=== PATIENT | female | born 1955 | race Caucasian/White ===

== ENCOUNTER 2020-06-12 07:40 | Outpatient (CLI) | payer BC, SELFPAY ==
--- NOTE | ~2020-06-12 | MR_ITS ---
EXAMINATION: MR lumbar spine wo con, MR sacrum wo con DATE: 06/12/2020 09:31 INDICATION: Chronic low back and coccygeal pain. TECHNIQUE: 1. Magnetic resonance imaging (MRI) of the lumbar spine was performed without intravenous contrast. S equences included sagittal T2-weighted FSE, sagittal T2-weighted FS FSE, sagittal T1-weighted FSE, an d axial T2-weighted FSE. 2. MRI of the sacrum and coccyx was performed without intravenous contrast. Sequences included sagitt al pD-weighted FS FSE, oblique axial and oblique coronal T1-weighted FSE and T2-weighted FS FSE and obli que coronal T2-weighted FSE. COMPARISON: CT abdomen and pelvis dated 09/17/2016 FINDINGS: Mild lumbar levocurvature. Sagittal alignment is normal. Vertebral body heights are normal. Normal m arrow signal throughout the lumbar spine, sacrum, coccyx and visualized pelvis. Specifically no fract ure, reactive edema or erosions. Disc heights are normal. The conus medullaris terminates at L1. Ther e is normal signal in the caudal spinal cord. Paravertebral soft tissues are unremarkable. The uterus is not identified and has likely been surgically resected. Soft tissues surrounding the sacrum and c occyx are unremarkable. The following disc levels are specifically discussed: T12-L1: Disc is minimally bulging. There is no facet joint osteoarthritis. There is no neural foramin al stenosis. There is no central canal stenosis. L1-L2: Disc is mildly bulging. There is mild left and minimal right facet joint osteoarthritis. There is no neural foraminal stenosis. There is minimal central canal stenosis. L2-L3: The disc does not extend beyond the endplate margin. There is mild bilateral facet joint osteo arthritis. There is no neural foraminal stenosis. There is no central canal stenosis. L3-L4: Disc is mildly bulging. There is minimal bilateral facet joint osteoarthritis. There is no aleah ral foraminal stenosis. There is no central canal stenosis. L4-L5: Disc is mildly bulging. There is moderate bilateral facet joint osteoarthritis. There is mild right and moderate left neural foraminal stenosis. There is mild central canal stenosis. L5-S1: The disc does not extend beyond the endplate margin. There is moderate bilateral facet joint o steoarthritis. There is no neural foraminal stenosis. There is no central canal stenosis. IMPRESSION: 1. Mild lumbar spondylosis. No acute osseous abnormality. 2. Normal sacrum and coccyx. Reviewed, dictated and finalized at [facility] IMPRESSION: 1. Mild lumbar spondylosis. No acute osseous abnormality. 2. Normal sacrum and coccyx.
== END 2020-06-12 07:41 | disposition home or self-care (01) ==
LOC: ANHIMG 07:48
PROVIDERS: PCP Internal Medicine; Visit Provider Orthopaedic Surgery
DX: M47.896 Other spondylosis, lumbar region (principal)
CPT/HCPCS: 72148; 72195

== ENCOUNTER 2021-03-05 01:35 | Day surgery (SDC) | payer MEDICARE, SELFPAY ==
[2021-02-26 12:04] VITALS: BMI 31.0
[2021-03-05 08:35] VITALS: BP 148/89; PULSE 77; RESP 18; TEMP 36.2; O2SAT 99; BMI 31.4
[2021-03-05] MEDS: LACTATED RINGERS 1,000 ML 150 ML IV CONT (08:47)
[2021-03-05 08:49] LABS: Glucose Point of Care 194 mg/dl (65-105)
--- NOTE | 2021-03-05 09:08 | P.CONGI_ITS ---
Assessment and Plan Assessment and plan (1) Encounter for screening colonoscopy: Code(s): Z12.11 - Encounter for screening for malignant neoplasm of colon Status: Acute Assessment and Plan: Patient appears to be at average risk for colon polyps. Is been some time since last exam. Plan is for screening colonoscopy at this time. (2) GERD (gastroesophageal reflux disease): Code(s): K21.9 - Gastro-esophageal reflux disease without esophagitis Status: Acute Assessment and Plan: Patient has a history of ongoing acid reflux disease. Currently appears to be poorly responsive to omeprazole 20mg p.o. daily. Plan to increase omeprazole 20mg p.o. b.i.d.. She should continue anti-reflux measures including elevating head of bed at night no late snacks and bland foods. Plan is for follow-up EGD to be scheduled electively. GI Consult Note Consult date/time: 03/05/21 09:08 HPI: Savannah Portillo is a 66 year old female Presents for screening colonoscopy. Patient reports that her current weight appetite bowel movements are normal. She denies abdominal pain. She has had no bleeding. Her last colonoscopy was more than 10 years ago. Family history is noncontributory. Patient does have an underlying history of GE reflux disease. She takes Prilosec 20mg p.o. daily. Patient reports that she will have regurgitation f requently upon bending over. She has begun to have more significant heartburn. She denies any bleeding weight loss. Review of Systems Review of Systems: All systems reviewed & are unremarkable except as noted in HPI and below [facility] Family History Family History (Updated 01/31/16 @ 23:19 by DOCTOR UNKNOWN) Father Hypertension Mother Hypertension Family history of diabetes mellitus in first degree relative Sibling Hypertension Other Diabetes mellitus Family history of allergic disorder Family history of heart disease in male family member before age 55 Social History Social History Smoking status: Never smoker Alcohol intake: never Substance use: never Substance use type: does not use Living arrangements: with family Spiritual care concerns: No Meds Home Medications and Allergies Home Medications Medication Instructions Recorded Confirmed Type atorvastatin [Lipitor] 40 mg PO HS 02/26/21 02/26/21 History glimepiride 2 mg PO DAILY 02/26/21 02/26/21 History omeprazole magnesium [Prilosec OTC] 20 mg PO DAILY 02/26/21 02/26/21 History venlafaxine 150 mg PO DAILY 02/26/21 02/26/21 History Allergies Allergy/AdvReac Type Severity Reaction Status Date / Time No Known Allergies Allergy Verified 03/05/21 08:34 Vital Signs Vital Signs - 24 hr 03/05/21 08:35 Temperature 97.2 F L Pulse Rate 77 Respiratory Rate 18 Blood Pressure 148/89 H Pulse Oximetry 99 Exam Narrative: Physical exam reveals patient be alert. Vital signs stable. HEENT exam is unremarkable. Lungs are clear to auscultation and percussion. Heart is without murmur or extra sounds. Abdominal exam bowel sounds are present soft nontender with no organomegaly. Digital external rectal exam is normal.
--- NOTE | 2021-03-05 09:18 | WPDANESEPPF ---
Anes - Initial Pre Proc Eval Procedure: Operation Date: 03/05/21 09:15 Proposed Procedures p Screening Colonoscopy - Holden Mchugh MD Date/Time: 03/05/21 09:18 Surgeon: Holden Mchugh MD Pre Op Diagnosis: neoplasm screening Z12.11 Patient Data Age: 66 Gender: F Height: 1.57 m Weight: 78.1 kg Last Vital Signs Temp 97.2 F L 03/05/21 08:35 Pulse 77 03/05/21 08:35 Resp 18 03/05/21 08:35 BP 148/89 H 03/05/21 08:35 Pulse Ox 99 03/05/21 08:35 Allergies Allergy/AdvReac Type Severity Reaction Status Date / Time No Known Allergies Allergy Verified 03/05/21 08:34 Home Medications Medication Instructions Recorded Confirmed Type atorvastatin [Lipitor] 40 mg PO HS 02/26/21 02/26/21 History glimepiride 2 mg PO DAILY 02/26/21 02/26/21 History omeprazole magnesium [Prilosec OTC] 20 mg PO DAILY 02/26/21 02/26/21 History venlafaxine 150 mg PO DAILY 02/26/21 02/26/21 History Laboratory Tests 03/05/21 08:45 POC Capillary Glucose 194 mg/dl H mg/dl (65-105) Patient hx anesthesia problems: none Family hx anesthesia problems: none [facility] Family History Family History (Updated 01/31/16 @ 23:19 by DOCTOR UNKNOWN) Father Hypertension Mother Hypertension Family history of diabetes mellitus in first degree relative Sibling Hypertension Other Diabetes mellitus Family history of allergic disorder Family history of heart disease in male family member before age 55 Social History Social History Smoking status: Never smoker Alcohol intake: never Substance use: never Substance use type: does not use Living arrangements: with family Spiritual care concerns: No Anes - Eval Final PreProcedure Day of Procedure 03/05/21 09:18 Patient weight: obese Heart: regular rate and rhythm Lungs: clear to auscultation Airway: Mallampati scale class II Neurological: alert and oriented Last oral intake: >/= 8 hours ASA classification: III Emergent: no Anesthetic plan: proceed Anesthesia type and monitoring: general GIVS and standard monitoring Informed Consent: The patient's anesthetic plan and its attendant risks and benefits were discussed with the patient/family/POA. Questions were solicited and answers provided to the satisfaction of the patient/family/POA.
[2021-03-05 09:41] VITALS: BP 144/84; PULSE 76; RESP 18; O2SAT 97
[2021-03-05 09:51] VITALS: BP 140/86; PULSE 66; RESP 18; O2SAT 98
[2021-03-05 10:01] VITALS: BP 145/87; PULSE 66; RESP 18; O2SAT 100
== END 2021-03-05 11:20 | disposition home or self-care (01) ==
PROVIDERS: PCP Physician Assistant; Visit Provider Internal Medicine Gastroenterology
PROC: 0DJD8ZZ Inspection of Lower Intestinal Tract, Via Natural or Artificial Opening Endoscopic (ICD-10-PCS; CPT 45378; principal; 2021-03-05 09:15)
DX: Z12.11 Encounter for screening for malignant neoplasm of colon (principal); K57.30 Diverticulosis of large intestine without perforation or abscess without bleeding; K21.9 Gastro-esophageal reflux disease without esophagitis; Z79.84 Long term (current) use of oral hypoglycemic drugs; E66.9 Obesity, unspecified; Z68.31 Body mass index [BMI] 31.0-31.9, adult
CPT/HCPCS: G0121; 82948; J2704; J7120

== ENCOUNTER 2021-04-23 01:02 | Day surgery (SDC) | payer MEDICARE, SELFPAY ==
[2021-04-09 11:42] VITALS: BMI 31.1
--- NOTE | 2021-04-22 10:13 | WPDANESEPPF ---
Anes - Initial Pre Proc Eval Procedure: Operation Date: 04/23/21 09:30 Proposed Procedures p Esophagogastroduodenoscopy - Holden Mchugh MD Date/Time: 04/22/21 10:13 Surgeon: Holden Mchugh MD Pre Op Diagnosis: GERD Patient Data Age: 66 Gender: F Height: 1.57 m Weight: 77.2 kg Allergies Allergy/AdvReac Type Severity Reaction Status Date / Time No Known Allergies Allergy Verified 04/23/21 08:52 Home Medications Medication Instructions Recorded Confirmed Type atorvastatin [Lipitor] 40 mg PO HS 02/26/21 04/23/21 History glimepiride 2 mg PO DAILY 02/26/21 04/23/21 History omeprazole magnesium [Prilosec OTC] 20 mg PO DAILY 02/26/21 04/23/21 History venlafaxine 150 mg PO DAILY 02/26/21 04/23/21 History Patient hx anesthesia problems: none Family hx anesthesia problems: none Results Review: All pre-operative results and documents have been reviewed as part of the pre-operative evaluation. [facility] Past Medical History Medical History (Updated 04/22/21 @ 10:14 by Uli Ward DO) Anxiety Depression Diabetes type 2, controlled GERD (gastroesophageal reflux disease) Hyperlipidemia PONV (postoperative nausea and vomiting) Surgical History Surgical History (Updated 04/22/21 @ 10:14 by Uli Ward DO) History of appendectomy History of cholecystectomy History of hysterectomy Family History Family History (Updated 01/31/16 @ 23:19 by DOCTOR UNKNOWN) Father Hypertension Mother Hypertension Family history of diabetes mellitus in first degree relative Sibling Hypertension Other Diabetes mellitus Family history of allergic disorder Family history of heart disease in male family member before age 55 Social History Social History Smoking status: Never smoker Alcohol intake: never Substance use: never Substance use type: does not use Living arrangements: with family Additional living arrangements comments: lives with spouse Spiritual care concerns: No Anes - Eval Final PreProcedure Day of Procedure 04/22/21 10:13 Patient weight: obese Heart: regular rate and rhythm Lungs: clear to auscultation and normal air movement Airway: Mallampati scale class II Neurological: alert and oriented Last oral intake: >/= 8 hours ASA classification: III Emergent: no Anesthetic plan: proceed Anesthesia type and monitoring: general GIVS and standard monitoring Results Review: All pre-operative results and documents have been reviewed as part of the pre-operative evaluation. Informed Consent: The patient's anesthetic plan and its attendant risks and benefits were discussed with the patient/family/POA. Questions were solicited and answers provided to the satisfaction of the patient/family/POA.
[2021-04-23 08:52] LABS: Glucose Point of Care 131 mg/dl (65-105)
[2021-04-23 08:54] VITALS: BP 153/78; PULSE 64; RESP 16; TEMP 36.5; O2SAT 100
[2021-04-23] MEDS: LACTATED RINGERS 1,000 ML 150 ML IV CONT (08:56)
--- NOTE | 2021-04-23 09:27 | WPDGICN ---
Assessment and Plan Assessment and plan (1) GERD (gastroesophageal reflux disease): Code(s): K21.9 - Gastro-esophageal reflux disease without esophagitis Status: Acute Assessment and Plan: Patient with chronic GE reflux disease poorly responsive to omeprazole 20mg p.o. daily. Plan is for EGD to assess more thoroughly today. Further recommendations will be given after endoscopy. GI Consult Note Consult date/time: 04/23/21 09:27 HPI: Savannah Portillo is a 66 year old female Presents for EGD. Patient has a history of chronic GE reflux disease. Previously on pantoprazole. This was discontinued by her insurance company. She has been on omeprazole 20mg p.o. daily but has ongoing symptoms. She states pain will occur in the upper abdominal and left abdomen after eating. Typically pain is burning sometimes aching. Most often this occurs after eating. This has persisted despite medications along with anti-reflux measures that include elevating head of bed at night. She denies any bleeding or dysphagia. She presents today for EGD because of chronic GE reflux and ongoing symptoms. Review of Systems Review of Systems: All systems reviewed & are unremarkable except as noted in HPI and below [facility] Past Medical History Medical History (Updated 04/22/21 @ 10:14 by Uli Ward DO) Anxiety Depression Diabetes type 2, controlled GERD (gastroesophageal reflux disease) Hyperlipidemia PONV (postoperative nausea and vomiting) Surgical History Surgical History (Updated 04/22/21 @ 10:14 by Uli Ward DO) History of appendectomy History of cholecystectomy History of hysterectomy Family History Family History (Updated 01/31/16 @ 23:19 by DOCTOR UNKNOWN) Father Hypertension Mother Hypertension Family history of diabetes mellitus in first degree relative Sibling Hypertension Other Diabetes mellitus Family history of allergic disorder Family history of heart disease in male family member before age 55 Social History Social History Smoking status: Never smoker Alcohol intake: never Substance use: never Substance use type: does not use Living arrangements: with family Additional living arrangements comments: lives with spouse Spiritual care concerns: No Meds Home Medications and Allergies Home Medications Medication Instructions Recorded Confirmed Type atorvastatin [Lipitor] 40 mg PO HS 02/26/21 04/23/21 History glimepiride 2 mg PO DAILY 02/26/21 04/23/21 History omeprazole magnesium [Prilosec OTC] 20 mg PO DAILY 02/26/21 04/23/21 History venlafaxine 150 mg PO DAILY 02/26/21 04/23/21 History Allergies Allergy/AdvReac Type Severity Reaction Status Date / Time No Known Allergies Allergy Verified 04/23/21 08:52 Vital Signs Vital Signs - 24 hr 04/23/21 08:54 Temperature 97.7 F Pulse Rate 64 Respiratory Rate 16 Blood Pressure 153/78 H Pulse Oximetry 100 Exam Narrative: Physical exam reveals patient to be alert. Vital signs stable. HEENT exam is unremarkable. Patient is anicteric. Lungs are clear to auscultation and percussion. Heart is without murmur or extra sounds. Abdominal exam bowel sounds are present soft nontender with no organomegaly. Digital external rectal exam is normal.
[2021-04-23 09:45] VITALS: BP 159/90; PULSE 81; RESP 20; O2SAT 100
[2021-04-23 09:55] VITALS: BP 155/93; PULSE 74; RESP 20; O2SAT 100
[2021-04-23 10:05] VITALS: BP 165/79; PULSE 68; RESP 17; O2SAT 98
== END 2021-04-23 10:17 | disposition home or self-care (01) ==
PROVIDERS: PCP Physician Assistant; Visit Provider Internal Medicine Gastroenterology
PROC: 0DJ08ZZ Inspection of Upper Intestinal Tract, Via Natural or Artificial Opening Endoscopic (ICD-10-PCS; CPT 43235; principal; 2021-04-23 09:30)
DX: K25.3 Acute gastric ulcer without hemorrhage or perforation (principal); K29.50 Unspecified chronic gastritis without bleeding; K21.9 Gastro-esophageal reflux disease without esophagitis; E11.9 Type 2 diabetes mellitus without complications; E78.5 Hyperlipidemia, unspecified; F41.8 Other specified anxiety disorders; E66.9 Obesity, unspecified; Z68.32 Body mass index [BMI] 32.0-32.9, adult
CPT/HCPCS: 43239; 82948; 88305; 88342; J2001; J2704; J7120

== ENCOUNTER 2021-07-02 00:55 | Day surgery (SDC) | payer MEDICARE, SELFPAY ==
[2021-06-18 11:20] VITALS: BMI 31.6
[2021-07-02 08:29] VITALS: BP 156/83; PULSE 75; RESP 18; TEMP 36.3; O2SAT 98
[2021-07-02 08:29] LABS: Glucose Point of Care 135 mg/dl (65-105)
[2021-07-02] MEDS: LACTATED RINGERS 1,000 ML 150 ML IV CONT (08:31)
--- NOTE | 2021-07-02 09:05 | WPDGICN ---
Assessment and Plan Assessment and plan (1) Gastric ulcer: Code(s): K25.9 - Gastric ulcer, unspecified as acute or chronic, without hemorrhage or perforation Status: Acute Assessment and Plan: Patient was found to have gastric ulcer 2 months ago. She presents today to document healing. Currently on omeprazole 40mg p.o. b.i.d.. Anti-reflux measures should continue. Further recommendations after endoscopy. Continue to avoid NSAIDs. (2) GERD (gastroesophageal reflux disease): Code(s): K21.9 - Gastro-esophageal reflux disease without esophagitis Status: Acute Assessment and Plan: Patient with chronic GE reflux. Continue anti-reflux measures and PPI as scheduled. GI Consult Note Consult date/time: 07/02/21 09:05 HPI: Savannah Portillo is a 66 year old female Presents for EGD. Patient identified as having a gastric ulcer 2 months ago. She currently is maintained on omeprazole 40mg p.o. b.i.d.. She currently denies any heartburn. She has no abdominal discomfort. She is tolerating the mouth medicine well. In the past was previously felt to have acid reflux. Has had no recent heartburn. Review of Systems Review of Systems: All systems reviewed & are unremarkable except as noted in HPI and below [facility] Past Medical History Medical History (Updated 07/02/21 @ 09:06 by Holden Mchugh MD) Anxiety Depression Diabetes type 2, controlled GERD (gastroesophageal reflux disease) Hyperlipidemia PONV (postoperative nausea and vomiting) Surgical History Surgical History (Updated 04/22/21 @ 10:14 by Uli Ward DO) History of appendectomy History of cholecystectomy History of hysterectomy Family History Family History (Updated 01/31/16 @ 23:19 by DOCTOR UNKNOWN) Father Hypertension Mother Hypertension Family history of diabetes mellitus in first degree relative Sibling Hypertension Other Diabetes mellitus Family history of allergic disorder Family history of heart disease in male family member before age 55 Social History Social History Smoking status: Never smoker Alcohol intake: never Substance use: never Substance use type: does not use Living arrangements: with family Additional living arrangements comments: lives with spouse Spiritual care concerns: No Meds Home Medications and Allergies Home Medications Medication Instructions Recorded Confirmed Type atorvastatin [Lipitor] 40 mg PO HS 02/26/21 07/02/21 History glimepiride 2 mg PO DAILY 02/26/21 07/02/21 History omeprazole magnesium [Prilosec OTC] 20 mg PO DAILY 02/26/21 07/02/21 History venlafaxine 150 mg PO DAILY 02/26/21 07/02/21 History Allergies Allergy/AdvReac Type Severity Reaction Status Date / Time No Known Allergies Allergy Verified 07/02/21 08:28 Vital Signs Vital Signs - 24 hr 07/02/21 08:29 Temperature 97.4 F L Pulse Rate 75 Respiratory Rate 18 Blood Pressure 156/83 H Pulse Oximetry 98 Exam Narrative: Physical exam reveals patient to be alert. Vital signs stable. HEENT exam is unremarkable. Patient is anicteric. Lungs are clear to auscultation and to percussion. Heart is without murmur or extra sounds. Abdominal exam bowel sounds are present soft nontender with no hepatosplenomegaly. Digital external rectal exam is normal.
--- NOTE | 2021-07-02 09:17 | P.PNAN_ITS ---
Anes - Initial Pre Proc Eval Procedure: Operation Date: 07/02/21 09:30 Proposed Procedures p Esophagogastroduodenoscopy - Holden Mchugh MD Date/Time: 07/02/21 09:17 Surgeon: Holden Mchugh MD Pre Op Diagnosis: epigastric pain Patient Data Age: 66 Gender: F Height: 1.56 m Weight: 77.6 kg Last Vital Signs Temp 36.3 C L 07/02/21 08:29 Pulse 75 07/02/21 08:29 Resp 18 07/02/21 08:29 BP 156/83 H 07/02/21 08:29 Pulse Ox 98 07/02/21 08:29 Allergies Allergy/AdvReac Type Severity Reaction Status Date / Time No Known Allergies Allergy Verified 07/02/21 08:28 Home Medications Medication Instructions Recorded Confirmed Type atorvastatin [Lipitor] 40 mg PO HS 02/26/21 07/02/21 History glimepiride 2 mg PO DAILY 02/26/21 07/02/21 History omeprazole magnesium [Prilosec OTC] 20 mg PO DAILY 02/26/21 07/02/21 History venlafaxine 150 mg PO DAILY 02/26/21 07/02/21 History Laboratory Tests 07/02/21 08:24 POC Capillary Glucose 135 mg/dl H mg/dl (65-105) Patient hx anesthesia problems: none Family hx anesthesia problems: none Results Review: All pre-operative results and documents have been reviewed as part of the pre-operative evaluation. [facility] Past Medical History Medical History Anxiety Depression Diabetes type 2, controlled GERD (gastroesophageal reflux disease) Hyperlipidemia PONV (postoperative nausea and vomiting) Surgical History Surgical History History of appendectomy History of cholecystectomy History of hysterectomy Family History Family History Father Hypertension Mother Hypertension Family history of diabetes mellitus in first degree relative Sibling Hypertension Other Diabetes mellitus Family history of allergic disorder Family history of heart disease in male family member before age 55 Social History Social History Smoking status: Never smoker Alcohol intake: never Substance use: never Substance use type: does not use Living arrangements: with family Additional living arrangements comments: lives with spouse Spiritual care concerns: No Anes - Eval Final PreProcedure Day of Procedure 07/02/21 09:17 Patient weight: obese Heart: regular rate and rhythm Lungs: clear to auscultation Airway: Mallampati scale class II Neurological: alert and oriented Last oral intake: >/= 8 hours ASA classification: III Emergent: no Anesthetic plan: proceed Anesthesia type and monitoring: general GIVS and standard monitoring Results Review: All pre-operative results and documents have been reviewed as part of the pre-operative evaluation. Informed Consent: The patient's anesthetic plan and its attendant risks and benefits were discussed with the patient/family/POA. Questions were solicited and answers provided to the satisfaction of the patient/family/POA.
[2021-07-02 10:07] VITALS: BP 147/82; PULSE 73; RESP 22; O2SAT 100
[2021-07-02 10:17] VITALS: BP 160/87; PULSE 65; RESP 22; O2SAT 100
[2021-07-02 10:27] VITALS: BP 157/90; PULSE 61; RESP 13; O2SAT 100
== END 2021-07-02 10:40 | disposition home or self-care (01) ==
PROVIDERS: PCP Physician Assistant; Visit Provider Internal Medicine Gastroenterology
PROC: 0DJ08ZZ Inspection of Upper Intestinal Tract, Via Natural or Artificial Opening Endoscopic (ICD-10-PCS; CPT 43235; principal; 2021-07-02 09:30)
DX: K25.3 Acute gastric ulcer without hemorrhage or perforation (principal); K29.50 Unspecified chronic gastritis without bleeding; K21.9 Gastro-esophageal reflux disease without esophagitis; E11.9 Type 2 diabetes mellitus without complications; E78.5 Hyperlipidemia, unspecified; F41.9 Anxiety disorder, unspecified; F32.A Depression, unspecified; Z90.49 Acquired absence of other specified parts of digestive tract
CPT/HCPCS: 43239; 82948; 87081; 88305; 88342; J2704; J7120

== ENCOUNTER 2021-10-20 00:28 | Day surgery (SDC) | payer MEDICARE, SELFPAY ==
[2021-10-06 09:01] VITALS: BMI 31.0
[2021-10-20 09:25] VITALS: BP 163/76; PULSE 64; RESP 20; TEMP 36.5; O2SAT 97; BMI 31.6
--- NOTE | 2021-10-20 09:37 | WPDGICN ---
Assessment and Plan Assessment and plan (1) Gastric ulcer: Code(s): K25.9 - Gastric ulcer, unspecified as acute or chronic, without hemorrhage or perforation Status: Acute Assessment and Plan: patient has a history of a poorly healing gastric ulcer. Patient presents today for follow-up EGD to document healing. She has been maintained on Prilosec the dose of which is somewhat uncertain she has been avoiding NSAIDs. Previous use of Carafate apparently has been discontinued. Further recommendations will be given after endoscopy. GI Consult Note Consult date/time: 10/20/21 09:37 HPI: Savannah Portillo is a 66 year old female Presents for EGD. She has a history of a poorly healing gastric ulcer. Most recent EGD in June revealed that the ulcer persisted. Since that time she has been maintained on pantoprazole 40mg p.o. daily supplement with Carafate 1g p.o. q.i.d.. She currently denies any pain. She has had no bleeding. She has been avoiding NSAIDs. She presents today for follow-up EGD. To document healing. Review of Systems Review of Systems: All systems reviewed & are unremarkable except as noted in HPI and below [facility] Past Medical History Medical History Anxiety Depression Diabetes type 2, controlled GERD (gastroesophageal reflux disease) Hyperlipidemia PONV (postoperative nausea and vomiting) Surgical History Surgical History History of appendectomy History of cholecystectomy History of hysterectomy Family History Family History Father Hypertension Mother Hypertension Family history of diabetes mellitus in first degree relative Sibling Hypertension Other Diabetes mellitus Family history of allergic disorder Family history of heart disease in male family member before age 55 Social History Social History Smoking status: Never smoker Alcohol intake: never Substance use: never Substance use type: does not use Living arrangements: with family Additional living arrangements comments: lives with spouse Spiritual care concerns: No Meds Home Medications and Allergies Home Medications Medication Instructions Recorded Confirmed Type atorvastatin [Lipitor] 40 mg PO HS 02/26/21 10/06/21 History glimepiride 2 mg PO BID 02/26/21 10/06/21 History omeprazole magnesium [Prilosec OTC] 20 mg PO DAILY 02/26/21 10/06/21 History venlafaxine 150 mg PO DAILY 02/26/21 10/06/21 History Allergies Allergy/AdvReac Type Severity Reaction Status Date / Time No Known Allergies Allergy Verified 10/20/21 09:24 Vital Signs Vital Signs - 24 hr 10/20/21 09:25 Temperature 97.7 F Pulse Rate 64 Respiratory Rate 20 Blood Pressure 163/76 H Pulse Oximetry 97 Exam Narrative: physical exam reveals patient to be alert. Vital signs stable. HEENT exam is unremarkable. Patient is anicteric. Lungs are clear to auscultation and percussion. Heart is without murmur or extra sounds. Abdomen bowel sounds are present soft nontender with no organomegaly.
[2021-10-20] MEDS: LACTATED RINGERS 1,000 ML 150 ML IV CONT (09:44)
[2021-10-20 09:49] LABS: Glucose Point of Care 147 mg/dl (65-105)
--- NOTE | 2021-10-20 09:55 | P.PNAN_ITS ---
Anes - Initial Pre Proc Eval Procedure: Operation Date: 10/20/21 10:00 Proposed Procedures p Esophagogastroduodenoscopy - Holden Mchugh MD Date/Time: 10/20/21 09:55 Surgeon: Holden Mchugh MD Pre Op Diagnosis: gastric ulcer Patient Data Age: 66 Gender: F Height: 1.57 m Weight: 78.6 kg Last Vital Signs Temp 36.5 C 10/20/21 09:25 Pulse 64 10/20/21 09:25 Resp 20 10/20/21 09:25 BP 163/76 H 10/20/21 09:25 Pulse Ox 97 10/20/21 09:25 Allergies Allergy/AdvReac Type Severity Reaction Status Date / Time No Known Allergies Allergy Verified 10/20/21 09:24 Home Medications Medication Instructions Recorded Confirmed Type atorvastatin [Lipitor] 40 mg PO HS 02/26/21 10/06/21 History glimepiride 2 mg PO BID 02/26/21 10/06/21 History omeprazole magnesium [Prilosec OTC] 20 mg PO DAILY 02/26/21 10/06/21 History venlafaxine 150 mg PO DAILY 02/26/21 10/06/21 History Laboratory Tests 10/20/21 09:43 POC Capillary Glucose 147 mg/dl H mg/dl (65-105) Patient hx anesthesia problems: none Family hx anesthesia problems: none Results Review: All pre-operative results and documents have been reviewed as part of the pre-operative evaluation. [facility] Past Medical History Medical History Anxiety Depression Diabetes type 2, controlled GERD (gastroesophageal reflux disease) Hyperlipidemia PONV (postoperative nausea and vomiting) Surgical History Surgical History History of appendectomy History of cholecystectomy History of hysterectomy Family History Family History Father Hypertension Mother Hypertension Family history of diabetes mellitus in first degree relative Sibling Hypertension Other Diabetes mellitus Family history of allergic disorder Family history of heart disease in male family member before age 55 Social History Social History Smoking status: Never smoker Alcohol intake: never Substance use: never Substance use type: does not use Living arrangements: with family Additional living arrangements comments: lives with spouse Spiritual care concerns: No Anes - Eval Final PreProcedure Day of Procedure 10/20/21 09:55 Patient weight: obese Heart: regular rate and rhythm Lungs: clear to auscultation Airway: Mallampati scale class II Neurological: alert and oriented Last oral intake: >/= 8 hours ASA classification: III Emergent: no Anesthetic plan: proceed Anesthesia type and monitoring: general GIVS and standard monitoring Results Review: All pre-operative results and documents have been reviewed as part of the pre-operative evaluation. Informed Consent: The patient's anesthetic plan and its attendant risks and benefits were discussed with the patient/family/POA. Questions were solicited and answers provided to the satisfaction of the patient/family/POA.
--- NOTE | 2021-10-20 09:59 | PC.NURSE ---
pt has brace to R wrist from previous surgery. 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
[2021-10-20 10:21] VITALS: BP 134/80; PULSE 71; RESP 20; O2SAT 97
[2021-10-20 10:31] VITALS: BP 154/78; PULSE 65; RESP 20; O2SAT 98
[2021-10-20 10:41] VITALS: BP 153/89; PULSE 66; RESP 22; O2SAT 98
== END 2021-10-20 10:48 | disposition home or self-care (01) ==
PROVIDERS: PCP Physician Assistant; Visit Provider Internal Medicine Gastroenterology
PROC: 0DJ08ZZ Inspection of Upper Intestinal Tract, Via Natural or Artificial Opening Endoscopic (ICD-10-PCS; CPT 43235; principal; 2021-10-20 10:00)
DX: K25.3 Acute gastric ulcer without hemorrhage or perforation (principal); K21.9 Gastro-esophageal reflux disease without esophagitis; E11.9 Type 2 diabetes mellitus without complications; E78.5 Hyperlipidemia, unspecified; F41.8 Other specified anxiety disorders; Z79.84 Long term (current) use of oral hypoglycemic drugs; E66.9 Obesity, unspecified; Z68.31 Body mass index [BMI] 31.0-31.9, adult
CPT/HCPCS: 43239; 82948; 87081; 88305; 88342; J2704; J7120

== ENCOUNTER 2024-06-11 09:19 | Outpatient (CLI) | payer MEDICARE, SELFPAY ==
--- NOTE | ~2024-06-11 | MR_ITS ---
MRI of the right shoulder Technique: Axial proton-density fat-sat images, coronal proton density fat-sat and T2 fat-sat images, and sagittal T1-weighted and T2 fat-sat images were acquired. Clinical History: Pain Findings: There is mild AC joint degenerative change. Coracoclavicular, coracoacromial, and coracohum eral ligaments are intact. Supraspinatus and infraspinatus tendons are intact, without partial or full-thickness tear. There is moderate to advanced tendinosis. Subscapularis tendon is intact, with mild tendinosis. Tendon of the long head of the biceps is intact. No labral tear evident. Inferior glenohumeral ligament is intact. No degenerative change or effusion of the glenohumeral join t. There is mild fluid distention of the subacromial/subdeltoid bursa. No muscle atrophy or edema. Impression: Rotator cuff tendinosis without partial or full-thickness tear. Subacromial/subdeltoid bursitis. Mild AC joint degenerative change. Reviewed, dictated and finalized at [facility]. RONMENTAL COMPLIANCE SPECIALIST Impression: Rotator cuff tendinosis without partial or full-thickness tear. Subacromial/subdeltoid bursitis. Mild AC joint degenerative change.
== END 2024-06-11 09:20 | disposition home or self-care (01) ==
PROVIDERS: PCP Physician Assistant; Visit Provider Orthopaedic Surgery
DX: M19.011 Primary osteoarthritis, right shoulder (principal)
CPT/HCPCS: 73221

== ENCOUNTER 2024-08-29 12:55 | Outpatient (CLI) | payer MEDICARE, SELFPAY ==
--- NOTE | ~2024-08-29 | XR_ITS ---
EXAMINATION: XR lg joint inject/asp w image DATE: 08/29/2024 14:25 INDICATION: Right shoulder pain. TECHNIQUE: A time-out was performed to verify the patient's name, date of , and procedure to b e performed. The procedure including the risks, benefits, and alternatives was discussed with the pat ient. Risks discussed included bleeding and infection. The patient understood the risks and agreed to proceed. The skin overlying the right glenohumeral joint was prepped and draped in usual sterile fa shion. Anesthetic was administered with 1% lidocaine subcutaneously. A 22 G needle was advanced und er fluoroscopic guidance into the joint. Subsequently, injectate consisting of 4 mL 1% lidocaine and 1 mL 80 mg/mL Depo-Medrol was instilled. The needle was removed and the entry site was cleaned and dressed. There were no immediate complications. Fluoroscopy exposure time was 0.1 minutes. The total number of images was 1. FINDINGS: Real-time fluoroscopy demonstrates the needle in the right glenohumeral joint. Patient's pa in prior to procedure:11/11. Patient's pain following the procedure: 09/11. IMPRESSION: 1. Fluoroscopy guided right glenohumeral joint injection of local anesthetic and steroid with decreas e in the patient's presenting pain. Reviewed, dictated and finalized at location A. [facility] [employer]SPORTATION IMPRESSION: 1. Fluoroscopy guided right glenohumeral joint injection of local anesthetic an d steroid with decrease in the patient's presenting pain.
--- OUTSIDE RECORDS SUMMARY | 2024-08-29 14:37 | XMS_ITS | Patient Health Summary ---
Author Organization [facility] Address [address] [place] [address] Care Team Providers Care Fern Gatherer Name Role Phone Manisha Mann MD Primary Care Provider [phone] Note from [facility],non-owned Affiliates and Associated Physician Practices is amultiple site organization consisting of ambulatory clinics and hospital sitesin [place], [place], [place] and [place]. This disclosure is being madepursuant to the Care Everywhere program and may not contain all information available regarding this patient. Last updated 18.[facility] Social History Tobacco Use Types Packs/Day Years Used Date Smoking Tobacco: Never Assessed Sex and Gender Information Value Date Recorded Sex Assigned at Not on file Gender Identity Not on file Sexual Orientation Not on file Procedures * DERMATOPATHOLOGY(Performed 06/02/2023) * DERMATOPATHOLOGY(Performed 05/18/2022) Results * DERMATOPATHOLOGY (06/02/2023 2:26 PM BUILDING EQUIPMENT OPERATOR) Only the most recent of2 resultswithin the time period is included. Case Report Dermatopathology Report Case: [id number] Authorizing Provider: Angeli Basurto DO Collected: 06/02/2023 02:26 PM Ordering Location: [facility] DermPath Lab Received: 06/03/2023 01:12 PM Pathologist: Sofia Salazar MD Specimens: A) - Skin, right cheek B) - Skin, right low back 12:59 PM BUILDING EQUIPMENT OPERATOR DERMATOPATHOLOGY LABORATORY Final Diagnosis Specimen A. SKIN, right cheek: BASAL CELL CARCINOMA, NODULAR TYPE (C44.319) Specimen B. SKIN, right low back: NEUROFIBROMA, SUPERFICIAL PORTIONS OF (D36.10) (see microscopic description) 12:59 PM BUILDING EQUIPMENT OPERATOR DERMATOPATHOLOGY LABORATORY Clinical History A-B: R/O NMSC 3 12:59 PM [facility] DERMATOPATHOLOGY LABORATORY Gross Description Specimen A: Received is one formalin filled container labeled with the patient's name and designated right cheek. The specimen consists of a(2) pieces shave biopsy measuring 5x2x1, 4x2x1 mm. Jar 0. Specimen B: Received is one formalin filled container labeled with the patient's name and designated right low back. The specimen consists of a shave biopsy measuring 3x2x1 mm. Jar 0. 3 12:59 PM [facility] DERMATOPATHOLOGY LABORATORY Microscopic Description Specimen A. SKIN, right cheek: Within the dermis there are aggregates of basaloid cells with a high nuclear to cytoplasmic ratio and peripheral palisading. Specimen B. SKIN, right low back: Sections show superficial portions of a proliferation of spindled and S-shaped cells within the dermis. The stromal collagen is delicate and pale. Additional deeper sections were obtained and reviewed. 3 12:59 PM [facility] DERMATOPATHOLOGY LABORATORY Disclaimer An external and internal positive and negative controls are appropriate for the histochemical, immunohistochemical and immunofluorescence stain(s) in this case (if any), except where stated explicitly. The performance characteristics of the stain(s) cited in this report were developed and its performance characteristic determined by the Dermatopathology Laboratory at [facility], directed by Dr. Daniel Ahuja. These tests need not be, and therefore are not, approved by the [place] Food and Drug Administration. The tests are used for clinical purposes. Billing Codes Specimen Charges Stain Charges 74000 75908 1 1 3 12:59 PM [facility] DERMATOPATHOLOGY LABORATORY Embedded Images 3 12:59 PM [facility] DERMATOPATHOLOGY LABORATORY Pathology/Cytology TISSUE SPECIMEN FROM SKIN / Unknown 06/02/2023 2:26 PM BUILDING EQUIPMENT OPERATOR 06/03/2023 1:12 PM BUILDING EQUIPMENT OPERATOR Miscellaneous samples (specimen) TISSUE SPECIMEN FROM SKIN / Unknown 06/02/2023 2:26 PM BUILDING EQUIPMENT OPERATOR 06/03/2023 1:12 PM BUILDING EQUIPMENT OPERATOR Angeli Basurto DO LAB - PATHOLOGY/C YTOLOGY ORDERABLES DERMATOPATHOLOGY LABORATORY [facility] - Department of Dermatology [facility] [address] [place] [address], [facility] [phone] Care Teams Fern Gatherer Relationship Specialty Start Date End Date Manisha Mann MD [address] [place] [address] [phone] PCP - General 04/24/21
--- OUTSIDE RECORDS SUMMARY | 2024-08-29 14:37 | XMS_ITS | Clinical Summary ---
Author Organization [facility] Address [address] [place] [address] Care Team Providers Care Chief Estimator Name Role Phone Manisha Mann MD Primary Care Provider Source Comments [facility],non-owned Affiliates and Associated Physician Practices is amultiple site organization consisting of ambulatory clinics and hospital sitesin [place], [place], [place] and [place]. This disclosure is being madepursuant to the Care Everywhere program and may not contain all information available regarding this patient. Last updated 18.[facility] Datappraise Social History Tobacco Use Types Packs/Day Years Used Date Smoking Tobacco: Never Assessed Sex and Gender Information Value Date Recorded Sex Assigned at Not on file Gender Identity Not on file Sexual Orientation Not on file Plan of Treatment Health Maintenance Due Date Last Done Comments BONE DENSITY TESTING 1955 COLOGUARD (AGES 45-75) - COL ON CA SCREENING 1956 COLON MONITORING 1956 COLONOSCOPY - COLON CA SCREENING 1956 CT COLONOGRAPHY - COLON CA SCREENING 1956 Colorectal Cancer Screening 1956 FIT - COLON CA SCREENING 1956 FLEX SIG - COLON CA SCREENING 1956 LIPID TESTING 1956 MAMMOGRAM 1956 HEPATITIS C SCREENING 12/27/1973 DTAP/TDAP/TD VACCINES (1 - Tdap) 12/31/1974 PNEUMOCOCCAL VACCINE 50+ (1 of 1 - PCV) 12/31/2005 ZOSTER VACCINE (1 of 2) 12/31/2005 COVID-19 VACCINE ( - 2023-2 5 season) 2024 INFLUENZA VACCINE (#1) 2024 DEPRESSION SCREENING 07/05/2024 MEDICARE AWV CALENDAR YEAR 2024 Respiratory Syncytial Virus (RSV) Vaccine Pt: or over 60 yrs (1 - 1-dose 75+ series) 12/31/2030 HEPATITIS B VACCINE Aged Out No longe r eligible based on patient's age to complete this topic HIB VACCINE Aged Out No longer eligi ble based on patient's age to complete this topic HPV VACCINE Aged Out No longer eligi ble based on patient's age to complete this topic MENINGOCOCCAL (Group B) VACCINE Aged Out No longer eligible based on patient's age to complete this topic MENINGOCOCCAL VACCINE Aged Out No gilles sofia eligible based on patient's age to complete this topic Care Teams Chief Estimator Relationship Specialty Start Date End Date Manisha Mann MD [address] [place] [address] [phone] PCP - General 04/24/21
--- OUTSIDE RECORDS SUMMARY | 2024-08-29 14:37 | XMS_ITS | Data Portability ---
Author Organization [facility] ROXIELiz Price Address [address] [place] [address] Care Team Providers Care Credit Collections Clerk Name Role Phone BRITTNEY STEVENSON Primary Care Provider Unavailab le Assessment No assessment recorded. Plan of Treatment Reminders Order Date Submit Date Provider Last Modified By Organization Details Last Modified Time Details Appointments ANY 15 2024 10:30A M MARY Hernandez Not available Not available Not available Lab BMP, serum or plasma [address] [facility], [address], [place], [address], 06/22/2024 11:02:27 CBC w/ auto diff [address] [facility], [address], [place], [address], 06/22/2024 11:02:27 hepatic function panel, serum [address] [facility], [address], [place], [address], 06/22/2024 11:02:27 HbA1c (hemoglob in A1c), blood [address] Lab, [address], [place], [address], 06/22/2024 11:02:27 lipid panel, serum 2023 025 [email or web address] [facility] Lab, [address], [place], [address], 06/22/2024 11:02:27 BMP, serum or plasma 2023 024 [facility] Lab, [address], [place], [address], 06/19/2024 10:10:05 CBC w/ auto diff 2023 024 [facility] Lab, [address], [place], [address], 06/19/2024 10:15:11 hepatic function panel, serum 2023 024 [facility] Lab, [address], [place], [address], 06/19/2024 10:10:58 HbA1c (hemoglob in A1c), blood 2023 024 [facility] [place] Lab, [address], [place], [address], 06/19/2024 10:32:01 microalbu min, urine 2023 024 [facility] Lab, [address], [place], [address], 06/19/2024 12:46:44 lipid panel, serum 2023 024 [facility] Lab, [address], [place], [address], 06/19/2024 10:09:24 Referral None recorded. Procedures None recorded. Surgeries None recorded. Imaging None recorded. Medication Orders Trulicity 4.5 mg/0.5 mL subcutane ous pen injector 2023 024 [facility], [address], [place], [address], 06/22/2024 11:03:03 Trulicity 3 mg/0.5 mL subcutane ous pen injector [address] [facility], [address], [place], [address], 01/09/2024 10:47:46 Patient TargetsNo targets recorded. Patient Instructions Encounter Date Encounter Id Patient Instructions Last Modified By Organization Details Last Modified Time 06/22/2024 [id number] A healthy lifestyle: care instructions [place] [id number] Not available 06/22/2024 11:02:27 Reason for Referral None Reported. Results Created Date Observation Date Name Description Value Unit Range Abnormal Flag Note LastModifiedBy Organization Detail LastModifiedTime 06/12/2006/11/2024 MRI, shoul angel, w/o contr ast No observ ation record ed. [email or web address] [facility] [address], [place], [address], 06/12/2024 09:57:05 06/20/20 24 06/20/2024 MAMMO , scree randy, digit al, bilat eral No observ ation record ed. [address] [address] [place], [address], 06/22/2024 10:48:07 Result Notes None recorded. Problems Name Problem SNOMED Code Status Onset Date Resolution Date Notes Provider Name and Address Organization Details Recorded Time Type 2 diabetes mellitus without complicatio n 632639098 Active 2023 MARY Hernandez Attn: Ernesto vargas,[address] [facility], [place], [address], [facility] 10:53:30 Gastroesoph ageal reflux disease without esophagitis 107683132 Active 2023 MARY Hernandez Attn: Accountmikey g,[address] [facility], [place], [address], [facility] 4 10:53:31 Hyperlipide loren 74895418 Active 2023 MARY Hernandez Attn: Ernesto vargas,[address] [facility], [place], [address], [facility] 4 10:53:31 Mixed anxiety and depressive disorder 251395696 Active 2023 MARY Hernandez Attn: Accountin g,[address] [facility], [place], [address], [facility] 4 10:53:33 Long-term drug therapy Active 2023 MARY Hernandez Attn: Accountin g,[address] [facility], [place], [address], [facility] 4 10:53:33 Pain of left knee joint 0698230355106 07 Active 2023 MARY Hernandez Attn: Accountmikey g,[address] [facility], [place], [address], [facility] 4 10:53:45 Body mass index 25-29 - overweight 261460615 Active 2023 MARY Hernandez Attn: Accountmikey g,[address] [facility], [place], [address], [facility] 4 15:50:48 Problem Notes None recorded. Procedures Surgical History Date Name Laterality Status Provider Name and Address Organization Details Recorded Time Appendectomy completed Haley Banerjee MA [facility] 12/09/2023 15:45:33 Cholecystectomy completed Haley Banerjee MA [facility] 12/09/2023 15:45:46 Eye Surgery completed Haley Banerjee MA [facility] 12/09/2023 15:47:42 excision of bilateral fallopian tubes and ovaries completed Haley Banerjee MA [facility] 12/09/2023 15:47:49 D & c after delivery completed FAMILIA [facility] 12/09/2023 15:47:56 hysterectomy completed Haley Banerjee MA [facility] 12/09/2023 15:48:52 Imaging Results Imaging Date Name Status LastModified by Organiz ation Details LastModified Time 06/11/2024 MRI, shoulder, w/o contrast completed [address], [place], [address], 06/12/2024 09:57:05 06/20/2024 MAMMO, screening, digital, bilateral completed [address] [address] [facility] [place], [address], 06/22/2024 10:48:07 Procedure Notes None recorded. Medical Equipment None Reported. Allergies No known drug allergies Medications Name Sig Start Date Stop Date Status Note LastModified by Organization Details LastModified Time atorvastat in 20 mg tablet Take 1 tablet every day by oral route. active Not Available Not Available No t Available venlafaxin e ER 150 mg capsule,ex tended release 24 hr TAKE 1 CAPSULE BY MOUTH DAILY active Not Available Not Available No t Available omeprazole 40 mg capsule,de layed release Take by oral route for 30 days. active Not Available Not Available No t Available methylpred nisolone 4 mg tablets in a dose pack TAKE BY MOUTH DIRECTED ON INSIDE OF PACKAGE 06/22 completed Not Available Not Available Not Available clobetasol 0.05 % scalp solution active Not Available Not Available Not Available glipizide 5 mg tablet TAKE 1 TABLET BY MOUTH TWICE DAILY WITH MEALS 2023 active taking one daily. Not Available Not Available Not Available Trulicity 1.5 mg/0.5 mL subcutaneo us pen injector INJECT 1 SYRINGE SUBCUTAN EOUSLY ONCE A WEEK 05/26 completed Not Available Not Available Not Available Trulicity 3 mg/0.5 mL subcutaneo us pen injector INJECT 1 SYRINGE SUBCUTAN EOUSLY ONCE A WEEK DIRECTED active Not Available Not Available No t Available Trulicity 4.5 mg/0.5 mL subcutaneo us pen injector Inject 4.5 mg every week by subcutan eous route. active Not Available Not Available No t Available Vitals Date Recorded Body height Body mass index (BMI) Body weight Respiratory rate Oxygen saturation Oxygen saturation in Arterial blood by Pulse oximetry Heart rate Systolic blood pressure Diastolic blood pressure Provider Name and Address Organization Details Last Updated DateTime 4 160.02 cm 29.6 kg/m2 12919 g 20 /min 98 % 98 % 61 /min 130 mm[Hg] 72 mm[Hg] Haley Banerjee MA [facility] 10:42:01 Date Recorded Body height Body mass index (BMI) Body weight Oxygen saturation Oxygen saturation in Arterial blood by Pulse oximetry Heart rate Systolic blood pressure Diastolic blood pressure Provider Name and Address Organization Details Last Updated DateTime 4 160.02 cm 29.6 kg/m2 03305.9 3 g 97 % 97 % 67 /min 138 mm[Hg] 82 mm[Hg] Haley Banerjee MA [facility] 4 10:28:53 Date Recorded Respiratory rate Systolic blood pressure Diastolic blood pressure Provider Name and Address Organization Details Last Updated DateTime 06/22/2024 16 /min 130 mm[Hg] 80 mm[Hg] MARY Hernandez Attn: Accounting, [address] [place], [address], [facility] 06/22/2024 11:02:18 Social History Question Answer Notes LastModified by Organizat ion Details LastModified Time Tobacco Smoking Status Never Smoker Haley Banerjee MA null, [facility] 12/09/2023 10:39:58 Do You Have An Advance Directive? No Information not available 12/09/2023 What Is Your Level Of Alcohol Consumption? Occasional Information not available 12/09/2023 Are You Blind Or Do You Have Difficulty Seeing? No Glasses Information not available 12/09/2023 What Is Your Level Of Caffeine Consumption? Moderate Coffee Information not available 12/09/2023 In The 14 Days Before Symptom Onset, Have You Had Close Contact With A Laboratory-verenice shaila COVID-19 While That Case Was Ill? No Information not available 12/08/2023 In The 14 Days Before Symptom Onset, Have You Had Close Contact With A Person Who Is Under Investigation For COVID-19 While That Person Was Ill? No Information not available 12/08/2023 Have You Been To An Area Known To Be High Risk For COVID-19? No Information not available 12/08/2023 Are You Deaf Or Do You Have Serious Difficulty Hearing? No Information not available 12/09/2023 What Type Of Diet Are You Following? REGULAR Information not available 12/09/2023 Are There Any Guns Present In Your Home? No Information not available 12/09/2023 What Was The Date Of Your Most Recent Tobacco Screening? 06/22/2024 Information not available 06/22/2024 What Is Your Relationship Status? Information not available 12/09/2023 Do You Use Your Seat Belt Or Car Seat Routinely? Yes Information not available 12/09/2023 Do You Have Smoke And Carbon Monoxide Detectors In Your Home? Yes Information not available 12/08/2023 Do You Feel Stressed (tense, Restless, Nervous, Or Anxious, Or Unable To Sleep At Night)? [id number] Information not available 12/09/2023 Do You Use Any Illicit Or Recreational Drugs? No Information not available 12/09/2023 Do You Use Sunscreen Routinely? No Sunscreen Occasionally , Information not available 12/09/2023 Has Tobacco Cessation Counseling Been Provided? Yes Information not available 12/08/2023 On What Date Was Tobacco Cessation Counseling Provided? 06/22/2024 Information not available 06/22/2024 Do You Or Have You Ever Used Any Other Forms Of Tobacco Or Nicotine? No Information not available 12/09/2023 Sex: Female Functional Status Question Answer Note LastModified by Organization D etails LastModified Time Are you able to care for yourself? Yes Information n ot available 12/08/2023 What is your exercise level? None Information not available 12/09/2023 Mental Status None recorded. Family History Relationship Description Onset Age of this Age Resolved Age Notes LastModified by Organization Details LastModified Time Brother Asthma [email or web address] Not available 12/09/2023 15:49:13 Brother Hypercholest erolemia tcarterma Not available 2023 15:49:45 Mother Diabetes mellitus tcarterma Not available 2023 15:49:19 Mother Hypertensive disorder tcarterma Not available 2023 15:49:35 Mother Osteoporosis tcarterma Not avai lable 12/09/2023 15:49:54 Sister Heart disease tcarterma Not available 2023 15:49:27 Father Hypertensive disorder tcarterma Not available 2023 15:49:35 Father Hypercholest erolemia tcarterma Not available 2023 15:49:45 Father Osteoporosis tcarterma Not avai lable 12/09/2023 15:49:54 Medical History Condition Response Anxiety Disorder Y Diabetes Y Muscle, Joint, or Bone Problems Y Skin Problems Y High Cholesterol Y Acid Reflux (GERD) Y Cancer Y Headaches Y Depression Y GI Problems Y Gynecological History Statement/Question Response Menses Monthly N Current Control Method Other Obstetrics History GPAL:G 2 P 2 0 0 2 Type Value Full Term 2 Induced 0 Spontaneous 0 Premature 0 Living 2 Total 2 Immunizations Vaccine Type Date Status Note Provider Nam e and Address Organization Details Recorded Time Influenza, recombinant, quadrivalent, PF 0 completed Haley Baner[place], [place] [facility] 06/22/2024 10:26:31 Influenza, high-dose, quadrivalent, PF 2 completed Haley Baner[place] [facility] 06/22/2024 10:26:31 Influenza, high-dose, quadrivalent, PF 1 completed Haley Baner[place] [facility] 06/22/2024 10:26:31 Influenza, high-dose, quadrivalent, PF 3 completed Haley Baner[place] [facility] 06/22/2024 10:26:31 COVID-19, mRNA, LNP-S, PF, 30 mcg/0.3 mL dose 1 completed Haley Baner[place] [facility] 06/22/2024 10:26:31 COVID-19, mRNA, LNP-S, PF, 30 mcg/0.3 mL dose 1 completed Haley Baner[place] [facility] 06/22/2024 10:26:31 Pneumococcal conjugate PCV 13 1 completed Haley Baner[place] [facility] 06/22/2024 10:26:31 Influenza, split virus, trivalent, PF 3 completed Haley Baner[place] [facility] 06/22/2024 10:26:31 Influenza, split virus, quadrivalent, PF 9 completed FAMILIA Ann, [place] [facility] 06/22/2024 10:26:31 Influenza, high-dose, trivalent, PF 4 completed MARY Hernandez Attn: Accounting,[address] [place], [address], [place] [facility] 07/04/2024 16:27:17 Past Encounters Encounter ID Performer Location Encounter Start Date Encounter Closed Date Diagnosis/Indication Diagnosis SNOMED-CT Code Diagnosis ICD10 Code Diagnosis Note [id number] MARY Hernandez [facility] [place] [address] [place] [address] 12/09/2023 10:20:41 01/03/2024 15:53:43 Type 2 diabetes mellitus without complication 131116031 E11.9 Rx for trulicity 3mg weekly in hopes this will be in stock. next labs due in Jun. continue glipizide 5mg bid w/meal. Gastroesop hageal reflux disease without esophagitis 267646995 K21.9 stable on omeprazole 40mg daily. Hyperlipidemia 16318784 E78.5 stable on atorvastat in 20mg daily. next labs due in Jun. Mixed anxi ety and depressive disorder 164388037 F41.8 stable on venlafaxin e ER 150mg daily Long-term drug therapy 645487119 Z79.899 next labs are due in Jun. Pain of le ft knee joint 0396125566 61533 M25.562 pt can f/u with ortho per plan Body mass index 25-29 - overweight 671679600 Z68.29 [id number] MARY Hernandez [facility] [address] [place] [address] 06/22/2024 10:17:31 07/06/2024 09:06:09 Body mass index 25-29 - overweight 445716101 Z68.29 BMI is 29.6 Overweight 621782511 E66 .3 Type 2 mariangel betes mellitus without complication 687919547 E11.9 Rx for trulicity 3mg weekly in hopes this will be in stock. continue glipizide 5mg bid w/meal. Gastroesop hageal reflux disease without esophagitis 452149630 K21.9 stable on omeprazole 40mg daily. Hyperlipidemia 58167199 E78.5 stable on atorvastat in 20mg daily. next labs due in December Mixed anxi ety and depressive disorder 683969610 F41.8 stable on venlafaxin e ER 150mg daily. No acute concerns or complaints with medication Long-term drug therapy 905351631 Z79.899 Routine BMP, CBC and liver function will be due in December Administra tion of influenza vaccine 86640830 Z23 Flu shot given in the office today Health Concerns Section Related Observation LastModified by Organization Detai ls LastModified Time None Recorded Concern Status LastModified by Organization Details LastModified Time None Recorded Advance Directives Directive N: Payers Encounter Date Sequence Insurance Name Policy Number Policy Smith Covered Member ID Smith Member ID Guarantor Name 12/09/2023 1 [facility] (MEDICARE REPLACEMENT/A DVANTAGE - HMO) [id number] Savannah Portillo [id number] Savannah Portillo 06/22/2024 1 [facility] (MEDICARE REPLACEMENT/A DVANTAGE - HMO) [id number] Savannah Portillo [id number] Savannah Portillo Notes Date Note Type Note Provider Name and Address Organization Details Recorded Time 12/09/2023 text/html Anxiety/Depressi on Reported bypatient.Notes:st able on venlafaxine ER 150mg daily.DiabetesRepo rted bypatient.Notes:6. 1% a1c on Trulicity and glipizide 5mg bid.Hyperlipidemia Reported bypatient.Notes:st able on atorvastatin 20mg daily. lipids are great.KneeReported bypatient.Notes:sh ot given on november [address] Morrison.Reflux/JAREN DReported bypatient.Notes:st able omeprazole 40mg daily. MARY Hernandez Attn: Accounting,[address], [place], [address], [facility] 01/02/2024 15:50:57 06/22/2024 text/html Anxiety/Depressi on Reported bypatient.Notes:st able on venlafaxine ER 150mg daily.DiabetesRepo rted bypatient.Notes:6. 1% a1c on Trulicity and glipizide 5mg bid.Hyperlipidemia Reported bypatient.Notes:st able on atorvastatin 20mg daily. lipids are great.KneeReported bypatient.Notes: ot given on november [address] Morrison.Reflux/JAREN DReported bypatient.Notes:st able omeprazole 40mg daily. MARY Hernandez Attn: Accounting,[address], [place], [address], [facility] 07/04/2024 16:28:30 OBGyn Episode No OBEpisode recorded.
--- OUTSIDE RECORDS SUMMARY | 2024-08-29 14:37 | XMS_ITS | Encounter Summary ---
Author Organization [facility] Address [address] [facility] [place] [address] Care Team Providers Care Induction Heat Treater Name Role Phone Manisha Mann MD Primary Care Provider Encounter Details Date Type Department Care Team (Late st Contact Info) Description 06/02/2023 Lab Requisition [facility] - [facility] Lab [address] [facility] [place] [address] Angeli Basurto DO [address] [facility] [address] [place] [address] Social History Tobacco Use Types Packs/Day Years Used Date Smoking Tobacco: Never Assessed Sex and Gender Information Value Date Recorded Sex Assigned at Not on file Gender Identity Not on file Sexual Orientation Not on file documented as of this encounter Plan of Treatment Not on file documented as of this encounter Procedures Procedure Name Priority Date/Time Associated Diagnosis Comments DERMATOPATHOLOGY Routine 06/02/2023 2:26 PM RUN BOAT OPERATOR documented in this encounter Results * DERMATOPATHOLOGY (06/02/2023 2:26 PM RUN BOAT OPERATOR) Case Report Dermatopathology Report Case: [id number] Authorizing Provider: Angeli Basurto DO Collected: 06/02/2023 02:26 PM Ordering Location: [facility] DermPath Lab Received: 06/03/2023 01:12 PM Pathologist: Sofia Salazar MD Specimens: A) - Skin, right cheek B) - Skin, right low back 12:59 PM RUN BOAT OPERATOR DERMATOPATHOLOGY LABORATORY Final Diagnosis Specimen A. SKIN, right cheek: BASAL CELL CARCINOMA, NODULAR TYPE (C44.319) Specimen B. SKIN, right low back: NEUROFIBROMA, SUPERFICIAL PORTIONS OF (D36.10) (see microscopic description) 12:59 PM [facility] DERMATOPATH[facility] Clinical History A-B: R/O NMSC 3 12:59 PM [facility] DERMATOPATHOLOGY [facility] Gross Description Specimen A: Received [...] 3x2x1 mm. Jar 0. 3 12:59 PM [facility] DERMAT[facility] Microscopic Description Specimen A. SKIN, [...] were obtained and reviewed. 3 12:59 PM [facility] DERMATOPATH[facility]Y [facility] Disclaimer An external and internal positive and negative controls are appropriate for the histochemical, immunohistochemical and immunofluorescence stain(s) in this case (if any), except where stated explicitly. The performance characteristics of the stain(s) cited in this report were developed and its performance characteristic determined by the Dermatopathology Laboratory at [facility], directed by Dr. Daniel Ahuja. These tests need not be, and therefore are not, approved by the [place] Food and Drug Administration. The tests are used for clinical purposes. Billing Codes Specimen Charges Stain Charges 58003 00159 1 1 3 12:59 PM RUN BOAT OPERATOR DERMATOPATHOLOGY LABORATORY Embedded Images 3 12:59 PM [facility] Pathology/Cytology TISSUE SPECIMEN FROM SKIN / Unknown 06/02/2023 2:26 PM RUN BOAT OPERATOR 06/03/2023 1:12 PM RUN BOAT OPERATOR Miscellaneous samples (specimen) TISSUE SPECIMEN FROM SKIN / Unknown 06/02/2023 2:26 PM RUN BOAT OPERATOR 06/03/2023 1:12 PM RUN BOAT OPERATOR Angeli Basurto DO LAB - PATHOLOGY/C YTOLOGY ORDERABLES DERMATOPATHOLOGY LABORATORY [facility] - Department of Dermatology [facility] Specialized Medicine [address] [place] [address], [address] [phone] documented in this encounter Visit Diagnoses Not on filedocumented in this encounter Care Teams Induction Heat Treater Relationship Specialty Start Date End Date Manisha Mann MD [address] [place] [address] PCP - General 04/24/21 documented as of this encounter
--- OUTSIDE RECORDS SUMMARY | 2024-08-29 14:37 | XMS_ITS | Clinical Summary ---
Author Organization [facility] Address [address] [place] [address] Care Team Providers Care Buyer Internship Name Role Phone Unavailable Primary Care Provider Unavailabl e Social History Tobacco Use Types Packs/Day Years Used Date Smoking Tobacco: Never Assessed Comments Unknown Sex and Gender Information Value Date Recorded Sex Assigned at Not on file Legal Sex Female 5:14 PM CDT Gender Identity Not on file Sexual Orientation Not on file Plan of Treatment Health Maintenance Due Date Last Done Comments DTAP/TDAP/TD VACCINES (1 - Tdap) 12/31/1974 BREAST CANCER SCREENING 1996 COLORECTAL SCREENING 12/31/2000 Colorectal Cancer Screening 12/31/2000 FIT-DNA Q 3 years 12/31/2000 FIT/FOBT Q 1 year 12/31/2000 Flex Sig/CT Colonography Q 5 years 12/31/2000 PNEUMOCOCCAL VACCINE 65+ YEARS (1 of 1 - PCV) 01/01/20 06 ZOSTER VACCINE (1 of 2) 12/31/2005 OSTEOPOROSIS SCREENING 12/31/2020 INFLUENZA VACCINE (#1) 2024 RSV VACCINE (60+ or ) (1 - 1-dose 75+ series) 12/31/2030
--- OUTSIDE RECORDS SUMMARY | 2024-08-29 14:37 | XMS_ITS | Referral Summary ---
Author Organization [facility] Address [address] [place] [address] Care Team Providers Care Visual Lead Name Role Phone Manisha Mann MD Primary Care Provider [phone] Source Comments [facility],non-owned Affiliates and Associated Physician Practices is amultiple site organization consisting of ambulatory clinics and hospital sitesin [place], [place], [place] and [place]. This disclosure is being madepursuant to the Care Everywhere program and may not contain all information available regarding this patient. Last updated 18.[facility] [employer] [employer] Social History Tobacco Use Types Packs/Day Years Used Date Smoking Tobacco: Never Assessed Sex and Gender Information Value Date Recorded Sex Assigned at Not on file Gender Identity Not on file Sexual Orientation Not on file Plan of Treatment Not on file Care Teams Visual Lead Relationship Specialty Start Date End Date Manisha Mann MD [address] [place] [address] [address] [place] [address] PCP - General 04/24/21
--- OUTSIDE RECORDS SUMMARY | 2024-08-29 14:38 | XMS_ITS | Data Portability ---
Author Organization [place] [facility] [place] [employer], Main Office Address [address] [place] [address] Care Team Providers Care Office Assistant Receptionist Name Role Phone BRITTNEY ADAMS Primary Care Provider [phone] BRITTNEY ADAMS Referring Provider Assessment Encounter Date Assessment Date Assessment LastModified by Organization Details LastModified Time 01/29/2023 01/29/2023 Impression: Patient has signs and symptoms and complaints are consistent with a flap tear of the medial meniscus in the left knee. She is complaining of mechanical catching and she limps and has pain with every step and has seen no improvement over the last 3 months. Her x-rays are normal. I would recommend obtaining an MRI scan of her left knee at this time and I will see her back after the test. 30 minutes were spent in total care this patient more than half the time spent in [id number]-[id number] care. Not available 01/29/2023 18:58:10 02/19/2023 02/19/2023 Patient returns after MRI scan of her left knee. I reviewed the images with the patient as well as the report. Demonstrates full-thickness cartilage loss on the patella especially the apex inferiorly also central aspect of the lateral facet and there are are areas of subchondral edema in the patella associated with this full-thickness cartilage loss in at the apex inferiorly a small subchondral cyst. The articular surface on the trochlea has normal thickness still with slight surface irregularity. MRI is otherwise unremarkable. Impression: Patient has anteromedial knee pain and catching symptoms when she is getting up from a chair difficulty squatting and stairs and lately walking are result of her early patellofemoral arthritis left knee which is shown well by the MRI scan which was not possible to visualize on radiographs. In retrospect on the lateral view of the radiograph I can see that there is a small subchondral cyst lucency suggested at the apex inferior which is very subtle radiographically but demonstrates that it is a subchondral cyst rather than just some plain subchondral edema. I had a long discussion with her and her about treatment strategies. This is not something that is treated surgically. If her patellofemoral arthritis become severe and mril-gx-bzqf and her symptoms are intractable, knee replacement would be a consideration at that point but that may never progressed to that extent. She Nonsurgical treatment would consist of the strategies to decrease patellofemoral pressures overall. Weight loss is probably the most important strategy to employ. I had a long discussion with her about the importance of weight loss. We discussed decreasing her daily caloric intake. She drinks sodas and has not fully embraced the best dietary modifications to improve her diabetes and her fatty liver disease. I have given her a handout on reducing her daily caloric intake order to lose weight and ultimately she is going to need to decrease her daily caloric intake appropriately in order to lose weight gradually with a goal of losing 1-1/2 lb per week. I would recommend a course of physical therapy avoiding any quadriceps strengthening but stressing hamstring quadriceps stretching and hip abduction external rotation core strengthening. Finally, and to give her some symptomatic relief I have offered her a cortisone injection. She cannot take nonsteroidal anti-inflammatory medications because of a history of peptic ulcer disease and fatty liver disease. Risk of side effects including the risk of infection and the fact that her blood sugars will go for few days was reviewed. After ChloraPrep prep, 20 mg of Kenalog and 4 cc of 0.5% ropivacaine were injected into the left knee without difficulty. I will see her back on an as-needed basis. I discussed that if the cortisone shot is helpful symptoms recurred on the road to she can have another cortisone shot in no more than 1 every 3 months. I would expect that with weight loss and going through the physical therapy program her propensity for having severe anterior knee pain symptoms and symptoms walking will improve markedly. 30 minutes were spent total care this patient more than half the time spent in [id number]-[id number] care. Not available 02/19/2023 10:12:20 Plan of Treatment Reminders Order Date Submit Date Provider Last Modified By Organization Details Last Modified Time Details Appointments None recorded. Lab HbA1c (hemoglobin A1c), blood [address], [address] [address] Doug[address], [place], [address], 4 18:01:51 microalbumi n/creatinin e, mass ratio, urine [address], [address] Heri Burger, [place], [address], 4 18:01:51 microalbumi n, urine [address], [address] Her[address] Burgere, [place], [address], 4 18:01:51 CBC w/ auto diff [address], [address] [facility] [place], [address], 4 18:01:50 BMP, serum or plasma [address], [address] Heri Burger, [place], [address], 4 18:01:50 hepatic function panel, serum [address], [address] [place], [address], 4 18:01:51 TSH + free T4, serum [address], [address] Heri Burgere, [place], [address], 4 18:01:51 lipid panel, serum 2022 023 [email or web address] [facility], [address] [address], [place], [address], 4 18:01:51 Referral None recorded. Procedures injection/a spiration joint/bursa (PROC) - in office procedure, administere d by provider 2022 023 [email or web address] In-Office Order, Internal Use Only DO Not Attach Compendium DO Not Attach Compendium, Do Not Delete/merge, [address] 3 09:42:55 Surgeries None recorded. Imaging XR, knee 2022 023 [email or web address] [facility], [address], [place], [address], 3 09:54:30 MRI, knee, w/o contrast - GIVE THE PT A CD OF IMAGES 2022 023 ANN [facility] ([facility]), [address] [address], [place], [address], 3 19:34:18 MAMMO, screening, digital, bilateral [email or web address] [place] [address] - Radiology, [address] [place], [address], 3 12:26:21 Medication Orders Kenalog 10 mg/mL suspension for injection 2022 023 [email or web address] 4 [facility] [address], [address], [place], [address], 3 12:11:16 ropivacaine (PF) 5 mg/mL (0.5 %) injection solution [email or web address] [place] [address] [address], [address], [place], [address], 3 12:11:18 omeprazole 40 mg capsule,del ayed release 2022 023 [facility] [address], [address], [address], 3 12:19:32 Patient TargetsNo targets recorded. Patient InstructionsNo instructions recorded. Reason for Referral None Reported. Results Created Date Observation Date Name Description Value Unit Range Abnormal Flag Note LastModifiedBy Organization Detail LastModifiedTime 01/30/20 XR, knee No observ ation record ed. [facility] [place] [address], [place], [address], 01/29/2023 18:57:19 02/17/20 23 02/14/2023 MRI, knee, w/o contr ast No observ ation record ed. [email or web address] [facility] [address] [place], [address], 02/17/2023 09:48:33 02/20/20 23 02/16/2023 MRI, knee, w/o contr ast No observ ation record ed. [email or web address] Not Available 2022 15:50:33 03/24/20 23 03/23/2023 MAMMO , scree randy, digit al, bilat eral No observ ation record ed. [email or web address] Not Available 2022 12:10:22 Result Notes None recorded. Problems Name Problem SNOMED Code Status Onset Date Resolution Date Notes Provider Name and Address Organization Details Recorded Time Lumbar radiculopa thy 522476767 Active 2021 Not Available [facility] 3 00:53:36 Chronic pain in coccyx for more than three months 7971396424800 05 Active 2019 Not Available [facility] 3 00:53:36 Tenosynovi tis of right radial styloid 3951375874760 9100 Active 2021 Not Available [facility] 3 00:53:36 Right flank pain 614850739 Active 2021 Not Available [facility] 3 00:53:36 Insomnia 508900671 Active Not Available [facility] 3 00:53:36 Steatosis of liver 813507872 Active 2021 Not Available [facility] 3 00:53:37 Localized, primary osteoarthr itis of the hand 491948164 Active Not Available [facility] 3 00:53:37 Chronic cholecysti tis 85589995 Active Not Available [facility] 3 00:53:37 Abdominal pain 42300956 Active Not Available [facility] 3 00:53:37 Mixed anxiety and depressive disorder 307244737 Active 2021 Not Available [facility] 3 00:53:37 Gastroesop hageal reflux disease 438666133 Active Not Available [facility] 3 00:53:37 Gallstone 483369787 Active Not Available [facility] 3 00:53:37 Screening mammograph y Active 2021 Not Available [facility] 3 00:53:37 Gastroesop hageal reflux disease without esophagiti s 582983345 Active 2021 Not Available [facility] 3 00:53:37 Long-term drug therapy Active 2021 Not Available [facility] 3 00:53:37 History of peptic ulcer 992278683 Active 2021 Not Available [facility] 3 00:53:37 Screening for malignant neoplasm of colon Active 2021 Not Available [facility] 3 00:53:38 Chest pain 45430865 Active 2021 Not Available [facility] 3 00:53:38 Injury of tendon of the rotator cuff of shoulder 410041417 Active Not Available [facility] 3 00:53:38 Pain of left wrist 9744228546161 02 Active 2021 Not Available [facility] 3 00:53:38 Vitamin D deficiency 79246957 Active Not Available [facility] 3 00:53:38 Depressive disorder 36828685 Active Not Available [facility] 3 00:53:38 Osteoarthr osis of the carpometac arpal joint of the thumb 24092663 Active 2018 Not Available [facility] 3 00:53:38 Osteoarthr itis 218294552 Active Not Available [facility] 3 00:53:38 Diverticul ar disease 391434836 Active Not Available [facility] 3 00:53:38 Acute urinary tract infection 766928602 Active Not Available [facility] 3 00:53:38 Dyssomnia 30515244 Active 2021 Not Available [facility] 3 00:53:39 Uncontroll ed type 2 diabetes mellitus 875890552 Active 2021 Not Available [facility] 3 00:53:39 Well controlled type 2 diabetes mellitus 759650621 Active 2021 Not Available [facility] 3 00:53:39 Upper respirator y infection 11770246 Active Not Available [facility] 3 00:53:39 Lower abdominal pain 40324499 Active Not Available [facility] 3 00:53:39 Hyperlipid emia 99293578 Active Not Available [facility] 3 00:53:39 Increased liver function 21513595 Active Not Available [facility] 3 00:53:39 Precordial pain 82220763 Active 2021 Not Available [facility] 3 00:53:39 Sleep apnea 81996738 Active 2021 Not Available [facility] 3 00:53:39 Pain in elbow 14851491 Active Not Available [facility] 3 00:53:40 Postmenopa usal state 56349098 Active 2021 Not Available [facility] 3 00:53:40 Neck pain 09331655 Active 2021 Not Available [facility] 3 00:53:40 Fatigue 81746627 Active Not Available [facility] 3 00:53:40 Gout 26702293 Active 2021 Not Available [facility] 00:53:40 Pain in limb 56839714 Active Not Available [facility] 00:53:40 Pain of right knee joint 9685551691100 00 Active 2022 Jennifer Granados RMA null, [place] [facility] [place] [facility] 3 10:43:26 Pain of left knee joint 4328970798159 07 Active 2022 Jennifer Granados RMA null, [place] [facility] 3 10:43:46 Problem Notes None recorded. Procedures Surgical History Date Name Laterality Status Provider Name and Address Organization Details Recorded Time Date of Last Colonoscopy completed Not Available [facility] 09/02/2022 00:47:55 Colonoscopy completed Not Available [facility] 09/02/2022 00:47:57 Carpal tunnel completed Not Available [facility] 09/02/2022 00:47:57 rhinoseptoplasty completed Not Available [facility] 09/02/2022 00:47:57 Hysterectomy completed Not Available [facility] 09/02/2022 00:47:57 removal of ectopic fetus completed Not Available [facility] 09/02/2022 00:47:57 Cataract Surgery completed Not Available [facility] 09/02/2022 00:47:57 Appendectomy completed Not Available [facility] 09/02/2022 00:47:57 Cholecystectomy completed Not Available [facility] 09/02/2022 00:47:57 Imaging Results Imaging Date Name Status LastModified by Organiz ation Details LastModified Time 01/29/2023 XR, knee completed [facility] Bains [address], [place], [address], 01/29/2023 18:57:19 02/14/2023 MRI, knee, w/o contrast completed [email or web address] [facility] [address] [place], [address], 02/17/2023 09:48:33 02/16/2023 MRI, knee, w/o contrast completed [email or web address] Information not available 02/19/2023 15:50:33 03/23/2023 MAMMO, screening, digital, bilateral completed [email or web address] Information not available 06/24/2023 12:10:22 Procedure Notes None recorded. Medical Equipment None Reported. Allergies No known drug allergies Medications Name Sig Start Date Stop Date Status Note LastModified by Organization Details LastModified Time prednison e 10 mg tablet active Not Available Not Available Not Available venlafaxi ne ER 75 mg capsule,e xtended release 24 hr Take 1 capsule every day by oral route for 90 days. 09/10 completed Not Available Not Available Not Available atorvasta tin 20 mg tablet TAKE 1 TABLET BY MOUTH DAILY active Not Available Not Available No t Available azithromy elpidio 250 mg tablet 05/23 completed Not Available Not Available Not Available meloxicam 15 mg tablet 04/13 completed Not Available Not Available Not Available sucralfat e 1 gram tablet TAKE 1 TABLET BY MOUTH 4 TIMES DAILY 12/05 completed Not Available Not Available Not Available venlafaxi ne ER 150 mg capsule,e xtended release 24 hr Take 1 capsule every day by oral route. active Not Available Not Available No t Available metronida zole 500 mg tablet Take 1 tablet every 8 hours by oral route as directed for 7 days. 04/13 completed Not Available Not Available Not Available ciproflox acin 500 mg tablet Take 1 tablet every 12 hours by oral route as directed for 7 days. 04/13 completed Not Available Not Available Not Available sulfameth oxazole 800 mg-trimet hoprim 160 mg tablet Take 1 tablet every 12 hours by oral route. 04/13 completed Not Available Not Available Not Available omeprazol e 40 mg capsule,d elayed release TAKE 1 CAPSULE BY MOUTH TWICE DAILY 2022 active Not Available Not Available Not Avai lable glimepiri de 2 mg tablet TAKE 1 TABLET BY MOUTH twice daily with meal 08/12 completed Not Available Not Available Not Available prednison e 10 mg tablets in a dose pack Take 1 tab by mouth, 3 times a day for 3 daysTake 1 tab by mouth 2 times a day for 2 daysTake 1 tab by mouth once a day for 1 day 09/06 completed Not Available Not Available Not Available meloxicam 7.5 mg tablet Take 1 tablet twice a day by oral route. active Not Available Not Available No t Available amoxicill in 875 mg tablet Take 1 tablet every 12 hours by oral route with meals for 10 days. 04/13 completed Not Available Not Available Not Available prednisol one acetate 1 % eye drops,rubia pension active Not Available Not Available Not Available metoclopr amide 5 mg tablet 09/06 completed Not Available Not Available Not Available methocarb leighton 750 mg tablet Take 1 tablet 3 times a day by oral route as needed. active Not Available Not Available No t Available temazepam 15 mg capsule Take 1 capsule every day by oral route at bedtime for 30 days. 05/03 completed Not Available Not Available Not Available ciproflox acin 0.3 % eye drops 04/13 completed Not Available Not Available Not Available Kenalog 10 mg/mL suspensio n for injection in office procedur e, administ ered by provider 06/22 completed [facility]: [phone] 4-20 Not Available Not Available Not Available hydrocodo ne 7.5 mg-acetam inophen 325 mg tablet TAKE 1 TABLET BY MOUTH EVERY 6 HOURS NEEDED FOR PAIN 12/05 completed Not Available Not Available Not Available pantopraz ole 40 mg tablet,de layed release 04/13 completed Not Available Not Available Not Available indometha elpidio 50 mg capsule Take 1 capsule 3 times a day by oral route as needed. 01/18 completed Not Available Not Available Not Available omeprazol e 20 mg capsule,d elayed release Take 1 capsule every day by oral route as directed for 90 days. active Not Available Not Available No t Available mupirocin 2 % topical ointment 04/13 completed Not Available Not Available Not Available ergocalci ferol (vitamin D2) 1,250 mcg (50,000 unit) capsule TAKE ONE CAPSULE BY MOUTH WEEKLY 12/05 completed Not Available Not Available Not Available methylpre dnisolone 4 mg tablets in a dose pack active Not Available Not Available Not Available fluticaso ne propionat e 50 mcg/actua tion nasal spray,rubia pension USE 1 SPRAY(S) IN EACH NOSTRIL TWICE DAILY 09/03 completed Not Available Not Available Not Available metformin ER 500 mg tablet,ex tended release 24 hr 04/13 completed Not Available Not Available Not Available glipizide 5 mg tablet Take 1 tablet twice a day by oral route with meals. active Not Available Not Available No t Available naproxen 500 mg tablet TAKE 1 TABLET BY MOUTH TWICE A DAY WITH FOOD 09/06 completed Not Available Not Available Not Available Cymbalta 60 mg capsule,d elayed release Take 1 capsule every day by oral route for 90 days. active gynecolo gist Not Available Not Available Not Available Lipitor 12/11 completed Not Available Not Available Not Available Prilosec 01/29 completed Not Available Not Available Not Available Protonix 09/06 completed Not Available Not Available Not Available multivita min 1 tab daily 04/13 completed Not Available Not Available Not Available lidocaine (PF) 10 mg/mL (1 %) injection solution In office injectio n administ ered by the provider 12/11 completed [place]: [id number] 6-17 Not Available Not Available Not Available Durezol 0.05 % eye drops 04/13 completed Not Available Not Available Not Available Besivance 0.6 % eye drops,rubia pension 04/13 completed Not Available Not Available Not Available ropivacai ne (PF) 5 mg/mL (0.5 %) injection solution in office procedur e, administ ered by provider 06/22 completed [facility] [address]-07 4-01 Not Available Not Available Not Available Ilevro 0.3 % eye drops,rubia pension 04/13 completed Not Available Not Available Not Available Prolensa 0.07 % eye drops 04/13 completed Not Available Not Available Not Available Trulicity 1.5 mg/0.5 mL subcutane ous pen injector INJECT 1.5 MG SUBCUTAN EOUSLY ONCE A WEEK 07/01 completed Not Available Not Available Not Available Fluzone Quad (P F) 60 mcg(15 mcgx4)/0. 5 mL intramusc ular syringe 04/13 completed Not Available Not Available Not Available Fluzone Quad (P F) 60 mcg(15 mcgx4)/0. 5 mL intramusc ular syringe 04/13 completed Not Available Not Available Not Available Fluzone Quad (PF) 60 mcg (15 mcg x 4)/0.5 mL IM syringe PHARMACI ST ADMINIST ERED IMMUNIZA TION ADMINIST ERED AT TIME OF DISPENSI NG active Not Available Not Available No t Available Flublok Quad (PF) 180 mcg (45 mcg x 4)/0.5 mL IM syringe PHARMACI ST ADMINIST ERED IMMUNIZA TION ADMINIST ERED AT TIME OF DISPENSI NG active Not Available Not Available No t Available Trulicity 3 mg/0.5 mL subcutane ous pen injector INJECT 3MG SUBCUTAN EOUSLY ONCE A WEEK active Not Available Not Available No t Available BinaxNOW COVID-19 Ag Self Test kit Use as Directed on the Package 07/20 completed Not Available Not Available Not Available Vitals Date Recorded Body mass index (BMI) Body height Oxygen saturation Oxygen saturation in Arterial blood by Pulse oximetry Heart rate Body temperature Body weight Systolic blood pressure Diastolic blood pressure Provider Name and Address Organization Details Last Updated DateTime 3 30 kg/m2 157.48 cm 97 % 97 % 67 /min 97.5 [degF] 05999.1 5 g 128 mm[Hg] 70 mm[Hg] Not Available [facility] 3 00:51:10 Date Recorded Body height Body mass index (BMI) Body weight Heart rate Oxygen saturation Oxygen saturation in Arterial blood by Pulse oximetry Body temperature Systolic blood pressure Diastolic blood pressure Provider Name and Address Organization Details Last Updated DateTime 3 157.48 cm 30.2 kg/m2 74588.7 4 g 59 /min 97 % 97 % 97.9 [degF] 126 mm[Hg] 76 mm[Hg] Magui López RN [place] [facility] [place] [facility] [employer] [facility] 3 11:44:58 Date Recorded Body height Body mass index (BMI) Body weight Provider Name and Address Organization Details Last Updated DateTime 01/29/2023 154.94 cm 31.4 kg/m2 02854.33 g JORGE LUIS Fair [facility] 01/29/2023 11:13:01 Date Recorded Body height Provider Name an d Address Organization Details Last Updated DateTime 02/19/2023 154.94 cm JORGE LUIS Fair [facility] 02/19/2023 08:54:52 Date Recorded Body height Body mass index (BMI) Body weight Respiratory rate Oxygen saturation Oxygen saturation in Arterial blood by Pulse oximetry Heart rate Systolic blood pressure Diastolic blood pressure Provider Name and Address Organization Details Last Updated DateTime 154.94 cm 30.9 kg/m2 68424.3 5 g 16 /min 98 % 98 % 62 /min 122 mm[Hg] 80 mm[Hg] Mari Badillobrad [facility] 11:41:41 Date Recorded Systolic blood pressure Diastolic blood pressure Provider Name and Address Organization Details Last Updated DateTime 06/24/2023 130 mm[Hg] 80 mm[Hg] MARY Hernandez [address], [address], [facility] 06/24/2023 12:31:01 Social History Question Answer Notes LastModified by Organizat ion Details LastModified Time Tobacco Smoking Status Never Smoker Not Available [facility] 09/02/2022 00:47:05 Do You Have An Advance Directive? No [id number] Information not available 09/02/2022 What Is Your Level Of Alcohol Consumption? None [id number] Information not available 09/02/2022 Are You Blind Or Do You Have Difficulty Seeing? Yes [id number] Information not available 09/02/2022 What Is Your Level Of Caffeine Consumption? Occasional [id number] Information not available 09/02/2022 What Is Your Code Status? Full Code [id number] Information not available 09/02/2022 In The 14 Days Before Symptom Onset, Have You Had Close Contact With A Laboratory-confi rmed COVID-19 While That Case Was Ill? No MIGRATION.[id number] Information not available 09/02/2022 In The 14 Days Before Symptom Onset, Have You Had Close Contact With A Person Who Is Under Investigation For COVID-19 While That Person Was Ill? No MIGRATION.80344 83949 Information not available 09/02/2022 Are You Deaf Or Do You Have Serious Difficulty Hearing? No MIGRATION.51077 21881 Information not available 09/02/2022 What Type Of Diet Are You Following? REGULAR MIGRATION.41121 07620 Information not available 09/02/2022 Which Illicit Or Recreational Drugs Have You Used? No MIGRATION.64274 41099 Information not available 09/02/2022 Do You Or Have You Ever Used E-cigarettes Or Vape? Never Used Electronic Cigarettes MIGRATION.11002 62858 Information not available 09/02/2022 Have There Been Any Changes To Your Family Or Social Situation? No MIGRATION.43444 19476 Information not available 09/02/2022 What Is The Fluoride Status Of Your Home? Unknown MIGRATION.98838 37254 Information not available 09/02/2022 Are There Any Guns Present In Your Home? Yes MIGRATION.04853 33578 Information not available 09/02/2022 Do You Use Insect Repellent Routinely? No MIGRATION.87542 86277 Information not available 09/02/2022 Where Do You Live? [place] MIGRATION.10725 47319 Information not available 09/02/2022 Do You Have A Medical Power Of Pressing Machine Tender? No MIGRATION.96306 68037 Information not available 09/02/2022 What Was The Date Of Your Most Recent Tobacco Screening? 12/05/2021 MIGRATION.35781 12195 Information not available 09/02/2022 Do You Have Any Pets? No MIGRATION.31825 10739 Information not available 09/02/2022 What Is Your Relationship Status? MIGRATION.67864 52339 Information not available 09/02/2022 Do You Use Your Seat Belt Or Car Seat Routinely? Yes MIGRATION.17994 22989 Information not available 09/02/2022 Do You Have Smoke And Carbon Monoxide Detectors In Your Home? Yes MIGRATION.97509 09948 Information not available 09/02/2022 Are You Passively Exposed To Smoke? No MIGRATION.62256 41184 Information not available 09/02/2022 Do You Or Have You Ever Used Smokeless Tobacco? Never Used Smokeless Tobacco MIGRATION.39645 00835 Information not available 09/02/2022 Are There Any Smokers In Your House? No MIGRATION.08514 97781 Information not available 09/02/2022 How Much Tobacco Do You Smoke? No MIGRATION.79055 96542 Information not available 09/02/2022 Do You Feel Stressed (tense, Restless, Nervous, Or Anxious, Or Unable To Sleep At Night)? [id number] MIGRATION.03796 63920 Information not available 09/02/2022 Do You Use Any Illicit Or Recreational Drugs? No MIGRATION.93465 80359 Information not available 09/02/2022 Do You Use Sunscreen Routinely? Yes MIGRATION.25776 11854 Information not available 09/02/2022 Have You Recently Traveled Abroad? No MIGRATION.98832 08788 Information not available 09/02/2022 Do You Have Any Dietary Restrictions? No MIGRATION.79609 52048 Information not available 09/02/2022 Do You Or Have You Ever Used Any Other Forms Of Tobacco Or Nicotine? No MIGRATION.15231 01433 Information not available 09/02/2022 Sex: Unknown Functional Status Question Answer Note LastModified by Organizat ion Details LastModified Time Do you have difficulty walking or climbing stairs? Yes MIGRATION.9733461 026 Information not available 09/02/2022 Do you have transportation difficulties? No MIGRATION.0879390 026 Information not available 09/02/2022 Are you able to walk? YESWOREST MIGRATION.7427573 026 Information not available 09/02/2022 Do you have difficulty doing errands alone? No MIGRATION.7255548 026 Information not available 09/02/2022 Are you able to care for yourself? Yes MIGRATION.1199911 026 Information not available 09/02/2022 Do you have difficulty dressing or bathing? No MIGRATION.9505151 026 Information not available 09/02/2022 What is your exercise level? Occasional MIGRATION.1237296 026 Information not available 09/02/2022 Mental Status Question Answer Note LastModified by Organizat ion Details LastModified Time Do you have difficulty concentrating, remembering or making decisions? Yes MIGRATION.[id number] 6 Information not available 09/02/2022 Family History Relationship Description Onset Age of this Age Resolved Age Notes LastModified by Organization Details LastModified Time Son Complication of anesthesia MIGRATION.196 [id number] Not available 09/02/2022 00:48:00 Unspecified Relation Family history of stroke grandf ather MIGRATION.486 0198232 Not available 09/02/2022 00:48:00 Unspecified Relation Family history of malignant neoplasm uncle MIGRATION.092 [id number] Not available 09/02/2022 00:48:00 Unspecified Relation Diabetes mellitus grandm other MIGRATION.714 9230482 Not available 09/02/2022 00:48:00 Unspecified Relation Heart disease MIGRATION.126 [id number] Not available 09/02/2022 00:48:00 Father Hypertensive disorder MIGRATION.921 4305124 Not available 09/02/2022 00:48:00 Father Sepsis MIGRATION.047 [id number] Not available 09/02/2022 00:48:00 Father Methicillin resistant Staphylococc us aureus infection MIGRATION.308 1868886 Not available 09/02/2022 00:48:00 Mother Cirrhosis - non-alcoholi c MIGRATION.019 3863234 Not available 09/02/2022 00:48:00 Mother Diabetes mellitus MIGRATION.224 3808613 Not available 09/02/2022 00:48:00 Brother Asthma MIGRATION.477 1622632 Not available 09/02/2022 00:48:00 Sister Myocardial infarction MIGRATION.628 5040252 Not available 09/02/2022 00:48:00 Sister Chronic hepatitis C MIGRATION.943 [id number] Not available 09/02/2022 00:48:00 Notes:cancer, blood clots al so in family history Medical History Condition Response ARTHRITIS Y ULCERS Y HEADACHES/MIGRAINES Y DIABETES, TYPE Y HEARTBURN / REFLUX Y HIGH CHOLESTEROL / HYPERLIPIDEMIA Y EYE PROBLEMS Y ANXIETY DISORDER Y ANEMIA/BLOOD DISORDER Y HEPATITIS / LIVER DISEASE Y CATARACTS Y USE OF NSAIDS Y GOUT Y BACK / NECK PROBLEMS Y HAVE YOU BEEN HOSPITALIZED OR SEEN IN [facility] IN THE PAST YEAR ? Y Gynecological History Statement/Question Response Date of Last Mammogram 02/25/2021 Date of Last Colonoscopy 03/05/2021 Date of LMP Date of Last Pap Smear Current Control Method Hysterectom y Most Recent Mammogram Obstetrics History GPAL:G 3 P 2 0 1 2 Type Value Full Term 2 Living 2 Ectopics 1 Total 3 Immunizations Vaccine Type Date Status Note Provider Nam e and Address Organization Details Recorded Time Influenza, split virus, trivalent, PF 04/03/2013 completed Not Available [facility] 2022 01:02:00 COVID-19, mRNA, LNP-S, PF, 30 mcg/0.3 mL dose 10/02/2020 completed Not Available [facility] 3 01:02:00 COVID-19, mRNA, LNP-S, PF, 30 mcg/0.3 mL dose 09/02/2020 completed Not Available [facility] 3 01:02:00 Past Encounters Encounter ID Performer Location Encounter Start Date Encounter Closed Date Diagnosis/Indication Diagnosis SNOMED-CT Code Diagnosis ICD10 Code Diagnosis Note [id number] [facility] [address] [place] [address] 09/10/2020 00:00:00 09/10/2020 14:52:15 [id number] [facility] [address] [place] [address] 10/08/2020 00:00:00 10/08/2020 14:51:17 [id number] [facility] [place] [address] [place] [address] 12/11/2020 00:00:00 12/12/2020 09:43:20 [id number] _ATHENA_M IGRATION_ DEFAULT_1 _1 , 12/26/2020 00:00:00 12/26/2020 18:55:30 [id number] [facility] [address] [place] [address] 03/03/2021 00:00:00 03/03/2021 21:50:49 [id number] [facility] [address] [place] [address] 06/03/2021 00:00:00 06/03/2021 16:40:41 [id number] [facility] [place] [address] [place] [address] 09/03/2021 00:00:00 10/02/2021 19:25:25 [id number] [facility] [address] [place] [address] 09/26/2021 00:00:00 09/26/2021 09:52:56 [id number] [facility] [place] [address] [place] [address] 10/24/2021 00:00:00 10/24/2021 11:00:23 [id number] [facility] [place] [address] [place] [address] 12/05/2021 00:00:00 12/05/2021 10:03:29 [id number] [facility] [place] [address] [place] [address] 12/16/2021 00:00:00 2022 15:50:28 [id number] [facility] [place] [address] [place] [address] 03/05/2022 00:00:00 03/05/2022 09:43:50 [id number] [facility] [address] [place] [address] 03/10/2022 00:00:00 03/10/2022 12:24:59 [id number] [facility] [place] [address] [place] [address] 07/21/2022 00:00:00 08/04/2022 21:10:07 [id number] MARY Hernandez [facility] [place] [address] [place] [address] 01/18/2023 11:37:44 01/18/2023 12:38:06 Well controlled type 2 diabetes mellitus 349899331 E11.9 stable on trulicity and glipizide therapy. A1c 6.3%. repeat labs in Jun. Screening mammography 24 521063 Z12.31 mammogram ordered Mixed anxi ety and depressive disorder 453720431 F41.8 stable on venlafaxin e ER 150mg daily. Long-term drug therapy 967856399 Z79.899 next full lab panel due in Jun. History of peptic ulcer 905390961 Z87.11 refill omeprazole 40mg daily Gastroesop hageal reflux disease without esophagitis 502888936 K21.9 stable on PPI therapy and EGD was up to date Hyperlipidemia 59600926 E78.5 stable on statin therapy, repeat labs due in Jun [id number] Lc Morrison MD [facility] [place] [address] [place] [address] 01/29/2023 10:39:37 02/01/2023 09:54:30 Pain of left knee joint 0502513212 73078 M25.562 [id number] Lc Morrison MD [facility] [place] [address] [place] [address] 02/19/2023 08:49:17 02/19/2023 10:28:02 Pain of left knee joint [id number] M25.418 [id number] MARY Hernandez [facility] [place] [address] [place] [address] 06/24/2023 11:32:48 06/24/2023 12:31:15 Well controlled type 2 diabetes mellitus 059763443 E11.9 stable on trulicity and glipizide therapy. A1c 6.1%. Mixed anxi ety and depressive disorder 965506739 F41.8 stable on venlafaxin e ER 150mg daily. Gastroesop hageal reflux disease without esophagitis 135268927 K21.9 stable on PPI therapy and EGD was up to date Hyperlipidemia 28313115 E78.5 stable on statin therapy, Long-term drug therapy 721176600 Z79.899 History of peptic ulcer 313054400 Z87.11 Health Concerns Section Related Observation LastModified by Organization Detai ls LastModified Time None Recorded Concern Status LastModified by Organization Details LastModified Time None Recorded Advance Directives Directive N: Payers Encounter Date Sequence Insurance Name Policy Number Policy Smith Covered Member ID Smith Member ID Guarantor Name 01/18/2023 1 [facility] (MEDICARE REPLACEMENT/A DVANTAGE - HMO) [id number] Savannah Portillo [id number] Savannah Portillo 01/29/2023 1 [facility] (MEDICARE REPLACEMENT/A DVANTAGE - HMO) [id number] Savannah Portillo [id number] Savannah Portillo 02/19/2023 1 [facility] (MEDICARE REPLACEMENT/A DVANTAGE - HMO) [id number] Savannah Moore Lindsey [id number] Savannah Portillo 06/24/2023 1 [facility] (MEDICARE REPLACEMENT/A DVANTAGE - HMO) [id number] Savannah Portillo [id number] Savannah Portillo Notes Date Note Type Note Provider Name and Address Organization Details Recorded Time 023 text/ht ml Angina/Chest PainReported bypatient.Severity:not limiting Onset/Timing:one episode Aggravating Factors:nothing makes it worse Associated Symptoms:no dyspnea; no cough; no decrease in exercise capacity; no fatigue; no nocturnal episodes; no resting episodes; no associated palpitations; no associated dizziness; no weakness; no rigor; no fever; no muscle aches; no joint painAnxiety/DepressionReported bypatient.Severity:denies suicidal ideations; able to maintain relationships; does not interfere with activities of daily living Duration:stablizing Onset/Timing:still present Context:no major life stressors Associated Symptoms:denies homicidal ideations; no significant weight gain; no significant weight loss; no visual/auditory hallucinations; no delusions; no shortness of breath; mood good; no anxiety; no crying spells; no panic; no isolation; sleeping well; appetite good; energy good; no apathy; maintaining functionalityDiabetesReported bypatient.Control:worsened since last visit;home blood sugar range high; treated with diet and oral medications; hemoglobin A1C has been 8-9 Compliance:compliant with medications; compliant with follow-up visits; compliant with diet; compliant with home glucose monitoring Context:seeing eye doctor regularly; checking feet regularlyHyperlipidemiaReported bypatient.Duration:chronic Control:usually well controlled Current Therapy:currently taking: (atorvastatin 20mg) Compliance:compliant;noncompliant with diet;does not exercise Complications:no coronary artery disease; no peripheral artery disease; no cardiovascular diseaseInsomniaReported bypatient.Severity:same Duration:intermittent Modifying Factors:prescription medication Associated Symptoms:no anxiety; no snoring; no depression; no known sleep apnea; no pain; no dyspnea; no urinary frequency; legs do not feel restlessNeckReported bypatient.Quality:aching; constant Severity:moderate Context:overuse Alleviating Factors:nothing helps Previous Surgery:none Prior Imaging:none Previous Injections:noneReflux/GERDReported bypatient.Symptomsasymptomatic; no difficulty swallowing; no pain swallowing; no postprandial pain Severity:same Duration:present 5 or more years Onset/Timing:gone now Context:non-smoker; no drug/alcohol abuse; no drug alcohol withdrawal; not related to food/drink Alleviating Factors:medication Associated Symptoms:no frequent coughing; no hoarseness; no food getting stuck; no belching/burping; no vomiting; not vomiting blood; no regurgitation; no shortness of breath; no chest pain; no heartburn; no difficulty swallowing; no pain when swallowing; no bad taste; no decreased appetite; no weight loss; no black/tarry stools; no dental erosion; no bloating; no early satiety; no halitosis;fatigue;throat pain Not Available [facility] [employer] 08/04/2022 21:10:07 023 text/ht ml Anxiety/DepressionReported bypatient.Quality:doesnt matter time of day Severity:denies suicidal ideations; able to maintain relationships; does not interfere with activities of daily living Context:no major life stressors Associated Symptoms:denies homicidal ideations; no significant weight gain; no significant weight loss; no visual/auditory hallucinations; no delusions; no shortness of breathDiabetesReported bypatient.Duration:chronic Control:usually well controlled; improved since last visit Compliance:compliant with medications; compliant with follow-up visits; compliant with diet; compliant with home glucose monitoring Self Care:monitoring glucose Context:seeing eye doctor regularly; checking feet regularly Associated Symptoms:no weight gain; no weight loss; no dizziness; no sweats; no headaches; no confusion; no increased thirst; no increased appetite; no increased urination; no blurred vision; no numbness of feet; no coronary artery disease; no kidney disease; no peripheral vascular disease; no diabetic retinopathy; no diabetic neuropathyHyperlipidemiaReported bypatient.Duration:chronic Control:usually well controlled; improving; at goal Compliance:compliant; compliant with diet; exercises Complications:no coronary artery disease; no peripheral artery disease; no cardiovascular diseaseInsomniaReported bypatient.Severity:same Associated Symptoms:no anxiety; no snoring; no depression; no known sleep apnea; no pain; no dyspnea; no urinary frequency; legs do not feel restlessReflux/GERDReported bypatient.Severity:improving Context:non-smoker; no drug/alcohol abuse; no drug alcohol withdrawal; not related to food/drink Alleviating Factors:medication Associated Symptoms:no frequent coughing; no feeling of fullness/mass in throat; no hoarseness; no food getting stuck; no belching/burping; no vomiting; not vomiting blood; no regurgitation; no shortness of breath; no chest pain; no heartburn; no difficulty swallowing; no pain when swallowing; no bad taste; no decreased appetite; no weight loss; no black/tarry stools; no fatigue; no throat pain MARY Hernandez [address], [place] [address], [place], [address], [employer] 02/01/2023 00:50:10 023 text/ht ml Patient is a 68-year-old female referred by Dr. Adams for evaluation of her left knee. She has some symptoms on the right as well in the past long history of mild symptoms on the right but that is not bothering her very much currently. Her left knee has never bothered her until 3 months ago. She recalls that she simply got up 1 morning and had significant pain in the left knee she notes popping in the knee occasionally and she can hear it and is up at times painful. One day she developed quite a bit of swelling in the left knee that seem to swell down to her foot on the left. Her pain is anterior and medial. She feels a catching sensation it is quite painful to try to kneel or squat stairs are painful getting up from a seated position is painful. She has a history of peptic ulcer disease and fatty liver disease and at as such she is unable to tolerate nonsteroidal anti-inflammatory medications but recently she has tried naproxen a couple of times because the pain has been significant. She does have history of diabetes. History of gout. Lc Morrison MD [address], [facility] [address], [place], [address], [employer] 01/29/2023 18:58:32 023 text/ht ml Anxiety/DepressionReported bypatient.Quality:doesnt matter time of day. Severity:denies suicidal ideations; able to maintain relationships;interference with sleep Duration:symptoms lasting over 2 weeks Onset/Timing:still present Context:no major life stressors Associated Symptoms:denies homicidal ideations; no significant weight gain; no significant weight loss; no visual/auditory hallucinations; no delusions; no shortness of breathDiabetesReported bypatient.Duration:chronic Control:usually well controlled; improved since last visit Compliance:compliant with medications; compliant with follow-up visits; compliant with diet; compliant with home glucose monitoring; had eye doctor visit in last year Context:seeing eye doctor regularly; checking feet regularly Associated Symptoms:no weight gain; no weight loss; no dizziness; no sweats; no headaches; no confusion; no increased thirst; no increased appetite; no increased urination; no blurred vision; no numbness of feet; no coronary artery disease; no kidney disease; no diabetic retinopathy; no diabetic neuropathyHyperlipidemiaReported bypatient.Duration:chronic Control:usually well controlled Compliance:compliant; compliant with diet;does not exercise Complications:no coronary artery disease; no peripheral artery disease; no cardiovascular disease Risk Factors:hypertensionReflux/GERDRepo rted bypatient.Severity:same Duration:present 5 or more years Onset/Timing:gone now Context:non-smoker; no drug/alcohol abuse; no drug alcohol withdrawal; not related to food/drink Alleviating Factors:medication Associated Symptoms:no frequent coughing; no feeling of fullness/mass in throat; no hoarseness; no food getting stuck; no belching/burping; no vomiting; not vomiting blood; no regurgitation; no shortness of breath; no chest pain; no heartburn; no difficulty swallowing; no pain when swallowing; no bad taste; no decreased appetite; no weight loss; no black/tarry stools; no fatigue; no throat pain MARY Hernandez [address] [facility], [facility] [address], [place], [address], [facility] 06/29/2023 17:37:21 OBGyn Episode No OBEpisode recorded.
--- OUTSIDE RECORDS SUMMARY | 2024-08-29 14:38 | XMS_ITS | Clinical Summary ---
Author Organization [facility] Address [facility] [place] [address] Care Team Providers Care Manager Education Name Role Phone Brittney Stevenson Primary Care Provider [phone] Allergies No known active allergies Medications atorvastatin 20 MG tablet 1 Active DULoxetine (CYMBALTA) 60 MG capsule Cymbalta 60 mg capsule,delayed release Take 1 capsule every day by oral route for 90 days. Active vitamin D2, ergocalciferol, 74962 UNITS capsule Take 50,000 Units by mouth once a week. 1 Active glimepiride 2 MG tablet glimepiride 2 mg tablet Active indomethacin 50 MG capsule 1 Active omeprazole 40 MG capsule 1 Active venlafaxine XR 150 MG 24 hr capsule 1 Active fluticasone propionate (FLONASE) 50 MCG/ACT nasal spray 1 spray by Each Nostril route 2 (two) times daily. 16 g 1 Active cetirizine-pseu doephedrine ER 5mg-120mg 12 hr tablet Take 1 tablet by mouth daily. 28 tablet 1 Active Encounters Date Type Department Care Team Description 06/20/2024 9:58 AM NURSE INFECTION CONTROL - 06/20/2024 11:59 PM NURSE INFECTION CONTROL Hospital Encounter [facility] [address] [place], [place] [id number] Brittney Stevenson PA Discharge Disposition: Home or Self Care (Routine Discharge) 06/20/2024 Travel 06/19/2024 7:20 AM NURSE INFECTION CONTROL - 06/19/2024 11:59 PM NURSE INFECTION CONTROL Hospital Encounter [facility] [address] [place] [address] Brittney Stevenson PA Discharge Disposition: Home or Self Care (Routine Discharge) 06/19/2024 Travel 06/05/2024 Orders Only [facility] [address] [place] [address] Brittney Stevenson PA from Last 3 Months Family History Medical History Relation Comments Breast Cancer Maternal Aunt 40'S Relation Status Comments Maternal Aunt Social History Tobacco Use Types Packs/Day Years Used Date Smoking Tobacco: Never Smokeless Tobacco: Never Alcohol Use Standard Drinks/Week Comments Not Currently 0 (1 standard drink = 0.6 oz pur e alcohol) Comments No Sex and Gender Information Value Date Recorded Sex Assigned at Not on file Legal Sex Female 7:22 PM CDT Gender Identity Not on file Sexual Orientation Not on file Last Filed Vital Signs Vital Sign Reading Time Taken Comments Blood Pressure 154/69 07/28/2021 4:16 PM NURSE INFECTION CONTROL Pulse 60 07/28/2021 4:16 PM NURSE INFECTION CONTROL Temperature 36.8 C (98.3 F) 07/28/2021 4:16 PM NURSE INFECTION CONTROL Respiratory Rate 16 07/28/2021 4:16 PM NURSE INFECTION CONTROL Oxygen Saturation 98% 07/28/2021 4:16 PM NURSE INFECTION CONTROL Inhaled Oxygen Concentration - - Weight 78 kg (172 lb) 06/17/2021 11:41 AM NURSE INFECTION CONTROL Height 157.5 cm (5' 2 ) 06/17/2021 11:41 AM NURSE INFECTION CONTROL Body Mass Index 31.46 06/17/2021 11:41 AM NURSE INFECTION CONTROL Plan of Treatment Health Maintenance Due Date Last Done Comments Colorectal Cancer Screening Colonoscopy (10 Years) 1955 Pneumococcal Vaccine: 65+ Years (1 of 2 - PCV) 12/31/1961 Diabetes: Retinopathy Eye Exam 12/31/1973 Hepatitis C 12/31/1973 DTaP, Tdap and Td Vaccines (1 - Tdap) 12/31/1974 Zoster Vaccines (1 of 2) 12/31/2005 Annual Medicare Wellness Visit 12/31/2020 COVID-19 Vaccine (3 - season) 2024 10/02/2020, 09/02/2020 Influenza Adult (#1) 2024 04/03/2013 Hemoglobin A1C 12/18/2024 06/19/2024, 06/0 10/2023, 06/21/2023, Additional history exists Kidney Health Evaluation 06/19/2025 06/19/2024 Lipid Panel 06/19/2025 06/19/2024, 06/0 10/2023, 12/07/2023, Additional history exists Mammogram Screening 06/20/2026 06/20/2024, 03/23/2023, 02/25/2021, Additional history exists RSV Immunization or 60+ Years (1 - 1-dose 75+ series) 12/31/2030 Dexa Scan (General) Completed 03/10/2022 Meningococcal B Vaccine Aged Out No l onger eligible based on patient's age to complete this topic Meningococcal Vaccine Aged Out No gilles sofia eligible based on patient's age to complete this topic RSV Immunizations Under 20 Months Aged Out No longer eligible based on patient's age to complete this topic Procedures Procedure Name Priority Date/Time Associated Diagnosis Comments MG SCREENING W KENNEDY MITZI DIGI Routine 06/20/2024 10:29 AM NURSE INFECTION CONTROL Encounter for screening mammogram for malignant neoplasm of breast ALBUMIN URINE RANDOM W/CREATININE Routine 06/19/2024 10:30 AM NURSE INFECTION CONTROL Diabetes mellitus (CMS/HCC HHS/HCC) HEPATIC FUNCTION PANEL Routine 06/19/2024 8:08 AM NURSE INFECTION CONTROL Diabetes mellitus (CMS/HCC HHS/HCC) CBC W/DIFF AUTOMATED Routine 06/19/2024 8:08 AM NURSE INFECTION CONTROL Diabetes mellitus (CMS/HCC HHS/HCC) BASIC METABOLIC PANEL Routine 06/19/2024 8:08 AM NURSE INFECTION CONTROL Diabetes mellitus (CMS/HCC HHS/HCC) LIPID PANEL Routine 06/19/2024 8:08 AM NURSE INFECTION CONTROL Diabetes mellitus (CMS/HCC HHS/HCC) HEMOGLOBIN, GLYCOSYLATED Routine 06/19/2024 8:08 AM NURSE INFECTION CONTROL Diabetes mellitus ([facility]) BONE DENSITY/DEXA Routine 03/10/2022 12: 46 PM CDT Post-menopausal from Last 3 Months or Most Recently Relevant to Health Maintenance Results * MG SCREENING W KENNEDY MITZI DIGI (06/20/2024 10:29 AM NURSE INFECTION CONTROL) Anatomical Region Laterality Modality Breast Bilateral Mammography 06/20/2024 4:23 PM NURSE INFECTION CONTROL Impressions 06/20/2024 4:31 PM NURSE INFECTION CONTROL ===== IMPRESSION: ===== 1. Stable mammographic appearance with no new findings to suggest malignancy in either breast. Assessment: ACR BI-RADS 2 - BENIGN FINDING(S) Recommendation: 1:Routine Screening Bilateral Comments: Ordered By: BRITTNEY STEVENSON Interpreted By: Ozzie Juarez, 06/20/2024 4:23 PM Narrative 06/20/2024 4:31 PM NURSE INFECTION CONTROL [facility] [address] [place] [address] EXAMINATION: Digital bilateral screening mammogram with 3-D tomosynthesis EXAM DATE/TIME: 06/20/2024 10:00 AM REASON FOR EXAM: encounter for screening mammogram Breast carcinoma in maternal aunt in her 40s COMPARISON: 02/25/2021. 03/23/2023. Technique: Digital screening mammography of both breasts was performed in addition to 3-D Tomosynthesis technique. This study was read with the assistance of a computer-aided detection system. Tissue density: The breasts are heterogeneously dense, which may obscure small masses. Findings: There is no new focal asymmetry, dominant mass lesion, area of skin thickening, or cluster of suspicious appearing calcifications in either breast to suggest malignancy. us Brittney Stevenson PA MAMMO Final Result * MICROALBUMIN CREATININE RATIO (MICROALBUMIN/ALBUMIN) (06/19/2024 10:30 AM NURSE INFECTION CONTROL) CREATININE (U) 107.9 28 - 217 MG/DL 06/19/2024 11:[address] [facility] MICROALBUMIN (U) 0.6 <2.0 mg/dL 06/19/20 11:[address] [facility] ALBUMIN/CREAT RATIO 5.6 <30.0 MG/G 06/19/2024 11:[address] [facility] URINE SPECIMEN / Unknown 06/19/2024 10:30 AM NURSE INFECTION CONTROL Brittney HERNANDEZ URINE ORDERABLES Final Result Performing Organization Address [facility] de Phone Number [facility] [address] [place] [address], [place] [phone] * (ABNORMAL) HEMOGLOBIN, GLYCOSYLATED (06/19/2024 8:08 AM NURSE INFECTION CONTROL) HGB A1C 6.4(H) <5.7 % 06/19/2024 9:[address] [facility] Comment: INCREASED RISK OF DIABETES <5.7% NON-DIABETES 5.7-6.4% INCREASED RISK FOR FUTURE DIABETES > OR = 6.5 CONSISTENT WITH DIABETES STANDARDS OF MEDICAL CARE IN DIABETES-2010 DIABETES CARE, 33(SUPP 1): S1-S61,2010 ESTIMATED AVG GLUCOSE 137 mg/dL 06/19/2024 9:[address] [facility] 06/19/2024 8:08 AM NURSE INFECTION CONTROL Brittney HERNANDEZ LABORATORY Final Result Performing Organization Address [facility] Co de Phone Number [facility] [address] [place] [address], [place] [phone] * (ABNORMAL) BASIC METABOLIC PANEL (06/19/2024 8:08 AM [facility]) GLUCOSE 103(H) 70 - 99 MG/DL 06/19/2024 8:[address] [facility] BUN 15 7 - 18 MG/DL 06/19/2024 8:[address] [facility] CREATININE S/P/B 0.83 0.55 - 1.02 MG/DL 06/19/2024 8:[address] [facility] SODIUM S/P/B 142 136 - 145 MMOL/L 06/19/2024 8:[address] [facility] POTASSIUM S/P/B 4.7 3.5 - 5.1 MMOL/L 06/19/2024 8:[address] [facility] CHLORIDE S/P/B 104 100 - 108 MMOL/L 06/19/2024 8:[address] [facility] CO2 31.5 21 - 32 MMOL/L 06/19/2024 8:[address] [facility] CALCIUM S/P/B 9.3 8.5 - 10.1 MG/DL 06/19/2024 8:[address] [facility] ANION GAP 6.5 5 - 15 MMOL/L 06/19/2024 8:[address] [facility] BUN CREATININE RATIO 18.1 6 - 26 06/19/2024 8:[address] [facility] GFR ESTIMATE 77(L) >90 ML/MIN/1.7 3 M2 06/19/2024 8:[address] [facility] Comment: NOTE: eGFR is not calculated for patients <18 years of age. This is an estimated GFR calculation using the new CKD EPI creatinine equation without race and so does not require a correction factor for race. This estimated GFR should not be used for calculating drug doses. 06/19/2024 8:08 AM NURSE INFECTION CONTROL us Brittney HERNANDEZ LABORATORY Final Result [facility] [address] [place] [address], * LIPID PANEL (06/19/2024 8:08 AM NURSE INFECTION CONTROL) CHOLESTEROL 169 <200.0 MG/DL 06/19/2024 8:59 AM NURSE INFECTION CONTROL [facility] TRIGLYCERIDES 81 <150 MG/DL 06/19/2024 8:[address] [facility] HDL 55 >40.0 MG/DL 06/19/2024 8:[address] [facility] LDL (CALCULATED) 98 <100 MG/DL 06/19/20 8:[address] [facility] NON HDL CHOLESTEROL 114 <130 MG/DL 06/19 8:[address] [facility] CHOL/HDL RATIO 3.1 0.0 - 4.5 06/19/2024 8:[address] [facility] VLDL CALCULATION 16 5 - 55 MG/DL 06/19/2024 8:[address] [facility] LIPID INTERPRETATION 06/19/2024 8:[address] [facility] Comment: [facility] REPORT RECOMMENDATIONS: ADULT CHILD LOW RISK: CHOLESTEROL <200 <170 TRIGLYCERIDE <150 --- HDL >=60 --- LDL <100 <110 BORDERLINE: CHOLESTEROL 200-239 170-199 TRIGLYCERIDE 150-199 --- HDL 40-59 --- LDL 100-159 110-129 HIGH RISK: CHOLESTEROL >=240 >=200 TRIGLYCERIDE >=200 --- HDL <40 --- LDL >=160 >=130 06/19/2024 8:08 AM NURSE INFECTION CONTROL us Brittney HERNANDEZ LABORATORY Final Result [facility] [address] [place] [address], [place] [phone] * HEPATIC FUNCTION PANEL (06/19/2024 8:08 AM NURSE INFECTION CONTROL) TOTAL PROTEIN S/P/B 7.3 6.4 - 8.2 G/DL 06/19/2024 8:59 AM NURSE INFECTION CONTROL [facility] ALBUMIN S/P/B 3.8 3.4 - 5.0 G/DL 06/19/2024 8:[address] [facility] BILIRUBIN TOTAL S/P/B 0.5 0.2 - 1.2 MG/DL 06/19/2024 8:[address] [facility] BILIRUBIN DIRECT S/P/B 0.1 0.0 - 0.20 MG/DL 06/19/2024 8:[address] [facility] BILIRUBIN INDIRECT S/P/B 0.4 0.0 - 0.9 MG/DL 06/19/2024 8:[address] [facility] ALKALINE PHOSPHATASE S/P/B 128 50 - 136 U/L 06/19/2024 8:[address] [facility] AST 26 15 - 37 U/L 06/19/2024 8:[address] [facility] ALT 26 14 - 55 U/L 06/19/2024 8:[address] [facility] A/G RATIO 1.1 1.0 - 2.0 RATIO 06/19/2024 8:[address] [facility] 06/19/2024 8:08 AM NURSE INFECTION CONTROL us Brittney HERNANDEZ LABORATORY Final Result [facility] [address] [place] [address], [place] [phone] * (ABNORMAL) CBC W/DIFF AUTOMATED (06/19/2024 8:08 AM NURSE INFECTION CONTROL) [facility] Signature WBC 8.27 4.4 - 11.0 x10'3/uL 06/19/2024 8:[address] [facility] RBC 4.79 4.50 - 5.10 x10'6/uL 06/19/2024 8:[address] [facility] HGB 13.6 12.3 - 15.3 G/DL 06/19/2024 8:[address] [facility] HCT 43.0 35.9 - 44.6 % 06/19/2024 8:[address] [facility] MCV 89.8 80.0 - 96.0 FL 06/19/2024 8:[address] [facility] MCH 28.4 25.3 - 30.9 PG 06/19/2024 8:[address] [facility] MCHC 31.6 31.0 - 34.1 G/DL 06/19/2024 8:[address] [facility] RDW 13.2 12.4 - 15.1 % 06/19/2024 8:[address] [facility] PLT 354(H) 151 - 353 x10'3/uL 06/19/2024 8:[address] [facility] MPV 10.9 9.6 - 12.0 FL 06/19/2024 8:[address] [facility] RBC MORPHOLOGY NORMAL 06/19/2024 8:[address] [facility] PLT MORPH. NORMAL 06/19/2024 8:[address] [facility] WBC MORPHOLOGY NORMAL 06/19/2024 8:[address] [facility] LYMPHOCYTES % 43.8 15.8 - 45.0 % 06/19/2024 8:[address] [facility] NEUTROPHILS % 45.2 42.1 - 71.9 % 06/19/2024 8:[address] [facility] MONOCYTES % 8.6 5.7 - 12.5 % 06/19/2024 8:[address] [facility] EOSINOPHILS 1.7 0.0 - 5.6 % 06/19/2024 8:[address] [facility] BASOPHILS 0.5 0.0 - 1.3 % 06/19/2024 8:[address] [facility] ABS. NEUTROPHILS 3.74 1.40 - 6.00 x10'3/uL 06/19/2024 8:[address] [facility] IMMATURE GRANS % 0.2 0.0 - 0.5 % 06/19/2024 8:[address] [facility] ABS. LYMPHOCYTES 3.62 0.80 - 4.70 x10'3/uL 06/19/2024 8:[address] [facility] 06/19/2024 8:08 AM NURSE INFECTION CONTROL us Brittney HERNANDEZ LABORATORY Final Result Performing Organization Address City/State/[facility] Co de Phone Number [facility] [address] [place] [address], * BONE DENSITY/DEXA (03/10/2022 12:46 PM CDT) Anatomical Region Laterality Modality Bone Bone Density 03/10/2022 1:15 PM CDT Narrative 03/10/2022 1:16 PM CDT IMAGING STUDIES: BONE DENSITY/DEXA DATE: 03/10/2022 12:34 PM CLINICAL HISTORY: Post-menopausal . 67-year-old female with hysterectomy at age 37. No calcium therapy. FINDINGS: LUMBAR SPINE L2-L4: BMD: 0.928 g/sq cm T-SCORE: -1.4 WHO CLASSIFICATION: Mild osteopenia FRACTURE RISK: Low LEFT FEMORAL NECK: BMD: 0.701 T-SCORE: -1.3 WHO CLASSIFICATION: Mild osteopenia FRACTURE RISK: Very low Recommendation. Instigation of calcium replacement therapy with repeat imaging in 2 years Ordered By: BRITTNEY STEVENSON Interpreted By: Ozzie Juarez, 03/10/2022 1:15 PM Procedure Note Sudheer Juarez MD - 03/10/2022 IMAGING STUDIES: BONE DENSITY/DEXA DATE: 03/10/2022 12:34 PM CLINICAL HISTORY: Post-menopausal . 67-year-old female withhysterectomy at age 37. No calcium therapy. FINDINGS: LUMBAR SPINE L2-L4: BMD: 0.928 g/sq cm T-SCORE: -1.4 WHO CLASSIFICATION: Mild osteopenia FRACTURE RISK: Low LEFT FEMORAL NECK: BMD: 0.701 T-SCORE: -1.3 WHO CLASSIFICATION: Mild osteopenia FRACTURE RISK: Very low Recommendation. Instigation of calcium replacement therapy with repeatimaging in 2 years Ordered By: BRITTNEY STEVENSON Interpreted By: Ozzie Juarez, 03/10/2022 1:15 PM Brittney HERNANDEZ DEXA Final Result from Last 3 Months or Most Recently Relevant to Health Maintenance Insurance [facility] Care Teams Manager Education Relationship Specialty Start Date End Date Brittney Stevenson PA [address] [place] [address] PCP - General PHYSICIAN FIELD ADMINISTRATIVE ASSISTANT 01/16/21
== END 2024-08-29 12:56 | disposition home or self-care (01) ==
LOC: ANHIMG 12:55
PROVIDERS: PCP Physician Assistant; Visit Provider Orthopaedic Surgery
DX: M25.511 Pain in right shoulder (principal)
CPT/HCPCS: 20610; 77002; J1010; J2003

== ENCOUNTER 2024-10-15 13:31 | Emergency (ER) | payer MEDICARE, SELFPAY ==
--- NOTE | ~2024-10-15 | XR_ITS ---
EXAM: XR wrist RT min 3V DATE: 10/15/2024 14:15 HISTORY: fall . COMPARISON: None available. FINDINGS: Osteopenia. Comminuted, minimally displaced fracture of the base the fifth metacarpal, wit h one cortical width lateral displacement and possible slight impaction. The scapholunate interval is not widened by measurement, but is asymmetrically widened when compared to other intercarpal joints No lytic or blastic lesion. Mild scattered degenerative change. No erosion or periosteal change. Soft tissue swelling over the dorsal wrist. IMPRESSION: Comminuted, minimally displaced fracture of the base the fifth metacarpal. Apparent sligh t widening of the scapholunate interval, correlate with pain/tenderness, and consider scapholunate in jury. Reviewed, dictated and finalized at location K. IMPRESSION: Comminuted, minimally displaced fracture of the base the fifth meta carpal. Apparent slight widening of the scapholunate interval, correlate with p ain/tenderness, and consider scapholunate injury.
--- NOTE | ~2024-10-15 | XR_ITS ---
EXAM: XR hand RT min 3V DATE: 10/15/2024 14:30 HISTORY: FALL . COMPARISON: None available. Osteopenia. Comminuted, minimally displaced fracture of the base the fifth metacarpal, with one corti flaca width lateral displacement and possible slight impaction. No lytic or blastic lesion. Mild scatte red degenerative change. No erosion or periosteal change. Soft tissue swelling. IMPRESSION: Comminuted, minimally displaced fracture of the base the fifth metacarpal. Reviewed, dictated and finalized at location K. IMPRESSION: Comminuted, minimally displaced fracture of the base the fifth meta carpal.
--- NOTE | ~2024-10-15 | XR_ITS ---
EXAM: XR shoulder RT min 2V DATE: 10/15/2024 14:15 HISTORY: fall . COMPARISON: 04/21/2024, images only. FINDINGS: Decreased mineralization. No fracture or dislocation. No lytic or blastic lesion. Mild deg enerative change at the AC joint. No erosion or periosteal change. Soft tissues within normal limits. IMPRESSION: No acute osseous finding in the right shoulder. Reviewed, dictated and finalized at location K.
--- NOTE | ~2024-10-15 | XR_ITS ---
EXAM: XR elbow RT min 3V DATE: 10/15/2024 14:15 HISTORY: fall . COMPARISON: None available. FINDINGS: Decreased mineralization. No fracture or dislocation. No lytic or blastic lesion. Joint sp aces are maintained. Lateral epicondylar enthesopathy. No erosion or periosteal change. Soft tissues within normal limits. IMPRESSION: No acute osseous finding in the right elbow. Reviewed, dictated and finalized at location K.
--- OUTSIDE RECORDS SUMMARY | 2024-10-15 13:34 | XMS_ITS | Clinical Summary ---
Author Organization [facility] Address [address] [place] [address] Care Team Providers Care Flying Instructor Name Role Phone Manisha Mann MD Primary Care Provider Source Comments [facility],non-owned Affiliates and Associated Physician Practices is amultiple site organization consisting of ambulatory clinics and hospital sitesin [place], [place], [place] and [place]. This disclosure is being madepursuant to the Care Everywhere program and may not contain all information available regarding this patient. Last updated 18.[facility] [employer] Social History Tobacco Use Types Packs/Day Years Used Date Smoking Tobacco: Never Assessed Comments Unknown Sex and Gender Information Value Date Recorded Sex Assigned at Not on file Legal Sex Female 9:27 AM CDT Gender Identity Not on file Sexual [...] VACCINE (1 of 2) 12/31/2005 COVID-19 VACCINE (1 - 2023-2 5 season) 2024 DEPRESSION SCREENING 07/05/2024 MEDICARE AWV CALENDAR YEAR 2024 INFLUENZA VACCINE (Season Ended) 2025 Respiratory Syncytial Virus (RSV) Vaccine Pt: or [...] to complete this topic MENINGOCOCCAL (Group B) VACC INE SHARED DECISION-MAKING Aged Out No longer eligibl e based on patient's age to complete this topic MENINGOCOCCAL GROUPS A/C/Y/W VACCINE Aged Out No longer eligible b ased on patient's age to complete this topic Insurance [place] [id number] [facility] MANAGED MEDICARE ADV Care Teams Flying Instructor Relationship Specialty Start Date End Date Manisha Mann MD [address] [place] [address] [phone] [facility] - General 04/24/21
--- OUTSIDE RECORDS SUMMARY | 2024-10-15 13:34 | XMS_ITS | Encounter Summary ---
Author Organization [facility] Address [address] [place] [address] Care Team Providers Care Veterinarian Assistant Name Role Phone Manisha Mann MD Primary Care Provider [phone] Encounter Details Date Type Department Care Team (Late st Contact Info) Description 06/02/2023 Lab Requisition [facility] [address] [place] [address] Angeli Basurto DO [address] [facility] [address] [place] [address] Social History Tobacco Use Types Packs/Day Years [...] Diagnosis Comments DERMATOPATHOLOGY Routine 06/02/2023 2:26 PM SUSTAINABILITY COACH documented in this encounter Results * DERMATOPATHOLOGY (06/02/2023 2:26 PM SUSTAINABILITY COACH) Case Report Dermatopathology Report Case: [id number] Authorizing Provider: Angeli Basurto DO Collected: 06/02/2023 02:26 PM Ordering Location: [facility]erm[facility] Lab Received: 06/03/2023 01:12 PM Pathologist: Sofia Salazar MD Specimens: A) - Skin, right cheek B) - Skin, right low back 12:59 PM SUSTAINABILITY COACH DERMATOPATHOLOGY LABORATORY Final Diagnosis Specimen A. SKIN, right cheek: BASAL CELL CARCINOMA, NODULAR TYPE (C44.319) Specimen B. 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 Jar 0. 3 12:59 PM [facility] DERMATOPATH[facility]Y [facility]OR[facility]ORY Microscopic Description Specimen A. [...] were obtained and reviewed. 3 12:59 PM [facility] DERMATOPATHOLOGY [facility]ORATORY Disclaimer An external and internal positive and negative controls are appropriate for the histochemical, immunohistochemical and immunofluorescence stain(s) in this case (if any), except where stated explicitly. The performance characteristics of the stain(s) cited in this report were developed and its performance characteristic determined by the Dermatopathology Laboratory at [facility], directed by Dr. Daniel Ahuja. These tests need not be, and therefore are not, approved by the [place] Food and Drug Administration. The tests are used for clinical purposes. Billing Codes Specimen Charges Stain Charges [id number] 1 1 3 12:59 PM [facility] DERMATOPATHOLOGY [facility]ORATORY Embedded Images 3 12:59 PM [facility] DERMATOPATH[facility]Y [facility]ORY Pathology/Cytology TISSUE SPECIMEN FROM SKIN / Unknown 06/02/2023 2:26 PM SUSTAINABILITY COACH 06/03/2023 1:12 PM SUSTAINABILITY COACH Miscellaneous samples (specimen) TISSUE SPECIMEN FROM SKIN / Unknown 06/02/2023 2:26 PM SUSTAINABILITY COACH 06/03/2023 1:12 PM SUSTAINABILITY COACH us Angeli Basurto DO LAB - PATHOLOGY/CYTOLOGY ORDERABLES Final Result DERMATOPATHOLOGY LABORATORY [facility] - Department of Dermatology [facility] [address] [place] [address], [address] [phone] documented in this encounter Visit Diagnoses Not on filedocumented in this encounter Care Teams Veterinarian Assistant Relationship Specialty Start Date End Date Manisha Mann MD [address] [place] [address] [phone] PCP - General 04/24/21 documented as of this encounter
--- OUTSIDE RECORDS SUMMARY | 2024-10-15 13:34 | XMS_ITS | Data Portability ---
Author Organization [employer], Main Office Address [address] [place] [address] Care Team Providers Care Physical Therapist Clinic Director Name Role Phone BRITTNEY ADAMS Primary Care Provider BRITTNEY ADAMS Referring Provider [phone] Assessment Encounter Date Assessment Date Assessment LastModified [...] more than half the time spent in thau-co-znwj care. Not available 01/29/2023 18:58:10 02/19/2023 02/19/2023 [...] If her patellofemoral arthritis become severe and awoh-ez-ztzt and her symptoms are intractable, knee replacement [...] more than half the time spent in sqit-bd-aggn care. Not available 02/19/2023 10:12:20 Plan of Treatment Reminders Order Date Submit Date Provider Last Modified By Organization Details Last Modified Time Details Appointments None recorded. Lab HbA1c (hemoglobin A1c), blood [address], [address] Heri Dougherty, [place], [address], 4 18:01:51 microalbumi n/creatinin e, mass ratio, urine [address], [address] Heri Burger, [place], [address], 4 18:01:51 microalbumi n, urine [address], [address] Heri Burgere, [place], [address], 4 18:01:51 CBC w/ auto diff [address], [address] [facility] [place], [address], 4 18:01:50 BMP, serum or plasma [address], [address] Heri Burger, [place], [address], 4 18:01:50 hepatic function panel, serum [address], [address] [place], [address], 4 18:01:51 TSH + free T4, serum [address], [address] Heri Burgere, [place], [address], 4 18:01:51 lipid panel, serum 2022 023 [facility], [address] [address], [place], [address], 4 18:01:51 Referral None recorded. Procedures injection/a spiration joint/bursa (PROC) - in office procedure, administere d by provider 2022 023 [email or web address] In-Office Order, Internal Use Only DO Not Attach Compendium DO Not Attach Compendium, Do Not Delete/merge, [id number] 3 09:42:55 Surgeries None recorded. Imaging XR, knee 2022 023 [email or web address] [facility], [address] [facility] [address], [place], [address], 3 09:54:30 MRI, knee, w/o contrast - GIVE THE PT A CD OF IMAGES 2022 023 ANN [facility] ([facility] [address] [address], [place], [address], 3 19:34:18 MAMMO, screening, digital, bilateral [email or web address] [place] [address] - Radiology, [address] [place], [address], 3 12:26:21 Medication Orders Kenalog 10 mg/mL suspension for injection 2022 023 [email or web address] 4 [facility] [address], [address], [place], [address], 3 12:11:16 ropivacaine (PF) 5 mg/mL (0.5 %) injection solution [address]22 [email or web address] [place] [address] [address], [address] [facility] [address], [place], [address], 3 12:11:18 omeprazole 40 mg capsule,del ayed release 2022 023 [facility] [address], [address] [address], [place], [address], 3 12:19:32 Patient TargetsNo targets recorded. Patient InstructionsNo instructions recorded. Reason for Referral None Reported. Results Created Date Observation Date Name Description Value Unit Range Abnormal Flag Note LastModifiedBy Organization Detail LastModifiedTime 01/30/20 XR, knee No observ ation record ed. [facility] [address] [facility] [address], [place], [address], 01/29/2023 18:57:19 02/17/20 23 02/14/2023 MRI, knee, w/o contr ast No observ ation record ed. [email or web address] [facility] [address] [place], [address], 02/17/2023 09:48:33 02/20/20 23 02/16/2023 MRI, knee, [...] Organization Details Recorded Time Lumbar radiculopa thy 374560997 Active 2021 Not Available [facility] 3 00:53:36 Chronic pain in coccyx for more than three months 3253556516596 05 Active 2019 Not Available [facility] 3 00:53:36 Tenosynovi tis of right radial styloid 8076899483845 9100 Active 2021 Not Available [facility] 3 00:53:36 Right flank pain 214955634 Active 2021 Not Available [facility] 3 00:53:36 Insomnia 057407771 Active Not Available [facility] 3 00:53:36 Steatosis of liver 736392251 Active 2021 Not Available [facility] 3 00:53:37 Localized, primary osteoarthr itis of the hand 225725427 Active Not Available [facility] 3 00:53:37 Chronic cholecysti tis 47628584 Active Not Available [facility] 3 00:53:37 Abdominal pain 26655196 Active Not Available [facility] 3 00:53:37 Mixed anxiety and depressive disorder 772546540 Active 2021 Not Available [facility] 3 00:53:37 Gastroesop hageal reflux disease 602763667 Active Not Available [facility] 3 00:53:37 Gallstone 045667686 Active Not Available [facility] 3 00:53:37 Screening mammograph y Active 2021 Not Available [facility] 3 00:53:37 Gastroesop hageal reflux disease without esophagiti s 205700658 Active 2021 Not Available [facility] 3 00:53:37 Long-term drug therapy Active 2021 Not Available [facility] 3 00:53:37 History of peptic ulcer 844355571 Active 2021 Not Available [facility] 3 00:53:37 Screening for malignant neoplasm of colon Active 2021 Not Available [facility] 3 00:53:38 Chest pain 65402489 Active 2021 Not Available [facility] 3 00:53:38 Injury of tendon of the rotator cuff of shoulder 997342788 Active Not Available [facility] 3 00:53:38 Pain of left wrist 0446013121962 02 Active 2021 Not Available [facility] 3 00:53:38 Vitamin D deficiency 63132396 Active Not Available [facility] 3 00:53:38 Depressive disorder 67594572 Active Not Available [facility] 3 00:53:38 Osteoarthr osis of the carpometac arpal joint of the thumb 24858094 Active 2018 Not Available [facility] 3 00:53:38 Osteoarthr itis 290398022 Active Not Available [facility] 3 00:53:38 Diverticul ar disease 312126574 Active Not Available [facility] 3 00:53:38 Acute urinary tract infection 331734778 Active Not Available [facility] 3 00:53:38 Dyssomnia 30524819 Active 2021 Not Available [facility] 3 00:53:39 Uncontroll ed type 2 diabetes mellitus 143288066 Active 2021 Not Available [facility] 3 00:53:39 Well controlled type 2 diabetes mellitus 282299430 Active 2021 Not Available [facility] 3 00:53:39 Upper respirator y infection 67467496 Active Not Available [facility] 3 00:53:39 Lower abdominal pain 44670375 Active Not Available [facility] 3 00:53:39 Hyperlipid emia 80945387 Active Not Available [facility] 3 00:53:39 Increased liver function 26435676 Active Not Available [facility] 3 00:53:39 Precordial pain 19428252 Active 2021 Not Available [facility] 3 00:53:39 Sleep apnea 80658295 Active 2021 Not Available [facility] 3 00:53:39 Pain in elbow 02718173 Active Not Available [facility] 3 00:53:40 Postmenopa usal state 34874863 Active 2021 Not Available [facility] 3 00:53:40 Neck pain 37551579 Active 2021 Not Available [facility] 3 00:53:40 Fatigue 61182557 Active Not Available [facility] 3 00:53:40 Gout 21824657 Active 2021 Not Available [facility] 00:53:40 Pain in limb 75993019 Active Not Available [facility] 00:53:40 Pain of right knee joint 0437273325476 00 Active 2022 Jennifer Granados RMA null, [place] [facility] 3 10:43:26 Pain of left knee joint 8544650396687 07 Active 2022 Jennifer Granados RMA null, [place] [facility] 3 10:43:46 Problem Notes None recorded. Procedures Surgical History Date Name Laterality Status Provider Name and Address Organization Details Recorded Time Date of Last Colonoscopy completed Not Available [facility] 09/02/2022 00:47:55 Colonoscopy completed Not Available [facility] 09/02/2022 00:47:57 Carpal tunnel completed Not Available [facility] 09/02/2022 00:47:57 rhinoseptoplasty completed Not Available [facility] 09/02/2022 00:47:57 Hysterectomy completed Not Available [facility] 09/02/2022 00:47:57 removal of ectopic fetus completed Not Available [facility] 09/02/2022 00:47:57 Cataract Surgery completed Not Available [facility] 09/02/2022 00:47:57 Appendectomy completed Not Available [facility] 09/02/2022 00:47:57 Cholecystectomy completed Not Available [facility] 09/02/2022 00:47:57 Imaging Results Imaging Date Name Status LastModified by Organiz ation Details LastModified Time 01/29/2023 XR, knee completed [facility] Bains [address], [place], [address], 01/29/2023 18:57:19 02/14/2023 MRI, knee, w/o contrast completed [email or web address] [facility] [address] [place], [address], 02/17/2023 09:48:33 02/16/2023 MRI, knee, w/o contrast [...] e, administ ered by provider 06/22 completed [facility]: [id number] Not Available Not Available Not [...] e, administ ered by provider 06/22 completed [facility] [address]87[address]-91 4-01 Not Available Not Available Not Available [...] % 97 % 67 /min 97.5 [degF] 68533.1 5 g 128 mm[Hg] 70 mm[Hg] Not Available [facility] 3 00:51:10 Date Recorded Body height Body mass index (BMI) Body weight Heart rate Oxygen saturation Oxygen saturation in Arterial blood by Pulse oximetry Body temperature Systolic blood pressure Diastolic blood pressure Provider Name and Address Organization Details Last Updated DateTime 3 157.48 cm 30.2 kg/m2 13582.7 4 g 59 /min 97 % 97 % 97.9 [degF] 126 mm[Hg] 76 mm[Hg] Magui López RN [place] [facility] [place] [facility] 3 11:44:58 Date Recorded Body height Body mass index (BMI) Body weight Provider Name and Address Organization Details Last Updated DateTime 01/29/2023 154.94 cm 31.4 kg/m2 62568.33 g JORGE LUIS Fair [facility] 01/29/2023 11:13:01 Date Recorded Body height Provider Name an d Address Organization Details Last Updated DateTime 02/19/2023 154.94 cm JORGE LUIS Fair [facility] 02/19/2023 08:54:52 Date Recorded Body height Body mass index (BMI) Body weight Respiratory rate Oxygen saturation Oxygen saturation in Arterial blood by Pulse oximetry Heart rate Systolic blood pressure Diastolic blood pressure Provider Name and Address Organization Details Last Updated DateTime 154.94 cm 30.9 kg/m2 51326.3 5 g 16 /min 98 % 98 % 62 /min 122 mm[Hg] 80 mm[Hg] Mari Badillobrad [facility] 11:41:41 Date Recorded Systolic blood pressure Diastolic blood pressure Provider Name and Address Organization Details Last Updated DateTime 06/24/2023 130 mm[Hg] 80 mm[Hg] MARY Hernandez [address], [address], [facility] 06/24/2023 12:31:01 Social History Question Answer Notes LastModified by Organizat ion Details LastModified Time Tobacco Smoking Status Never Smoker Not Available [facility] 09/02/2022 00:47:05 Do You Have An Advance Directive? No MIGRATION.68444 15339 Information not available 09/02/2022 What Is Your Level Of Alcohol Consumption? None MIGRATION.17250 62872 Information not available 09/02/2022 Are You Blind Or Do You Have Difficulty Seeing? Yes MIGRATION.57416 00147 Information not available 09/02/2022 What Is Your Level Of Caffeine Consumption? Occasional MIGRATION.26586 06057 Information not available 09/02/2022 What Is Your Code Status? Full Code MIGRATION.79936 25923 Information not available 09/02/2022 In The 14 Days Before Symptom Onset, Have You Had Close Contact With A Laboratory-confi rmed COVID-19 While That Case Was Ill? No MIGRATION.72143 07984 Information not available 09/02/2022 In The 14 Days Before Symptom Onset, Have You Had Close Contact With A Person Who Is Under Investigation For COVID-19 While That Person Was Ill? No MIGRATION.15308 61668 Information not available 09/02/2022 Are You Deaf Or Do You Have Serious Difficulty Hearing? No MIGRATION.46424 70726 Information not available 09/02/2022 What Type Of Diet Are You Following? REGULAR MIGRATION.14638 81827 Information not available 09/02/2022 Which Illicit Or Recreational Drugs Have You Used? No MIGRATION.55599 56451 Information not available 09/02/2022 Do You Or Have You Ever Used E-cigarettes Or Vape? Never Used Electronic Cigarettes MIGRATION.75923 83561 Information not available 09/02/2022 Have There Been Any Changes To Your Family Or Social Situation? No MIGRATION.03412 59374 Information not available 09/02/2022 What Is The Fluoride Status Of Your Home? Unknown MIGRATION.79714 31403 Information not available 09/02/2022 Are There Any Guns Present In Your Home? Yes MIGRATION.95852 38464 Information not available 09/02/2022 Do You Use Insect Repellent Routinely? No MIGRATION.40659 04406 Information not available 09/02/2022 Where Do You Live? [place]House MIGRATION.40026 73923 Information not available 09/02/2022 Do You Have A Medical Power Of Maintenance Mechanic Helper? No MIGRATION.44326 25230 Information not available 09/02/2022 What Was The Date Of Your Most Recent Tobacco Screening? 12/05/2021 MIGRATION.42990 86381 Information not available 09/02/2022 Do You Have Any Pets? No MIGRATION.80806 56053 Information not available 09/02/2022 What Is Your Relationship Status? MIGRATION.64699 23088 Information not available 09/02/2022 Do You Use Your Seat Belt Or Car Seat Routinely? Yes MIGRATION.69895 52916 Information not available 09/02/2022 Do You Have Smoke And Carbon Monoxide Detectors In Your Home? Yes MIGRATION.83841 47549 Information not available 09/02/2022 Are You Passively Exposed To Smoke? No MIGRATION.92114 86981 Information not available 09/02/2022 Do You Or Have You Ever Used Smokeless Tobacco? Never Used Smokeless Tobacco MIGRATION.35884 68501 Information not available 09/02/2022 Are There Any Smokers In Your House? No MIGRATION.09180 17458 Information not available 09/02/2022 How Much Tobacco Do You Smoke? No MIGRATION.40704 74350 Information not available 09/02/2022 Do You Feel Stressed (tense, Restless, Nervous, Or Anxious, Or Unable To Sleep At Night)? [id number] MIGRATION.87950 75651 Information not available 09/02/2022 Do You Use Any Illicit Or Recreational Drugs? No MIGRATION.49352 04095 Information not available 09/02/2022 Do You Use Sunscreen Routinely? Yes MIGRATION.21988 83860 Information not available 09/02/2022 Have You Recently Traveled Abroad? No MIGRATION.47716 15366 Information not available 09/02/2022 Do You Have Any Dietary Restrictions? No MIGRATION.71356 28134 Information not available 09/02/2022 Do You Or Have You Ever Used Any Other Forms Of Tobacco Or Nicotine? No MIGRATION.17815 69156 Information not available 09/02/2022 Sex: Unknown Functional Status Question Answer Note LastModified by Organizat ion Details LastModified Time Do you have difficulty walking or climbing stairs? Yes MIGRATION.2679495 026 Information not available 09/02/2022 Do you have transportation difficulties? No MIGRATION.3313742 026 Information not available 09/02/2022 Are you able to walk? YESWOREST MIGRATION.2932214 026 Information not available 09/02/2022 Do you have difficulty doing errands alone? No MIGRATION.5603979 026 Information not available 09/02/2022 Are you able to care for yourself? Yes MIGRATION.6146791 026 Information not available 09/02/2022 Do you have difficulty dressing or bathing? No MIGRATION.2252372 026 Information not available 09/02/2022 What is your exercise level? Occasional MIGRATION.6535847 026 Information not available 09/02/2022 Mental Status Question Answer Note LastModified by Organizat ion Details LastModified Time Do you have difficulty concentrating, remembering or making decisions? Yes MIGRATION.039063059 6 Information not available 09/02/2022 Family History Relationship Description Onset Age of this Age Resolved Age Notes LastModified by Organization Details LastModified Time Son Complication of anesthesia MIGRATION.617 4260419 Not available 09/02/2022 00:48:00 Unspecified Relation Family history of stroke grandf ather MIGRATION.676 9440462 Not available 09/02/2022 00:48:00 Unspecified Relation Family history of malignant neoplasm uncle MIGRATION.346 7721548 Not available 09/02/2022 00:48:00 Unspecified Relation Diabetes mellitus grandm other MIGRATION.652 9435045 Not available 09/02/2022 00:48:00 Unspecified Relation Heart disease MIGRATION.265 7387843 Not available 09/02/2022 00:48:00 Father Hypertensive disorder MIGRATION.715 5353573 Not available 09/02/2022 00:48:00 Father Sepsis MIGRATION.179 7243061 Not available 09/02/2022 00:48:00 Father Methicillin resistant Staphylococc us aureus infection MIGRATION.962 6788167 Not available 09/02/2022 00:48:00 Mother Cirrhosis - non-alcoholi c MIGRATION.262 1755150 Not available 09/02/2022 00:48:00 Mother Diabetes mellitus MIGRATION.911 2306169 Not available 09/02/2022 00:48:00 Brother Asthma MIGRATION.898 0761744 Not available 09/02/2022 00:48:00 Sister Myocardial infarction MIGRATION.404 2450911 Not available 09/02/2022 00:48:00 Sister Chronic hepatitis C MIGRATION.941 1636668 Not available 09/02/2022 00:48:00 Notes:cancer, blood clots al so in family history Medical History Condition Response ARTHRITIS Y HEADACHES/MIGRAINES Y ULCERS Y DIABETES, TYPE Y HEARTBURN / REFLUX Y HIGH CHOLESTEROL / HYPERLIPIDEMIA Y EYE PROBLEMS Y ANXIETY DISORDER Y ANEMIA/BLOOD DISORDER Y HEPATITIS / LIVER DISEASE Y CATARACTS Y USE OF NSAIDS Y GOUT Y BACK / NECK PROBLEMS Y HAVE YOU BEEN HOSPITALIZED OR SEEN IN [facility] IN THE PAST YEAR ? Y Gynecological [...] virus, trivalent, PF 04/03/2013 completed Not Available [facility] 2022 01:02:00 COVID-19, mRNA, LNP-S, PF, 30 mcg/0.3 mL dose 10/02/2020 completed Not Available [facility] 3 01:02:00 COVID-19, mRNA, LNP-S, PF, 30 mcg/0.3 mL dose 09/02/2020 completed Not Available [facility] 3 01:02:00 Past Encounters Encounter ID Performer Location Encounter Start Date Encounter Closed Date Diagnosis/Indication Diagnosis SNOMED-CT Code Diagnosis ICD10 Code Diagnosis Note [id number] [facility] [address] [place] [address] 09/10/2020 00:00:00 09/10/2020 14:52:15 [id number] [facility] [address] [place] [address] 10/08/2020 00:00:00 10/08/2020 14:51:17 [id number] [facility] [address] [place] [address] 12/11/2020 00:00:00 12/12/2020 09:43:20 11422 _ATHENA_M IGRATION_ DEFAULT_1 _1 , 12/26/2020 00:00:00 12/26/2020 18:55:30 [id number] [facility] [address] [place] [address] 03/03/2021 00:00:00 03/03/2021 21:50:49 [id number] [facility] [address] [place] [address] 06/03/2021 00:00:00 06/03/2021 16:40:41 [id number] [facility] [address] [place] [address] 09/03/2021 00:00:00 10/02/2021 19:25:25 [id number] [facility] [address] [place] [address] 09/26/2021 00:00:00 09/26/2021 09:52:56 [id number] [facility] [address] [place] [address] 10/24/2021 00:00:00 10/24/2021 11:00:23 [id number] [facility] [address] [place] [address] 12/05/2021 00:00:00 12/05/2021 10:03:29 [id number] [facility] [address] [place] [address] 12/16/2021 00:00:00 2022 15:50:28 [id number] [facility] [address] [place] [address] 03/05/2022 00:00:00 03/05/2022 09:43:50 [id number] [facility] [address] [place], [place] [address] 03/10/2022 00:00:00 03/10/2022 12:24:59 [id number] [facility] [address] [place] [address] 07/21/2022 00:00:00 08/04/2022 21:10:07 [id number] MARY Hernandez [facility] [address] [place] [address] 01/18/2023 11:37:44 01/18/2023 12:38:06 Well controlled type 2 diabetes mellitus 904397599 E11.9 stable on trulicity and glipizide therapy. A1c 6.3%. repeat labs in Jun. Screening mammography 24 214353 Z12.31 mammogram ordered Mixed anxi ety and depressive disorder 781668693 F41.8 stable on venlafaxin e ER 150mg daily. Long-term drug therapy 198504274 Z79.899 next full lab panel due in Jun. History of peptic ulcer 190278748 Z87.11 refill omeprazole 40mg daily Gastroesop hageal reflux disease without esophagitis 814308239 K21.9 stable on PPI therapy and EGD was up to date Hyperlipidemia 35926051 E78.5 stable on statin therapy, repeat labs due in Jun [id number] Lc Morrison MD [facility] [address] [place] [address] 01/29/2023 10:39:37 02/01/2023 09:54:30 Pain of left knee joint 9934262369 03731 M25.562 [id number] Lc Morrison MD [facility] [address] [place] [address] 02/19/2023 08:49:17 02/19/2023 10:28:02 Pain of left knee joint 7398743547 52797 M25.664 [id number] MARY Hernandez [facility] [address] [place] [address] 06/24/2023 11:32:48 06/24/2023 12:31:15 Well controlled type 2 diabetes mellitus 779997993 E11.9 stable on trulicity and glipizide therapy. A1c 6.1%. Mixed anxi ety and depressive disorder 154425572 F41.8 stable on venlafaxin e ER 150mg daily. Gastroesop hageal reflux disease without esophagitis 182005886 K21.9 stable on PPI therapy and EGD was up to date Hyperlipidemia 83610722 E78.5 stable on statin therapy, Long-term drug therapy 107080931 Z79.899 History of peptic ulcer 650418587 Z87.11 Health Concerns Section Related Observation LastModified by Organization Detai ls LastModified Time None Recorded Concern Status LastModified by Organization Details LastModified Time None Recorded Advance Directives Directive N: Payers Encounter Date Sequence Insurance Name Policy Number Policy Smith Covered Member ID Smith Member ID Guarantor Name 01/18/2023 1 [facility] (MEDICARE REPLACEMENT/A DVANTAGE - HMO) [id number] Savannah Portillo [id number] Savannah Portillo 01/29/2023 1 [facility] (MEDICARE REPLACEMENT/A DVANTAGE - HMO) [id number] Savannah Portillo [id number] Savannah Portillo 02/19/2023 1 [facility] (MEDICARE REPLACEMENT/A DVANTAGE - HMO) [id number] Savannah Moore Lindsey [id number] Savannah Portillo 06/24/2023 1 [facility] (MEDICARE REPLACEMENT/A DVANTAGE - HMO) [id number] Savannah Portillo [id number] Savannah Portillo Notes Date Note Type Note [...] early satiety; no halitosis;fatigue;throat pain Not Available [place] [facility] [employer] 08/04/2022 21:10:07 023 text/ht ml Anxiety/DepressionReported bypatient.Quality:doesnt [...] fatigue; no throat pain MARY Hernandez [address], [place] [address], [place], [address], [employer] 02/01/2023 00:50:10 023 text/ht ml Patient is [...] gout. Lc Morrison MD [address], [facility] [address], [place], [address], [employer] 01/29/2023 18:58:32 023 text/ht ml Anxiety/DepressionReported bypatient.Quality:doesnt [...] fatigue; no throat pain MARY Hernandez [address] [facility], [facility] [address], [place], [address], [facility] [facility] 06/29/2023 17:37:21 OBGyn Episode No OBEpisode recorded.
--- OUTSIDE RECORDS SUMMARY | 2024-10-15 13:34 | XMS_ITS | Data Portability ---
Author Organization [facility] Price Address [address] [place] [address] Care Team Providers Care Engravings Polisher Name Role Phone BRITTNEY STEVENSON Primary Care Provider Unavailab le Assessment No assessment recorded. Plan of Treatment Reminders Order Date Submit Date Provider Last Modified By Organization Details Last Modified Time Details Appointments ANY 15 2024 10:30A M MARY Hernandez Not available Not available Not available Lab BMP, serum or plasma [address] [facility], [address], [place], [address], 06/22/2024 11:02:27 CBC w/ auto diff [address] [facility], [address], [place], [address], 06/22/2024 11:02:27 hepatic function panel, serum [address] [facility], [address], [place], [address], 06/22/2024 11:02:27 HbA1c (hemoglob in A1c), blood [address] [facility], [address], [place], [address], 06/22/2024 11:02:27 lipid panel, serum 2023 025 [email or web address] [facility] [place] [facility], [address], [place], [address], 06/22/2024 11:02:27 BMP, serum or plasma [address] [facility] [place] [facility], [address], [place], [address], 06/19/2024 10:10:05 CBC w/ auto diff [address] [facility] [address] [facility], [address], [place], [address], 06/19/2024 10:15:11 hepatic function panel, serum [address] [facility] [address] [facility], [address], [place], [address], 06/19/2024 10:10:58 HbA1c (hemoglob in A1c), blood [address] [facility] [address] [facility], [address], [place], [address], 06/19/2024 10:32:01 microalbu min, urine [address] [facility] [address] [facility], [address], [place], [address], 06/19/2024 12:46:44 lipid panel, serum [address] [facility] [address] [facility], [address], [place], [address], 06/19/2024 10:09:24 Referral None recorded. Procedures None recorded. Surgeries None recorded. Imaging None recorded. Medication Orders Trulicity 4.5 mg/0.5 mL subcutane ous pen injector 2023 024 [facility], [address], [address], 06/22/2024 11:03:03 Trulicity 3 mg/0.5 mL subcutane ous pen injector [address] [facility], [address], [address], 01/09/2024 10:47:46 Patient TargetsNo targets recorded. Patient Instructions Encounter Date Encounter Id Patient Instructions Last Modified By Organization Details Last Modified Time 06/22/2024 [id number] A healthy lifestyle: care instructions [place] [id number] Not available 06/22/2024 11:02:27 Reason for Referral None Reported. Results Created Date Observation Date Name Description Value Unit Range Abnormal Flag Note LastModifiedBy Organization Detail LastModifiedTime 06/12/2006/11/2024 MRI, neo angel, w/o contr ast No observ ation record ed. [address], [address], 06/12/2024 09:57:05 06/20/20 24 06/20/2024 MAMMO , scree randy, digit al, bilat eral No observ ation record ed. [address] [address] [place], [address], 06/22/2024 10:48:07 08/29/19 25 08/29/2024 XR, shoul angel No observ ation record ed. [address], [address], 08/29/2024 23:19:17 Result Notes None recorded. Problems Name Problem SNOMED Code Status Onset Date Resolution Date Notes Provider Name and Address Organization Details Recorded Time Type 2 diabetes mellitus without complicatio n 247042876 Active 2023 MARY Hernandez Attn: Kimberleymikey vargas,[address] [facility] [address], [place], [address], [place] [facility] 4 10:53:30 Gastroesoph ageal reflux disease without esophagitis 432546332 Active 2023 MARY Hernandez Attn: Accountmikey g,[address] [facility] [address] [address], [place], [address], [place] [facility] 4 10:53:31 Hyperlipide loren 31221444 Active 2023 MARY Hernandez Attn: Accountin g,[address] [facility] [address], [place], [address], [place] [facility] 4 10:53:31 Mixed anxiety and depressive disorder 060171810 Active 2023 MARY Hernandez Attn: Kimberleymikey vargas,[address] [place], [address], [place] [facility] 4 10:53:33 Long-term drug therapy Active 2023 MARY Henrandez Attn: Accountmikey g,[address] [facility] [address], [place], [address] [facility] 4 10:53:33 Pain of left knee joint 2452526746829 07 Active 2023 MARY Hernandez Attn: Kimberleymikey vargas,[address] [place], [address] [facility] 4 10:53:45 Body mass index 25-29 - overweight 189871670 Active 2023 MARY Hernandez Attn: Kimberleymikey g,[address] [place], [address] [facility] 4 15:50:48 Problem Notes None recorded. Procedures Surgical History Date Name Laterality Status Provider Name and Address Organization Details Recorded Time Appendectomy completed Haley Banerjee MA [facility] - [facility] 12/09/2023 15:45:33 Cholecystectomy completed Haley Banerjee MA [facility] 12/09/2023 15:45:46 Eye Surgery completed Haley Banerjee MA [facility] 12/09/2023 15:47:42 excision of bilateral fallopian tubes and ovaries completed Haley Banerjee MA [facility] 12/09/2023 15:47:49 D & c after delivery completed Haley Banerjee MA [facility] 12/09/2023 15:47:56 hysterectomy completed Haley Banerjee MA [facility] 12/09/2023 15:48:52 Imaging Results Imaging Date Name Status LastModified by Organiz ation Details LastModified Time 06/11/2024 MRI, shoulder, w/o contrast completed [address] [place] [address], [address], 06/12/2024 09:57:05 06/20/2024 MAMMO, screening, digital, bilateral completed [address] [address] [place], [address], 06/22/2024 10:48:07 08/29/2024 XR, shoulder completed [address] [place] [address], [address], 08/29/2024 23:19:17 Procedure Notes None recorded. Medical Equipment None [...] Updated DateTime 4 160.02 cm 29.6 kg/m2 41986 g 20 /min 98 % 98 % 61 /min 130 mm[Hg] 72 mm[Hg] Haley Banerjee MA [facility] 4 10:42:01 Date Recorded Body height Body mass index (BMI) Body weight Oxygen saturation Oxygen saturation in Arterial blood by Pulse oximetry Heart rate Systolic blood pressure Diastolic blood pressure Provider Name and Address Organization Details Last Updated DateTime 4 160.02 cm 29.6 kg/m2 39326.9 3 g 97 % 97 % 67 /min 138 mm[Hg] 82 mm[Hg] Haley Banerjee MA [facility] 4 10:28:53 Date Recorded Respiratory rate Systolic blood pressure Diastolic blood pressure Provider Name and Address Organization Details Last Updated DateTime 06/22/2024 16 /min 130 mm[Hg] 80 mm[Hg] MARY Hernandez Attn: [address] [place], [address], [facility] 06/22/2024 11:02:18 Social History Question Answer Notes LastModified by Organizat ion Details LastModified Time Tobacco Smoking Status Never Smoker Haley Banerjee MA null, [facility] 12/09/2023 10:39:58 Do You Have An Advance [...] Anxious, Or Unable To Sleep At Night)? [id number] Information not available 12/09/2023 Do You Use [...] lable 12/09/2023 15:49:54 Medical History Condition Response Depression Y Anxiety Disorder Y Muscle, Joint, or Bone Problems Y Acid Reflux (GERD) Y Cancer Y Headaches Y Skin Problems Y High Cholesterol Y GI Problems Y Diabetes Y Gynecological History Statement/Question Response Menses Monthly [...] 10:26:31 Influenza, high-dose, quadrivalent, PF 3 completed FAM[place], [place] [facility] 06/22/2024 10:26:31 COVID-19, mRNA, LNP-S, PF, 30 mcg/0.3 mL dose 1 completed Haley Baner[place] [facility] 06/22/2024 10:26:31 COVID-19, mRNA, LNP-S, PF, 30 mcg/0.3 mL dose 1 completed [place] [facility] 06/22/2024 10:26:31 Pneumococcal conjugate PCV 13 1 completed [place] [facility] 06/22/2024 10:26:31 Influenza, split virus, trivalent, PF 3 completed [place] [facility] 06/22/2024 10:26:31 Influenza, split virus, quadrivalent, PF 9 completed [place] [facility] 06/22/2024 10:26:31 Influenza, high-dose, trivalent, PF 4 completed MARY Hernandez Attn: Accounting,[address] [place], [address], [place] [facility] 07/04/2024 16:27:17 Past Encounters Encounter ID Performer Location Encounter Start Date Encounter Closed Date Diagnosis/Indication Diagnosis SNOMED-CT Code Diagnosis ICD10 Code Diagnosis Note [id number] MARY Hernandez [facility] [place] [address] [place] [address] 12/09/2023 10:20:41 01/03/2024 15:53:43 Type 2 diabetes mellitus without complication 466272582 E11.9 Rx for trulicity 3mg weekly in hopes this will be in stock. next labs due in Jun. continue glipizide 5mg bid w/meal. Gastroesop hageal reflux disease without esophagitis 068720671 K21.9 stable on omeprazole 40mg daily. Hyperlipidemia 78740015 E78.5 stable on atorvastat in 20mg daily. next labs due in Jun. Mixed anxi ety and depressive disorder 104791607 F41.8 stable on venlafaxin e ER 150mg daily Long-term drug therapy 985782745 Z79.899 next labs are due in Jun. Pain of le ft knee joint 3499100279 32080 M25.562 pt can f/u with ortho per plan Body mass index 25-29 - overweight 087127324 Z68.29 [id number] MARY Hernandez [facility] [place] [address] [place] [address] 06/22/2024 10:17:31 07/06/2024 09:06:09 Body mass index 25-29 - overweight 913385573 Z68.29 BMI is 29.6 Overweight 745541791 E66 .3 Type 2 mariangel betes mellitus without complication 495271477 E11.9 Rx for trulicity 3mg weekly in hopes this will be in stock. continue glipizide 5mg bid w/meal. Gastroesop hageal reflux disease without esophagitis 324238430 K21.9 stable on omeprazole 40mg daily. Hyperlipidemia 00690650 E78.5 stable on atorvastat in 20mg daily. next labs due in December Mixed anxi ety and depressive disorder 115894140 F41.8 stable on venlafaxin e ER 150mg daily. No acute concerns or complaints with medication Long-term drug therapy 441206428 Z79.899 Routine BMP, CBC and liver function will be due in December Administra tion of influenza vaccine 88375858 Z23 Flu shot given in the office today Health Concerns Section Related Observation LastModified by Organization Detai ls LastModified Time None Recorded Concern Status LastModified by Organization Details LastModified Time None Recorded Advance Directives Directive N: Payers Encounter Date Sequence Insurance Name Policy Number Policy Smith Covered Member ID Smith Member ID Guarantor Name 12/09/2023 1 [facility] (MEDICARE REPLACEMENT/A DVANTAGE - HMO) [id number] Savannah Moore McWhorter [id number] Savannah Portillo 06/22/2024 1 [facility] (MEDICARE REPLACEMENT/A DVANTAGE - HMO) [id number] Savannah Portillo [id number] Savannah Portillo Notes Date Note Type Note [...] 40mg daily. MARY Hernandez Attn: Accounting,[address] [facility] [address], [place], [address], [facility] 01/02/2024 15:50:57 06/22/2024 text/html Anxiety/Depressi on Reported bypatient.Notes:st able on venlafaxine ER 150mg daily.DiabetesRepo rted bypatient.Notes:6. 1% a1c on Trulicity and glipizide 5mg bid.Hyperlipidemia Reported bypatient.Notes:st able on atorvastatin 20mg daily. lipids are great.KneeReported bypatient.Notes:sh ot given on november [address] Morrison.Reflux/JAREN DReported bypatient.Notes:st able omeprazole 40mg daily. MARY Hernandez Attn: Accounting,[address] [facility] [address] [address], [place], [address], [facility] 07/04/2024 16:28:30 OBGyn Episode No OBEpisode recorded.
--- OUTSIDE RECORDS SUMMARY | 2024-10-15 13:34 | XMS_ITS | Clinical Summary ---
Author Organization [facility] Address [address] [place] [address] Care Team Providers Care Extraction Operator Name Role Phone Unavailable Primary Care Provider [...] Colonography Q 5 years 12/31/2000 PNEUMOCOCCAL VACCINE 50+ YEARS (1 of 1 - PCV) 01/01/20 06 ZOSTER VACCINE (1 of 2) 12/31/2005 OSTEOPOROSIS SCREENING 12/31/2020 INFLUENZA VACCINE (#1) 2024 RSV VACCINE (60+ or ) (1 - 1-dose 75+ series) 12/31/2030
--- OUTSIDE RECORDS SUMMARY | 2024-10-15 13:34 | XMS_ITS | Clinical Summary ---
Author Organization [facility] Address [facility] [place] [address] Care Team Providers Care Cancer Registrar Name Role Phone Brittney Stevenson Primary Care Provider [phone] Allergies No known active allergies Medications atorvastatin 20 MG tablet 1 Active DULoxetine (CYMBALTA) 60 MG capsule Cymbalta 60 mg capsule,delayed release Take 1 capsule every day by oral route for 90 days. Active vitamin D2, ergocalciferol, [address]3044 UNITS capsule Take 50,000 Units by mouth [...] by mouth daily. 28 tablet 1 Active Family History Medical History Relation Comments Breast [...] Comments Blood Pressure 154/69 07/28/2021 4:16 PM CEPHALOMETRIC TECHNICIAN Pulse 60 07/28/2021 4:16 PM CEPHALOMETRIC TECHNICIAN Temperature 36.8 C (98.3 F) 07/28/2021 4:16 PM CEPHALOMETRIC TECHNICIAN Respiratory Rate 16 07/28/2021 4:16 PM CEPHALOMETRIC TECHNICIAN Oxygen Saturation 98% 07/28/2021 4:16 PM CEPHALOMETRIC TECHNICIAN Inhaled Oxygen Concentration - - Weight 78 kg (172 lb) 06/17/2021 11:41 AM CEPHALOMETRIC TECHNICIAN Height 157.5 cm (5' 2 ) 06/17/2021 11:41 AM CEPHALOMETRIC TECHNICIAN Body Mass Index 31.46 06/17/2021 11:41 AM CEPHALOMETRIC TECHNICIAN Plan of Treatment Health Maintenance Due Date Last Done Comments Colorectal Cancer Screening Colonoscopy (10 Years) 1956 Pneumococcal Vaccine: 50+ Years (1 of 2 - PCV) 12/31/1961 Diabetes: Retinopathy Eye Exam 12/31/1973 Hepatitis C 12/31/1973 DTaP, Tdap and Td Vaccines (1 - Tdap) 12/31/1974 Zoster Vaccines (1 of 2) 12/31/2005 Annual Medicare Wellness Visit 12/31/2020 COVID-19 Vaccine ( season) 2024 10/02/2020, 09/02/2020 Hemoglobin A1C 12/18/2024 06/19/2024, 06/0 10/2023, 06/21/2023, [...] KENNEDY MITZI DIGI Routine 06/20/2024 10:29 AM CEPHALOMETRIC TECHNICIAN Encounter for screening mammogram for malignant neoplasm of breast LIPID PANEL Routine 06/19/2024 8:08 AM CEPHALOMETRIC TECHNICIAN Diabetes mellitus ([facility]) HEMOGLOBIN, GLYCOSYLATED Routine 06/19/2024 8:08 AM CEPHALOMETRIC TECHNICIAN Diabetes mellitus ([facility]) BONE DENSITY/DEXA Routine 03/10/2022 12: 46 PM CDT Post-menopausal from Last 3 Months or Most Recently Relevant to Health Maintenance Results * MG SCREENING W KENNEDY MITZI DIGI (06/20/2024 10:29 AM CEPHALOMETRIC TECHNICIAN) Anatomical Region Laterality Modality Breast Bilateral Mammography 06/20/2024 4:23 PM CEPHALOMETRIC TECHNICIAN Impressions 06/20/2024 4:31 PM CEPHALOMETRIC TECHNICIAN ===== IMPRESSION: ===== 1. Stable mammographic appearance with no new findings to suggest malignancy in either breast. Assessment: ACR BI-RADS 2 - BENIGN FINDING(S) Recommendation: 1:Routine Screening Bilateral Comments: Ordered By: BRITTNEY STEVENSON Interpreted By: Ozzie Juarez, 06/20/2024 4:23 PM Narrative 06/20/2024 4:31 PM CEPHALOMETRIC TECHNICIAN [facility] [address] [place] [address] EXAMINATION: Digital bilateral screening mammogram with 3-D [...] either breast to suggest malignancy. us Brittney HERNANDEZ MAMMO Final Result * (ABNORMAL) HEMOGLOBIN, GLYCOSYLATED (06/19/2024 8:08 AM CEPHALOMETRIC TECHNICIAN) HGB A1C 6.4(H) <5.7 % 06/19/2024 9:22 AM CEPHALOMETRIC TECHNICIAN [facility] Comment: INCREASED RISK OF DIABETES <5.7% NON-DIABETES 5.7-6.4% INCREASED RISK FOR FUTURE DIABETES > OR = 6.5 CONSISTENT WITH DIABETES STANDARDS OF MEDICAL CARE IN DIABETES-2010 DIABETES CARE, 33(SUPP 1): S1-S61,2010 ESTIMATED AVG GLUCOSE 137 mg/dL 06/19/2024 9:22 AM [facility] 06/19/2024 8:08 AM CEPHALOMETRIC TECHNICIAN us Brittney HERNANDEZ LABORATORY Final Result [facility] [address] [place] [address], * LIPID PANEL (06/19/2024 8:08 AM CEPHALOMETRIC TECHNICIAN) CHOLESTEROL 169 <200.0 MG/DL 06/19/2024 8:59 AM CEPHALOMETRIC TECHNICIAN [facility] TRIGLYCERIDES 81 <150 MG/DL 06/19/2024 8:59 AM CEPHALOMETRIC TECHNICIAN [facility] HDL 55 >40.0 MG/DL 06/19/2024 8:59 AM [facility] LDL (CALCULATED) 98 <100 MG/DL 06/19/20 8:59 AM CEPHALOMETRIC TECHNICIAN [facility] NON HDL CHOLESTEROL 114 <130 MG/DL 06/19 8:59 AM [facility] CHOL/HDL RATIO 3.1 0.0 - 4.5 06/19/2024 8:59 AM [facility] VLDL CALCULATION 16 5 - 55 MG/DL 06/19/2024 8:59 AM [facility] LIPID INTERPRETATION 06/19/2024 8:59 AM [facility] Comment: NIH CONCENSUS REPORT RECOMMENDATIONS: ADULT CHILD LOW RISK: CHOLESTEROL <200 <170 TRIGLYCERIDE <150 --- HDL >=60 --- LDL <100 <110 BORDERLINE: CHOLESTEROL 200-239 170-199 TRIGLYCERIDE 150-199 --- HDL 40-59 --- LDL 100-159 110-129 HIGH RISK: CHOLESTEROL >=240 >=200 TRIGLYCERIDE >=200 --- HDL <40 --- LDL >=160 >=130 06/19/2024 8:08 AM CEPHALOMETRIC TECHNICIAN us Brittney HERNANDEZ LABORATORY Final Result [facility] [address] [place] [address], * BONE DENSITY/DEXA (03/10/2022 12:46 PM CDT) [...] Most Recently Relevant to Health Maintenance Insurance Care Teams Cancer Registrar Relationship Specialty Start Date End Date Brittney Stevenson PA [address] [place] [address] PCP - General PHYSICIAN INGOT CAR OPERATOR 01/16/21
[2024-10-15 13:44] VITALS: BP 167/71; PULSE 67; RESP 16; TEMP 36.5; O2SAT 98
--- NOTE | 2024-10-15 14:15 | ED.GENADULT ---
HPI - General Adult General Chief complaint: Extremity Injury, Upper Stated complaint: Injury to right arm after falling Time Seen by Provider: 10/15/24 14:02 Source: patient and family Mode of arrival: ambulatory Limitations: no limitations History of Present Illness HPI narrative: 69 YEARS OLD WHITE FEMALE WALKING OUTDOORS, WHEN THE, TRIPPED AND FELL ON THE RIGHT SHOULDER, COMPLAINING OF RIGHT SHOULDER RIGHT WRIST AND RIGHT HAND PAIN. SHE DENIES HEAD INJURY, OR NECK INJURY. SHE IS NOT ON ANTI-PLATELET OR ANTICOAGULANT MEDICATION. 1 HOUR PRIOR TO ARRIVAL. Related Data Home Medications ?Medication ?Instructions ?Recorded ?Confirmed ?Last Taken ?Type atorvastatin 40 mg tablet (Lipitor) 40 mg PO HS 02/26/21 10/04/24 10/19/21 History glimepiride 2 mg tablet 2 mg PO BID 02/26/21 10/04/24 10/19/21 History omeprazole magnesium 20 mg 40 mg PO BID 02/26/21 10/04/24 10/19/21 History tablet,delayed release (Prilosec OTC) venlafaxine 150 mg 150 mg PO DAILY 02/26/21 10/04/24 10/19/21 History capsule,extended release 24 hr acetaminophen 325 mg capsule 325 mg PO Q6H PRN 11/26/23 10/04/24 Unknown History (Tylenol) dulaglutide 1.5 mg/0.5 mL 4.5 mg subcut WEEKLY 09/08/24 10/04/24 Unknown History subcutaneous pen injector (Trulicity) Allergies Allergy/AdvReac Type Severity Reaction Status Date / Time No Known Allergies Allergy Verified 10/15/24 13:32 Review of Systems Review of Systems: All systems reviewed & are unremarkable except as noted in HPI and below PMFSH Past Medical History Medical History PONV (postoperative nausea and vomiting) Depression Anxiety Diabetes type 2, controlled Hyperlipidemia GERD (gastroesophageal reflux disease) Surgical History Surgical History History of hysterectomy History of cholecystectomy History of appendectomy Family History Family History Father Hypertension Mother Hypertension Family history of diabetes mellitus in first degree relative Sibling Hypertension Other Diabetes mellitus Family history of allergic disorder Family history of heart disease in male family member before age 55 Social History Social History Smoking status: Never smoker Second hand tobacco smoke exposure: Yes Alcohol intake: never Substance use: never Substance use type: does not use Do You Feel Safe in your Home?: Yes Lack of Transportation: No Lack of Food: Never True Current Housing: I Have Housing Concerned About Future Housing: No Difficulty Paying Gas/Electric Bills: No Difficulty Paying for Meds: No Currently Unemployed: No Education: High School Diploma/GED Difficulty w/ Childcare or Family Care: No Living arrangements: with family Additional living arrangements comments: lives with spouse Occupation/Education: occupation 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 MUSCULOSKELETAL: DIFFUSE PAIN AT THE BACK OF THE RIGHT HAND, LIMITED RANGE OF MOTION OF THE RIGHT WRIST, NO BRUISES, NO DEFORMITY, DIFFUSE TENDERNESS RIGHT SHOULDER, NO BRUISES, NO DEFORMITY. NEUROLOGIC: ALERT AND ORIENTED ?3, GARBAGE TRUCK DISPATCHER IS NORMAL TESTED, NO GROSS MOTOR DEFICIT Course Vital Signs Vital signs: Vital Signs Temperature 36.5 C 10/15/24 13:44 Pulse Rate 67 10/15/24 13:44 Respiratory Rate 16 10/15/24 13:44 Blood Pressure 167/71 H 10/15/24 13:44 Pulse Oximetry 98 10/15/24 13:44 Temperature 36.5 C 10/15/24 13:44 Pulse Rate 67 10/15/24 13:44 Respiratory Rate 16 10/15/24 13:44 Blood Pressure 167/71 H 10/15/24 13:44 Pulse Oximetry 98 10/15/24 13:44 Medical Decision Making MDM Narrative Medical decision making narrative: PATIENT CAME BECAUSE OF A FALL, COMPLAINING OF RIGHT SHOULDER RIGHT WRIST RIGHT HAND PAIN DIFFERENTIAL DIAGNOSIS FRACTURE VERSUS CONTUSION X-RAY OF THE RIGHT SHOULDER RIGHT ELBOW RIGHT WRIST AND RIGHT HAND ORDERED. AND SHOWED fracture at the base of the right 5th metacarpal bone Splint, sling, follow with Dr. Amandeep ontiveros Differential Diagnosis Differential Diagnosis: Fracture versus contusion Vital Signs Vital Signs: Vital Signs Temperature 36.5 C 10/15/24 13:44 Pulse Rate 67 10/15/24 13:44 Respiratory Rate 16 10/15/24 13:44 Blood Pressure 167/71 H 10/15/24 13:44 Pulse Oximetry 98 10/15/24 13:44 Temperature 36.5 C 10/15/24 13:44 Pulse Rate 67 10/15/24 13:44 Respiratory Rate 16 10/15/24 13:44 Blood Pressure 167/71 H 10/15/24 13:44 Pulse Oximetry 98 10/15/24 13:44 Imaging Data Radiologist's impression: Impressions Elbow X-Ray 10/15/24 14:20 IMPRESSION: No acute osseous finding in the right elbow. Shoulder X-Ray 10/15/24 14:21 IMPRESSION: No acute osseous finding in the right shoulder. Wrist X-Ray 10/15/24 14:22 IMPRESSION: Comminuted, minimally displaced fracture of the base the fifth metacarpal. Apparent slight widening of the scapholunate interval, correlate with pain/tenderness, and consider scapholunate injury. Hand X-Ray 10/15/24 14:32 IMPRESSION: Comminuted, minimally displaced fracture of the base the fifth metacarpal. Critical Care Time Critical Care Time Critical Care Time: No Discharge Plan Discharge Clinical Impression: Closed hand fracture Patient Disposition: Home Condition: Stable Instructions: Hand Fracture (DC), How to Use a Sling (ED) Additional Instructions: RETURN IF SYMPTOMS ARE WORSENING , CALL HAND SURGEON TOMORROW FOR APPOINTMENT, CONTINUE HOME MEDICATIONS, KEEP RIGHT HAND ELEVATED, ICE PACK 20 MINUTES/HOUR FOR THE NEXT 24 HOURS, GET ULNAR GUTTER SPLINT FROM WHILE [employer], [employer] OR [employer]. Patient Language: [place] Prescriptions: New hydrocodone-acetaminophen 5-325 mg tablet 1 tablet PO Q4H Qty: 20 0RF No Action acetaminophen [Tylenol] 325 mg capsule 325 mg PO Q6H PRN Trulicity 1.5 mg/0.5 mL pen injector 4.5 mg subcut WEEKLY prednisone 10 mg tablet 10 mg PO DAILY Qty: 30 0RF atorvastatin [Lipitor] 40 mg Tablet 40 mg PO HS venlafaxine 150 mg capsule,extended release 24hr 150 mg PO DAILY glimepiride 2 mg tablet 2 mg PO BID omeprazole magnesium [Prilosec OTC] 20 mg Tablet,Delayed Release (Dr/Ec) 40 mg PO BID Follow-up/Referrals: Jamison Cox MD [Physician] - 10/16/24 Bryan,MILTON Lao [Primary Care Provider] -
--- OUTSIDE RECORDS SUMMARY | 2024-10-15 14:23 | XMS_ITS | Clinical Summary ---
Author Organization [facility] Address [facility] [place] [address] Care Team Providers Care Public Health Officer Name Role Phone Brittney Stevenson Primary Care Provider [phone] Allergies No known active allergies Medications atorvastatin 20 MG tablet 1 Active DULoxetine (CYMBALTA) 60 MG capsule Cymbalta 60 mg capsule,delayed release Take 1 capsule every day by oral route for 90 days. Active vitamin D2, ergocalciferol, 60670 UNITS capsule Take 50,000 Units by mouth [...] Comments Blood Pressure 154/69 07/28/2021 4:16 PM COMPUTER INFORMATION SCIENCE PROFESSOR Pulse 60 07/28/2021 4:16 PM COMPUTER INFORMATION SCIENCE PROFESSOR Temperature 36.8 C (98.3 F) 07/28/2021 4:16 PM COMPUTER INFORMATION SCIENCE PROFESSOR Respiratory Rate 16 07/28/2021 4:16 PM COMPUTER INFORMATION SCIENCE PROFESSOR Oxygen Saturation 98% 07/28/2021 4:16 PM COMPUTER INFORMATION SCIENCE PROFESSOR Inhaled Oxygen Concentration - - Weight 78 kg (172 lb) 06/17/2021 11:41 AM COMPUTER INFORMATION SCIENCE PROFESSOR Height 157.5 cm (5' 2 ) 06/17/2021 11:41 AM COMPUTER INFORMATION SCIENCE PROFESSOR Body Mass Index 31.46 06/17/2021 11:41 AM COMPUTER INFORMATION SCIENCE PROFESSOR Plan of Treatment Health Maintenance Due Date [...] KENNEDY MITZI DIGI Routine 06/20/2024 10:29 AM COMPUTER INFORMATION SCIENCE PROFESSOR Encounter for screening mammogram for malignant neoplasm of breast LIPID PANEL Routine 06/19/2024 8:08 AM COMPUTER INFORMATION SCIENCE PROFESSOR Diabetes mellitus ([facility]) HEMOGLOBIN, GLYCOSYLATED Routine 06/19/2024 8:08 AM COMPUTER INFORMATION SCIENCE PROFESSOR Diabetes mellitus ([facility]) BONE DENSITY/DEXA Routine 03/10/2022 12: 46 PM CDT Post-menopausal from Last 3 Months or Most Recently Relevant to Health Maintenance Results * MG SCREENING W KENNEDY MITZI DIGI (06/20/2024 10:29 AM COMPUTER INFORMATION SCIENCE PROFESSOR) Anatomical Region Laterality Modality Breast Bilateral Mammography 06/20/2024 4:23 PM COMPUTER INFORMATION SCIENCE PROFESSOR Impressions 06/20/2024 4:31 PM COMPUTER INFORMATION SCIENCE PROFESSOR ===== IMPRESSION: ===== 1. Stable mammographic appearance with no new findings to suggest malignancy in either breast. Assessment: ACR BI-RADS 2 - BENIGN FINDING(S) Recommendation: 1:Routine Screening Bilateral Comments: Ordered By: BRITTNEY STEVENSON Interpreted By: Ozzie Juarez, 06/20/2024 4:23 PM Narrative 06/20/2024 4:31 PM COMPUTER INFORMATION SCIENCE PROFESSOR [facility] [address] [place] [address] EXAMINATION: Digital bilateral screening mammogram [...] * (ABNORMAL) HEMOGLOBIN, GLYCOSYLATED (06/19/2024 8:08 AM COMPUTER INFORMATION SCIENCE PROFESSOR) HGB A1C 6.4(H) <5.7 % 06/19/2024 9:22 AM COMPUTER INFORMATION SCIENCE PROFESSOR [facility] Comment: INCREASED RISK OF DIABETES <5.7% NON-DIABETES 5.7-6.4% INCREASED RISK FOR FUTURE DIABETES > OR = 6.5 CONSISTENT WITH DIABETES STANDARDS OF MEDICAL CARE IN DIABETES-2010 DIABETES CARE, 33(SUPP 1): S1-S61,2010 ESTIMATED AVG GLUCOSE 137 mg/dL 06/19/2024 9:22 AM [facility] 06/19/2024 8:08 AM COMPUTER INFORMATION SCIENCE PROFESSOR us Brittney [facility] Final Result [facility] [address] [place] [address], * LIPID PANEL (06/19/2024 8:08 AM COMPUTER INFORMATION SCIENCE PROFESSOR) CHOLESTEROL 169 <200.0 MG/DL 06/19/2024 8:59 AM COMPUTER INFORMATION SCIENCE PROFESSOR [facility] TRIGLYCERIDES 81 <150 MG/DL 06/19/2024 8:59 AM COMPUTER INFORMATION SCIENCE PROFESSOR [facility] HDL 55 >40.0 MG/DL 06/19/2024 8:59 AM [facility] LDL (CALCULATED) 98 <100 MG/DL 06/19/20 8:59 AM COMPUTER INFORMATION SCIENCE PROFESSOR [facility] NON HDL CHOLESTEROL 114 <130 MG/DL 06/19 8:59 AM [facility] CHOL/HDL RATIO 3.1 0.0 - 4.5 06/19/2024 8:59 AM [facility] VLDL CALCULATION 16 5 - 55 MG/DL 06/19/2024 8:59 AM [facility] LIPID INTERPRETATION 06/19/2024 8:59 AM [facility] Comment: [facility] CONCENSUS REPORT RECOMMENDATIONS: ADULT CHILD LOW RISK: CHOLESTEROL <200 <170 TRIGLYCERIDE <150 --- HDL >=60 --- LDL <100 <110 BORDERLINE: CHOLESTEROL 200-239 170-199 TRIGLYCERIDE 150-199 --- HDL 40-59 --- LDL 100-159 110-129 HIGH RISK: CHOLESTEROL >=240 >=200 TRIGLYCERIDE >=200 --- HDL <40 --- LDL >=160 >=130 06/19/2024 8:08 AM COMPUTER INFORMATION SCIENCE PROFESSOR us Brittney [facility] Final Result [facility] [address] [place] [address], * BONE DENSITY/DEXA (03/10/2022 12:46 PM CDT) [...] Ordered By: BRITTNEY STEVENSON Interpreted By: Ozzie uJarez, 03/10/2022 1:15 PM Procedure Note Sudheer Juarez [...] Relevant to Health Maintenance Insurance Care Teams Public Health Officer Relationship Specialty Start Date End Date Brittney Stevenson PA [address] [place] [address] PCP - General [employer] 01/16/21
--- OUTSIDE RECORDS SUMMARY | 2024-10-15 14:23 | XMS_ITS | Clinical Summary ---
Author Organization [facility] Address [address] [place] [address] Care Team Providers Care Bellman Captain Name Role Phone Manisha Mann MD Primary Care Provider Source Comments [facility],non-owned Affiliates and Associated Physician Practices is amultiple site organization consisting of ambulatory clinics and hospital sitesin [place], [place], [place] and [place]. This disclosure is being madepursuant to the Care Everywhere program and may not contain all information available regarding this patient. Last updated 18.[facility] [employer] Social History Tobacco Use Types Packs/Day Years [...] patient's age to complete this topic Insurance [place] [id number] [facility] MANAGED MEDICARE ADV Care Teams Bellman Captain Relationship Specialty Start Date End Date Manisha Mann MD [address] [place] [phone] [facility] - General 04/24/21
--- OUTSIDE RECORDS SUMMARY | 2024-10-15 14:23 | XMS_ITS | Clinical Summary ---
Author Organization [facility] Address [address] [place] [address] Care Team Providers Care Operations Forester Name Role Phone Unavailable Primary Care Provider [...]
--- OUTSIDE RECORDS SUMMARY | 2024-10-15 14:23 | XMS_ITS | Encounter Summary ---
Author Organization [facility] Address [address] [facility] [place] [address] Care Team Providers Care Video Intern Name Role Phone Manisha Mann MD Primary Care Provider Encounter Details Date Type Department Care Team (Late st Contact Info) Description 06/02/2023 Lab Requisition [facility] - DermPath Lab [address] [facility] [place] [address] Angeli Basurto DO [address] [facility] [address] [place] [address] Social History Tobacco Use Types Packs/Day Years [...] Diagnosis Comments DERMATOPATHOLOGY Routine 06/02/2023 2:26 PM CARPENTER LABOR SUPERVISOR documented in this encounter Results * DERMATOPATHOLOGY (06/02/2023 2:26 PM CARPENTER LABOR SUPERVISOR) Case Report Dermatopathology Report Case: [id number] Authorizing Provider: Angeli Basurto DO Collected: 06/02/2023 02:26 PM Ordering Location: [facility] DermPath Lab Received: 06/03/2023 01:12 PM Pathologist: Sofia Salazar MD Specimens: A) - Skin, right cheek B) - Skin, right low back 12:59 PM CARPENTER LABOR SUPERVISOR DERMATOPATHOLOGY LABORATORY Final Diagnosis Specimen A. SKIN, right cheek: BASAL CELL CARCINOMA, NODULAR TYPE (C44.319) Specimen B. SKIN, right low back: NEUROFIBROMA, SUPERFICIAL PORTIONS OF (D36.10) (see microscopic description) 3 12:59 PM [facility] DERMATOPATHOLOGY LABORATORY Clinical History A-B: R/O NMSC 3 12:59 PM [facility] DERMATOPATHOLOGY LABORATORY Gross Description Specimen A: [...] 3x2x1 mm. Jar 0. 3 12:59 PM [facility] DERMATOPATHOLOGY LABORATORY Microscopic Description Specimen A. [...] were obtained and reviewed. 3 12:59 PM [facility] DERMATOPATHOLOGY LABORATORY Disclaimer An external and internal positive and negative controls are appropriate for the histochemical, immunohistochemical and immunofluorescence stain(s) in this case (if any), except where stated explicitly. The performance characteristics of the stain(s) cited in this report were developed and its performance characteristic determined by the Dermatopathology Laboratory at [facility], directed by Dr. Daniel Ahuja. These tests need not be, and therefore are not, approved by the [place] Food and Drug Administration. The tests are used for clinical purposes. Billing Codes Specimen Charges Stain Charges 02069 [id number] 1 1 3 12:59 PM [facility] DERMATOPATHOLOGY LABORATORY Embedded Images 3 12:59 PM [facility] DERMATOPATHOLOGY LABORATORY Pathology/Cytology TISSUE SPECIMEN FROM SKIN / Unknown 06/02/2023 2:26 PM CARPENTER LABOR SUPERVISOR 06/03/2023 1:12 PM CARPENTER LABOR SUPERVISOR Miscellaneous samples (specimen) TISSUE SPECIMEN FROM SKIN / Unknown 06/02/2023 2:26 PM CARPENTER LABOR SUPERVISOR 06/03/2023 1:12 PM CARPENTER LABOR SUPERVISOR us Angeli Basurto DO LAB - PATHOLOGY/CYTOLOGY ORDERABLES Final Result DERMATOPATHOLOGY LABORATORY [facility] - Department of Dermatology [facility] Medicine [address] [place] [address], [address] [phone] documented in this encounter Visit Diagnoses Not on filedocumented in this encounter Care Teams Video Intern Relationship Specialty Start Date End Date Manisha Mann MD [address] [place] [address] [phone] PCP - General 04/24/21 documented as of this encounter
[2024-10-15] MEDS: HYDROcodone/acetaminophen (*CRX) 5-325 MG TABLET 1 TAB PO (14:29)
[2024-10-15] MEDS: IBUPROFEN 600 MG TABLET PO (14:29)
== END 2024-10-15 15:55 | disposition home or self-care (01) ==
PROVIDERS: Emergency Provider Emergency Medicine; PCP Physician Assistant
DX: S62.316A Displaced fracture of base of fifth metacarpal bone, right hand, initial encounter for closed fracture (principal); E11.9 Type 2 diabetes mellitus without complications; E78.5 Hyperlipidemia, unspecified; K21.9 Gastro-esophageal reflux disease without esophagitis; F32.A Depression, unspecified; F41.9 Anxiety disorder, unspecified; Z90.49 Acquired absence of other specified parts of digestive tract; Z90.710 Acquired absence of both cervix and uterus; Z79.85 Long-term (current) use of injectable non-insulin antidiabetic drugs; Z79.84 Long term (current) use of oral hypoglycemic drugs; Z79.899 Other long term (current) drug therapy; W01.0XXA Fall on same level from slipping, tripping and stumbling without subsequent striking against object, initial encounter
CPT/HCPCS: 73030; 73080; 73110; 73130; 99284; A4565; A9270

== ENCOUNTER 2024-10-18 14:57 | Outpatient (CLI) | payer MEDICARE, SELFPAY ==
--- NOTE | ~2024-10-18 | CT_ITS ---
Noncontrast CT scan of the right hand CLINICAL HISTORY: Fracture base of fifth metacarpal TECHNIQUE: Axial noncontrast imaging of the right hand was performed. Sagittal and coronal reformatte d images were constructed. Dose reduction technique was used on this scan by utilizing automated expo sure control and iterative reconstruction technique. The dose-length product (DLP) was 457.38 mGy-cm. Findings: There is oblique, intra-articular, mildly displaced fracture of the base the fifth metacarp al. This is best seen on coronal images. No other fracture or dislocation seen. Remaining joint space s are intact. No distinct soft tissue abnormality evident. IMPRESSION: Oblique, intra-articular, mildly displaced fracture the base of the fifth metacarpal. Reviewed, dictated and finalized at location . IMPRESSION: Oblique, intra-articular, mildly displaced fracture the base of the fifth metac arpal.
--- OUTSIDE RECORDS SUMMARY | 2024-10-18 16:15 | XMS_ITS | Encounter Summary ---
Author Organization [facility] Address [address] [facility] [place] [address] Care Team Providers Care Underwriting Clerks Supervisor Name Role Phone Manisha Mann MD Primary Care Provider Encounter Details Date Type Department Care Team (Late st Contact Info) Description 06/02/2023 Lab Requisition [facility] - DermPath Lab [address] [facility] [place] [address] Angeli Basurto DO [address] [facility] [address] [place] [address] Social History Tobacco Use Types Packs/Day Years [...] Diagnosis Comments DERMATOPATHOLOGY Routine 06/02/2023 2:26 PM PACK WORKER SUPERVISOR documented in this encounter Results * DERMATOPATHOLOGY (06/02/2023 2:26 PM PACK WORKER SUPERVISOR) Case Report Dermatopathology Report Case: [id number] Authorizing Provider: Angeli Basurto DO Collected: 06/02/2023 02:26 PM Ordering Location: [facility] DermPath Lab Received: 06/03/2023 01:12 PM Pathologist: Sofia Salazar MD Specimens: A) - Skin, right cheek B) - Skin, right low back 12:59 PM PACK WORKER SUPERVISOR DERMATOPATHOLOGY LABORATORY Final Diagnosis Specimen A. SKIN, right cheek: BASAL CELL CARCINOMA, NODULAR TYPE (C44.319) Specimen B. SKIN, right low back: NEUROFIBROMA, SUPERFICIAL PORTIONS OF (D36.10) (see microscopic description) 3 12:59 PM [facility] DERMATOPATHOLOGY LABORATORY Clinical History A-B: R/O NMSC 3 12:59 PM [facility] DERMATOPATHOLOGY LABORATORY Gross Description Specimen A: Received [...] 3x2x1 mm. Jar 0. 3 12:59 PM [facility] DERMATOPATHOLOGY LABORATORY Microscopic Description Specimen A. SKIN, [...] were obtained and reviewed. 3 12:59 PM [facility] DERMATOPATHOLOGY LABORATORY Disclaimer An external and internal positive and negative controls are appropriate for the histochemical, immunohistochemical and immunofluorescence stain(s) in this case (if any), except where stated explicitly. The performance characteristics of the stain(s) cited in this report were developed and its performance characteristic determined by the Dermatopathology Laboratory at [facility], directed by Dr. Daniel Ahuja. These tests need not be, and therefore are not, approved by the [place] Food and Drug Administration. The tests are used for clinical purposes. Billing Codes Specimen Charges Stain Charges 36096 [id number] 1 1 3 12:59 PM [facility] DERMATOPATHOLOGY LABORATORY Embedded Images 3 12:59 PM [facility] DERMATOPATHOLOGY LABORATORY Pathology/Cytology TISSUE SPECIMEN FROM SKIN / Unknown 06/02/2023 2:26 PM PACK WORKER SUPERVISOR 06/03/2023 1:12 PM PACK WORKER SUPERVISOR Miscellaneous samples (specimen) TISSUE SPECIMEN FROM SKIN / Unknown 06/02/2023 2:26 PM PACK WORKER SUPERVISOR 06/03/2023 1:12 PM PACK WORKER SUPERVISOR us Angeli Basurto DO LAB - PATHOLOGY/CYTOLOGY ORDERABLES Final Result DERMATOPATHOLOGY LABORATORY [facility] - Department of Dermatology [facility] Medicine [address] [place] [address], [address] [phone] documented in this encounter Visit Diagnoses Not on filedocumented in this encounter Care Teams Underwriting Clerks Supervisor Relationship Specialty Start Date End Date Manisha Mann MD [address] [place] [address] [phone] PCP - General 04/24/21 documented as of this encounter
--- OUTSIDE RECORDS SUMMARY | 2024-10-18 16:15 | XMS_ITS | Clinical Summary ---
Author Organization [facility] Address [address] [place] [address] Care Team Providers Care Coach Name Role Phone Unavailable Primary Care Provider [...]
--- OUTSIDE RECORDS SUMMARY | 2024-10-18 16:15 | XMS_ITS | Data Portability ---
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 Plan of Treatment Reminders Order Date Submit Date Provider Last Modified By Organization Details Last Modified Time Details Appointments ANY 15 2024 10:30A M MARY Hernandez Not available Not available Not available Lab BMP, serum or plasma [address] [facility], [address], [place], [address], 06/22/2024 11:02:27 CBC w/ auto diff [address] [facility], [address], [place], [address], 06/22/2024 11:02:27 hepatic function panel, serum [address] [facility], [address], [place], [address], 06/22/2024 11:02:27 HbA1c (hemoglob in A1c), blood [address] [facility], [address], [place], [address], 06/22/2024 11:02:27 lipid panel, serum 2023 025 [email or web address] [facility], [address], [place], [address], 06/22/2024 11:02:27 BMP, serum or plasma 2023 024 [facility], [address], [place], [address], 06/19/2024 10:10:05 CBC w/ auto diff 2023 024 [facility], [address], [place], [address], 06/19/2024 10:15:11 hepatic function panel, serum 2023 024 [facility], [address], [place], [address], 06/19/2024 10:10:58 HbA1c (hemoglob in A1c), blood 2023 024 [facility], [address], [place], [address], 06/19/2024 10:32:01 microalbu min, urine 2023 024 [facility], [address], [place], [address], 06/19/2024 12:46:44 lipid panel, serum 2023 024 [facility], [address], [place], [address], 06/19/2024 10:09:24 Referral None recorded. Procedures None recorded. Surgeries None recorded. Imaging None recorded. Medication Orders Trulicity 4.5 mg/0.5 mL subcutane ous pen injector 2023 024 [facility], [address], [address], 06/22/2024 11:03:03 Trulicity 3 mg/0.5 mL subcutane ous pen injector [address] [facility], [address], [address], 01/09/2024 10:47:46 Patient TargetsNo targets recorded. Patient Instructions Encounter Date Encounter Id Patient Instructions Last Modified By Organization Details Last Modified Time 06/22/2024 [id number] A healthy lifestyle: care instructions [place] [id number] Not available 06/22/2024 11:02:27 Reason for Referral None Reported. Results Created Date Observation Date Name Description Value Unit Range Abnormal Flag Note LastModifiedBy Organization Detail LastModifiedTime 06/12/2006/11/2024 MRI, shoul angel, w/o contr ast No observ ation record ed. [address], [address], 06/12/2024 09:57:05 06/20/20 24 06/20/2024 MAMMO , scree randy, digit al, bilat eral No observ ation record ed. [address] [address] [place], [address], 06/22/2024 10:48:07 08/29/19 25 08/29/2024 XR, shoul angel No observ ation record ed. [address], [address], 08/29/2024 23:19:17 10/16/19 25 10/15/2024 XR, shoul angel No observ ation record ed. [address], [address], 10/15/2024 19:01:21 10/17/19 25 10/15/2024 XR, hand, 3 or more view No observ ation record ed. [address] [facility] [address], [place], [address], 10/16/2024 16:32:57 Result Notes None recorded. Problems Name Problem SNOMED Code Status Onset Date Resolution Date Notes Provider Name and Address Organization Details Recorded Time Type 2 diabetes mellitus without complicatio n 680033237 Active 2023 MARY Hernandez Attn: Ernesto vargas,[address] [place], [address], [facility] 4 10:53:30 Gastroesoph ageal reflux disease without esophagitis 075267457 Active 2023 MARY Hernandez Attn: Ernesto vargas,[address] [place], [address], [facility] - [facility] 4 10:53:31 Hyperlipide loren 57754847 Active 2023 MARY Hernandez Attn: Ernesto vargas,[address] [place], [address], [facility] - [facility] 4 10:53:31 Mixed anxiety and depressive disorder 865692800 Active 2023 MARY Hernandez Attn: Ernesto vargas,[address] [place], [address], [place] - [facility] 4 10:53:33 Long-term drug therapy Active 2023 MARY Hernandez Attn: Ernesto g,[address] [place], [address], [facility] - [facility] 4 10:53:33 Pain of left knee joint 9588984896722 07 Active 2023 MARY Hernandez Attn: Ernesto vargas,[address] [place], [address], [facility] [place] [place] 10:53:45 Body mass index 25-29 - overweight 301847554 Active 2023 MARY Hernandez Attn: Ernesto vargas,[address] [facility], [place], [address], [facility] [place], [place] 15:50:48 Problem Notes None recorded. Procedures Surgical History Date Name Laterality Status Provider Name and Address Organization Details Recorded Time Appendectomy completed Haley Banerjee MA [facility] 12/09/2023 15:45:33 Cholecystectomy completed Haley Banerjee MA [facility] 12/09/2023 15:45:46 Eye Surgery completed Haley Banerjee MA [facility] 12/09/2023 15:47:42 excision of bilateral fallopian tubes and ovaries completed Haley Banerjee MA [facility] 12/09/2023 15:47:49 D & c after delivery completed Haley Banerjee MA [facility] 12/09/2023 15:47:56 hysterectomy completed Haley Banerjee [facility] 12/09/2023 15:48:52 Imaging Results Imaging Date Name Status LastModified by Organ ation Details LastModified Time 06/11/2024 MRI, shoulder, w/o contrast completed [address] [place] [address], [address], 06/12/2024 09:57:05 06/20/2024 MAMMO, screening, digital, bilateral completed [address] [address] [place], [address], 06/22/2024 10:48:07 08/29/2024 XR, shoulder completed [address], [address], 08/29/2024 23:19:17 10/15/2024 XR, shoulder completed [address], [address], 10/15/2024 19:01:21 10/15/2024 XR, hand, 3 or more view completed [address] [facility] [address], [place], [address], 10/16/2024 16:32:57 Procedure Notes None recorded. Medical Equipment None [...] Updated DateTime 4 160.02 cm 29.6 kg/m2 66995 g 20 /min 98 % 98 % 61 /min 130 mm[Hg] 72 mm[Hg] Haley Banerjee [place] [facility] 4 10:42:01 Date Recorded Body height Body mass index (BMI) Body weight Oxygen saturation Oxygen saturation in Arterial blood by Pulse oximetry Heart rate Systolic blood pressure Diastolic blood pressure Provider Name and Address Organization Details Last Updated DateTime 4 160.02 cm 29.6 kg/m2 68256.9 3 g 97 % 97 % 67 /min 138 mm[Hg] 82 mm[Hg] Haley Banerjee MA [facility] 4 10:28:53 Date Recorded Respiratory rate Systolic blood pressure Diastolic blood pressure Provider Name and Address Organization Details Last Updated DateTime 06/22/2024 16 /min 130 mm[Hg] 80 mm[Hg] MARY Hernandez Attn: Accounting, [address] [place], [address], [facility] 06/22/2024 11:02:18 Social History Question Answer Notes LastModified by Organizat ion Details LastModified Time Tobacco Smoking Status Never Smoker Haley Banerjee MA [facility], [facility] 12/09/2023 10:39:58 Do You Have An Advance [...] Anxious, Or Unable To Sleep At Night)? [id number] Information not available 12/09/2023 Do You Use [...] Time Influenza, recombinant, quadrivalent, PF 0 completed FAMILIA [place], [place] - [facility] 06/22/2024 10:26:31 Influenza, high-dose, quadrivalent, PF 2 completed [place] [facility] 06/22/2024 10:26:31 Influenza, high-dose, quadrivalent, PF 1 completed [place], [place] [facility] [...] PF 3 completed Haley Banerjee MA null, [place] [facility] 06/22/2024 10:26:31 Influenza, split virus, quadrivalent, PF 9 completed Haley Banerjee [place], [place] [facility] 06/22/2024 10:26:31 Influenza, high-dose, trivalent, PF 4 completed MARY Hernandez Attn: Accounting,[address] [place], [address], [facility] 07/04/2024 16:27:17 Past Encounters Encounter ID Performer Location Encounter Start Date Encounter Closed Date Diagnosis/Indication Diagnosis SNOMED-CT Code Diagnosis ICD10 Code Diagnosis Note [id number] M[facility] [address] [place] [address] 12/09/2023 10:20:41 01/03/2024 15:53:43 Type 2 diabetes mellitus without complication 793674850 E11.9 Rx for trulicity 3mg weekly in hopes this will be in stock. next labs due in Dec. continue glipizide 5mg bid w/meal. Gastroesop hageal reflux disease without esophagitis 709096747 K21.9 stable on omeprazole 40mg daily. Hyperlipidemia 77706165 E78.5 stable on atorvastat in 20mg daily. next labs due in Jun. Mixed anxi ety and depressive disorder 067618086 F41.8 stable on venlafaxin e ER 150mg daily Long-term drug therapy 992626922 Z79.899 next labs are due in Dec. Pain of le ft knee joint 1020379860 [address] M25.562 pt can f/u with ortho per plan Body mass index 25-29 - overweight 337493717 Z68.29 [id number] MARY Hernandez [facility] [address] [place] [address] 06/22/2024 10:17:31 07/06/2024 09:06:09 Body mass index 25-29 - overweight 396833512 Z68.29 BMI is 29.6 Overweight 196220435 E66 .3 Type 2 mariangel betes mellitus without complication 487974478 E11.9 Rx for trulicity 3mg weekly in hopes this will be in stock. continue glipizide 5mg bid w/meal. Gastroesop hageal reflux disease without esophagitis 522236371 K21.9 stable on omeprazole 40mg daily. Hyperlipidemia 86981609 E78.5 stable on atorvastat in 20mg daily. next labs due in December Mixed anxi ety and depressive disorder 831214080 F41.8 stable on venlafaxin e ER 150mg daily. No acute concerns or complaints with medication Long-term drug therapy 864675399 Z79.899 Routine BMP, CBC and liver function will be due in December Administra tion of influenza vaccine 34633753 Z23 Flu shot given in the office today Health Concerns Section Related Observation LastModified by Organization Detai ls LastModified Time None Recorded Concern Status LastModified by Organization Details LastModified Time None Recorded Advance Directives Directive N: Payers Encounter Date Sequence Insurance Name Policy Number Policy Smith Covered Member ID Smith Member ID Guarantor Name 12/09/2023 1 [facility] (MEDICARE REPLACEMENT/A DVANTAGE - HMO) [id number] Orly [facility] [id number] [facility]/22/2024 1 [facility] (MEDICARE REPLACEMENT/A DVANTAGE - HMO) [id number] Orly Lindsey [id number] Savannah Lindsey Notes Date Note Type Note Provider Name and Address Organization Details Recorded Time 12/09/2023 text/html Anxiety/Depressi on Reported bypatient.Notes:[place] on venlafaxine ER 150mg daily.DiabetesRepo rted bypatient.Notes:6. 1% a1c on Trulicity and glipizide 5mg bid.Hyperlipidemia Reported bypatient.Notes:[place] on atorvastatin 20mg daily. lipids are great.KneeReported bypatient.Notes:sh ot given on november [address] Morrison.Reflux/JAREN DReported bypatient.Notes:[place] omeprazole 40mg daily. MARY Hernandez Attn: Accounting[address] [place], [address], [facility] 01/02/2024 15:50:57 06/22/2024 text/html Anxiety/Depressi on Reported bypatient.Notes:st able on venlafaxine ER 150mg daily.DiabetesRepo rted bypatient.Notes:6. 1% a1c on Trulicity and glipizide 5mg bid.Hyperlipidemia Reported bypatient.Notes:st able on atorvastatin 20mg daily. lipids are great.KneeReported bypatient.Notes:sh ot given on november [address] Morrison.Reflux/JAREN DReported bypatient.Notes:st able omeprazole 40mg daily. MARY Hernandez Attn: Accounting[address] [facility], [place], [address], [place] [facility] 07/04/2024 16:28:30 OBGyn Episode No OBEpisode recorded.
--- OUTSIDE RECORDS SUMMARY | 2024-10-18 16:15 | XMS_ITS | Data Portability ---
Author Organization [place] [facility] [place], Main Office Address [address] [place] [address] Care Team Providers Care Commercial Loan Reviewer Name Role Phone BRITTNEY ADAMS Primary Care Provider BRITTNEY ADAMS Referring Provider [phone] Assessment Encounter Date Assessment Date Assessment [...] more than half the time spent in mthk-st-dgun care. Not available 01/29/2023 18:58:10 02/19/2023 02/19/2023 [...] If her patellofemoral arthritis become severe and xmoz-xj-crqk and her symptoms are intractable, knee replacement [...] more than half the time spent in kqba-jn-ghqo care. Not available 02/19/2023 10:12:20 Plan of Treatment Reminders Order Date Submit Date Provider Last Modified By Organization Details Last Modified Time Details Appointments None recorded. Lab HbA1c (hemoglobin A1c), blood [address], [address] [address], [place], [address], 4 18:01:51 microalbumi n/creatinin e, mass ratio, urine [address], [address] Heri Burger, [place], [address], 4 18:01:51 microalbumi n, urine [address], [address] Heri Burgere, [place], [address], 4 18:01:51 CBC w/ auto diff [address], [address] [facility] [place], [address], 4 18:01:50 BMP, serum or plasma [address], [address] Heri Burger, [place], [address], 4 18:01:50 hepatic function panel, serum [address], [address] [place], [address], 4 18:01:51 TSH + free T4, serum [address], [address] Heri Burgere, [place], [address], 4 18:01:51 lipid panel, serum 2022 023 [email or web address] [facility], [address] [address], [place], [address], 4 18:01:51 Referral None recorded. Procedures injection/a spiration joint/bursa (PROC) - in office procedure, administere d by provider 2022 023 [email or web address] In-Office Order, Internal Use Only DO Not Attach Compendium DO Not Attach Compendium, Do Not Delete/merge, [id number] 3 09:42:55 Surgeries None recorded. Imaging XR, knee 2022 023 [email or web address] [facility], [address] [facility] [address], [place], [address], 3 09:54:30 MRI, knee, w/o contrast - GIVE THE PT A CD OF IMAGES 2022 023 ANN [facility] ([facility]), [address] [address], [place], [address], 3 19:34:18 MAMMO, screening, digital, bilateral [email or web address] [place] [address] - Radiology, [address] [place], [address], 3 12:26:21 Medication Orders Kenalog 10 mg/mL suspension for injection 2022 023 [email or web address] 4 [facility] [address], [address], [place], [address], 3 12:11:16 ropivacaine (PF) 5 mg/mL (0.5 %) injection solution [address]22 [email or web address] [place] [address] [address], [address] [facility] [address], [place], [address], 3 12:11:18 omeprazole 40 mg capsule,del ayed release 2022 023 [facility] [address], [address] [facility] [address], [address], 3 12:19:32 Patient TargetsNo targets recorded. Patient InstructionsNo instructions recorded. Reason for Referral None Reported. Results Created Date Observation Date Name Description Value Unit Range Abnormal Flag Note LastModifiedBy Organization Detail LastModifiedTime 01/30/20 XR, knee No observ ation record ed. [facility] [place] [address] [facility] [address], [place], [address], 01/29/2023 18:57:19 02/17/20 23 02/14/2023 MRI, knee, w/o contr ast No observ ation record ed. [email or web address] [facility] [address] [place], [address], 02/17/2023 09:48:33 02/20/20 23 02/16/2023 MRI, knee, [...] Organization Details Recorded Time Lumbar radiculopa thy 726501455 Active 2021 Not Available [facility] 3 00:53:36 Chronic pain in coccyx for more than three months 9827067414087 05 Active 2019 Not Available [facility] 3 00:53:36 Tenosynovi tis of right radial styloid 9452072248157 9100 Active 2021 Not Available [facility] 3 00:53:36 Right flank pain 879732406 Active 2021 Not Available [facility] 3 00:53:36 Insomnia 692229354 Active Not Available [facility] 3 00:53:36 Steatosis of liver 779989422 Active 2021 Not Available [facility] 3 00:53:37 Localized, primary osteoarthr itis of the hand 672349013 Active Not Available [facility] 3 00:53:37 Chronic cholecysti tis 32255009 Active Not Available [facility] 3 00:53:37 Abdominal pain 68584182 Active Not Available [facility] 3 00:53:37 Mixed anxiety and depressive disorder 428456539 Active 2021 Not Available [facility] 3 00:53:37 Gastroesop hageal reflux disease 516876995 Active Not Available [facility] 3 00:53:37 Gallstone 285977736 Active Not Available [facility] 3 00:53:37 Screening mammograph y Active 2021 Not Available [facility] 3 00:53:37 Gastroesop hageal reflux disease without esophagiti s 127672933 Active 2021 Not Available [facility] 3 00:53:37 Long-term drug therapy Active 2021 Not Available [facility] 3 00:53:37 History of peptic ulcer 649769033 Active 2021 Not Available [facility] 3 00:53:37 Screening for malignant neoplasm of colon Active 2021 Not Available [facility] 3 00:53:38 Chest pain 62413181 Active 2021 Not Available [facility] 3 00:53:38 Injury of tendon of the rotator cuff of shoulder 719849397 Active Not Available [facility] 3 00:53:38 Pain of left wrist 3608480749654 02 Active 2021 Not Available [facility] 3 00:53:38 Vitamin D deficiency 56598705 Active Not Available [facility] 3 00:53:38 Depressive disorder 00818500 Active Not Available [facility] 3 00:53:38 Osteoarthr osis of the carpometac arpal joint of the thumb 39723047 Active 2018 Not Available [facility] 3 00:53:38 Osteoarthr itis 550118594 Active Not Available [facility] 3 00:53:38 Diverticul ar disease 755841138 Active Not Available [facility] 3 00:53:38 Acute urinary tract infection 580033867 Active Not Available [facility] 3 00:53:38 Dyssomnia 93953106 Active 2021 Not Available [facility] 3 00:53:39 Uncontroll ed type 2 diabetes mellitus 195878949 Active 2021 Not Available [facility] 3 00:53:39 Well controlled type 2 diabetes mellitus 723661801 Active 2021 Not Available [facility] 3 00:53:39 Upper respirator y infection 80710139 Active Not Available [facility] 3 00:53:39 Lower abdominal pain 63539479 Active Not Available [facility] 3 00:53:39 Hyperlipid emia 18353909 Active Not Available [facility] 3 00:53:39 Increased liver function 26389785 Active Not Available [facility] 3 00:53:39 Precordial pain 54586558 Active 2021 Not Available [facility] 3 00:53:39 Sleep apnea 49124461 Active 2021 Not Available [facility] 3 00:53:39 Pain in elbow 67655787 Active Not Available [facility] 3 00:53:40 Postmenopa usal state 11456446 Active 2021 Not Available [facility] 3 00:53:40 Neck pain 47072921 Active 2021 Not Available [facility] 3 00:53:40 Fatigue 52451986 Active Not Available [facility] 3 00:53:40 Gout 78617981 Active 2021 Not Available [facility] 00:53:40 Pain in limb 94635638 Active Not Available [facility] 00:53:40 Pain of right knee joint 0077716101860 00 Active 2022 Jennifer Granados RMA null, [place] [facility] 3 10:43:26 Pain of left knee joint 0418277029853 07 Active 2022 Jennifer Granados RMA null, [place] [facility] 3 10:43:46 Problem Notes None recorded. Procedures Surgical History Date Name Laterality Status Provider Name and Address Organization Details Recorded Time Date of Last Colonoscopy completed Not Available [facility] 09/02/2022 00:47:55 Colonoscopy completed Not Available [facility] 09/02/2022 00:47:57 Carpal tunnel completed Not Available [facility] 09/02/2022 00:47:57 rhinoseptoplasty completed Not Available [facility] 09/02/2022 00:47:57 Hysterectomy completed Not Available [facility] 09/02/2022 00:47:57 removal of ectopic fetus completed Not Available [facility] 09/02/2022 00:47:57 Cataract Surgery completed Not Available [facility] 09/02/2022 00:47:57 Appendectomy completed Not Available [facility] 09/02/2022 00:47:57 Cholecystectomy completed Not Available [facility] 09/02/2022 00:47:57 Imaging Results Imaging Date Name Status LastModified by Organiz ation Details LastModified Time 01/29/2023 XR, knee completed [facility] Taras Bains [address], [place], [address], 01/29/2023 18:57:19 02/14/2023 MRI, knee, w/o contrast completed [email or web address] [facility] [address] [place], [address], 02/17/2023 09:48:33 02/16/2023 MRI, knee, w/o contrast [...] e, administ ered by provider 06/22 completed [facility]: [id number] Not Available Not Available Not [...] e, administ ered by provider 06/22 completed [facility] 15228-54 4-01 Not Available Not Available Not Available [...] % 97 % 67 /min 97.5 [degF] 10370.1 5 g 128 mm[Hg] 70 mm[Hg] Not Available [facility] 3 00:51:10 Date Recorded Body height Body mass index (BMI) Body weight Heart rate Oxygen saturation Oxygen saturation in Arterial blood by Pulse oximetry Body temperature Systolic blood pressure Diastolic blood pressure Provider Name and Address Organization Details Last Updated DateTime 3 157.48 cm 30.2 kg/m2 25111.7 4 g 59 /min 97 % 97 % 97.9 [degF] 126 mm[Hg] 76 mm[Hg] Magui López RN [place] [facility] [employer] [facility] 3 11:44:58 Date Recorded Body height Body mass index (BMI) Body weight Provider Name and Address Organization Details Last Updated DateTime 01/29/2023 154.94 cm 31.4 kg/m2 14564.33 g JORGE LUIS Fair [facility] 01/29/2023 11:13:01 Date Recorded Body height Provider Name an d Address Organization Details Last Updated DateTime 02/19/2023 154.94 cm JORGE LUIS Fair [facility] 02/19/2023 08:54:52 Date Recorded Body height Body mass index (BMI) Body weight Respiratory rate Oxygen saturation Oxygen saturation in Arterial blood by Pulse oximetry Heart rate Systolic blood pressure Diastolic blood pressure Provider Name and Address Organization Details Last Updated DateTime 154.94 cm 30.9 kg/m2 86566.3 5 g 16 /min 98 % 98 % 62 /min 122 mm[Hg] 80 mm[Hg] Mari Badillobrad [facility] 11:41:41 Date Recorded Systolic blood pressure Diastolic blood pressure Provider Name and Address Organization Details Last Updated DateTime 06/24/2023 130 mm[Hg] 80 mm[Hg] MARY Hernandez [address], [address], [facility] 06/24/2023 12:31:01 Social History Question Answer Notes LastModified by Organizat ion Details LastModified Time Tobacco Smoking Status Never Smoker Not Available [facility] 09/02/2022 00:47:05 Do You Have An Advance Directive? No MIGRATION.30640 78295 Information not available 09/02/2022 What Is Your Level Of Alcohol Consumption? None MIGRATION.73778 09816 Information not available 09/02/2022 Are You Blind Or Do You Have Difficulty Seeing? Yes MIGRATION.81924 36883 Information not available 09/02/2022 What Is Your Level Of Caffeine Consumption? Occasional MIGRATION.88260 70910 Information not available 09/02/2022 What Is Your Code Status? Full Code MIGRATION.53187 73913 Information not available 09/02/2022 In The 14 Days Before Symptom Onset, Have You Had Close Contact With A Laboratory-confi rmed COVID-19 While That Case Was Ill? No MIGRATION.68529 13345 Information not available 09/02/2022 In The 14 Days Before Symptom Onset, Have You Had Close Contact With A Person Who Is Under Investigation For COVID-19 While That Person Was Ill? No MIGRATION.65170 99878 Information not available 09/02/2022 Are You Deaf Or Do You Have Serious Difficulty Hearing? No MIGRATION.19632 48304 Information not available 09/02/2022 What Type Of Diet Are You Following? REGULAR MIGRATION.61636 94096 Information not available 09/02/2022 Which Illicit Or Recreational Drugs Have You Used? No MIGRATION.86289 32280 Information not available 09/02/2022 Do You Or Have You Ever Used E-cigarettes Or Vape? Never Used Electronic Cigarettes MIGRATION.87327 96241 Information not available 09/02/2022 Have There Been Any Changes To Your Family Or Social Situation? No MIGRATION.70348 83229 Information not available 09/02/2022 What Is The Fluoride Status Of Your Home? Unknown MIGRATION.96298 48141 Information not available 09/02/2022 Are There Any Guns Present In Your Home? Yes MIGRATION.04548 11879 Information not available 09/02/2022 Do You Use Insect Repellent Routinely? No MIGRATION.90957 72335 Information not available 09/02/2022 Where Do You Live? [place]House MIGRATION.76509 80225 Information not available 09/02/2022 Do You Have A Medical Power Of Adobe Layer Helper? No MIGRATION.22707 64976 Information not available 09/02/2022 What Was The Date Of Your Most Recent Tobacco Screening? 12/05/2021 MIGRATION.39908 10043 Information not available 09/02/2022 Do You Have Any Pets? No MIGRATION.91688 21670 Information not available 09/02/2022 What Is Your Relationship Status? MIGRATION.66333 32978 Information not available 09/02/2022 Do You Use Your Seat Belt Or Car Seat Routinely? Yes MIGRATION.58463 94775 Information not available 09/02/2022 Do You Have Smoke And Carbon Monoxide Detectors In Your Home? Yes MIGRATION.49293 82127 Information not available 09/02/2022 Are You Passively Exposed To Smoke? No MIGRATION.52148 02084 Information not available 09/02/2022 Do You Or Have You Ever Used Smokeless Tobacco? Never Used Smokeless Tobacco MIGRATION.89425 41025 Information not available 09/02/2022 Are There Any Smokers In Your House? No MIGRATION.70512 32663 Information not available 09/02/2022 How Much Tobacco Do You Smoke? No MIGRATION.72165 50396 Information not available 09/02/2022 Do You Feel Stressed (tense, Restless, Nervous, Or Anxious, Or Unable To Sleep At Night)? [id number] MIGRATION.17758 10107 Information not available 09/02/2022 Do You Use Any Illicit Or Recreational Drugs? No MIGRATION.64192 62679 Information not available 09/02/2022 Do You Use Sunscreen Routinely? Yes MIGRATION.04715 21783 Information not available 09/02/2022 Have You Recently Traveled Abroad? No MIGRATION.03854 62331 Information not available 09/02/2022 Do You Have Any Dietary Restrictions? No MIGRATION.47541 93881 Information not available 09/02/2022 Do You Or Have You Ever Used Any Other Forms Of Tobacco Or Nicotine? No MIGRATION.93002 38819 Information not available 09/02/2022 Sex: Unknown Functional Status Question Answer Note LastModified by Organizat ion Details LastModified Time Do you have difficulty walking or climbing stairs? Yes MIGRATION.3397059 026 Information not available 09/02/2022 Do you have transportation difficulties? No MIGRATION.8793060 026 Information not available 09/02/2022 Are you able to walk? YESWOREST MIGRATION.2818932 026 Information not available 09/02/2022 Do you have difficulty doing errands alone? No MIGRATION.3201652 026 Information not available 09/02/2022 Are you able to care for yourself? Yes MIGRATION.4407757 026 Information not available 09/02/2022 Do you have difficulty dressing or bathing? No MIGRATION.1881170 026 Information not available 09/02/2022 What is your exercise level? Occasional MIGRATION.9407441 026 Information not available 09/02/2022 Mental Status Question Answer Note LastModified by Organizat ion Details LastModified Time Do you have difficulty concentrating, remembering or making decisions? Yes MIGRATION.311825516 6 Information not available 09/02/2022 Family History Relationship Description Onset Age of this Age Resolved Age Notes LastModified by Organization Details LastModified Time Son Complication of anesthesia MIGRATION.252 1165324 Not available 09/02/2022 00:48:00 Unspecified Relation Family history of stroke grandf ather MIGRATION.687 4546572 Not available 09/02/2022 00:48:00 Unspecified Relation Family history of malignant neoplasm uncle MIGRATION.193 1975358 Not available 09/02/2022 00:48:00 Unspecified Relation Diabetes mellitus grandm other MIGRATION.318 6423187 Not available 09/02/2022 00:48:00 Unspecified Relation Heart disease MIGRATION.954 8650288 Not available 09/02/2022 00:48:00 Father Hypertensive disorder MIGRATION.536 2513876 Not available 09/02/2022 00:48:00 Father Sepsis MIGRATION.567 1742822 Not available 09/02/2022 00:48:00 Father Methicillin resistant Staphylococc us aureus infection MIGRATION.557 9501122 Not available 09/02/2022 00:48:00 Mother Cirrhosis - non-alcoholi c MIGRATION.771 0278905 Not available 09/02/2022 00:48:00 Mother Diabetes mellitus MIGRATION.992 3041276 Not available 09/02/2022 00:48:00 Brother Asthma MIGRATION.008 9848778 Not available 09/02/2022 00:48:00 Sister Myocardial infarction MIGRATION.593 5488965 Not available 09/02/2022 00:48:00 Sister Chronic hepatitis C MIGRATION.691 7451154 Not available 09/02/2022 00:48:00 Notes:cancer, blood clots [...] HAVE YOU BEEN HOSPITALIZED OR SEEN IN [facility] IN THE PAST YEAR ? [...] virus, trivalent, PF 04/03/2013 completed Not Available [facility] 2022 01:02:00 COVID-19, mRNA, LNP-S, PF, 30 mcg/0.3 mL dose 10/02/2020 completed Not Available [facility] 3 01:02:00 COVID-19, mRNA, LNP-S, PF, 30 mcg/0.3 mL dose 09/02/2020 completed Not Available [facility] 3 01:02:00 Past Encounters Encounter ID Performer Location Encounter Start Date Encounter Closed Date Diagnosis/Indication Diagnosis SNOMED-CT Code Diagnosis ICD10 Code Diagnosis Note [id number] [facility] [address] [place] [address] 09/10/2020 00:00:00 09/10/2020 14:52:15 [id number] [facility] [place] [address] [place] [address] 10/08/2020 00:00:00 10/08/2020 14:51:17 [id number] [facility] [place] [address] [place] [address] 12/11/2020 00:00:00 12/12/2020 09:43:20 [id number] _ATHENA_M IGRATION_ DEFAULT_1 _1 , 12/26/2020 00:00:00 12/26/2020 18:55:30 [id number] [facility] [place] [address] [place] [address] 03/03/2021 00:00:00 03/03/2021 21:50:49 [id number] [facility] [place] [address] [place] [address] 06/03/2021 00:00:00 06/03/2021 16:40:41 [id number] [facility] [place] [address] [place] [address] 09/03/2021 00:00:00 10/02/2021 19:25:25 [id number] [facility] [place] [address] [place] [address] 09/26/2021 00:00:00 09/26/2021 09:52:56 [id number] [facility] [place] [address] [place] [address] 10/24/2021 00:00:00 10/24/2021 11:00:23 [id number] [facility] [place] [address] [place] [address] 12/05/2021 00:00:00 12/05/2021 10:03:29 [id number] [facility] [place] [address] [place] [address] 12/16/2021 00:00:00 2022 15:50:28 [id number] [facility] [place] [address] [place] [address] 03/05/2022 00:00:00 03/05/2022 09:43:50 [id number] [facility] [place] [address] [place], [place] [address] 03/10/2022 00:00:00 03/10/2022 12:24:59 [id number] [facility] [place] [address] [place] [address] 07/21/2022 00:00:00 08/04/2022 21:10:07 [id number] MARY Hernandez [facility] [place] [address] [place] [address] 01/18/2023 11:37:44 01/18/2023 12:38:06 Well controlled type 2 diabetes mellitus 733350820 E11.9 stable on trulicity and glipizide therapy. A1c 6.3%. repeat labs in Jun. Screening mammography 24 311460 Z12.31 mammogram ordered Mixed anxi ety and depressive disorder 039254630 F41.8 stable on venlafaxin e ER 150mg daily. Long-term drug therapy 117005090 Z79.899 next full lab panel due in Jun. History of peptic ulcer 473831311 Z87.11 refill omeprazole 40mg daily Gastroesop hageal reflux disease without esophagitis 829695510 K21.9 stable on PPI therapy and EGD was up to date Hyperlipidemia 32032024 E78.5 stable on statin therapy, repeat labs due in Jun [id number] Lc Morrison MD [facility] [place] [address] [place] [address] 01/29/2023 10:39:37 02/01/2023 09:54:30 Pain of left knee joint 7696858895 87191 M25.562 [id number] Lc Morrison MD [facility] [place] [address] [place] [address] 02/19/2023 08:49:17 02/19/2023 10:28:02 Pain of left knee joint 1502519138 73210 M25.401 [id number] MARY Hernandez [facility] [place] [address] [place] [address] 06/24/2023 11:32:48 06/24/2023 12:31:15 Well controlled type 2 diabetes mellitus 213968641 E11.9 stable on trulicity and glipizide therapy. A1c 6.1%. Mixed anxi ety and depressive disorder 605258179 F41.8 stable on venlafaxin e ER 150mg daily. Gastroesop hageal reflux disease without esophagitis 507839436 K21.9 stable on PPI therapy and EGD was up to date Hyperlipidemia 62032247 E78.5 stable on statin therapy, Long-term drug therapy 482125708 Z79.899 History of peptic ulcer 647875135 Z87.11 Health Concerns Section Related Observation LastModified by Organization Detai ls LastModified Time None Recorded Concern Status LastModified by Organization Details LastModified Time None Recorded Advance Directives Directive N: Payers Encounter Date Sequence Insurance Name Policy Number Policy Smith Covered Member ID Smith Member ID Guarantor Name 01/18/2023 1 [facility] (MEDICARE REPLACEMENT/A DVANTAGE - HMO) [id number] Savannah Portillo [id number] Savannah Portillo 01/29/2023 1 [facility] (MEDICARE REPLACEMENT/A DVANTAGE - HMO) [id number] Savannah Portillo [id number] Savannah Portillo 02/19/2023 1 [facility] (MEDICARE REPLACEMENT/A DVANTAGE - HMO) [id number] Savannah Moore Lindsey [id number] Savannah Portillo 06/24/2023 1 [facility] (MEDICARE REPLACEMENT/A DVANTAGE - HMO) [id number] Savannah Portillo [id number] Savannah Portillo Notes Date Note Type Note [...] early satiety; no halitosis;fatigue;throat pain Not Available [place] - [facility] [employer] Dress Code 08/04/2022 21:10:07 023 text/ht ml Anxiety/DepressionReported bypatient.Quality:doesnt [...] fatigue; no throat pain MARY Hernandez [address], [place] [address], [place], [address], [employer] 02/01/2023 00:50:10 023 text/ht ml Patient is [...] gout. Lc Morrison MD [address], [facility] [address], [place], [address], [employer] 01/29/2023 18:58:32 023 text/ht ml Anxiety/DepressionReported bypatient.Quality:doesnt [...] fatigue; no throat pain MARY Hernandez [address] [facility] [facility], [facility] [address], [place], [address], [facility] 06/29/2023 17:37:21 OBGyn Episode No OBEpisode recorded.
--- OUTSIDE RECORDS SUMMARY | 2024-10-18 16:15 | XMS_ITS | Clinical Summary ---
Author Organization [facility] Address [facility] [place] [address] Care Team Providers Care Stereoptician Name Role Phone Brittney Stevenson Primary Care Provider [phone] Allergies No known active allergies Medications atorvastatin 20 MG tablet 1 Active DULoxetine (CYMBALTA) 60 MG capsule Cymbalta 60 mg capsule,delayed release Take 1 capsule every day by oral route for 90 days. Active vitamin D2, ergocalciferol, 75479 UNITS capsule Take 50,000 Units by mouth [...] Comments Blood Pressure 154/69 07/28/2021 4:16 PM MAGISTRATE ASSISTANT Pulse 60 07/28/2021 4:16 PM MAGISTRATE ASSISTANT Temperature 36.8 C (98.3 F) 07/28/2021 4:16 PM MAGISTRATE ASSISTANT Respiratory Rate 16 07/28/2021 4:16 PM MAGISTRATE ASSISTANT Oxygen Saturation 98% 07/28/2021 4:16 PM MAGISTRATE ASSISTANT Inhaled Oxygen Concentration - - Weight 78 kg (172 lb) 06/17/2021 11:41 AM MAGISTRATE ASSISTANT Height 157.5 cm (5' 2 ) 06/17/2021 11:41 AM MAGISTRATE ASSISTANT Body Mass Index 31.46 06/17/2021 11:41 AM MAGISTRATE ASSISTANT Plan of Treatment Health Maintenance Due Date [...] KENNEDY MITZI DIGI Routine 06/20/2024 10:29 AM MAGISTRATE ASSISTANT Encounter for screening mammogram for malignant neoplasm of breast LIPID PANEL Routine 06/19/2024 8:08 AM MAGISTRATE ASSISTANT Diabetes mellitus ([facility]) HEMOGLOBIN, GLYCOSYLATED Routine 06/19/2024 8:08 AM MAGISTRATE ASSISTANT Diabetes mellitus ([facility]) BONE DENSITY/DEXA Routine 03/10/2022 12: 46 PM CDT Post-menopausal from Last 3 Months or Most Recently Relevant to Health Maintenance Results * MG SCREENING W KENNEDY MITZI DIGI (06/20/2024 10:29 AM MAGISTRATE ASSISTANT) Anatomical Region Laterality Modality Breast Bilateral Mammography 06/20/2024 4:23 PM MAGISTRATE ASSISTANT Impressions 06/20/2024 4:31 PM MAGISTRATE ASSISTANT ===== IMPRESSION: ===== 1. Stable mammographic appearance with no new findings to suggest malignancy in either breast. Assessment: ACR BI-RADS 2 - BENIGN FINDING(S) Recommendation: 1:Routine Screening Bilateral Comments: Ordered By: BRITTNEY STEVENSON Interpreted By: Ozzie Juarez, 06/20/2024 4:23 PM Narrative 06/20/2024 4:31 PM MAGISTRATE ASSISTANT [facility] [address] [place] [address] EXAMINATION: Digital bilateral screening mammogram [...] * (ABNORMAL) HEMOGLOBIN, GLYCOSYLATED (06/19/2024 8:08 AM MAGISTRATE ASSISTANT) HGB A1C 6.4(H) <5.7 % 06/19/2024 9:22 AM MAGISTRATE ASSISTANT [facility] Comment: INCREASED RISK OF DIABETES <5.7% NON-DIABETES 5.7-6.4% INCREASED RISK FOR FUTURE DIABETES > OR = 6.5 CONSISTENT WITH DIABETES STANDARDS OF MEDICAL CARE IN DIABETES-2010 DIABETES CARE, 33(SUPP 1): S1-S61,2010 ESTIMATED AVG GLUCOSE 137 mg/dL 06/19/2024 9:22 AM [facility] 06/19/2024 8:08 AM MAGISTRATE ASSISTANT us [facility] Final Result [facility] [address] [place] [address], * LIPID PANEL (06/19/2024 8:08 AM MAGISTRATE ASSISTANT) CHOLESTEROL 169 <200.0 MG/DL 06/19/2024 8:59 AM MAGISTRATE ASSISTANT [facility] TRIGLYCERIDES 81 <150 MG/DL 06/19/2024 8:59 AM MAGISTRATE ASSISTANT [facility] HDL 55 >40.0 MG/DL 06/19/2024 8:59 AM [facility] LDL (CALCULATED) 98 <100 MG/DL 06/19/20 8:59 AM MAGISTRATE ASSISTANT [facility] NON HDL CHOLESTEROL 114 <130 MG/DL 06/19 8:59 AM [facility] CHOL/HDL RATIO 3.1 0.0 - 4.5 06/19/2024 8:59 AM [facility] VLDL CALCULATION 16 5 - 55 MG/DL 06/19/2024 8:59 AM [facility] LIPID INTERPRETATION 06/19/2024 8:59 AM [facility] Comment: [facility] CONCENSUS REPORT RECOMMENDATIONS: ADULT CHILD LOW RISK: CHOLESTEROL <200 <170 TRIGLYCERIDE <150 --- HDL >=60 --- LDL <100 <110 BORDERLINE: CHOLESTEROL 200-239 170-199 TRIGLYCERIDE 150-199 --- HDL 40-59 --- LDL 100-159 110-129 HIGH RISK: CHOLESTEROL >=240 >=200 TRIGLYCERIDE >=200 --- HDL <40 --- LDL >=160 >=130 06/19/2024 8:08 AM MAGISTRATE ASSISTANT us Brittney [facility] Final Result [facility] [address] [place] [address], * BONE DENSITY/DEXA (03/10/2022 12:46 PM CDT) [...] Most Recently Relevant to [place] [id number] Care Teams Stereoptician Relationship Specialty Start Date End Date Brittney Stevenson PA [address] [place] [address] PCP - General PHYSICIAN MANAGER CANCER 01/16/21
--- OUTSIDE RECORDS SUMMARY | 2024-10-18 16:15 | XMS_ITS | Clinical Summary ---
Author Organization [facility] Address [address] [place] [address] Care Team Providers Care Range Manager Name Role Phone Manisha Mann MD Primary Care Provider Source Comments [facility],non-owned Affiliates and Associated Physician Practices is amultiple site organization consisting of ambulatory clinics and hospital sitesin [place], [place], [place] and [place]. This disclosure is being madepursuant to the Care Everywhere program and may not contain all information available regarding this patient. Last updated 18.[facility] Social History Tobacco Use Types Packs/Day Years [...] patient's age to complete this topic Insurance [place] [id number] [facility] MANAGED MEDICARE ADV Care Teams Range Manager Relationship Specialty Start Date End Date Manisha Mann MD [address] [place] [phone] [facility] - General 04/24/21
== END 2024-10-18 14:58 | disposition home or self-care (01) ==
PROVIDERS: PCP Physician Assistant; Visit Provider Plastic Surgery
DX: S62.316A Displaced fracture of base of fifth metacarpal bone, right hand, initial encounter for closed fracture (principal); X58.XXXA Exposure to other specified factors, initial encounter
CPT/HCPCS: 73200

== ENCOUNTER 2024-10-31 07:23 | Outpatient (CLI) | payer MEDICARE, SELFPAY ==
--- NOTE | ~2024-10-31 | XR_ITS ---
Right Hand Technique: PA, oblique, and lateral views were obtained. Clinical History: Fifth metacarpal fracture COMPARISON: 10/15/2024 Findings: Comminuted intra-articular fracture at the base of the fifth metacarpal is again present, w ith stable displacement. No new fracture or dislocation. Joint spaces are preserved. Soft tissues are unremarkable. Impression: Stable comminuted intra-articular fracture at the base the fifth metacarpal with stable displacement. Reviewed, dictated and finalized at location M. Impression: Stable comminuted intra-articular fracture at the base the fifth metacarpal wit h stable displacement.
--- OUTSIDE RECORDS SUMMARY | 2024-10-31 07:30 | XMS_ITS | Clinical Summary ---
Author Organization [facility] Address [address] [place] [address] Care Team Providers Care Modular Set Crew Member Name Role Phone Unavailable Primary Care Provider [...]
--- OUTSIDE RECORDS SUMMARY | 2024-10-31 07:30 | XMS_ITS | Data Portability ---
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 Plan of Treatment Reminders Order Date Submit Date Provider Last Modified By Organization Details Last Modified Time Details Appointments ANY 15 2024 10:30A M MARY Hernandez Not available Not available Not available Lab BMP, serum or plasma [address] Lab, [address], [place], [address], 06/22/2024 11:02:27 CBC w/ auto diff [address] Lab, [address], [place], [address], 06/22/2024 11:02:27 hepatic function panel, serum [address] Lab, [address], [place], [address], 06/22/2024 11:02:27 HbA1c (hemoglob in A1c), blood [address] Lab, [address], [place], [address], 06/22/2024 11:02:27 lipid panel, serum 2023 025 [email or web address] [facility] [place] [facility], [address], [place], [address], 06/22/2024 11:02:27 BMP, serum or plasma [address] [facility] [place] [facility], [address], [place], [address], 06/19/2024 10:10:05 CBC w/ auto diff [address] [facility] [place] [facility], [address], [place], [address], 06/19/2024 10:15:11 hepatic function panel, serum [address] [facility] [place] [facility], [address], [place], [address], 06/19/2024 10:10:58 HbA1c (hemoglob in A1c), blood [address] [facility] [place] [facility], [address], [place], [address], 06/19/2024 10:32:01 microalbu min, urine [address] [facility] [place] [facility], [address], [place], [address], 06/19/2024 12:46:44 lipid panel, serum [address] [facility] [place] [facility], [address], [place], [address], 06/19/2024 10:09:24 Referral None recorded. Procedures None recorded. Surgeries None recorded. Imaging None recorded. Medication Orders Trulicity 4.5 mg/0.5 mL subcutane ous pen injector 2023 024 ANN [facility], [address], [address], 06/22/2024 11:03:03 Trulicity 3 mg/0.5 mL subcutane ous pen injector 2023 024 [email or web address] [facility], [address] [facility], [place], [address], 01/09/2024 10:47:46 Patient TargetsNo targets recorded. Patient Instructions Encounter Date Encounter Id Patient Instructions Last Modified By Organization Details Last Modified Time 06/22/2024 [id number] A healthy lifestyle: care instructions [email or web address] Not available 06/22/2024 11:02:27 Reason for Referral None Reported. Results Created Date Observation Date Name Description Value Unit Range Abnormal Flag Note LastModifiedBy Organization Detail LastModifiedTime 12/07/19 24 12/07/2023 Thyro tropi n [Unit s/vol ume] in Serum or Plasm a thyrotropin [units/volum e] in serum or plasma 1.3 text: 0.358 - 3.74 uIU/mL TSH CASCA DE 1.300 0.358 - 3.74 uIU/m L 12/06 8:14 AM CDT [facility] Not Available Not Available 10/24/2024 11:01:28 12/07/19 24 12/07/2023 CBC W Auto Diffe renti al panel - Blood leukocytes [#/volume] in blood by automated count 8.82 text: 4.4 - 11.0 x10'3/ uL WBC 8.82 4.4 - 11.0 x10'3 /uL 12/06 7:49 AM CDT [facility] Not Available Not Available 10/24/2024 11:01:28 12/07/19 24 12/07/2023 CBC W Auto Diffe renti al panel - Blood erythrocytes [#/volume] in blood by automated count 4.87 text: 4.50 - 5.10 x10'6/ uL RBC 4.87 4.50 - 5.10 x10'6 /uL 12/06 7:49 AM CDT [facility] Not Available Not Available 10/24/2024 11:01:28 12/07/19 24 12/07/2023 CBC W Auto Diffe renti al panel - Blood hemoglobin [mass/volume ] in blood 13.7 text: 12.3 - 15.3 g/dL HGB 13.7 12.3 - 15.3 G/DL 12/06 7:49 AM CDT [facility] Not Available Not Available 10/24/2024 11:01:12/07/1912/07/2023 CBC W Auto Diffe renti al panel - Blood hematocrit [volume fraction] of blood by calculation 44.2 % low: 35.9%h igh: 44.6% HCT 44.2 35.9 - 44.6 % 12/06 7:49 AM CDT [facility] () [facility] Not Available Not Available 10/24/2024 11:01:28 12/07/1912/07/2023 CBC W Auto Diffe renti al panel - Blood MCV [entitic mean volume] in red blood cells 90.8 text: 80.0 - 96.0 fL MCV 90.8 80.0 - 96.0 FL 12/06 7:49 AM CDT [facility] Not Available Not Available 10/24/2024 11:01:28 12/07/19 24 12/07/2023 CBC W Auto Diffe renti al panel - Blood MCH [entitic mass] 28.1 pg low: 25.3pg high: 30.9pg MCH 28.1 25.3 - 30.9 PG 12/06 7:49 AM CDT [facility] Not Available Not Available 10/24/2024 11:01:28 12/07/19 24 12/07/2023 CBC W Auto Diffe renti al panel - Blood MCHC [entitic mass/volume] in red blood cells 31 text: 31.0 - 34.1 g/dL MCHC 31.0 31.0 - 34.1 G/DL 12/06 7:49 AM CDT [facility] Not Available Not Available 10/24/2024 11:01:28 12/07/19 24 12/07/2023 CBC W Auto Diffe renti al panel - Blood RDW 13.5 % low: 12.4%h igh: 15.1% RDW 13.5 12.4 - 15.1 % 12/06 7:49 AM CDT [facility] Not Available Not Available 10/24/2024 11:01:28 12/07/19 24 12/07/2023 CBC W Auto Diffe renti al panel - Blood platelets [#/volume] in blood 364 text: 151 - 353 x10'3/ uL high PLT 364 (H) 151 - 353 x10'3 /uL 12/06 7:49 AM CDT [facility] Not Available Not Available 10/24/2024 11:01:28 12/07/19 24 12/07/2023 CBC W Auto Diffe renti al panel - Blood platelet [entitic mean volume] in blood 10.2 text: 9.6 - 12.0 fL MPV 10.2 9.6 - 12.0 FL 12/06 7:49 AM CDT [facility] Not Available Not Available 10/24/2024 11:01:28 12/07/19 24 12/07/2023 CBC W Auto Diffe renti al panel - Blood erythrocytes [morphology] in blood by automated count NORMAL RBC MORPH OLOGY GLENDY L 12/06 7:49 AM CDT [facility] Not Available Not Available 10/24/2024 11:01:28 12/07/19 24 12/07/2023 CBC W Auto Diffe renti al panel - Blood platelet morphology finding [identifier] in blood NORMAL PLT MORPH . GLENDY L 12/06 7:49 AM CDT [facility] () [facility] Not Available Not Available 10/24/2024 11:01:28 12/07/19 24 12/07/2023 CBC W Auto Diffe renti al panel - Blood leukocyte morphology finding [identifier] in blood NORMAL WBC MORPH OLOGY GLENDY L 12/06 7:49 AM CDT [facility] () [facility] Not Available Not Available 10/24/2024 11:01:28 12/07/19 24 12/07/2023 CBC W Auto Diffe renti al panel - Blood lymphocytes/ leukocytes in blood by automated count 33.9 % low: 15.8%h igh: 45% LYMPH OCYTE S % 33.9 15.8 - 45.0 % 12/06 7:49 AM CDT [facility] () [facility] Not Available Not Available 10/24/2024 11:01:28 12/07/19 24 12/07/2023 CBC W Auto Diffe renti al panel - Blood neutrophils/ leukocytes in blood by automated count 57 % low: 42.1%h igh: 71.9% NEUTR OPHIL S % 57.0 42.1 - 71.9 % 12/06 7:49 AM CDT [facility] () [facility] Not Available Not Available 10/24/2024 11:01:28 12/07/19 24 12/07/2023 CBC W Auto Diffe renti al panel - Blood monocytes/le ukocytes in blood by automated count 6.8 % low: 5.7%hi gh: 12.5% MONOC YTES % 6.8 5.7 - 12.5 % 12/06 7:49 AM CDT [facility] () [facility] Not Available Not Available 10/24/2024 11:01:28 12/07/19 24 12/07/2023 CBC W Auto Diffe renti al panel - Blood eosinophils/ leukocytes in blood by automated count 1.5 % low: 0%high : 5.6% EOSIN OPHIL S 1.5 0.0 - 5.6 % 12/06 7:49 AM CDT [facility] Not Available Not Available 10/24/2024 11:01:28 12/07/19 24 12/07/2023 CBC W Auto Diffe renti al panel - Blood basophils/le ukocytes in blood by automated count 0.3 % low: 0%high : 1.3% BASOP HILS 0.3 0.0 - 1.3 % 12/06 7:49 AM CDT [facility] Not Available Not Available 10/24/2024 11:01:28 12/07/19 24 12/07/2023 CBC W Auto Diffe renti al panel - Blood neutrophils [#/volume] in blood 5.03 text: 1.40 - 6.00 x10'3/ uL ABS. NEUTR OPHIL S 5.03 1.40 - 6.00 x10'3 /uL 12/06 7:49 AM CDT [facility] Not Available Not Available 10/24/2024 11:01:28 12/07/19 24 12/07/2023 CBC W Auto Diffe renti al panel - Blood immature granulocytes /leukocytes in blood by automated count 0.5 % low: 0%high : 0.5% IMMAT URE GRANS % 0.5 0.0 - 0.5 % 12/06 7:49 AM CDT [facility] Not Available Not Available 10/24/2024 11:01:28 12/07/19 24 12/07/2023 CBC W Auto Diffe renti al panel - Blood lymphocytes [#/volume] in blood 2.99 text: 0.80 - 4.70 x10'3/ uL ABS. LYMPH OCYTE S 2.99 0.80 - 4.70 x10'3 /uL 12/06 7:49 AM CDT [facility] Not Available Not Available 10/24/2024 11:01:28 12/07/19 24 12/07/2023 CBC W Auto Diffe rendarion al panel - Blood interpretati on and review of laboratory results Abnorm al Not Available Not Available 11:01:28 12/07/19 24 12/07/2023 Hepat ic funct ion 2000 panel - Serum or Plasm a protein [mass/volume ] in serum or plasma 7.3 text: 6.4 - 8.2 g/dL TOTAL PROTE IN S/P/B 7.3 6.4 - 8.2 G/DL 12/06 8:14 AM CDT [facility] Not Available Not Available 10/24/2024 11:01:28 12/07/19 24 12/07/2023 Hepat ic funct ion 2000 panel - Serum or Plasm a albumin [mass/volume ] in serum or plasma 3.7 text: 3.4 - 5.0 g/dL ALBUM IN S/P/B 3.7 3.4 - 5.0 G/DL 12/06 8:14 AM CDT [facility] Not Available Not Available 10/24/2024 11:01:28 12/07/19 24 12/07/2023 Hepat ic funct ion 2000 panel - Serum or Plasm a bilirubin.to antonio [mass/volume ] in serum or plasma 0.6 text: 0.2 - 1.2 mg/dL BILIR UBIN TOTAL S/P/B 0.6 0.2 - 1.2 MG/DL 12/06 8:14 AM CDT [facility] Not Available Not Available 10/24/2024 11:01:28 12/07/19 24 12/07/2023 Hepat ic funct ion 2000 panel - Serum or Plasm a bilirubin.co njugated [mass/volume ] in serum or plasma 0.1 text: 0.0 - 0.20 mg/dL BILIR UBIN DIREC T S/P/B 0.1 0.0 - 0.20 MG/DL 12/06 8:14 AM CDT [facility] Not Available Not Available 10/24/2024 11:01:28 12/07/19 24 12/07/2023 Hepat ic funct ion 1999 panel - Serum or Plasm a bilirubin.in direct [mass/volume ] in serum or plasma 0.5 text: 0.0 - 0.9 mg/dL BILIR UBIN INDIR ECT S/P/B 0.5 0.0 - 0.9 MG/DL 12/06 8:14 AM CDT [facility] () [facility] Not Available Not Available 10/24/2024 11:01:28 12/07/19 24 12/07/2023 Hepat ic funct ion 1999 panel - Serum or Plasm a alkaline phosphatase [enzymatic activity/vol ume] in serum or plasma 126 U/L low: 50U/Lh igh: 136U/L ALKAL INE PHOSP HATAS E S/P/B 126 50 - 136 U/L 12/06 8:14 AM CDT [facility] () [facility] Not Available Not Available 10/24/2024 11:01:28 12/07/19 24 12/07/2023 Hepat ic funct ion 2000 panel - Serum or Plasm a aspartate aminotransfe rase [enzymatic activity/vol ume] in serum or plasma 19 U/L low: 15U/Lh igh: 37U/L AST 19 15 - 37 U/L 12/06 8:14 AM CDT [facility] () [facility] Not Available Not Available 10/24/2024 11:01:28 12/07/19 24 12/07/2023 Hepat ic funct ion 2000 panel - Serum or Plasm a alanine aminotransfe rase [enzymatic activity/vol ume] in serum or plasma 22 U/L low: 14U/Lh igh: 55U/L ALT 22 14 - 55 U/L 12/06 8:14 AM CDT [facility] () [facility] Not Available Not Available 10/24/2024 11:01:28 12/07/19 24 12/07/2023 Hepat ic funct ion 2000 panel - Serum or Plasm a albumin/glob ulin [mass ratio] in serum or plasma 1 text: 1.0 - 2.0 ratio A/G RATIO 1.0 1.0 - 2.0 RATIO 12/06 8:14 AM CDT [facility] Not Available Not Available 10/24/2024 11:01:28 12/07/19 24 12/07/2023 Shwetha stero l in LDL [Mass /volu me] in Serum or Plasm a by Direc t assay cholesterol in LDL [mass/volume ] in serum or plasma by direct assay 106 text: <100 mg/dL high DIREC T LDL 106 (H) <100 MG/DL 12/06 8:14 AM CDT [facility] Not Available Not Available 10/24/2024 11:01:28 12/07/19 24 12/07/2023 Shwetha stero l in LDL [Mass /volu me] in Serum or Plasm a by Direc t assay interpretati on and review of laboratory results Abnorm al Not Available Not Available 11:01:28 12/07/19 24 12/07/2023 Lipid 1995 panel - Serum or Plasm a cholesterol [mass/volume ] in serum or plasma 184 text: <200.0 mg/dL SHWETHA STERO L 184 <200. 0 MG/DL 12/06 8:14 AM T [facility] Not Available Not Available 10/24/2024 11:01:28 12/07/19 24 12/07/2023 Lipid 1996 panel - Serum or Plasm a triglyceride [mass/volume ] in serum or plasma 103 text: <150 mg/dL TRIGL YCERI ARI 103 <150 MG/DL 12/06 8:14 AM CDT [facility] () [facility] Not Available Not Available 10/24/2024 11:01:28 12/07/19 24 12/07/2023 Lipid 1996 panel - Serum or Plasm a cholesterol in HDL [mass/volume ] in serum or plasma 64 text: >40.0 mg/dL HDL 64 >40.0 MG/DL 12/06 8:14 AM CDT [facility] Not Available Not Available 10/24/2024 11:01:28 12/07/19 24 12/07/2023 Lipid 1996 panel - Serum or Plasm a cholesterol in LDL [mass/volume ] in serum or plasma by calculation 99 text: <100 mg/dL LDL (CALC ULATE D) 99 <100 MG/DL 12/06 8:14 AM CDT [facility] Not Available Not Available 10/24/2024 11:01:28 12/07/19 24 12/07/2023 Lipid 1996 panel - Serum or Plasm a cholesterol non HDL [mass/volume ] in serum or plasma 120 text: <130 mg/dL NON HDL SHWETHA STERO L 120 <130 MG/DL 12/06 8:14 AM CDT [facility] Not Available Not Available 10/24/2024 11:01:28 12/07/19 24 12/07/2023 Lipid 1996 panel - Serum or Plasm a cholesterol. total/choles terol in HDL [mass ratio] in serum or plasma 2.9 low: 0high: 4.5 CHOL/ HDL RATIO 2.9 0.0 - 4.5 12/06 8:14 AM CDT [facility] Not Available Not Available 10/24/2024 11:01:28 12/07/19 24 12/07/2023 Lipid 1996 panel - Serum or Plasm a cholesterol in VLDL [mass/volume ] in serum or plasma by calculation 21 text: 5 - 55 mg/dL VLDL CALCU LATIO N 21 5 - 55 MG/DL 12/06 8:14 AM CDT [facility] Not Available Not Available 10/24/2024 11:01:28 12/07/19 24 12/07/2023 Lipid 1996 panel - Serum or Plasm a service comment LIPID INTER PRETA TION 12/06 8:14 AM CDT [facility] Not Available Not Available 10/24/2024 11:01:28 06/04/20 24 12/07/2023 Hemog lobin A1c/H emogl obin. total in Blood hemoglobin A1C/hemoglob in.total in blood 6.1 % high: 5.7% high HGB A1C 6.1 (H) <5.7 % 12/06 8:15 AM CDT [facility] ([facility]) [facility] Not Available Not Available 10/24/2024 11:01:27 12/07/19 24 12/07/2023 Hemog lobin A1c/H emogl obin. total in Blood glucose mean value [mass/volume ] in blood estimated from glycated hemoglobin 128 mg/dL ESTIM ATED AVG GLUCO SE 128 mg/dL 12/06 8:15 AM CDT [facility] Not Available Not Available 10/24/2024 11:01:27 12/07/19 24 12/07/2023 Hemog lobin A1c/H emogl obin. total in Blood interpretati on and review of laboratory results Abnorm al Not Available Not Available 11:01:27 12/07/19 24 12/07/2023 Basic metab olic 2000 panel - Serum or Plasm a glucose [mass/volume ] in serum or plasma 101 text: 70 - 99 mg/dL high GLUCO SE 101 (H) 70 - 99 MG/DL 12/06 8:14 AM CDT [facility] ([facility] Not Available Not Available 10/24/2024 11:01:27 12/07/19 24 12/07/2023 Basic metab olic 2000 panel - Serum or Plasm a urea nitrogen [mass/volume ] in serum or plasma 16 text: 7 - 18 mg/dL BUN 16 7 - 18 MG/DL 12/06 8:14 AM CDT [facility] Not Available Not Available 10/24/2024 11:01:27 12/07/19 24 12/07/2023 Basic metab olic 2000 panel - Serum or Plasm a creatinine [mass/volume ] in serum or plasma 0.86 text: 0.55 - 1.02 mg/dL CREAT ININE S/P/B 0.86 0.55 - 1.02 MG/DL 12/06 8:14 AM CDT [facility] ([facility] Not Available Not Available 10/24/2024 11:01:27 12/07/19 24 12/07/2023 Basic metab olic 2000 panel - Serum or Plasm a sodium [moles/volum e] in serum or plasma 142 text: 136 - 145 mmol/L SODIU M S/P/B 142 136 - 145 MMOL/ L 12/06 8:14 AM CDT [facility] ([facility] Not Available Not Available 10/24/2024 11:01:27 12/07/19 24 12/07/2023 Basic metab olic 1999 panel - Serum or Plasm a potassium [moles/volum e] in serum or plasma 3.9 text: 3.5 - 5.1 mmol/L POTAS SIUM S/P/B 3.9 3.5 - 5.1 MMOL/ L 12/06 8:14 AM CDT [facility] ([facility] Not Available Not Available 10/24/2024 11:01:27 12/07/19 24 12/07/2023 Basic metab olic 1999 panel - Serum or Plasm a chloride [moles/volum e] in serum or plasma 104 text: 100 - 108 mmol/L CHLOR MONTEZ S/P/B 104 100 - 108 MMOL/ L 12/06 8:14 AM CDT [facility] Not Available Not Available 10/24/2024 11:01:27 12/07/19 24 12/07/2023 Basic metab olic 1999 panel - Serum or Plasm a carbon dioxide, total [moles/volum e] in serum or plasma 31.8 text: 21 - 32 mmol/L CO2 31.8 21 - 32 MMOL/ L 12/06 8:14 AM CDT [facility] Not Available Not Available 10/24/2024 11:01:27 12/07/19 24 12/07/2023 Basic metab olic 1999 panel - Serum or Plasm a calcium [mass/volume ] in serum or plasma 8.8 text: 8.5 - 10.1 mg/dL CALCI UM S/P/B 8.8 8.5 - 10.1 MG/DL 12/06 8:14 AM CDT [facility] Not Available Not Available 10/24/2024 11:01:27 12/07/19 24 12/07/2023 Basic To8to olic 2000 panel - Serum or Plasm a anion gap in serum or plasma by calculation 6.2 text: 5 - 15 mmol/L ANION GAP 6.2 5 - 15 MMOL/ L 12/06 8:14 AM CDT [facility] Not Available Not Available 10/24/2024 11:01:27 12/07/19 24 12/07/2023 Basic Refund Exchangeic 2000 panel - Serum or Plasm a urea nitrogen/cre atinine [mass ratio] in serum or plasma 18.6 low: 6high: 26 BUN CREAT ININE RATIO 18.6 6 - 26 12/06 8:14 AM CDT [facility] Not Available Not Available 10/24/2024 11:01:27 12/07/19 24 12/07/2023 Basic Refund Exchangeic 2000 panel - Serum or Plasm a glomerular filtration rate [volume rate/area] in serum, plasma or blood by creatinine-b ased formula (CKD-epi 2020)/1.73 sq M 74 text: >90 mL/min /1.73 M2 low GFR ESTIM ATE 74 (L) >90 ML/PA N/1.7 3 M2 12/06 8:14 AM CDT [facility] Not Available Not Available 10/24/2024 11:01:27 12/07/19 24 12/07/2023 Basic To8to olic 2000 panel - Serum or Plasm a interpretati on and review of laboratory results Abnorm al Not Available Not Available 11:01:27 06/19/20 24 06/19/2024 MICRO ALBUM IN CREAT ININE RATIO (MICR OALBU MIN/A LBUMI N) creatinine [mass/volume ] in urine 107.9 text: 28 - 217 mg/dL CREAT ININE (U) 107.9 28 - 217 MG/DL 06/19 11:22 AM REINSURANCE CLAIM ANALYST [facility] Not Available Not Available 10/24/2024 11:03:29 06/19/20 24 06/19/2024 MICRO ALBUM IN CREAT ININE RATIO (MICR OALBU MIN/A LBUMI N) microalbumin [mass/volume ] in urine 0.6 mg/dL high: 2mg/dL MICRO ALBUM IN (U) 0.6 <2.0 mg/dL 06/19 11:22 AM REINSURANCE CLAIM ANALYST [email or web address] Not Available Not Available 10/24/2024 11:03:29 06/19/20 24 06/19/2024 MICRO ALBUM IN CREAT ININE RATIO (MICR OALBU MIN/A LBUMI N) microalbumin /creatinine [mass ratio] in urine 5.6 mg/g high: 30mg/g ALBUM IN/CR EAT RATIO 5.6 <30.0 MG/G 06/19 11:22 AM REINSURANCE CLAIM ANALYST [email or web address] Not Available Not Available 10/24/2024 11:03:29 06/19/20 24 06/19/2024 Hepat ic funct ion 2000 panel - Serum or Plasm a protein [mass/volume ] in serum or plasma 7.3 text: 6.4 - 8.2 g/dL TOTAL PROTE IN S/P/B 7.3 6.4 - 8.2 G/DL 06/19 8:59 AM REINSURANCE CLAIM ANALYST [employer] [facility] ([facility] Not Available Not Available 10/24/2024 11:03:29 06/19/20 24 06/19/2024 Hepat ic funct ion 2000 panel - Serum or Plasm a albumin [mass/volume ] in serum or plasma 3.8 text: 3.4 - 5.0 g/dL ALBUM IN S/P/B 3.8 3.4 - 5.0 G/DL 06/19 8:59 AM REINSURANCE CLAIM ANALYST [facility] Not Available Not Available 10/24/2024 11:03:29 06/19/20 24 06/19/2024 Hepat ic funct ion 1999 panel - Serum or Plasm a bilirubin.to antonio [mass/volume ] in serum or plasma 0.5 text: 0.2 - 1.2 mg/dL BILIR UBIN TOTAL S/P/B 0.5 0.2 - 1.2 MG/DL 06/19 8:59 AM REINSURANCE CLAIM ANALYST [facility] Not Available Not Available 10/24/2024 11:03:29 06/19/20 24 06/19/2024 Hepat ic funct ion 1999 panel - Serum or Plasm a bilirubin.co njugated [mass/volume ] in serum or plasma 0.1 text: 0.0 - 0.20 mg/dL BILIR UBIN DIREC T S/P/B 0.1 0.0 - 0.20 MG/DL 06/19 8:59 AM REINSURANCE CLAIM ANALYST [facility] Not Available Not Available 10/24/2024 11:03:29 06/19/20 24 06/19/2024 Hepat ic funct ion 1999 panel - Serum or Plasm a bilirubin.in direct [mass/volume ] in serum or plasma 0.4 text: 0.0 - 0.9 mg/dL BILIR UBIN INDIR ECT S/P/B 0.4 0.0 - 0.9 MG/DL 06/19 8:59 AM REINSURANCE CLAIM ANALYST [facility] Not Available Not Available 10/24/2024 11:03:29 06/19/20 24 06/19/2024 Hepat ic funct ion 2000 panel - Serum or Plasm a alkaline phosphatase [enzymatic activity/vol ume] in serum or plasma 128 U/L low: 50U/Lh igh: 136U/L ALKAL INE PHOSP HATAS E S/P/B 128 50 - 136 U/L 06/19 8:59 AM REINSURANCE CLAIM ANALYST [facility] Not Available Not Available 10/24/2024 11:03:29 06/19/20 24 06/19/2024 Hepat ic funct ion 2000 panel - Serum or Plasm a aspartate aminotransfe rase [enzymatic activity/vol ume] in serum or plasma 26 U/L low: 15U/Lh igh: 37U/L AST 26 15 - 37 U/L 06/19 8:59 AM REINSURANCE CLAIM ANALYST [facility] Not Available Not Available 10/24/2024 11:03:29 06/19/20 24 06/19/2024 Hepat ic funct ion 2000 panel - Serum or Plasm a alanine aminotransfe rase [enzymatic activity/vol ume] in serum or plasma 26 U/L low: 14U/Lh igh: 55U/L ALT 26 14 - 55 U/L 06/19 8:59 AM REINSURANCE CLAIM ANALYST [facility] Not Available Not Available 10/24/2024 11:03:29 06/19/20 24 06/19/2024 Hepat ic funct ion 1999 panel - Serum or Plasm a albumin/glob ulin [mass ratio] in serum or plasma 1.1 text: 1.0 - 2.0 ratio A/G RATIO 1.1 1.0 - 2.0 RATIO 06/19 8:59 AM REINSURANCE CLAIM [facility]LY[facility] Not Available Not Available 10/24/2024 11:03:29 06/19/20 24 06/19/2024 CBC W Auto Diffe renti al panel - Blood leukocytes [#/volume] in blood by automated count 8.27 text: 4.4 - 11.0 x10'3/ uL WBC 8.27 4.4 - 11.0 x10'3 /uL 06/19 8:55 AM REINSURANCE CLAIM [facility]LY[facility] Not Available Not Available 10/24/2024 11:03:29 06/19/20 24 06/19/2024 CBC W Auto Diffe renti al panel - Blood erythrocytes [#/volume] in blood by automated count 4.79 text: 4.50 - 5.10 x10'6/ uL RBC 4.79 4.50 - 5.10 x10'6 /uL 06/19 8:55 AM REINSURANCE CLAIM ANALYST [facility] Not Available Not Available 10/24/2024 11:03:29 06/19/20 24 06/19/2024 CBC W Auto Diffe renti al panel - Blood hemoglobin [mass/volume ] in blood 13.6 text: 12.3 - 15.3 g/dL HGB 13.6 12.3 - 15.3 G/DL 06/19 8:55 AM REINSURANCE CLAIM ANALYST [facility] () [facility] Not Available Not Available 10/24/2024 11:03:29 06/19/20 24 06/19/2024 CBC W Auto Diffe renti al panel - Blood hematocrit [volume fraction] of blood by calculation 43 % low: 35.9%h igh: 44.6% HCT 43.0 35.9 - 44.6 % 06/19 8:55 AM REINSURANCE CLAIM ANALYST [facility] () [facility] Not Available Not Available 10/24/2024 11:03:29 06/19/20 24 06/19/2024 CBC W Auto Diffe renti al panel - Blood MCV [entitic mean volume] in red blood cells 89.8 text: 80.0 - 96.0 fL MCV 89.8 80.0 - 96.0 FL 06/19 8:55 AM REINSURANCE CLAIM ANALYST [facility] () [facility] Not Available Not Available 10/24/2024 11:03:29 06/19/20 24 06/19/2024 CBC W Auto Diffe renti al panel - Blood MCH [entitic mass] 28.4 pg low: 25.3pg high: 30.9pg MCH 28.4 25.3 - 30.9 PG 06/19 8:55 AM REINSURANCE CLAIM ANALYST [facility] () [facility] Not Available Not Available 10/24/2024 11:03:29 06/19/20 24 06/19/2024 CBC W Auto Diffe renti al panel - Blood MCHC [entitic mass/volume] in red blood cells 31.6 text: 31.0 - 34.1 g/dL MCHC 31.6 31.0 - 34.1 G/DL 06/19 8:55 AM REINSURANCE CLAIM ANALYST [facility] Not Available Not Available 10/24/2024 11:03:29 06/19/20 24 06/19/2024 CBC W Auto Diffe renti al panel - Blood RDW 13.2 % low: 12.4%h igh: 15.1% RDW 13.2 12.4 - 15.1 % 06/19 8:55 AM REINSURANCE CLAIM ANALYST [facility] Not Available Not Available 10/24/2024 11:03:29 06/19/20 24 06/19/2024 CBC W Auto Diffe renti al panel - Blood platelets [#/volume] in blood 354 text: 151 - 353 x10'3/ uL high PLT 354 (H) 151 - 353 x10'3 /uL 06/19 8:55 AM [facility] Not Available Not Available 10/24/2024 11:03:29 06/19/20 24 06/19/2024 CBC W Auto Diffe renti al panel - Blood platelet [entitic mean volume] in blood 10.9 text: 9.6 - 12.0 fL MPV 10.9 9.6 - 12.0 FL 06/19 8:55 AM REINSURANCE CLAIM [facility] Not Available Not Available 10/24/2024 11:03:29 06/19/20 24 06/19/2024 CBC W Auto Diffe renti al panel - Blood erythrocytes [morphology] in blood by automated count NORMAL RBC MORPH OLOGY GLENDY L 06/19 8:55 AM REINSURANCE CLAIM ANALYST [facility] Not Available Not Available 10/24/2024 11:03:29 06/19/20 24 06/19/2024 CBC W Auto Diffe renti al panel - Blood platelet morphology finding [identifier] in blood NORMAL PLT MORPH . GLENDY L 06/19 8:55 AM REINSURANCE CLAIM ANALYST [facility] Not Available Not Available 10/24/2024 11:03:29 06/19/20 24 06/19/2024 CBC W Auto Diffe renti al panel - Blood leukocyte morphology finding [identifier] in blood NORMAL WBC MORPH OLOGY GLENDY L 06/19 8:55 AM REINSURANCE CLAIM [facility]LY[facility] Not Available Not Available 10/24/2024 11:03:29 06/19/20 24 06/19/2024 CBC W Auto Diffe renti al panel - Blood lymphocytes/ leukocytes in blood by automated count 43.8 % low: 15.8%h igh: 45% LYMPH OCYTE S % 43.8 15.8 - 45.0 % 06/19 8:55 AM REINSURANCE CLAIM [facility]LY[facility] Not Available Not Available 10/24/2024 11:03:29 06/19/20 24 06/19/2024 CBC W Auto Diffe renti al panel - Blood neutrophils/ leukocytes in blood by automated count 45.2 % low: 42.1%h igh: 71.9% NEUTR OPHIL S % 45.2 42.1 - 71.9 % 06/19 8:55 AM REINSURANCE CLAIM [facility] Not Available Not Available 10/24/2024 11:03:29 06/19/20 24 06/19/2024 CBC W Auto Diffe renti al panel - Blood monocytes/le ukocytes in blood by automated count 8.6 % low: 5.7%hi gh: 12.5% MONOC YTES % 8.6 5.7 - 12.5 % 06/19 8:55 AM REINSURANCE CLAIM [facility]LY[facility] Not Available Not Available 10/24/2024 11:03:29 06/19/20 24 06/19/2024 CBC W Auto Diffe renti al panel - Blood eosinophils/ leukocytes in blood by automated count 1.7 % low: 0%high : 5.6% EOSIN OPHIL S 1.7 0.0 - 5.6 % 06/19 8:55 AM REINSURANCE CLAIM [facility]LYST [facility] Not Available Not Available 10/24/2024 11:03:29 06/19/20 24 06/19/2024 CBC W Auto Diffe renti al panel - Blood basophils/le ukocytes in blood by automated count 0.5 % low: 0%high : 1.3% BASOP HILS 0.5 0.0 - 1.3 % 06/19 8:55 AM REINSURANCE CLAIM [facility]LY[facility] Not Available Not Available 10/24/2024 11:03:29 06/19/20 24 06/19/2024 CBC W Auto Diffe renti al panel - Blood neutrophils [#/volume] in blood 3.74 text: 1.40 - 6.00 x10'3/ uL ABS. NEUTR OPHIL S 3.74 1.40 - 6.00 x10'3 /uL 06/19 8:55 AM [facility]URANCE CLAIM [facility] Not Available Not Available 10/24/2024 11:03:29 06/19/20 24 06/19/2024 CBC W Auto Diffe renti al panel - Blood immature granulocytes /leukocytes in blood by automated count 0.2 % low: 0%high : 0.5% IMMAT URE GRANS % 0.2 0.0 - 0.5 % 06/19 8:55 AM REINSURANCE CLAIM [facility] Not Available Not Available 10/24/2024 11:03:29 06/19/20 24 06/19/2024 CBC W Auto Diffe renti al panel - Blood lymphocytes [#/volume] in blood 3.62 text: 0.80 - 4.70 x10'3/ uL ABS. LYMPH OCYTE S 3.62 0.80 - 4.70 x10'3 /uL 06/19 8:55 AM REINSURANCE CLAIM ANALY[facility] Not Available Not Available 10/24/2024 11:03:29 06/19/20 24 06/19/2024 CBC W Auto Diffe renti al panel - Blood interpretati on and review of laboratory results Abnorm al Not Available Not Available 11:03:29 06/19/20 24 06/19/2024 Basic metab olic 2000 panel - Serum or Plasm a glucose [mass/volume ] in serum or plasma 103 text: 70 - 99 mg/dL high GLUCO SE 103 (H) 70 - 99 MG/DL 06/19 8:59 AM REINSURANCE CLAIM ANALY[facility] Not Available Not Available 10/24/2024 11:03:29 06/19/20 24 06/19/2024 Basic metab olic 2000 panel - Serum or Plasm a urea nitrogen [mass/volume ] in serum or plasma 15 text: 7 - 18 mg/dL BUN 15 7 - 18 MG/DL 06/19 8:59 AM [facility] Not Available Not Available 10/24/2024 11:03:29 06/19/20 24 06/19/2024 Basic metab olic 2000 panel - Serum or Plasm a creatinine [mass/volume ] in serum or plasma 0.83 text: 0.55 - 1.02 mg/dL CREAT ININE S/P/B 0.83 0.55 - 1.02 MG/DL 06/19 8:59 AM [facility] ([facility] Not Available Not Available 10/24/2024 11:03:29 06/19/20 24 06/19/2024 Basic metab olic 2000 panel - Serum or Plasm a sodium [moles/volum e] in serum or plasma 142 text: 136 - 145 mmol/L SODIU M S/P/B 142 136 - 145 MMOL/ L 06/19 8:59 AM REINSURANCE CLAIM ANALY[facility] Not Available Not Available 10/24/2024 11:03:29 06/19/20 24 06/19/2024 Basic metab olic 2000 panel - Serum or Plasm a potassium [moles/volum e] in serum or plasma 4.7 text: 3.5 - 5.1 mmol/L POTAS SIUM S/P/B 4.7 3.5 - 5.1 MMOL/ L 06/19 8:59 AM REINSURANCE CLAIM ANALYST [facility] Not Available Not Available 10/24/2024 11:03:29 06/19/20 24 06/19/2024 Basic metab olic 2000 panel - Serum or Plasm a chloride [moles/volum e] in serum or plasma 104 text: 100 - 108 mmol/L CHLOR MONTEZ S/P/B 104 100 - 108 MMOL/ L 06/19 8:59 AM [facility] Not Available Not Available 10/24/2024 11:03:29 06/19/20 24 06/19/2024 Basic metab olic 2000 panel - Serum or Plasm a carbon dioxide, total [moles/volum e] in serum or plasma 31.5 text: 21 - 32 mmol/L CO2 31.5 21 - 32 MMOL/ L 06/19 8:59 AM [facility] Not Available Not Available 10/24/2024 11:03:29 06/19/20 24 06/19/2024 Basic metab olic 2000 panel - Serum or Plasm a calcium [mass/volume ] in serum or plasma 9.3 text: 8.5 - 10.1 mg/dL CALCI UM S/P/B 9.3 8.5 - 10.1 MG/DL 06/19 8:59 AM [facility] Not Available Not Available 10/24/2024 11:03:29 06/19/20 24 06/19/2024 Basic metab olic 2000 panel - Serum or Plasm a anion gap in serum or plasma by calculation 6.5 text: 5 - 15 mmol/L ANION GAP 6.5 5 - 15 MMOL/ L 06/19 8:59 AM [facility] Not Available Not Available 10/24/2024 11:03:29 06/19/20 24 06/19/2024 Basic metab olic 2000 panel - Serum or Plasm a urea nitrogen/cre atinine [mass ratio] in serum or plasma 18.1 low: 6high: 26 BUN CREAT ININE RATIO 18.1 6 - 26 06/19 8:59 AM REINSURANCE CLAIM [facility]LY[facility] Not Available Not Available 10/24/2024 11:03:29 06/19/20 24 06/19/2024 Basic metab olic 2000 panel - Serum or Plasm a glomerular filtration rate [volume rate/area] in serum, plasma or blood by creatinine-b ased formula (CKD-epi 2020)/1.73 sq M 77 text: >90 mL/min /1.73 M2 low GFR ESTIM ATE 77 (L) >90 ML/PA N/1.7 3 M2 06/19 8:59 AM REINSURANCE CLAIM ANALY[facility] Not Available Not Available 10/24/2024 11:03:29 06/19/20 24 06/19/2024 Basic metab olic 2000 panel - Serum or Plasm a interpretati on and review of laboratory results Abnorm al Not Available Not Available 11:03:29 06/19/20 24 06/19/2024 Hemog lobin A1c/H emogl obin. total in Blood hemoglobin A1C/hemoglob in.total in blood 6.4 % high: 5.7% high HGB A1C 6.4 (H) <5.7 % 06/19 9:22 AM REINSURANCE CLAIM ANALY[facility] Not Available Not Available 10/24/2024 11:02:31 06/19/20 24 06/19/2024 Hemog lobin A1c/H emogl obin. total in Blood glucose mean value [mass/volume ] in blood estimated from glycated hemoglobin 137 mg/dL ESTIM ATED AVG GLUCO SE 137 mg/dL 06/19 9:22 AM REINSURANCE CLAIM ANALY[facility] Not Available Not Available 10/24/2024 11:02:31 06/19/20 24 06/19/2024 Hemog lobin A1c/H emogl obin. total in Blood interpretati on and review of laboratory results Abnorm al Not Available Not Available 11:02:31 06/19/20 24 06/19/2024 Lipid 1996 panel - Serum or Plasm a cholesterol [mass/volume ] in serum or plasma 169 text: <200.0 mg/dL SHWETHA STERO L 169 <200. 0 MG/DL 06/19 8:59 AM REINSURANCE CLAIM ANALYST [employer] () [facility] Not Available Not Available 10/24/2024 11:02:31 06/19/20 24 06/19/2024 Lipid 1996 panel - Serum or Plasm a triglyceride [mass/volume ] in serum or plasma 81 text: <150 mg/dL TRIGL YCERI ARI 81 <150 MG/DL 06/19 8:59 AM REINSURANCE CLAIM ANALYST [employer] () [facility] Not Available Not Available 10/24/2024 11:02:31 06/19/20 24 06/19/2024 Lipid 1996 panel - Serum or Plasm a cholesterol in HDL [mass/volume ] in serum or plasma 55 text: >40.0 mg/dL HDL 55 >40.0 MG/DL 06/19 8:59 AM REINSURANCE CLAIM ANALYST [employer] () [facility] Not Available Not Available 10/24/2024 11:02:31 06/19/20 24 06/19/2024 Lipid 1996 panel - Serum or Plasm a cholesterol in LDL [mass/volume ] in serum or plasma by calculation 98 text: <100 mg/dL LDL (CALC ULATE D) 98 <100 MG/DL 06/19 8:59 AM REINSURANCE CLAIM ANALYST [employer] () [facility] Not Available Not Available 10/24/2024 11:02:31 06/19/20 24 06/19/2024 Lipid 1996 panel - Serum or Plasm a cholesterol non HDL [mass/volume ] in serum or plasma 114 text: <130 mg/dL NON HDL SHWETHA STERO L 114 <130 MG/DL 06/19 8:59 AM REINSURANCE CLAIM ANALYST [employer] () [facility] Not Available Not Available 10/24/2024 11:02:31 06/19/20 24 06/19/2024 Lipid 1996 panel - Serum or Plasm a cholesterol. total/choles terol in HDL [mass ratio] in serum or plasma 3.1 low: 0high: 4.5 CHOL/ HDL RATIO 3.1 0.0 - 4.5 06/19 8:59 AM REINSURANCE CLAIM [facility]NALY[facility] Not Available Not Available 10/24/2024 11:02:31 06/19/20 24 06/19/2024 Lipid 1996 panel - Serum or Plasm a cholesterol in VLDL [mass/volume ] in serum or plasma by calculation 16 text: 5 - 55 mg/dL VLDL CALCU LATIO N 16 5 - 55 MG/DL 06/19 8:59 AM REINSURANCE CLAIM [facility]NALY[facility] Not Available Not Available 10/24/2024 11:02:31 06/19/20 24 06/19/2024 Lipid 1996 panel - Serum or Plasm a service comment LIPID INTER PRETA TION 06/19 8:59 AM REINSURANCE CLAIM [facility]LY[facility] Not Available Not Available 10/24/2024 11:02:31 06/12/20 24 06/11/2024 MRI, shoul angel, w/o contr ast No observ ation record ed. [address] [place] [address], [address], 06/12/2024 09:57:05 06/20/20 24 06/20/2024 MAMMO , edvine randy, digit al, bilat eral No observ ation record ed. [address] [address] [place], [address], 06/22/2024 10:48:07 08/29/19 25 08/29/2024 XR, shoul angel No observ ation record ed. [address], [address], 08/29/2024 23:19:17 10/16/19 25 10/15/2024 XR, shoul angel No observ ation record ed. [address], [address], 10/15/2024 19:01:21 10/17/19 25 10/15/2024 XR, hand, 3 or more view No observ ation record ed. [address] [facility] [address], [place], [address], 10/16/2024 16:32:57 10/20/19 25 10/18/2024 CT, hand, w/o contr ast No observ ation record ed. [address], [place], [address], 10/24/2024 14:18:11 Result Notes None recorded. Problems Name Problem SNOMED Code Status Onset Date Resolution Date Notes Provider Name and Address Organization Details Recorded Time Type 2 diabetes mellitus without complicatio n 386721395 Active 2023 MARY Hernandez Attn: Ernesto vargas,[address] [facility], [place], [address], [facility] 4 10:53:30 Gastroesoph ageal reflux disease without esophagitis 455537769 Active 2023 MARY Hernandez Attn: Kimberleyin g,[address] [facility], [place], [address], [facility] 4 10:53:31 Hyperlipide loren 34071151 Active 2023 MARY Hernandez Attn: Accountin g,[address] [facility], [place], [address], [facility] 4 10:53:31 Mixed anxiety and depressive disorder 842100116 Active 2023 MARY Hernandez Attn: Accountin g,[address] [facility], [place], [address], [facility] 4 10:53:33 Long-term drug therapy Active 2023 MARY Hernandez Attn: Kimberleyin g,[address] [facility], [place], [address], [facility] 4 10:53:33 Pain of left knee joint 2838357874277 07 Active 2023 MARY Hernandez Attn: Ernesto vargas,[address] [facility], [place], [address], [facility] 4 10:53:45 Body mass index 25-29 - overweight 482331945 Active 2023 MARY Hernandez Attn: Ernesto vargas,[address] [facility], [place], [address], [facility] 4 15:50:48 Problem Notes None recorded. Procedures Surgical History Date Name Laterality Status Provider Name and Address Organization Details Recorded Time Appendectomy completed Haley Banerjee MA [facility] 12/09/2023 15:45:33 Cholecystectomy completed Haley Banerjee MA [facility] 12/09/2023 15:45:46 Eye Surgery completed Haley Banerjee MA [facility] 12/09/2023 15:47:42 excision of bilateral fallopian tubes and ovaries completed Haley Banerjee MA [facility] 12/09/2023 15:47:49 D & c after delivery completed Haley Banerjee MA [facility] 12/09/2023 15:47:56 hysterectomy completed Haley Banerjee MA [facility] 12/09/2023 15:48:52 Imaging Results Imaging Date Name Status LastModified by Organiz ation Details LastModified Time 06/11/2024 MRI, shoulder, w/o contrast completed [address], [address], 06/12/2024 09:57:05 06/20/2024 MAMMO, screening, digital, bilateral completed [address] [address] [place], [address], 06/22/2024 10:48:07 08/29/2024 XR, shoulder completed [address], [address], 08/29/2024 23:19:17 10/15/2024 XR, shoulder completed [email or web address] [facility] pital [address] [facility] [address], [place], [address], 10/15/2024 19:01:21 10/15/2024 XR, hand, 3 or more view completed [address] [facility] [address], [place], [address], 10/16/2024 16:32:57 10/18/2024 CT, hand, w/o contrast completed [address] [facility] [address], [place], [address], 10/24/2024 14:18:11 Procedure Notes None recorded. Medical Equipment None [...] Updated DateTime 4 160.02 cm 29.6 kg/m2 72085 g 20 /min 98 % 98 % 61 /min 130 mm[Hg] 72 mm[Hg] Haley Banerjee MA [facility] 4 10:42:01 Date Recorded Body height Body mass index (BMI) Body weight Oxygen saturation Oxygen saturation in Arterial blood by Pulse oximetry Heart rate Systolic blood pressure Diastolic blood pressure Provider Name and Address Organization Details Last Updated DateTime 4 160.02 cm 29.6 kg/m2 10306.9 3 g 97 % 97 % 67 /min 138 mm[Hg] 82 mm[Hg] Haley Banerjee MA [facility] 4 10:28:53 Date Recorded Respiratory rate Systolic blood pressure Diastolic blood pressure Provider Name and Address Organization Details Last Updated DateTime 06/22/2024 16 /min 130 mm[Hg] 80 mm[Hg] MARY eHrnandez Attn: Accounting, [address] [place], [address], [facility] 06/22/2024 11:02:18 Social History Question Answer Notes LastModified by Organizat ion Details LastModified Time Tobacco Smoking Status Never Smoker Haley Banerjee MA null, [facility] 12/09/2023 10:39:58 Do You Have An Advance [...] Have You Had Close [facility] That Case Was Ill? No Information [...] Anxious, Or Unable To Sleep At Night)? [id number] Information not available 12/09/2023 Do You Use [...] 4 completed MARY Hernandez Attn: Accounting,[address] [place], [address], [place] [facility] 07/04/2024 16:27:17 Past Encounters Encounter ID Performer Location Encounter Start Date Encounter Closed Date Diagnosis/Indication Diagnosis SNOMED-CT Code Diagnosis ICD10 Code Diagnosis Note [id number] MARY Hernandez [facility] [address] [place] [address] 12/09/2023 10:20:41 01/03/2024 15:53:43 Type 2 diabetes mellitus without complication 783516884 E11.9 Rx for trulicity 3mg weekly in hopes this will be in stock. next labs due in Jun. continue glipizide 5mg bid w/meal. Gastroesop hageal reflux disease without esophagitis 914713910 K21.9 stable on omeprazole 40mg daily. Hyperlipidemia 57403084 E78.5 stable on atorvastat in 20mg daily. next labs due in Jun. Mixed anxi ety and depressive disorder 858334516 F41.8 stable on venlafaxin e ER 150mg daily Long-term drug therapy 955344749 Z79.899 next labs are due in Jun. Pain of le ft knee joint 0641714938 02830 M25.562 pt can f/u with ortho per plan Body mass index 25-29 - overweight 689888957 Z68.29 [id number] MARY Hernandez [facility] e - Taras Bains [address] [place] [address] 06/22/2024 10:17:31 07/06/2024 09:06:09 Body mass index 25-29 - overweight 036381850 Z68.29 BMI is 29.6 Overweight 960244903 E66 .3 Type 2 mariangel betes mellitus without complication 895545284 E11.9 Rx for trulicity 3mg weekly in hopes this will be in stock. continue glipizide 5mg bid w/meal. Gastroesop hageal reflux disease without esophagitis 459811883 K21.9 stable on omeprazole 40mg daily. Hyperlipidemia 87809092 E78.5 stable on atorvastat in 20mg daily. next labs due in December Mixed anxi ety and depressive disorder 337978194 F41.8 stable on venlafaxin e ER 150mg daily. No acute concerns or complaints with medication Long-term drug therapy 667120982 Z79.899 Routine BMP, CBC and liver function will be due in December Administra tion of influenza vaccine 69439759 Z23 Flu shot given in the office today Health Concerns Section Related Observation LastModified by Organization Detai ls LastModified Time None Recorded Concern Status LastModified by Organization Details LastModified Time None Recorded Advance Directives Directive N: Payers Encounter Date Sequence Insurance Name Policy Number Policy Smith Covered Member ID Smith Member ID Guarantor Name 12/09/2023 1 [facility] (MEDICARE REPLACEMENT/A DVANTAGE - HMO) [id number] Savannah Portillo [id number] Savannah Portillo 06/22/2024 1 [facility] (MEDICARE REPLACEMENT/A DVANTAGE - HMO) [id number] Savannah Portillo [id number] Savannah Portillo Notes Date Note Type Note [...] 40mg daily. MARY Hernandez Attn: Accounting,[address] [facility], [place], [address], [facility] - [facility] 01/02/2024 15:50:57 06/22/2024 text/html Anxiety/Depressi on Reported bypatient.Notes:st able on venlafaxine ER 150mg daily.DiabetesRepo rted bypatient.Notes:6. 1% a1c on Trulicity and glipizide 5mg bid.Hyperlipidemia Reported bypatient.Notes:st able on atorvastatin 20mg daily. lipids are great.KneeReported bypatient.Notes:sh ot given on november [address] Morrison.Reflux/JAREN DReported bypatient.Notes:st able omeprazole 40mg daily. MARY Hernandez Attn: Accounting,[address] [facility], [place], [address], [facility] - [facility] 07/04/2024 16:28:30 OBGyn Episode No OBEpisode recorded.
--- OUTSIDE RECORDS SUMMARY | 2024-10-31 07:30 | XMS_ITS | Clinical Summary ---
Author Organization [facility] Address [address] [place] [address] Care Team Providers Care Conditioning Coach Name Role Phone Manisha Mann MD Primary Care Provider Source Comments [facility],non-owned Affiliates and Associated Physician Practices is amultiple site organization consisting of ambulatory clinics and hospital sitesin [place], [place], [place] and [place]. This disclosure is being madepursuant to the Care Everywhere program and may not contain all information available regarding this patient. Last updated 18.[facility] [employer] Social History Tobacco Use Types Packs/Day Years [...] patient's age to complete this topic Insurance [place] [id number] [facility] MANAGED MEDICARE ADV Care Teams Conditioning Coach Relationship Specialty Start Date End Date Manisha Mann MD [address] [place] [address] [phone] [facility] - General 04/24/21
--- OUTSIDE RECORDS SUMMARY | 2024-10-31 07:30 | XMS_ITS | Encounter Summary ---
Author Organization [facility] Address [address] [place] [address] Care Team Providers Care Accounting Software Specialist Name Role Phone Manisha Mann MD Primary Care Provider Encounter Details Date Type Department Care Team (Late st Contact Info) Description 06/02/2023 Lab Requisition [facility] - DermPath Lab [address] [place] [address] Angeli Basurto DO [address] [facility] [place] [address] Social History Tobacco Use Types Packs/Day Years [...] Diagnosis Comments DERMATOPATHOLOGY Routine 06/02/2023 2:26 PM [facility] documented in this encounter Results * DERMATOPATHOLOGY (06/02/2023 2:26 PM [facility]) Case Report Dermatopathology Report Case: [id number] Authorizing Provider: Angeli Basurto DO Collected: 06/02/2023 02:26 PM Ordering Location: [facility] DermPath Lab Received: 06/03/2023 01:12 PM Pathologist: Sofia Salazar MD Specimens: A) - Skin, right cheek B) - Skin, right low back 12:59 PM [facility] DERMATOPATHOLOGY LABORATORY Final Diagnosis Specimen A. SKIN, right cheek: BASAL CELL CARCINOMA, NODULAR TYPE (C44.319) Specimen B. 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 Jar 0. 3 12:59 PM [facility] DERMATOPATHOLOGY LABORATORY Microscopic Description Specimen A. SKIN, [...] were obtained and reviewed. 3 12:59 PM [facility] DERMATOPATHOLOGY LABORATORY Disclaimer An external and internal positive and negative controls are appropriate for the histochemical, immunohistochemical and immunofluorescence stain(s) in this case (if any), except where stated explicitly. The performance characteristics of the stain(s) cited in this report were developed and its performance characteristic determined by the Dermatopathology Laboratory at [facility], directed by Dr. Daniel Ahuja. These tests need not be, and therefore are not, approved by the [place] Food and Drug Administration. The tests are used for clinical purposes. Billing Codes Specimen Charges Stain Charges 33142 09941 1 1 3 12:59 PM [facility] DERMATOPATHOLOGY LABORATORY Embedded Images 3 12:59 PM [facility] DERMATOPATHOLOGY LABORATORY Pathology/Cytology TISSUE SPECIMEN FROM SKIN / Unknown 06/02/2023 2:26 PM [facility] 06/03/2023 1:12 PM [facility] Miscellaneous samples (specimen) TISSUE SPECIMEN FROM SKIN / Unknown 06/02/2023 2:26 PM [facility] 06/03/2023 1:12 PM [facility] us Angeli Basurto DO LAB - PATHOLOGY/CYTOLOGY ORDERABLES Final Result DERMATOPATHOLOGY LABORATORY [facility] - Department of Dermatology [facility] [address] [place] [address], [address] [phone] documented in this encounter Visit Diagnoses Not on filedocumented in this encounter Care Teams Accounting Software Specialist Relationship Specialty Start Date End Date Manisha Mann MD [address] [place] [address] [phone] PCP - General 04/24/21 documented as of this encounter
--- OUTSIDE RECORDS SUMMARY | 2024-10-31 07:31 | XMS_ITS | Data Portability ---
Author Organization [place] [facility], Main Office Address [address] [place] [address] Care Team Providers Care Biomedical Equipment Technician Name Role Phone BRITTNEY ADAMS Primary Care Provider [phone] BRITTNEY ADAMS Referring Provider Assessment Encounter Date [...] more than half the time spent in ohid-xu-aace care. Not available 01/29/2023 18:58:10 02/19/2023 02/19/2023 [...] If her patellofemoral arthritis become severe and svfp-ku-hevl and her symptoms are intractable, knee replacement [...] more than half the time spent in boww-di-tfdo care. Not available 02/19/2023 10:12:20 Plan of Treatment Reminders Order Date Submit Date Provider Last Modified By Organization Details Last Modified Time Details Appointments None recorded. Lab HbA1c (hemoglobin A1c), blood [address], [address] Heri Dougherty, [place], [address], 4 18:01:51 microalbumi n/creatinin e, mass ratio, urine [address], [address] Heri Burger, [place], [address], 4 18:01:51 microalbumi n, urine [address], [address] Heri Burgere, [place], [address], 4 18:01:51 CBC w/ auto diff [address], [address] [facility], [address], 4 18:01:50 BMP, serum or plasma [address], [address] Heri Burger, [place], [address], 4 18:01:50 hepatic function panel, serum [address], [address] [place], [address], 4 18:01:51 TSH + free T4, serum [address], [address] Heri Burgere, [place], [address], 4 18:01:51 lipid panel, serum 2022 023 [facility], [address] [address] Ladonna, [place], [address], 4 18:01:51 Referral None recorded. Procedures injection/a spiration joint/bursa (PROC) - in office procedure, administere d by provider 2022 023 [email or web address] In-Office Order, Internal Use Only DO Not Attach Compendium DO Not Attach Compendium, Do Not Delete/merge, [id number] 3 09:42:55 Surgeries None recorded. Imaging XR, knee 2022 023 [email or web address] [facility], [address] [facility] [address], [place], [address], 3 09:54:30 MRI, knee, w/o contrast - GIVE THE PT A CD OF IMAGES 2022 023 ANN [facility] ([facility]), [address] Heri Dougherty, [place], [address], 3 19:34:18 MAMMO, screening, digital, bilateral [email or web address] [place] [address] - Radiology, [address] [place], [address], 3 12:26:21 Medication Orders Kenalog 10 mg/mL suspension for injection 2022 023 [email or web address] 4 [facility] [address], [address], [place], [address], 3 12:11:16 ropivacaine (PF) 5 mg/mL (0.5 %) injection solution 2022 [email or web address] [place] [address] [address], [address] [facility] [address], [place], [address], 3 12:11:18 omeprazole 40 mg capsule,del ayed release 2022 023 [facility] [address], [address] [facility] [address], [place], [address], 3 12:19:32 Patient TargetsNo targets recorded. Patient InstructionsNo instructions recorded. Reason for Referral None Reported. Results Created Date Observation Date Name Description Value Unit Range Abnormal Flag Note LastModifiedBy Organization Detail LastModifiedTime 01/30/20 XR, knee No observ ation record ed. [facility] [address] [facility] [address], [place], [address], 01/29/2023 18:57:19 02/17/20 23 02/14/2023 MRI, knee, w/o contr ast No observ ation record ed. [email or web address] [facility] [address] [place], [address], 02/17/2023 09:48:33 02/20/20 23 02/16/2023 MRI, knee, [...] Organization Details Recorded Time Lumbar radiculopa thy 207542366 Active 2021 Not Available [facility] 3 00:53:36 Chronic pain in coccyx for more than three months 4811404917994 05 Active 2019 Not Available [facility] 3 00:53:36 Tenosynovi tis of right radial styloid 9143355315596 9100 Active 2021 Not Available [facility] 3 00:53:36 Right flank pain 766676829 Active 2021 Not Available [facility] 3 00:53:36 Insomnia 621565979 Active Not Available [facility] 3 00:53:36 Steatotic liver disease 590950568 Active 2021 Not Available [facility] 3 00:53:37 Localized, primary osteoarthr itis of the hand 176033838 Active Not Available [facility] 3 00:53:37 Chronic cholecysti tis 05787681 Active Not Available [facility] 3 00:53:37 Abdominal pain 81940576 Active Not Available [facility] 3 00:53:37 Mixed anxiety and depressive disorder 695445347 Active 2021 Not Available [facility] 3 00:53:37 Gastroesop hageal reflux disease 113015661 Active Not Available [facility] 3 00:53:37 Gallstone 654343756 Active Not Available [facility] 3 00:53:37 Screening mammograph y Active 2021 Not Available [facility] 3 00:53:37 Gastroesop hageal reflux disease without esophagiti s 652455623 Active 2021 Not Available [facility] 3 00:53:37 Long-term drug therapy Active 2021 Not Available [facility] 3 00:53:37 History of peptic ulcer 407495713 Active 2021 Not Available [facility] 3 00:53:37 Screening for malignant neoplasm of colon Active 2021 Not Available [facility] 3 00:53:38 Chest pain 32608238 Active 2021 Not Available [facility] 3 00:53:38 Injury of tendon of the rotator cuff of shoulder 618027187 Active Not Available [facility] 3 00:53:38 Pain of left wrist 2343606338701 02 Active 2021 Not Available [facility] 3 00:53:38 Vitamin D deficiency 07857398 Active Not Available [facility] 3 00:53:38 Depressive disorder 03660393 Active Not Available [facility] 3 00:53:38 Osteoarthr osis of the carpometac arpal joint of the thumb 05442893 Active 2018 Not Available [facility] 3 00:53:38 Osteoarthr itis 346419510 Active Not Available [facility] 3 00:53:38 Diverticul ar disease 291793871 Active Not Available [facility] 3 00:53:38 Acute urinary tract infection 697847768 Active Not Available [facility] 3 00:53:38 Dyssomnia 02294321 Active 2021 Not Available [facility] 3 00:53:39 Uncontroll ed type 2 diabetes mellitus 040792131 Active 2021 Not Available [facility] 3 00:53:39 Well controlled type 2 diabetes mellitus 355454084 Active 2021 Not Available [facility] 3 00:53:39 Upper respirator y infection 49114030 Active Not Available [facility] 3 00:53:39 Lower abdominal pain 10783840 Active Not Available [facility] 3 00:53:39 Hyperlipid emia 04385365 Active Not Available [facility] 3 00:53:39 Increased liver function 34366076 Active Not Available [facility] 3 00:53:39 Precordial pain 09190846 Active 2021 Not Available [facility] 3 00:53:39 Sleep apnea 80945640 Active 2021 Not Available [facility] 3 00:53:39 Pain of elbow region 55424177 Active Not Available [facility] 3 00:53:40 Postmenopa usal state 35963507 Active 2021 Not Available [facility] 3 00:53:40 Neck pain 21640261 Active 2021 Not Available [facility] 3 00:53:40 Fatigue 43342902 Active Not Available [facility] 3 00:53:40 Gout 71138270 Active 2021 Not Available [facility] 3 00:53:40 Pain in limb 98727827 Active Not Available [facility] 00:53:40 Pain of right knee joint 1362638586072 00 Active 2022 Jennifer Granados RMA null, [place] [facility] 3 10:43:26 Pain of left knee joint 8581182912768 07 Active 2022 Jennifer Granados RMA null, [place] [facility] 3 10:43:46 Problem Notes None recorded. Procedures Surgical History Date Name Laterality Status Provider Name and Address Organization Details Recorded Time Date of Last Colonoscopy completed Not Available [facility] 09/02/2022 00:47:55 Colonoscopy completed Not Available [facility] 09/02/2022 00:47:57 Carpal tunnel completed Not Available [facility] 09/02/2022 00:47:57 rhinoseptoplasty completed Not Available [facility] 09/02/2022 00:47:57 Hysterectomy completed Not Available [facility] 09/02/2022 00:47:57 removal of ectopic fetus completed Not Available [facility] 09/02/2022 00:47:57 Cataract Surgery completed Not Available [facility] 09/02/2022 00:47:57 Appendectomy completed Not Available [facility] 09/02/2022 00:47:57 Cholecystectomy completed Not Available [facility] 09/02/2022 00:47:57 Imaging Results Imaging Date Name Status LastModified by Organiz ation Details LastModified Time 01/29/2023 XR, knee completed [facility] [address], [place], [address], 01/29/2023 18:57:19 02/14/2023 MRI, knee, w/o contrast completed [email or web address] [facility] [address] [place], [address], 02/17/2023 09:48:33 02/16/2023 MRI, knee, w/o contrast [...] e, administ ered by provider 06/22 completed [facility]: [phone] 4-20 Not Available Not Available Not [...] e, administ ered by provider 06/22 completed [facility] [address]-79 4-01 Not Available Not Available Not Available [...] % 97 % 67 /min 97.5 [degF] 02045.1 5 g 128 mm[Hg] 70 mm[Hg] Not Available [facility] 3 00:51:10 Date Recorded Body height Body mass index (BMI) Body weight Heart rate Oxygen saturation Oxygen saturation in Arterial blood by Pulse oximetry Body temperature Systolic blood pressure Diastolic blood pressure Provider Name and Address Organization Details Last Updated DateTime 3 157.48 cm 30.2 kg/m2 12113.7 4 g 59 /min 97 % 97 % 97.9 [degF] 126 mm[Hg] 76 mm[Hg] Magui López RN [place] [facility] 3 11:44:58 Date Recorded Body height Body mass index (BMI) Body weight Provider Name and Address Organization Details Last Updated DateTime 01/29/2023 154.94 cm 31.4 kg/m2 99294.33 g JORGE LUIS Fair [facility] 01/29/2023 11:13:01 Date Recorded Body height Provider Name an d Address Organization Details Last Updated DateTime 02/19/2023 154.94 cm JORGE LUIS Fair [facility] 02/19/2023 08:54:52 Date Recorded Body height Body mass index (BMI) Body weight Respiratory rate Oxygen saturation Oxygen saturation in Arterial blood by Pulse oximetry Heart rate Systolic blood pressure Diastolic blood pressure Provider Name and Address Organization Details Last Updated DateTime 154.94 cm 30.9 kg/m2 66457.3 5 g 16 /min 98 % 98 % 62 /min 122 mm[Hg] 80 mm[Hg] Maribryson Woods Ness [facility] 11:41:41 Date Recorded Systolic blood pressure Diastolic blood pressure Provider Name and Address Organization Details Last Updated DateTime 06/24/2023 130 mm[Hg] 80 mm[Hg] MARY Hernandez [address] [place] [address], [address], [facility] 06/24/2023 12:31:01 Social History Question Answer Notes LastModified by Organizat ion Details LastModified Time Tobacco Smoking Status Never Smoker Not Available [facility] 09/02/2022 00:47:05 Do You Have An Advance Directive? No MIGRATION.89427 03508 Information not available 09/02/2022 What Is Your Level Of Alcohol Consumption? None MIGRATION.43294 01704 Information not available 09/02/2022 Are You Blind Or Do You Have Difficulty Seeing? Yes MIGRATION.75599 04463 Information not available 09/02/2022 What Is Your Level Of Caffeine Consumption? Occasional MIGRATION.14468 40057 Information not available 09/02/2022 What Is Your Code Status? Full Code MIGRATION.26661 38414 Information not available 09/02/2022 In The 14 Days Before Symptom Onset, Have You Had Close Contact With A Laboratory-confi rmed COVID-19 While That Case Was Ill? No MIGRATION.57022 24970 Information not available 09/02/2022 In The 14 Days Before Symptom Onset, Have You Had Close Contact With A Person Who Is Under Investigation For COVID-19 While That Person Was Ill? No MIGRATION.08097 08957 Information not available 09/02/2022 Are You Deaf Or Do You Have Serious Difficulty Hearing? No MIGRATION.18321 42505 Information not available 09/02/2022 What Type Of Diet Are You Following? REGULAR MIGRATION.04850 73608 Information not available 09/02/2022 Which Illicit Or Recreational Drugs Have You Used? No MIGRATION.65665 46755 Information not available 09/02/2022 Do You Or Have You Ever Used E-cigarettes Or Vape? Never Used Electronic Cigarettes MIGRATION.86873 14397 Information not available 09/02/2022 Have There Been Any Changes To Your Family Or Social Situation? No MIGRATION.18742 58136 Information not available 09/02/2022 What Is The Fluoride Status Of Your Home? Unknown MIGRATION.28474 20971 Information not available 09/02/2022 Are There Any Guns Present In Your Home? Yes MIGRATION.61961 09312 Information not available 09/02/2022 Do You Use Insect Repellent Routinely? No MIGRATION.42432 30313 Information not available 09/02/2022 Where Do You Live? [place] MIGRATION.25849 70946 Information not available 09/02/2022 Do You Have A Medical Power Of Value Stream Coach? No MIGRATION.11192 52037 Information not available 09/02/2022 What Was The Date Of Your Most Recent Tobacco Screening? 12/05/2021 MIGRATION.17305 48546 Information not available 09/02/2022 Do You Have Any Pets? No MIGRATION.27201 62794 Information not available 09/02/2022 What Is Your Relationship Status? MIGRATION.53798 77361 Information not available 09/02/2022 Do You Use Your Seat Belt Or Car Seat Routinely? Yes MIGRATION.58680 11736 Information not available 09/02/2022 Do You Have Smoke And Carbon Monoxide Detectors In Your Home? Yes MIGRATION.07697 99555 Information not available 09/02/2022 Are You Passively Exposed To Smoke? No MIGRATION.12470 42417 Information not available 09/02/2022 Do You Or Have You Ever Used Smokeless Tobacco? Never Used Smokeless Tobacco MIGRATION.03347 00429 Information not available 09/02/2022 Are There Any Smokers In Your House? No MIGRATION.94818 80942 Information not available 09/02/2022 How Much Tobacco Do You Smoke? No MIGRATION.74271 08700 Information not available 09/02/2022 Do You Feel Stressed (tense, Restless, Nervous, Or Anxious, Or Unable To Sleep At Night)? SA7116-5 MIGRATION.85847 37653 Information not available 09/02/2022 Do You Use Any Illicit Or Recreational Drugs? No MIGRATION.34260 32760 Information not available 09/02/2022 Do You Use Sunscreen Routinely? Yes MIGRATION.49612 93863 Information not available 09/02/2022 Have You Recently Traveled Abroad? No MIGRATION.87227 61611 Information not available 09/02/2022 Do You Have Any Dietary Restrictions? No MIGRATION.74054 39580 Information not available 09/02/2022 Do You Or Have You Ever Used Any Other Forms Of Tobacco Or Nicotine? No MIGRATION.00344 32600 Information not available 09/02/2022 Sex: Unknown Functional Status Question Answer Note LastModified by Organizat ion Details LastModified Time Do you have difficulty walking or climbing stairs? Yes MIGRATION.0775356 026 Information not available 09/02/2022 Do you have transportation difficulties? No MIGRATION.0215040 026 Information not available 09/02/2022 Are you able to walk? YESWOREST MIGRATION.1069535 026 Information not available 09/02/2022 Do you have difficulty doing errands alone? No MIGRATION.7316503 026 Information not available 09/02/2022 Are you able to care for yourself? Yes MIGRATION.2294629 026 Information not available 09/02/2022 Do you have difficulty dressing or bathing? No MIGRATION.7675191 026 Information not available 09/02/2022 What is your exercise level? Occasional MIGRATION.5779034 026 Information not available 09/02/2022 Mental Status Question Answer Note LastModified by Organizat ion Details LastModified Time Do you have difficulty concentrating, remembering or making decisions? Yes MIGRATION.305145775 6 Information not available 09/02/2022 Family History Relationship Description Onset Age of this Age Resolved Age Notes LastModified by Organization Details LastModified Time Son Complication of anesthesia MIGRATION.264 [id number] Not available 09/02/2022 00:48:00 Unspecified Relation Family history of stroke grandf ather MIGRATION.003 6049030 Not available 09/02/2022 00:48:00 Unspecified Relation Family history of malignant neoplasm uncle MIGRATION.848 2387714 Not available 09/02/2022 00:48:00 Unspecified Relation Diabetes mellitus grandm other MIGRATION.284 1285580 Not available 09/02/2022 00:48:00 Unspecified Relation Heart disease MIGRATION.540 3507711 Not available 09/02/2022 00:48:00 Father Hypertensive disorder MIGRATION.715 6310356 Not available 09/02/2022 00:48:00 Father Sepsis MIGRATION.150 2282124 Not available 09/02/2022 00:48:00 Father Methicillin resistant Staphylococc us aureus infection MIGRATION.949 6125842 Not available 09/02/2022 00:48:00 Mother Cirrhosis - non-alcoholi c MIGRATION.038 2449843 Not available 09/02/2022 00:48:00 Mother Diabetes mellitus MIGRATION.999 5101006 Not available 09/02/2022 00:48:00 Brother Asthma MIGRATION.256 2074768 Not available 09/02/2022 00:48:00 Sister Myocardial infarction MIGRATION.369 6655688 Not available 09/02/2022 00:48:00 Sister Chronic hepatitis C MIGRATION.265 9091855 Not available 09/02/2022 00:48:00 Notes:cancer, blood clots [...] HAVE YOU BEEN HOSPITALIZED OR SEEN IN [facility] IN THE PAST YEAR ? Y Gynecological History Statement/Question Response Date of Last Mammogram 02/25/2021 Date of Last Colonoscopy 03/05/2021 Date of LMP Date of Last Pap Smear Current Control Method Hysterectom y Most Recent Mammogram Obstetrics History GPAL:G 3 P 2 0 1 2 Type Value Full Term 2 Living 2 Ectopics 1 Total 3 Immunizations Vaccine Type Date Status Note Provider Brian espinal and Address Organization Details Recorded Time Influenza, split virus, trivalent, PF 04/03/2013 completed Not Available [facility] 2022 01:02:00 COVID-19, mRNA, LNP-S, PF, 30 mcg/0.3 mL dose 10/02/2020 completed Not Available [facility] 3 01:02:00 COVID-19, mRNA, LNP-S, PF, 30 mcg/0.3 mL dose 09/02/2020 completed Not Available [facility] 3 01:02:00 Past Encounters Encounter ID Performer Location Encounter Start Date Encounter Closed Date Diagnosis/Indication Diagnosis SNOMED-CT Code Diagnosis ICD10 Code Diagnosis Note [id number] [facility] [address] [place] [address] 09/10/2020 00:00:00 09/10/2020 14:52:15 [id number] [facility] [address] [place] [address] 10/08/2020 00:00:00 10/08/2020 14:51:17 [id number] [facility] [address] [place] [address] 12/11/2020 00:00:00 12/12/2020 09:43:20 [id number] _ATHENA_M IGRATION_ DEFAULT_1 _1 , 12/26/2020 00:00:00 12/26/2020 18:55:30 [id number] [facility] [address] [place] [address] 03/03/2021 00:00:00 03/03/2021 21:50:49 [id number] [facility] [address] [place] [address] 06/03/2021 00:00:00 06/03/2021 16:40:41 [id number] [facility] [address] [place] [address] 09/03/2021 00:00:00 10/02/2021 19:25:25 [id number] [facility] [address] [place] [address] 09/26/2021 00:00:00 09/26/2021 09:52:56 [id number] [facility] [address] [place] [address] 10/24/2021 00:00:00 10/24/2021 11:00:23 [id number] [facility] [address] [place] [address] 12/05/2021 00:00:00 12/05/2021 10:03:29 [id number] [facility] [address] [place] [address] 12/16/2021 00:00:00 2022 15:50:28 [id number] [facility] [address] [place] [address] 03/05/2022 00:00:00 03/05/2022 09:43:50 [id number] [facility] [address] [place] [address] 03/10/2022 00:00:00 03/10/2022 12:24:59 [id number] [facility] [address] [place] [address] 07/21/2022 00:00:00 08/04/2022 21:10:07 [id number] MARY Hernandez [facility] [address] [place] [address] 01/18/2023 11:37:44 01/18/2023 12:38:06 Well controlled type 2 diabetes mellitus 854132956 E11.9 stable on trulicity and glipizide therapy. A1c 6.3%. repeat labs in Jun. Screening mammography 24 500013 Z12.31 mammogram ordered Mixed anxi ety and depressive disorder 374409680 F41.8 stable on venlafaxin e ER 150mg daily. Long-term drug therapy 362849691 Z79.899 next full lab panel due in Jun. History of peptic ulcer 401282346 Z87.11 refill omeprazole 40mg daily Gastroesop hageal reflux disease without esophagitis 647970822 K21.9 stable on PPI therapy and EGD was up to date Hyperlipidemia 06430296 E78.5 stable on statin therapy, repeat labs due in [id number] Lc Morrison MD [facility] [address] [place] [address] 01/29/2023 10:39:37 02/01/2023 09:54:30 Pain of left knee joint 9847720650 01553 M25.562 [id number] Lc Morrison MD [facility] [address] [place] [address] 02/19/2023 08:49:17 02/19/2023 10:28:02 Pain of left knee joint 0545585575 55073 M25.410 [id number] MARY Hernanedz [facility] [address] [place] [address] 06/24/2023 11:32:48 06/24/2023 12:31:15 Well controlled type 2 diabetes mellitus 578390447 E11.9 stable on trulicity and glipizide therapy. A1c 6.1%. Mixed anxi ety and depressive disorder 430388553 F41.8 stable on venlafaxin e ER 150mg daily. Gastroesop hageal reflux disease without esophagitis 730530169 K21.9 stable on PPI therapy and EGD was up to date Hyperlipidemia 39830079 E78.5 stable on statin therapy, Long-term drug therapy 877707918 Z79.899 History of peptic ulcer 748189355 Z87.11 Health Concerns Section Related Observation LastModified by Organization Detai ls LastModified Time None Recorded Concern Status LastModified by Organization Details LastModified Time None Recorded Advance Directives Directive N: Payers Encounter Date Sequence Insurance Name Policy Number Policy Smith Covered Member ID Smith Member ID Guarantor Name 01/18/2023 1 [facility] (MEDICARE REPLACEMENT/A DVANTAGE - HMO) [id number] Savannah Portillo [id number] Savannah Portillo 01/29/2023 1 [facility] (MEDICARE REPLACEMENT/A DVANTAGE - HMO) [id number] Savannah Portillo [id number] Savannah Portillo 02/19/2023 1 [facility] (MEDICARE REPLACEMENT/A DVANTAGE - HMO) [id number] Savannah Moore Lindsey [id number] Savannah Portillo 06/24/2023 1 [facility] (MEDICARE REPLACEMENT/A DVANTAGE - HMO) [id number] Savannah Portillo [id number] Savannah Portillo Notes Date Note Type Note [...] early satiety; no halitosis;fatigue;throat pain Not Available [place] [facility] [email or web address] [place] 08/04/2022 21:10:07 023 text/ht ml Anxiety/DepressionReported bypatient.Quality:doesnt [...] fatigue; no throat pain MARY Hernandez [address] [facility], [place] [address], [place], [address], [employer] [facility] [employer] 02/01/2023 00:50:10 023 text/ht ml Patient is [...] History of gout. Lc Morrison MD [address] [facility] [facility] [address], [place], [address], [employer] [facility] 01/29/2023 18:58:32 023 text/ht ml Anxiety/DepressionReported bypatient.Quality:doesnt [...] no fatigue; no throat pain MARY Hernandez [address] [place] [address], [facility] [address], [place], [address], [facility] 06/29/2023 17:37:21 OBGyn Episode No OBEpisode recorded.
--- OUTSIDE RECORDS SUMMARY | 2024-10-31 07:31 | XMS_ITS | Clinical Summary ---
Author Organization [facility] Address Formerly [facility], [facility] [place] [address] Care Team Providers Care Chemistry Lecturer Name Role Phone Brittney Stevenson Primary Care Provider [phone] Allergies No known active allergies Medications atorvastatin 20 MG tablet 1 Active DULoxetine (CYMBALTA) 60 MG capsule Cymbalta 60 mg capsule,delayed release Take 1 capsule every day by oral route for 90 days. Active vitamin D2, ergocalciferol, 57011 UNITS capsule Take 50,000 Units by mouth [...] Comments Blood Pressure 154/69 07/28/2021 4:16 PM [facility]NER Pulse 60 07/28/2021 4:16 PM [facility] RUNNER Temperature 36.8 C (98.3 F) 07/28/2021 4:16 PM [facility] WR[facility] / RUNNER Respiratory Rate 16 07/28/2021 4:16 PM [facility] WR[facility] / RUNNER Oxygen Saturation 98% 07/28/2021 4:16 PM [facility] WR[facility] / RUNNER Inhaled Oxygen Concentration - - Weight 78 kg (172 lb) 06/17/2021 11:41 AM [facility] WRITER / RUNNER Height 157.5 cm (5' 2 ) 06/17/2021 11:41 AM [facility] WR[facility] / RUNNER Body Mass Index 31.46 06/17/2021 11:41 AM K[facility] WRITER / RUNNER Plan of Treatment Health Maintenance Due Date Last Done Comments Colorectal Cancer Screening Colonoscopy (10 Years) 1956 Diabetes: Retinopathy Eye Exam 12/31/1973 Hepatitis C 12/31/1973 DTaP, Tdap and Td Vaccines (1 - Tdap) 12/31/1974 Pneumococcal Vaccine: 50+ Years (1 of 2 - PCV) 12/31/1974 Zoster Vaccines (1 of 2) 12/31/2005 [...] KENNEDY MITZI DIGI Routine 06/20/2024 10:29 AM K[facility] WRITER / RUNNER Encounter for screening mammogram for malignant neoplasm of breast LIPID PANEL Routine 06/19/2024 8:08 AM KENO WRITER / RUNNER Diabetes mellitus ([facility] HEMOGLOBIN, GLYCOSYLATED Routine 06/19/2024 8:08 AM [facility]ENO WRITER / RUNNER Diabetes mellitus ([facility]) BONE DENSITY/DEXA Routine 03/10/2022 12: 46 PM CDT Post-menopausal from Last 3 Months or Most Recently Relevant to Health Maintenance Results * MG SCREENING W KENNEDY MITZI DIGI (06/20/2024 10:29 AM KENO WRITER / RUNNER) Anatomical Region Laterality Modality Breast Bilateral Mammography 06/20/2024 4:23 PM [facility] WRITER / RUNNER Impressions 06/20/2024 4:31 PM [facility] WRITER / RUNNER ===== IMPRESSION: ===== 1. Stable mammographic appearance with no new findings to suggest malignancy in either breast. Assessment: ACR BI-RADS 2 - BENIGN FINDING(S) Recommendation: 1:Routine Screening Bilateral Comments: Ordered By: BRITTNEY STEVENSON Interpreted By: Ozzie Juarez, 06/20/2024 4:23 PM Narrative 06/20/2024 4:31 PM [facility] WRITER / RUNNER [facility] [address] [place] [address] EXAMINATION: Digital bilateral screening mammogram with 3-D [...] * (ABNORMAL) HEMOGLOBIN, GLYCOSYLATED (06/19/2024 8:08 AM [facility] WRITER / RUNNER) HGB A1C 6.4(H) <5.7 % 06/19/2024 9:22 AM KENO WRITER / RUNNER [facility] Comment: INCREASED RISK OF DIABETES <5.7% NON-DIABETES 5.7-6.4% INCREASED RISK FOR FUTURE DIABETES > OR = 6.5 CONSISTENT WITH DIABETES STANDARDS OF MEDICAL CARE IN DIABETES-2010 DIABETES CARE, 33(SUPP 1): S1-S61,2010 ESTIMATED AVG GLUCOSE 137 mg/dL 06/19/2024 9:22 AM [facility] 06/19/2024 8:08 AM [facility] WRITER / RUNNER [facility] Final Result [facility] [address] [place] [address], * LIPID PANEL (06/19/2024 8:08 AM KENO WRITER / RUNNER) CHOLESTEROL 169 <200.0 MG/DL 06/19/2024 8:59 AM [facility] WRITER / RUNNER [facility] TRIGLYCERIDES 81 <150 MG/DL 06/19/2024 8:59 AM [facility] WR[facility] / RUNNER [facility] HDL 55 >40.0 MG/DL 06/19/2024 8:59 AM [facility] LDL (CALCULATED) 98 <100 MG/DL 12/16/20 24 8:59 AM [facility] WRITER / RUNNER [facility] NON HDL CHOLESTEROL 114 <130 MG/DL 06/19 8:59 AM [facility] CHOL/HDL RATIO 3.1 0.0 - 4.5 06/19/2024 8:59 AM [facility] VLDL CALCULATION 16 5 - 55 MG/DL 06/19/2024 8:59 AM [facility] LIPID INTERPRETATION 06/19/2024 8:59 AM [facility] Comment: [facility] CONCENSUS REPORT RECOMMENDATIONS: ADULT CHILD LOW RISK: CHOLESTEROL <200 <170 TRIGLYCERIDE <150 --- HDL >=60 --- LDL <100 <110 BORDERLINE: CHOLESTEROL 200-239 170-199 TRIGLYCERIDE 150-199 --- HDL 40-59 --- LDL 100-159 110-129 HIGH RISK: CHOLESTEROL >=240 >=200 TRIGLYCERIDE >=200 --- HDL <40 --- LDL >=160 >=130 06/19/2024 8:08 AM KENO WRITER / RUNNER us [facility] Final Result [facility] [address] [place] [address], * BONE DENSITY/DEXA (03/10/2022 12:46 PM CDT) [...] Relevant to Health Maintenance Insurance Care Teams Chemistry Lecturer Relationship Specialty Start Date End Date Brittney Stevenson PA [address] [place] [address] PCP - General 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
== END 2024-10-31 07:24 | disposition home or self-care (01) ==
PROVIDERS: PCP Physician Assistant; Visit Provider Plastic Surgery
DX: S62.316D Displaced fracture of base of fifth metacarpal bone, right hand, subsequent encounter for fracture with routine healing (principal); X58.XXXD Exposure to other specified factors, subsequent encounter
CPT/HCPCS: 73130

== ENCOUNTER 2024-12-12 12:22 | Outpatient (CLI) | payer MEDICARE, SELFPAY ==
--- NOTE | ~2024-12-12 | XR_ITS ---
EXAMINATION: XR lg joint inject/asp w image DATE: 12/12/2024 13:21 INDICATION: Right shoulder adhesive capsulitis TECHNIQUE: A time-out was performed to verify the patient's name, date of , and procedure to b e performed. The procedure including the risks, benefits, and alternatives was discussed with the pat ient. Risks discussed included bleeding and infection. The patient understood the risks and agreed to proceed. The skin overlying the rotator cuff interval of the right glenohumeral joint was prepped a nd draped in usual sterile fashion. Anesthetic was administered with 1% lidocaine subcutaneously. A 22 G needle was advanced under fluoroscopic guidance into the joint. Injection of 1 mL of Omnipaque 240 confirmed intra-articular position of the needle. Subsequently, injectate consisting of 3 mm of a 2:1 mixture of 0.5% Marcaine: 80 mg/mL Depo-Medrol for a total dosage of 80 mg Depo-Medrol was ins tilled. Washout of contrast was seen confirming intra-articular administration. The needle was remove d and the entry site was cleaned and dressed. There were no immediate complications. Fluoroscopy exp osure time was 0.1 minutes. The total number of images was 2. Total DAP was 0.258 Gycm^2. FINDINGS: Real-time fluoroscopy demonstrates the needle in the right glenohumeral joint. Patient's pa in prior to procedure:5/10. Patient's pain following the procedure: 0/10. IMPRESSION: 1. Successful right glenohumeral joint injection of local anesthetic and steroid with decrease in the patient's presenting pain. Reviewed, dictated and finalized at location A. IMPRESSION: 1. Successful right glenohumeral joint injection of local anesthetic and steroi d with decrease in the patient's presenting pain.
--- OUTSIDE RECORDS SUMMARY | 2024-12-12 13:16 | XMS_ITS | Clinical Summary ---
Author Organization [facility] Address [address] [place] [address] Care Team Providers Care Software Development Coordinator Name Role Phone Manisha Mann MD Primary Care Provider [phone] Source Comments [facility],non-owned Affiliates and Associated Physician Practices is amultiple site organization consisting of ambulatory clinics and hospital sitesin [place], [place] and [place]. This disclosure is being madepursuant to the Care Everywhere program and may not contain all information available regarding this patient. Last updated 18.[facility] [employer] Social History Tobacco Use Types Packs/Day Years [...] patient's age to complete this topic Insurance [place] [id number] [facility] MANAGED MEDICARE ADV Care Teams Software Development Coordinator Relationship Specialty Start Date End Date Manisha Mann MD [address] [place] [phone] [facility] - General 04/24/21
--- OUTSIDE RECORDS SUMMARY | 2024-12-12 13:17 | XMS_ITS | Clinical Summary ---
Author Organization [facility] Address [address] [place] [address] Care Team Providers Care Resource Agent Name Role Phone Unavailable Primary Care Provider [...]
--- OUTSIDE RECORDS SUMMARY | 2024-12-12 13:17 | XMS_ITS | Data Portability ---
Author Organization [place] [facility], Main Office Address [address] [place] [address] Care Team Providers Care Vision Rehabilitation Therapist Name Role Phone BRITTNEY STEVENSON Primary Care Provider [phone] BRITTNEY STEVENSON Referring Provider Assessment Encounter Date Assessment Date [...] more than half the time spent in qnmp-hj-jlpt care. Not available 01/29/2023 18:58:10 02/19/2023 02/19/2023 [...] If her patellofemoral arthritis become severe and oehc-nn-izip and her symptoms are intractable, knee replacement [...] more than half the time spent in dkau-lp-qgga care. Not available 02/19/2023 10:12:20 Plan of Treatment Reminders Order Date Submit Date Provider Last Modified By Organization Details Last Modified Time Details Appointments None recorded. Lab HbA1c (hemoglobin A1c), blood [address], [address] Heri Dougherty, [place], [address], 4 18:01:51 microalbumi n/creatinin e, mass ratio, urine [address], [address] Heri Burger, [place], [address], 4 18:01:51 microalbumi n, urine [address], [address] Heri Burgere, [place], [address], 4 18:01:51 CBC w/ auto diff [address], [address] [facility] [place], [address], 4 18:01:50 BMP, serum or plasma [address], [address] Heri Burger, [place], [address], 4 18:01:50 hepatic function panel, serum [address], [address] [place], [address], 4 18:01:51 TSH + free T4, serum [address], [address] Heri Burgere, [place], [address], 4 18:01:51 lipid panel, serum 2022 023 [facility], [address] [address], [place], [address], 4 18:01:51 Referral None recorded. Procedures injection/a spiration joint/bursa (PROC) - in office procedure, administere d by provider 2022 023 [email or web address] In-Office Order, Internal Use Only DO Not Attach Compendium DO Not Attach Compendium, Do Not Delete/merge, [id number] 3 09:42:55 Surgeries None recorded. Imaging XR, knee 2022 023 [email or web address] [facility], [address] [facility] [address], [place], [address], 3 09:54:30 MRI, knee, w/o contrast - GIVE THE PT A CD OF IMAGES 2022 023 ANN [facility] ([facility]), [address] [address], [place], [address], 3 19:34:18 MAMMO, screening, digital, bilateral [email or web address] [place] [address] - Radiology, [address] [place], [address], 3 12:26:21 Medication Orders Kenalog 10 mg/mL suspension for injection 2022 023 [email or web address] 4 [facility] [address], [place], [address], 3 12:11:16 ropivacaine (PF) 5 mg/mL (0.5 %) injection solution [email or web address] [place] [address] [address], [address] [facility] [address], [place], [address], 3 12:11:18 omeprazole 40 mg capsule,del ayed release 2022 023 [facility] [address], [address] [facility] [address], [place], [address], 3 12:19:32 Patient TargetsNo targets recorded. Patient InstructionsNo instructions recorded. Reason for Referral None Reported. Results Created Date Observation Date Name Description Value Unit Range Abnormal Flag Note LastModifiedBy Organization Detail LastModifiedTime 01/30/20 XR, knee No observ ation record ed. [facility] [place] [address] [facility] [address], [place], [address], 01/29/2023 18:57:19 02/17/20 23 02/14/2023 MRI, knee, w/o contr ast No observ ation record ed. [facility] [address] [place], [address], 02/17/2023 09:48:33 02/20/20 23 02/16/2023 MRI, knee, [...] Organization Details Recorded Time Lumbar radiculopa thy 180903042 Active 2021 Not Available [facility] 3 00:53:36 Chronic pain in coccyx for more than three months 4310991329499 05 Active 2019 Not Available [facility] 3 00:53:36 Tenosynovi tis of right radial styloid 6521810808169 9100 Active 2021 Not Available [facility] 3 00:53:36 Right flank pain 841222061 Active 2021 Not Available [facility] 3 00:53:36 Insomnia 120866105 Active Not Available [facility] 3 00:53:36 Steatotic liver disease 336855669 Active 2021 Not Available [facility] 3 00:53:37 Localized, primary osteoarthr itis of the hand 709377414 Active Not Available [facility] 3 00:53:37 Chronic cholecysti tis 97984661 Active Not Available [facility] 3 00:53:37 Abdominal pain 51362647 Active Not Available [facility] 3 00:53:37 Mixed anxiety and depressive disorder 627221944 Active 2021 Not Available [facility] 3 00:53:37 Gastroesop hageal reflux disease 054883312 Active Not Available [facility] 3 00:53:37 Gallstone 962657575 Active Not Available [facility] 3 00:53:37 Screening mammograph y Active 2021 Not Available [facility] 3 00:53:37 Gastroesop hageal reflux disease without esophagiti s 878894338 Active 2021 Not Available [facility] 3 00:53:37 Long-term drug therapy Active 2021 Not Available [facility] 3 00:53:37 History of peptic ulcer 907129987 Active 2021 Not Available [facility] 3 00:53:37 Screening for malignant neoplasm of colon Active 2021 Not Available [facility] 3 00:53:38 Chest pain 98743523 Active 2021 Not Available [facility] 3 00:53:38 Injury of tendon of the rotator cuff of shoulder 129863846 Active Not Available [facility] 3 00:53:38 Pain of left wrist 9631306317793 02 Active 2021 Not Available [facility] 3 00:53:38 Vitamin D deficiency 12434019 Active Not Available [facility] 3 00:53:38 Depressive disorder 81813657 Active Not Available [facility] 3 00:53:38 Osteoarthr osis of the carpometac arpal joint of the thumb 34836202 Active 2018 Not Available [facility] 3 00:53:38 Osteoarthr itis 157264678 Active Not Available [facility] 3 00:53:38 Diverticul ar disease 333219622 Active Not Available [facility] 3 00:53:38 Acute urinary tract infection 852070887 Active Not Available [facility] 3 00:53:38 Dyssomnia 86087855 Active 2021 Not Available [facility] 3 00:53:39 Uncontroll ed type 2 diabetes mellitus 007935359 Active 2021 Not Available [facility] 3 00:53:39 Well controlled type 2 diabetes mellitus 699029155 Active 2021 Not Available [facility] 3 00:53:39 Upper respirator y infection 13228472 Active Not Available [facility] 3 00:53:39 Lower abdominal pain 02097740 Active Not Available [facility] 3 00:53:39 Hyperlipid emia 05963345 Active Not Available [facility] 3 00:53:39 Increased liver function 60080852 Active Not Available [facility] 3 00:53:39 Precordial pain 29127703 Active 2021 Not Available [facility] 3 00:53:39 Sleep apnea 18269621 Active 2021 Not Available [facility] 3 00:53:39 Pain of elbow region 21763572 Active Not Available [facility] 3 00:53:40 Postmenopa usal state 16193099 Active 2021 Not Available [facility] 3 00:53:40 Neck pain 13717814 Active 2021 Not Available [facility] 3 00:53:40 Fatigue 86251115 Active Not Available [facility] 3 00:53:40 Gout 29636987 Active 2021 Not Available [facility] 3 00:53:40 Pain in limb 05089605 Active Not Available [facility] 3 00:53:40 Pain of right knee joint 6666240354890 00 Active 2022 Jennifer Granados RMA null, [place] [facility] 3 10:43:26 Pain of left knee joint 0958768595134 07 Active 2022 Jennifer Granados RMA null, [place] [facility] 3 10:43:46 Problem Notes None recorded. Procedures Surgical History Date Name Laterality Status Provider Name and Address Organization Details Recorded Time Date of Last Colonoscopy completed Not Available [facility] 09/02/2022 00:47:55 Colonoscopy completed Not Available [facility] 09/02/2022 00:47:57 Carpal tunnel completed Not Available [facility] 09/02/2022 00:47:57 rhinoseptoplasty completed Not Available [facility] 09/02/2022 00:47:57 Hysterectomy completed Not Available [facility] 09/02/2022 00:47:57 removal of ectopic fetus completed Not Available [facility] 09/02/2022 00:47:57 Cataract Surgery completed Not Available [facility] 09/02/2022 00:47:57 Appendectomy completed Not Available [facility] 09/02/2022 00:47:57 Cholecystectomy completed Not Available [facility] 09/02/2022 00:47:57 Imaging Results None recorded. Procedure Notes None recorded. Medical Equipment None [...] e, administ ered by provider 06/22 completed [facility]: [phone] 4-20 Not Available Not Available Not [...] administ ered by the provider 12/11 completed [facility]: 0409-427 6-17 Not Available Not Available Not Available Durezol 0.05 % eye drops 04/13 completed Not Available Not Available Not Available Besivance 0.6 % eye drops,rubia pension 04/13 completed Not Available Not Available Not Available ropivacai ne (PF) 5 mg/mL (0.5 %) injection solution in office procedur e, administ ered by provider 06/22 completed [facility] [address]-36 10-03 Not Available Not Available Not Available Ilevro 0.3 % eye drops,rubia pension 04/13 completed Not Available Not Available Not Available Prolensa 0.07 % eye drops 04/13 completed Not Available Not Available Not Available Trulicity 1.5 mg/0.5 mL subcutane ous pen injector INJECT 1.5 MG SUBCUTAN EOUSLY ONCE A WEEK 07/01 completed Not Available Not Available Not Available Fluzone Quad 2016-(P F) 60 mcg(15 mcgx4)/0. 5 mL intramusc [...] % 97 % 67 /min 97.5 [degF] 10286.1 5 g 128 mm[Hg] 70 mm[Hg] Not Available [facility] 3 00:51:10 Date Recorded Body height Body mass index (BMI) Body weight Heart rate Oxygen saturation Oxygen saturation in Arterial blood by Pulse oximetry Body temperature Systolic blood pressure Diastolic blood pressure Provider Name and Address Organization Details Last Updated DateTime 3 157.48 cm 30.2 kg/m2 15481.7 4 g 59 /min 97 % 97 % 97.9 [degF] 126 mm[Hg] 76 mm[Hg] Magui López RN [facility] 3 11:44:58 Date Recorded Body height Body mass index (BMI) Body weight Provider Name and Address Organization Details Last Updated DateTime 01/29/2023 154.94 cm 31.4 kg/m2 34596.33 g JORGE LUIS Fair [place] [employer] [facility] 01/29/2023 11:13:01 Date Recorded Body height Provider Name an d Address Organization Details Last Updated DateTime 02/19/2023 154.94 cm JORGE LUIS Fair [employer] [facility] 02/19/2023 08:54:52 Date Recorded Systolic blood pressure Diastolic blood pressure Provider Name and Address Organization Details Last Updated DateTime 06/24/2023 130 mm[Hg] 80 mm[Hg] MARY Hernandez [address] [place] [address], [place], [address], [place] [employer] [facility] 06/24/2023 12:31:01 Date Recorded Body height Body mass index (BMI) Body weight Respiratory rate Oxygen saturation Oxygen saturation in Arterial blood by Pulse oximetry Heart rate Systolic blood pressure Diastolic blood pressure Provider Name and Address Organization Details Last Updated DateTime 3 154.94 cm 30.9 kg/m2 74603.3 5 g 16 /min 98 % 98 % 62 /min 122 mm[Hg] 80 mm[Hg] JORGE LUIS Gibbs [place] [facility] 3 11:41:41 Social History Question Answer Notes LastModified by Organizat ion Details LastModified Time Tobacco Smoking Status Never Smoker Not Available [facility] 09/02/2022 00:47:05 Do You Have An Advance Directive? No MIGRATION.99474 54239 Information not available 09/02/2022 Are You Blind Or Do You Have Difficulty Seeing? Yes MIGRATION.67911 97567 Information not available 09/02/2022 What Is Your Level Of Caffeine Consumption? Occasional MIGRATION.47822 99238 Information not available 09/02/2022 What Is Your Code Status? Full Code MIGRATION.36373 55100 Information not available 09/02/2022 In The 14 Days Before Symptom Onset, Have You Had Close Contact With A Laboratory-confir med COVID-19 While That Case Was Ill? No MIGRATION.37409 03023 Information not available 09/02/2022 In The 14 Days Before Symptom Onset, Have You Had Close Contact With A Person Who Is Under Investigation For COVID-19 While That Person Was Ill? No MIGRATION.01386 68999 Information not available 09/02/2022 Are You Deaf Or Do You Have Serious Difficulty Hearing? No MIGRATION.87576 43314 Information not available 09/02/2022 What Type Of Diet Are You Following? REGULAR MIGRATION.05871 25470 Information not available 09/02/2022 Which Illicit Or Recreational Drugs Have You Used? No MIGRATION.44268 35510 Information not available 09/02/2022 Have There Been Any Changes To Your Family Or Social Situation? No MIGRATION.27150 21750 Information not available 09/02/2022 What Is The Fluoride Status Of Your Home? Unknown MIGRATION.05130 10675 Information not available 09/02/2022 Are There Any Guns Present In Your Home? Yes MIGRATION.64905 43020 Information not available 09/02/2022 Do You Use Insect Repellent Routinely? No MIGRATION.91688 46891 Information not available 09/02/2022 Where Do You Live? [place] MIGRATION.08062 84873 Information not available 09/02/2022 Do You Have A Medical Power Of Video And Sound Recorder? No MIGRATION.67809 98477 Information not available 09/02/2022 What Was The Date Of Your Most Recent Tobacco Screening? 12/05/2021 MIGRATION.45852 39899 Information not available 09/02/2022 Do You Have Any Pets? No MIGRATION.95543 16359 Information not available 09/02/2022 What Is Your Relationship Status? MIGRATION.03121 52976 Information not available 09/02/2022 Do You Use Your Seat Belt Or Car Seat Routinely? Yes MIGRATION.33611 59331 Information not available 09/02/2022 Do You Have Smoke And Carbon Monoxide Detectors In Your Home? Yes MIGRATION.79130 37707 Information not available 09/02/2022 Are You Passively Exposed To Smoke? No MIGRATION.87926 14649 Information not available 09/02/2022 Are There Any Smokers In Your House? No MIGRATION.86054 01228 Information not available 09/02/2022 How Much Tobacco Do You Smoke? No MIGRATION.62748 37334 Information not available 09/02/2022 Do You Use Sunscreen Routinely? Yes MIGRATION.02778 41022 Information not available 09/02/2022 Have You Recently Traveled Abroad? No MIGRATION.29428 68748 Information not available 09/02/2022 Do You Have Difficulty Walking Or Climbing Stairs? Yes MIGRATION.60482 62687 Information not available 09/02/2022 Do You Have Any Dietary Restrictions? No MIGRATION.35097 87100 Information not available 09/02/2022 Sex: Unknown Functional Status Question Answer Note LastModified by Organizat ion Details LastModified Time Do you use any illicit or recreational drugs? No MIGRATION.265431 7204 Information not available 09/02/2022 Do you or have you ever used any other forms of tobacco or nicotine? No MIGRATION.025929 7376 Information not available 09/02/2022 What is your level of alcohol consumption? None MIGRATION.198241 6432 Information not available 09/02/2022 Do you or have you ever used smokeless tobacco? Never used smokeless tobacco MIGRATION.165871 0328 Information not available 09/02/2022 Do you have transportation difficulties? No MIGRATION.238333 6847 Information not available 09/02/2022 Are you able to walk? YESWOREST MIGRATION.839777 6464 Information not available 09/02/2022 Do you have difficulty doing errands alone? No MIGRATION.991757 1612 Information not available 09/02/2022 Are you able to care for yourself? Yes MIGRATION.684273 5758 Information not available 09/02/2022 Do you have difficulty dressing or bathing? No MIGRATION.580609 9036 Information not available 09/02/2022 Do you or have you ever used e-cigarettes or vape? Never used electronic cigarettes MIGRATION.386373 2868 Information not available 09/02/2022 What is your exercise level? Occasional MIGRATION.945663 5469 Information not available 09/02/2022 Mental Status Question Answer Note LastModified by Organizat ion Details LastModified Time Do you feel stressed (tense, restless, nervous, or anxious, or unable to sleep at night)? [id number] MIGRATION.77653912 26 Information not available 09/02/2022 Do you have difficulty concentrating, remembering or making decisions? Yes MIGRATION.82410827 26 Information not available 09/02/2022 Family History Relationship Description Onset Age of this Age Resolved Age Notes LastModified by Organization Details LastModified Time Son Complication of anesthesia MIGRATION.352 1459790 Not available 09/02/2022 00:48:00 Unspecified Relation Family history of stroke grandf ather MIGRATION.170 6966356 Not available 09/02/2022 00:48:00 Unspecified Relation Family history of malignant neoplasm uncle MIGRATION.660 8550258 Not available 09/02/2022 00:48:00 Unspecified Relation Diabetes mellitus grandm other MIGRATION.256 7322068 Not available 09/02/2022 00:48:00 Unspecified Relation Heart disease MIGRATION.274 9141035 Not available 09/02/2022 00:48:00 Father Hypertensive disorder MIGRATION.770 7749091 Not available 09/02/2022 00:48:00 Father Sepsis MIGRATION.103 7408125 Not available 09/02/2022 00:48:00 Father Methicillin resistant Staphylococc us aureus infection MIGRATION.324 6092763 Not available 09/02/2022 00:48:00 Mother Cirrhosis - non-alcoholi c MIGRATION.684 2188105 Not available 09/02/2022 00:48:00 Mother Diabetes mellitus MIGRATION.576 2537059 Not available 09/02/2022 00:48:00 Brother Asthma MIGRATION.720 8134536 Not available 09/02/2022 00:48:00 Sister Myocardial infarction MIGRATION.703 4790344 Not available 09/02/2022 00:48:00 Sister Chronic hepatitis C MIGRATION.231 2086767 Not available 09/02/2022 00:48:00 Notes:cancer, blood clots [...] HAVE YOU BEEN HOSPITALIZED OR SEEN IN [facility] IN THE PAST YEAR ? Y Gynecological [...] trivalent, PF 04/03/2013 completed Not Available [facility] 2022 01:02:00 COVID-19, mRNA, LNP-S, PF, 30 mcg/0.3 mL dose 10/02/2020 completed Not Available [facility] 3 01:02:00 COVID-19, mRNA, LNP-S, PF, 30 mcg/0.3 mL dose 09/02/2020 completed Not Available [facility] 3 01:02:00 Past Encounters Encounter ID Performer Location Encounter Start Date Encounter Closed Date Diagnosis/Indication Diagnosis SNOMED-CT Code Diagnosis ICD10 Code Diagnosis Note [id number] Juan Duque MD [facility] [place] [address] [place] [address] 09/10/2020 00:00:00 09/10/2020 14:52:15 [id number] Juan Duque MD [facility] [place] [address] [place] [address] 10/08/2020 00:00:00 10/08/2020 14:51:17 [id number] MARY Hernandez [facility] [place] [address] [place] [address] 12/11/2020 00:00:00 12/12/2020 09:43:20 [id number] [facility] _ATHENA_M IGRATION_ DEFAULT_1 _1 , 12/26/2020 00:00:00 12/26/2020 18:55:30 [id number] MARY Hernandez [facility] [place] [address] [place] [address] 03/03/2021 00:00:00 03/03/2021 21:50:49 [id number] Juan Duque MD [facility] [place] [address] [place] [address] 06/03/2021 00:00:00 06/03/2021 16:40:41 [id number] MARY Hernandez [facility] [place] [address] [place] [address] 09/03/2021 00:00:00 10/02/2021 19:25:25 [id number] Juan Duque MD [facility] [place] [address] [place] [address] 09/26/2021 00:00:00 09/26/2021 09:52:56 [id number] Juan Duque MD [facility] [place] [address] [place] [address] 10/24/2021 00:00:00 10/24/2021 11:00:23 [id number] Juan Duque MD [facility] [place] [address] [place] [address] 12/05/2021 00:00:00 12/05/2021 10:03:29 [id number] Rashad Osman MD [facility] [place] [address] [place] [address] 12/16/2021 00:00:00 2022 15:50:28 [id number] Rashad Osman MD [facility] [place] [address] [place] [address] 03/05/2022 00:00:00 03/05/2022 09:43:50 [id number] Juan Duque MD [facility] [place] [address] [place] [address] 03/10/2022 00:00:00 03/10/2022 12:24:59 [id number] MARY Hernandez [facility] [place] [address] [place] [address] 07/21/2022 00:00:00 08/04/2022 21:10:07 [id number] MARY Hernandez [facility] [place] [address] [place] [address] 01/18/2023 11:37:44 01/18/2023 12:38:06 Well controlled type 2 diabetes mellitus 375459622 E11.9 stable on trulicity and glipizide therapy. A1c 6.3%. repeat labs in Jun. Screening mammography 24 037786 Z12.31 mammogram ordered Mixed anxi ety and depressive disorder 931991092 F41.8 stable on venlafaxin e ER 150mg daily. Long-term drug therapy 828416315 Z79.899 next full lab panel due in Jun. History of peptic ulcer 718744000 Z87.11 refill omeprazole 40mg daily Gastroesop hageal reflux disease without esophagitis 881129702 K21.9 stable on PPI therapy and EGD was up to date Hyperlipidemia 86250917 E78.5 stable on statin therapy, repeat labs due in Jun [id number] Lc Morrison MD [facility] [place] [address] [place] [address] 01/29/2023 10:39:37 02/01/2023 09:54:30 Pain of left knee joint 2972345720 14505 M25.562 [id number] Lc Morrison MD [facility] [place] [address] [place] [address] 02/19/2023 08:49:17 02/19/2023 10:28:02 Pain of left knee joint 7886165263 11845 M25.892 [id number] MARY Hernandez [facility] [place] [address] [place] [address] 06/24/2023 11:32:48 06/24/2023 12:31:15 Well controlled type 2 diabetes mellitus 071645058 E11.9 stable on trulicity and glipizide therapy. A1c 6.1%. Mixed anxi ety and depressive disorder 179527256 F41.8 stable on venlafaxin e ER 150mg daily. Gastroesop hageal reflux disease without esophagitis 259393264 K21.9 stable on PPI therapy and EGD was up to date Hyperlipidemia 43055843 E78.5 stable on statin therapy, Long-term drug therapy 575193797 Z79.899 History of peptic ulcer 618673218 Z87.11 Health Concerns Section Related Observation LastModified by Organization Detai ls LastModified Time None Recorded Concern Status LastModified by Organization Details LastModified Time None Recorded Advance Directives Directive N: Payers Encounter Date Sequence Insurance Name Policy Number Policy Smith Covered Member ID Smith Member ID Guarantor Name 01/18/2023 1 [facility] (MEDICARE REPLACEMENT/A DVANTAGE - HMO) [id number] Savannah Portillo [id number] Savannah Portillo 01/29/2023 1 [facility] (MEDICARE REPLACEMENT/A DVANTAGE - HMO) [id number] Savannah Portillo [id number] Savannah Portillo 02/19/2023 1 [facility] (MEDICARE REPLACEMENT/A DVANTAGE - HMO) [id number] Savannah Portillo [id number] Savannah Portillo 06/24/2023 1 [facility] (MEDICARE REPLACEMENT/A DVANTAGE - HMO) [id number] Savannah Portillo [id number] Savannah Portillo Notes Date Note Type Note [...] appetite good; energy good; no apathy; maintaining functionality DiabetesReported bypatient.Control:worsened since last visit;home blood sugar range [...] early satiety; no halitosis;fatigue;throat pain Not Available [place] - [facility] 08/04/2022 21:10:07 023 text/ht ml Anxiety/DepressionReported bypatient.Quality:doesnt [...] fatigue; no throat pain MARY Hernandez [address], [facility] [address], [place], [address], [facility] [employer] [facility] 02/01/2023 00:50:10 023 text/ht ml Patient is a 68-year-old female referred by Dr. Stevenson for evaluation of her left knee. She [...] of gout. Lc Morrison MD [address], [facility] [address], [place], [address], [facility] [employer] [facility] [employer] [facility] 01/29/2023 18:58:32 023 text/ht ml Anxiety/DepressionReported bypatient.Quality:doesnt [...] fatigue; no throat pain MARY Hernandez [address] [facility], [place] [address], [place], [address], [facility] 06/29/2023 17:37:21 OBGyn Episode No OBEpisode recorded.
--- OUTSIDE RECORDS SUMMARY | 2024-12-12 13:17 | XMS_ITS | Data Portability ---
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 Plan of Treatment Reminders Order Date Submit Date Provider Last Modified By Organization Details Last Modified Time Details Appointments ANY 15 2024 10:30A M MARY Hernandez Not available Not available Not available Lab BMP, serum or plasma [address] Lab, [address], [place], [address], 06/22/2024 11:02:27 CBC w/ auto diff [address] Lab, [address], [place], [address], 06/22/2024 11:02:27 hepatic function panel, serum [address] Lab, [address], [place], [address], 06/22/2024 11:02:27 HbA1c (hemoglob in A1c), blood [address] Lab, [address], [place], [address], 06/22/2024 11:02:27 lipid panel, serum 2023 025 [email or web address] [facility], [address], [place], [address], 06/22/2024 11:02:27 BMP, serum or plasma [address] [facility] [place] [facility], [address], [place], [address], 06/19/2024 10:10:05 CBC w/ auto diff [address] [facility] [place] [facility], [address], [place], [address], 06/19/2024 10:15:11 hepatic function panel, serum [address] [facility] [address] [facility], [address], [place], [address], 06/19/2024 10:10:58 HbA1c (hemoglob in A1c), blood [address] [facility] [place] [facility], [address], [place], [address], 06/19/2024 10:32:01 microalbu min, urine [address] [facility] [place] [facility], [address], [place], [address], 06/19/2024 12:46:44 lipid panel, serum [address] [facility] [address] Lab, [address], [place], [address], 06/19/2024 10:09:24 Referral None recorded. Procedures None recorded. Surgeries None recorded. Imaging None recorded. Medication Orders Trulicity 4.5 mg/0.5 mL subcutane ous pen injector 2023 024 ANN [facility], [address], [address], 06/22/2024 11:03:03 Trulicity 3 mg/0.5 mL subcutane ous pen injector 2023 024 [email or web address] [facility], [address] [facility], [place], [address], 01/09/2024 10:47:46 Patient TargetsNo targets recorded. Patient Instructions Encounter Date Encounter Id Patient Instructions Last Modified By Organization Details Last Modified Time 06/22/2024 [id number] A healthy lifestyle: care instructions [email or web address] Not [...] 3.74 uIU/m L 12/06 8:14 AM CDT [facility] Not Available Not Available 10/24/2024 11:01:28 12/07/19 24 12/07/2023 CBC W Auto Diffe renti al panel - Blood leukocytes [#/volume] in blood by automated count 8.82 text: 4.4 - 11.0 x10'3/ uL WBC 8.82 4.4 - 11.0 x10'3 /uL 12/06 7:49 AM CDT [facility] Not Available Not Available 10/24/2024 11:01:28 12/07/19 24 12/07/2023 CBC W Auto Diffe renti al panel - Blood erythrocytes [#/volume] in blood by automated count 4.87 text: 4.50 - 5.10 x10'6/ uL RBC 4.87 4.50 - 5.10 x10'6 /uL 12/06 7:49 AM CDT [facility] Not Available Not Available 10/24/2024 11:01:28 12/07/19 24 12/07/2023 CBC W Auto Diffe renti al panel - Blood hemoglobin [mass/volume ] in blood 13.7 text: 12.3 - 15.3 g/dL HGB 13.7 12.3 - 15.3 G/DL 12/06 7:49 AM CDT [facility] Not Available Not Available 10/24/2024 11:01:12/07/1912/07/2023 CBC W Auto Diffe renti al panel - Blood hematocrit [volume fraction] of blood by calculation 44.2 % low: 35.9%h igh: 44.6% HCT 44.2 35.9 - 44.6 % 12/06 7:49 AM CDT [facility] Not Available Not Available 10/24/2024 11:01:28 12/07/1912/07/2023 CBC W Auto Diffe renti al panel - Blood MCV [entitic mean volume] in red blood cells 90.8 text: 80.0 - 96.0 fL MCV 90.8 80.0 - 96.0 FL 12/06 7:49 AM CDT [facility] Not Available Not Available 10/24/2024 11:01:28 12/07/19 24 12/07/2023 CBC W Auto Diffe renti al panel - Blood MCH [entitic mass] 28.1 pg low: 25.3pg high: 30.9pg MCH 28.1 25.3 - 30.9 PG 12/06 7:49 AM CDT [facility] Not Available Not Available 10/24/2024 11:01:28 12/07/19 24 12/07/2023 CBC W Auto Diffe renti al panel - Blood MCHC [entitic mass/volume] in red blood cells 31 text: 31.0 - 34.1 g/dL MCHC 31.0 31.0 - 34.1 G/DL 12/06 7:49 AM CDT [facility] Not Available Not Available 10/24/2024 11:01:28 12/07/19 24 12/07/2023 CBC W Auto Diffe renti al panel - Blood RDW 13.5 % low: 12.4%h igh: 15.1% RDW 13.5 12.4 - 15.1 % 12/06 7:49 AM CDT [facility] Not Available Not Available 10/24/2024 11:01:28 12/07/19 24 12/07/2023 CBC W Auto Diffe renti al panel - Blood platelets [#/volume] in blood 364 text: 151 - 353 x10'3/ uL high PLT 364 (H) 151 - 353 x10'3 /uL 12/06 7:49 AM CDT [facility] () [facility] Not Available Not Available 10/24/2024 11:01:28 12/07/19 24 12/07/2023 CBC W Auto Diffe renti al panel - Blood platelet [entitic mean volume] in blood 10.2 text: 9.6 - 12.0 fL MPV 10.2 9.6 - 12.0 FL 12/06 7:49 AM CDT [facility] Not Available Not Available 10/24/2024 11:01:28 12/07/19 24 12/07/2023 CBC W Auto Diffe renti al panel - Blood erythrocytes [morphology] in blood by automated count NORMAL RBC MORPH OLOGY GLENDY L 12/06 7:49 AM CDT [facility] Not Available Not Available 10/24/2024 11:01:28 12/07/19 24 12/07/2023 CBC W Auto Diffe renti al panel - Blood platelet morphology finding [identifier] in blood NORMAL PLT MORPH . GLENDY L 12/06 7:49 AM CDT [facility] () [facility] Not Available Not Available 10/24/2024 11:01:28 12/07/19 24 12/07/2023 CBC W Auto Diffe renti al panel - Blood leukocyte morphology finding [identifier] in blood NORMAL WBC MORPH OLOGY GLENDY L 12/06 7:49 AM CDT [facility] () [facility] Not Available Not Available 10/24/2024 11:01:28 12/07/19 24 12/07/2023 CBC W Auto Diffe renti al panel - Blood lymphocytes/ leukocytes in blood by automated count 33.9 % low: 15.8%h igh: 45% LYMPH OCYTE S % 33.9 15.8 - 45.0 % 12/06 7:49 AM CDT [facility] () [facility] Not Available Not Available 10/24/2024 11:01:28 12/07/19 24 12/07/2023 CBC W Auto Diffe renti al panel - Blood neutrophils/ leukocytes in blood by automated count 57 % low: 42.1%h igh: 71.9% NEUTR OPHIL S % 57.0 42.1 - 71.9 % 12/06 7:49 AM CDT [facility] () [facility] Not Available Not Available 10/24/2024 11:01:28 12/07/19 24 12/07/2023 CBC W Auto Diffe renti al panel - Blood monocytes/le ukocytes in blood by automated count 6.8 % low: 5.7%hi gh: 12.5% MONOC YTES % 6.8 5.7 - 12.5 % 12/06 7:49 AM CDT [facility] () [facility] Not Available Not Available 10/24/2024 11:01:28 12/07/19 24 12/07/2023 CBC W Auto Diffe renti al panel - Blood eosinophils/ leukocytes in blood by automated count 1.5 % low: 0%high : 5.6% EOSIN OPHIL S 1.5 0.0 - 5.6 % 12/06 7:49 AM CDT [facility] Not Available Not Available 10/24/2024 11:01:28 12/07/19 24 12/07/2023 CBC W Auto Diffe renti al panel - Blood basophils/le ukocytes in blood by automated count 0.3 % low: 0%high : 1.3% BASOP HILS 0.3 0.0 - 1.3 % 12/06 7:49 AM CDT [facility] Not Available Not Available 10/24/2024 11:01:28 12/07/19 24 12/07/2023 CBC W Auto Diffe renti al panel - Blood neutrophils [#/volume] in blood 5.03 text: 1.40 - 6.00 x10'3/ uL ABS. NEUTR OPHIL S 5.03 1.40 - 6.00 x10'3 /uL 12/06 7:49 AM CDT [facility] Not Available Not Available 10/24/2024 11:01:28 12/07/19 24 12/07/2023 CBC W Auto Diffe renti al panel - Blood immature granulocytes /leukocytes in blood by automated count 0.5 % low: 0%high : 0.5% IMMAT URE GRANS % 0.5 0.0 - 0.5 % 12/06 7:49 AM CDT [facility] Not Available Not Available 10/24/2024 11:01:28 12/07/19 24 12/07/2023 CBC W Auto Diffe renti al panel - Blood lymphocytes [#/volume] in blood 2.99 text: 0.80 - 4.70 x10'3/ uL ABS. LYMPH OCYTE S 2.99 0.80 - 4.70 x10'3 /uL 12/06 7:49 AM CDT [facility] Not Available Not Available 10/24/2024 11:01:28 [...] - 8.2 G/DL 12/06 8:14 AM CDT [facility] Not Available Not Available 10/24/2024 11:01:28 12/07/19 24 12/07/2023 Hepat ic funct ion 2000 panel - Serum or Plasm a albumin [mass/volume ] in serum or plasma 3.7 text: 3.4 - 5.0 g/dL ALBUM IN S/P/B 3.7 3.4 - 5.0 G/DL 12/06 8:14 AM CDT [facility] Not Available Not Available 10/24/2024 11:01:28 12/07/19 24 12/07/2023 Hepat ic funct ion 2000 panel - Serum or Plasm a bilirubin.to antonio [mass/volume ] in serum or plasma 0.6 text: 0.2 - 1.2 mg/dL BILIR UBIN TOTAL S/P/B 0.6 0.2 - 1.2 MG/DL 12/06 8:14 AM CDT [facility] Not Available Not Available 10/24/2024 11:01:28 12/07/19 24 12/07/2023 Hepat ic funct ion 2000 panel - Serum or Plasm a bilirubin.co njugated [mass/volume ] in serum or plasma 0.1 text: 0.0 - 0.20 mg/dL BILIR UBIN DIREC T S/P/B 0.1 0.0 - 0.20 MG/DL 12/06 8:14 AM CDT [facility] Not Available Not Available 10/24/2024 11:01:28 12/07/19 24 12/07/2023 Hepat ic funct ion 1999 panel - Serum or Plasm a bilirubin.in direct [mass/volume ] in serum or plasma 0.5 text: 0.0 - 0.9 mg/dL BILIR UBIN INDIR ECT S/P/B 0.5 0.0 - 0.9 MG/DL 12/06 8:14 AM CDT [facility] () [facility] Not Available Not Available 10/24/2024 11:01:28 12/07/19 24 12/07/2023 Hepat ic funct ion 1999 panel - Serum or Plasm a alkaline phosphatase [enzymatic activity/vol ume] in serum or plasma 126 U/L low: 50U/Lh igh: 136U/L ALKAL INE PHOSP HATAS E S/P/B 126 50 - 136 U/L 12/06 8:14 AM CDT [facility] () [facility] Not Available Not Available 10/24/2024 11:01:28 12/07/19 24 12/07/2023 Hepat ic funct ion 2000 panel - Serum or Plasm a aspartate aminotransfe rase [enzymatic activity/vol ume] in serum or plasma 19 U/L low: 15U/Lh igh: 37U/L AST 19 15 - 37 U/L 12/06 8:14 AM CDT [facility] () [facility] Not Available Not Available 10/24/2024 11:01:28 12/07/19 24 12/07/2023 Hepat ic funct ion 2000 panel - Serum or Plasm a alanine aminotransfe rase [enzymatic activity/vol ume] in serum or plasma 22 U/L low: 14U/Lh igh: 55U/L ALT 22 14 - 55 U/L 12/06 8:14 AM CDT [facility] () [facility] Not Available Not Available 10/24/2024 11:01:28 12/07/19 24 12/07/2023 Hepat ic funct ion 2000 panel - Serum or Plasm a albumin/glob ulin [mass ratio] in serum or plasma 1 text: 1.0 - 2.0 ratio A/G RATIO 1.0 1.0 - 2.0 RATIO 12/06 8:14 AM CDT [facility] Not Available Not Available 10/24/2024 11:01:28 12/07/19 24 12/07/2023 Shwetha stero l in LDL [Mass /volu me] in Serum or Plasm a by Direc t assay cholesterol in LDL [mass/volume ] in serum or plasma by direct assay 106 text: <100 mg/dL high DIREC T LDL 106 (H) <100 MG/DL 12/06 8:14 AM CDT [facility] Not Available Not Available 10/24/2024 11:01:28 [...] <200. 0 MG/DL 12/06 8:14 AM T [facility] () [facility] Not Available Not Available 10/24/2024 11:01:28 12/07/19 24 12/07/2023 Lipid 1996 panel - Serum or Plasm a triglyceride [mass/volume ] in serum or plasma 103 text: <150 mg/dL TRIGL YCERI ARI 103 <150 MG/DL 12/06 8:14 AM CDT [facility] Not Available Not Available 10/24/2024 [...] 99 <100 MG/DL 12/06 8:14 AM CDT [facility] Not Available Not Available 10/24/2024 11:01:28 12/07/19 24 12/07/2023 Lipid 1996 panel - Serum or Plasm a cholesterol non HDL [mass/volume ] in serum or plasma 120 text: <130 mg/dL NON HDL SHWETHA STERO L 120 <130 MG/DL 12/06 8:14 AM CDT [facility] Not Available Not Available 10/24/2024 11:01:28 12/07/19 24 12/07/2023 Lipid 1996 panel - Serum or Plasm a cholesterol. total/choles terol in HDL [mass ratio] in serum or plasma 2.9 low: 0high: 4.5 CHOL/ HDL RATIO 2.9 0.0 - 4.5 12/06 8:14 AM CDT [facility] Not Available Not Available 10/24/2024 11:01:28 12/07/19 24 12/07/2023 Lipid 1996 panel - Serum or Plasm a cholesterol in VLDL [mass/volume ] in serum or plasma by calculation 21 text: 5 - 55 mg/dL VLDL CALCU LATIO N 21 5 - 55 MG/DL 12/06 8:14 AM CDT [facility] Not Available Not Available 10/24/2024 11:01:28 12/07/19 24 12/07/2023 Lipid 1996 panel - Serum or Plasm a service comment LIPID INTER PRETA TION 12/06 8:14 AM CDT [facility] Not Available Not Available 10/24/2024 11:01:28 06/04/20 24 12/07/2023 Hemog lobin A1c/H emogl obin. total in Blood hemoglobin A1C/hemoglob in.total in blood 6.1 % high: 5.7% high HGB A1C 6.1 (H) <5.7 % 12/06 8:15 AM CDT [facility] (H) [facility] Not Available Not Available 10/24/2024 11:01:27 12/07/19 24 12/07/2023 Hemog lobin A1c/H emogl obin. total in Blood glucose mean value [mass/volume ] in blood estimated from glycated hemoglobin 128 mg/dL ESTIM ATED AVG GLUCO SE 128 mg/dL 12/06 8:15 AM CDT [facility] Not Available Not Available 10/24/2024 [...] AM CDT [facility] ([facility]) [facility] Not Available Not Available 10/24/2024 11:01:27 12/07/19 24 12/07/2023 Basic metab olic 2000 panel - Serum or Plasm a urea nitrogen [mass/volume ] in serum or plasma 16 text: 7 - 18 mg/dL BUN 16 7 - 18 MG/DL 12/06 8:14 AM CDT [facility] Not Available Not Available 10/24/2024 11:01:27 12/07/19 24 12/07/2023 Basic metab olic 2000 panel - Serum or Plasm a creatinine [mass/volume ] in serum or plasma 0.86 text: 0.55 - 1.02 mg/dL CREAT ININE S/P/B 0.86 0.55 - 1.02 MG/DL 12/06 8:14 AM CDT [facility] ([facility] Not Available Not Available 10/24/2024 11:01:27 12/07/19 24 12/07/2023 Basic metab olic 2000 panel - Serum or Plasm a sodium [moles/volum e] in serum or plasma 142 text: 136 - 145 mmol/L SODIU M S/P/B 142 136 - 145 MMOL/ L 12/06 8:14 AM CDT [facility] ([facility] Not Available Not Available 10/24/2024 11:01:27 12/07/19 24 12/07/2023 Basic metab olic 1999 panel - Serum or Plasm a potassium [moles/volum e] in serum or plasma 3.9 text: 3.5 - 5.1 mmol/L POTAS SIUM S/P/B 3.9 3.5 - 5.1 MMOL/ L 12/06 8:14 AM CDT [facility] ([facility] Not Available Not Available 10/24/2024 11:01:27 12/07/19 24 12/07/2023 Basic metab olic 1999 panel - Serum or Plasm a chloride [moles/volum e] in serum or plasma 104 text: 100 - 108 mmol/L CHLOR MONTEZ S/P/B 104 100 - 108 MMOL/ L 12/06 8:14 AM CDT [facility] Not Available Not Available 10/24/2024 11:01:27 12/07/19 24 12/07/2023 Basic metab olic 1999 panel - Serum or Plasm a carbon dioxide, total [moles/volum e] in serum or plasma 31.8 text: 21 - 32 mmol/L CO2 31.8 21 - 32 MMOL/ L 12/06 8:14 AM CDT [facility] Not Available Not Available 10/24/2024 11:01:27 12/07/19 24 12/07/2023 Basic metab olic 1999 panel - Serum or Plasm a calcium [mass/volume ] in serum or plasma 8.8 text: 8.5 - 10.1 mg/dL CALCI UM S/P/B 8.8 8.5 - 10.1 MG/DL 12/06 8:14 AM CDT [facility] Not Available Not Available 10/24/2024 11:01:27 12/07/19 24 12/07/2023 Basic Formotus olic 2000 panel - Serum or Plasm a anion gap in serum or plasma by calculation 6.2 text: 5 - 15 mmol/L ANION GAP 6.2 5 - 15 MMOL/ L 12/06 8:14 AM CDT [facility] Not Available Not Available 10/24/2024 11:01:27 12/07/19 24 12/07/2023 Basic [employer]imaging Technologyic 2000 panel - Serum or Plasm a urea nitrogen/cre atinine [mass ratio] in serum or plasma 18.6 low: 6high: 26 BUN CREAT ININE RATIO 18.6 6 - 26 12/06 8:14 AM CDT [facility] Not Available Not Available 10/24/2024 11:01:27 12/07/19 24 12/07/2023 Basic [employer] 2000 panel - Serum or Plasm a glomerular filtration rate [volume rate/area] in serum, plasma or blood by creatinine-b ased formula (CKD-epi 2020)/1.73 sq M 74 text: >90 mL/min /1.73 M2 low GFR ESTIM ATE 74 (L) >90 ML/MN N/1.7 3 M2 12/06 8:14 AM CDT [facility] Not Available Not Available 10/24/2024 11:01:27 12/07/19 24 12/07/2023 Basic Formotus olic 2000 panel - Serum or Plasm a interpretati on and review of laboratory results Abnorm al Not Available Not Available 11:01:27 06/19/20 24 06/19/2024 MICRO ALBUM IN CREAT ININE RATIO (MICR OALBU MIN/A LBUMI N) creatinine [mass/volume ] in urine 107.9 text: 28 - 217 mg/dL CREAT ININE (U) 107.9 28 - 217 MG/DL 06/19 11: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 [facility] Not Available Not Available 10/24/2024 11:03:29 06/19/20 24 06/19/2024 MICRO ALBUM IN CREAT ININE RATIO (MICR OALBU MIN/A LBUMI N) microalbumin [mass/volume ] in urine 0.6 mg/dL high: 2mg/dL MICRO ALBUM IN (U) 0.6 <2.0 mg/dL 06/19 11: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 [facility] Not Available Not Available 10/24/2024 11:03:29 06/19/20 24 06/19/2024 MICRO ALBUM IN CREAT ININE RATIO (MICR OALBU MIN/A LBUMI N) microalbumin /creatinine [mass ratio] in urine 5.6 mg/g high: 30mg/g ALBUM IN/CR EAT RATIO 5.6 <30.0 MG/G 06/19 11: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 [facility] Not Available Not Available 10/24/2024 11:03:29 06/19/20 24 06/19/2024 Hepat ic funct ion 2000 panel - Serum or Plasm a protein [mass/volume ] in serum or plasma 7.3 text: 6.4 - 8.2 g/dL TOTAL PROTE IN S/P/B 7.3 6.4 - 8.2 G/DL 06/19 8:59 AM ELECT[employer]IC [employer]CH[employer]IC [email or web address] Not Available Not Available 10/24/2024 11:03:29 06/19/20 24 06/19/2024 Hepat ic funct ion 2000 panel - Serum or Plasm a albumin [mass/volume ] in serum or plasma 3.8 text: 3.4 - 5.0 g/dL ALBUM IN S/P/B 3.8 3.4 - 5.0 G/DL 06/19 8:59 AM ELECT[employer]IC [employer] MECH[employer]IC [facility] Not Available Not Available 10/24/2024 11:03:29 06/19/20 24 06/19/2024 Hepat ic funct ion 1999 panel - Serum or Plasm a bilirubin.to antonio [mass/volume ] in serum or plasma 0.5 text: 0.2 - 1.2 mg/dL BILIR UBIN TOTAL S/P/B 0.5 0.2 - 1.2 MG/DL 06/19 8:59 AM ELECTRONIC ORGAN MECH[employer]IC [facility] Not Available Not Available 10/24/2024 11:03:29 06/19/20 24 06/19/2024 Hepat ic funct ion 1999 panel - Serum or Plasm a bilirubin.co njugated [mass/volume ] in serum or plasma 0.1 text: 0.0 - 0.20 mg/dL BILIR UBIN DIREC T S/P/B 0.1 0.0 - 0.20 MG/DL 06/19 8:59 AM E[employer]CH[employer] [facility] Not Available Not Available 10/24/2024 11:03:29 06/19/20 24 06/19/2024 Hepat ic funct ion 1999 panel - Serum or Plasm a bilirubin.in direct [mass/volume ] in serum or plasma 0.4 text: 0.0 - 0.9 mg/dL BILIR UBIN INDIR ECT S/P/B 0.4 0.0 - 0.9 MG/DL 06/19 8:59 AM E[employer]CH[employer] [facility] Not Available Not Available 10/24/2024 11:03:29 06/19/20 24 06/19/2024 Hepat ic funct ion 2000 panel - Serum or Plasm a alkaline phosphatase [enzymatic activity/vol ume] in serum or plasma 128 U/L low: 50U/Lh igh: 136U/L ALKAL INE PHOSP HATAS E S/P/B 128 50 - 136 U/L 06/19 8:59 AM [employer] [facility] Not Available Not Available 10/24/2024 11:03:29 06/19/20 24 06/19/2024 Hepat ic funct ion 2000 panel - Serum or Plasm a aspartate aminotransfe rase [enzymatic activity/vol ume] in serum or plasma 26 U/L low: 15U/Lh igh: 37U/L AST 26 15 - 37 U/L 06/19 8:59 AM [employer] [facility] Not Available Not Available 10/24/2024 11:03:29 06/19/20 24 06/19/2024 Hepat ic funct ion 2000 panel - Serum or Plasm a alanine aminotransfe rase [enzymatic activity/vol ume] in serum or plasma 26 U/L low: 14U/Lh igh: 55U/L ALT 26 14 - 55 U/L 06/19 8:59 AM [employer] [facility] Not Available Not Available 10/24/2024 11:03:29 06/19/20 24 06/19/2024 Hepat ic funct ion 1999 panel - Serum or Plasm a albumin/glob ulin [mass ratio] in serum or plasma 1.1 text: 1.0 - 2.0 ratio A/G RATIO 1.1 1.0 - 2.0 RATIO 06/19 8:59 AM [employer] [facility] Not Available Not Available 10/24/2024 11:03:29 06/19/20 24 06/19/2024 CBC W Auto Diffe renti al panel - Blood leukocytes [#/volume] in blood by automated count 8.27 text: 4.4 - 11.0 x10'3/ uL WBC 8.27 4.4 - 11.0 x10'3 /uL 06/19 8:55 AM [employer] [facility] Not Available Not Available 10/24/2024 11:03:29 06/19/20 24 06/19/2024 CBC W Auto Diffe renti al panel - Blood erythrocytes [#/volume] in blood by automated count 4.79 text: 4.50 - 5.10 x10'6/ uL RBC 4.79 4.50 - 5.10 x10'6 /uL 06/19 8:55 AM [employer] [facility] Not Available Not Available 10/24/2024 11:03:29 06/19/20 24 06/19/2024 CBC W Auto Diffe renti al panel - Blood hemoglobin [mass/volume ] in blood 13.6 text: 12.3 - 15.3 g/dL HGB 13.6 12.3 - 15.3 G/DL 06/19 8:55 AM [employer] [facility] Not Available Not Available 10/24/2024 11:03:29 06/19/20 24 06/19/2024 CBC W Auto Diffe renti al panel - Blood hematocrit [volume fraction] of blood by calculation 43 % low: 35.9%h igh: 44.6% HCT 43.0 35.9 - 44.6 % 06/19 8:55 AM [employer] [facility] () [facility] Not Available Not Available 10/24/2024 11:03:29 06/19/20 24 06/19/2024 CBC W Auto Diffe renti al panel - Blood MCV [entitic mean volume] in red blood cells 89.8 text: 80.0 - 96.0 fL MCV 89.8 80.0 - 96.0 FL 06/19 8:55 AM [employer] [facility] Not Available Not Available 10/24/2024 11:03:29 06/19/20 24 06/19/2024 CBC W Auto Diffe renti al panel - Blood MCH [entitic mass] 28.4 pg low: 25.3pg high: 30.9pg MCH 28.4 25.3 - 30.9 PG 06/19 8:55 AM [employer] [facility] () [facility] Not Available Not Available 10/24/2024 11:03:29 06/19/20 24 06/19/2024 CBC W Auto Diffe renti al panel - Blood MCHC [entitic mass/volume] in red blood cells 31.6 text: 31.0 - 34.1 g/dL MCHC 31.6 31.0 - 34.1 G/DL 06/19 8:55 AM [employer] [facility] Not Available Not Available 10/24/2024 11:03:29 06/19/20 24 06/19/2024 CBC W Auto Diffe renti al panel - Blood RDW 13.2 % low: 12.4%h igh: 15.1% RDW 13.2 12.4 - 15.1 % 06/19 8:55 AM [employer] [facility] Not Available Not Available 10/24/2024 11:03:29 06/19/20 24 06/19/2024 CBC W Auto Diffe renti al panel - Blood platelets [#/volume] in blood 354 text: 151 - 353 x10'3/ uL high PLT 354 (H) 151 - 353 x10'3 /uL 06/19 8:55 AM [employer] [facility] Not Available Not Available 10/24/2024 11:03:29 06/19/20 24 06/19/2024 CBC W Auto Diffe renti al panel - Blood platelet [entitic mean volume] in blood 10.9 text: 9.6 - 12.0 fL MPV 10.9 9.6 - 12.0 FL 06/19 8:55 AM [employer] [facility] Not Available Not Available 10/24/2024 11:03:29 06/19/20 24 06/19/2024 CBC W Auto Diffe renti al panel - Blood erythrocytes [morphology] in blood by automated count NORMAL RBC MORPH OLOGY GLENDY L 06/19 8:55 AM [employer] [facility] Not Available Not Available 10/24/2024 11:03:29 06/19/20 24 06/19/2024 CBC W Auto Diffe renti al panel - Blood platelet morphology finding [identifier] in blood NORMAL PLT MORPH . GLENDY L 06/19 8:55 AM [employer] [facility] Not Available Not Available 10/24/2024 11:03:29 06/19/20 24 06/19/2024 CBC W Auto Diffe renti al panel - Blood leukocyte morphology finding [identifier] in blood NORMAL WBC MORPH OLOGY GLENDY L 06/19 8:55 AM [employer] [facility] Not Available Not Available 10/24/2024 11:03:29 06/19/20 24 06/19/2024 CBC W Auto Diffe renti al panel - Blood lymphocytes/ leukocytes in blood by automated count 43.8 % low: 15.8%h igh: 45% LYMPH OCYTE S % 43.8 15.8 - 45.0 % 06/19 8:55 AM [employer] [facility] Not Available Not Available 10/24/2024 11:03:29 06/19/20 24 06/19/2024 CBC W Auto Diffe renti al panel - Blood neutrophils/ leukocytes in blood by automated count 45.2 % low: 42.1%h igh: 71.9% NEUTR OPHIL S % 45.2 42.1 - 71.9 % 06/19 8:55 AM [employer] [facility] Not Available Not Available 10/24/2024 11:03:29 06/19/20 24 06/19/2024 CBC W Auto Diffe renti al panel - Blood monocytes/le ukocytes in blood by automated count 8.6 % low: 5.7%hi gh: 12.5% MONOC YTES % 8.6 5.7 - 12.5 % 06/19 8:55 AM [employer] [facility] Not Available Not Available 10/24/2024 11:03:29 06/19/20 24 06/19/2024 CBC W Auto Diffe renti al panel - Blood eosinophils/ leukocytes in blood by automated count 1.7 % low: 0%high : 5.6% EOSIN OPHIL S 1.7 0.0 - 5.6 % 06/19 8:55 AM [employer] [facility] Not Available Not Available 10/24/2024 11:03:29 06/19/20 24 06/19/2024 CBC W Auto Diffe renti al panel - Blood basophils/le ukocytes in blood by automated count 0.5 % low: 0%high : 1.3% BASOP HILS 0.5 0.0 - 1.3 % 06/19 8:55 AM [employer] [facility] Not Available Not Available 10/24/2024 11:03:29 06/19/20 24 06/19/2024 CBC W Auto Diffe renti al panel - Blood neutrophils [#/volume] in blood 3.74 text: 1.40 - 6.00 x10'3/ uL ABS. NEUTR OPHIL S 3.74 1.40 - 6.00 x10'3 /uL 06/19 8:55 AM [employer] [facility] Not Available Not Available 10/24/2024 11:03:29 06/19/20 24 06/19/2024 CBC W Auto Diffe renti al panel - Blood immature granulocytes /leukocytes in blood by automated count 0.2 % low: 0%high : 0.5% IMMAT URE GRANS % 0.2 0.0 - 0.5 % 06/19 8:55 AM [employer] [facility] Not Available Not Available 10/24/2024 11:03:29 06/19/20 24 06/19/2024 CBC W Auto Diffe renti al panel - Blood lymphocytes [#/volume] in blood 3.62 text: 0.80 - 4.70 x10'3/ uL ABS. LYMPH OCYTE S 3.62 0.80 - 4.70 x10'3 /uL 06/19 8:55 AM [employer] [facility] Not Available Not Available 10/24/2024 [...] 70 - 99 MG/DL 06/19 8:59 AM [employer] [facility] Not Available Not Available 10/24/2024 11:03:29 06/19/20 24 06/19/2024 Basic metab olic 2000 panel - Serum or Plasm a urea nitrogen [mass/volume ] in serum or plasma 15 text: 7 - 18 mg/dL BUN 15 7 - 18 MG/DL 06/19 8:59 AM [facility] Not Available Not Available 10/24/2024 11:03:29 06/19/20 24 06/19/2024 Basic metab olic 2000 panel - Serum or Plasm a creatinine [mass/volume ] in serum or plasma 0.83 text: 0.55 - 1.02 mg/dL CREAT ININE S/P/B 0.83 0.55 - 1.02 MG/DL 06/19 8:[address] [facility] ([facility]) [facility] Not Available Not Available 10/24/2024 11:03:29 06/19/20 24 06/19/2024 Basic metab olic 2000 panel - Serum or Plasm a sodium [moles/volum e] in serum or plasma 142 text: 136 - 145 mmol/L SODIU M S/P/B 142 136 - 145 MMOL/ L 06/19 8:59 AM [employer] [facility] Not Available Not Available 10/24/2024 11:03:29 06/19/20 24 06/19/2024 Basic metab olic 2000 panel - Serum or Plasm a potassium [moles/volum e] in serum or plasma 4.7 text: 3.5 - 5.1 mmol/L POTAS SIUM S/P/B 4.7 3.5 - 5.1 MMOL/ L 06/19 8:59 AM [employer] [facility] Not Available Not Available 10/24/2024 11:03:29 06/19/20 24 06/19/2024 Basic metab olic 2000 panel - Serum or Plasm a chloride [moles/volum e] in serum or plasma 104 text: 100 - 108 mmol/L CHLOR MONTEZ S/P/B 104 100 - 108 MMOL/ L 06/19 8:59 AM [facility] Not Available Not Available 10/24/2024 11:03:29 06/19/20 24 06/19/2024 Basic metab olic 2000 panel - Serum or Plasm a carbon dioxide, total [moles/volum e] in serum or plasma 31.5 text: 21 - 32 mmol/L CO2 31.5 21 - 32 MMOL/ L 06/19 8:59 AM [facility] Not Available Not Available 10/24/2024 11:03:29 06/19/20 24 06/19/2024 Basic metab olic 2000 panel - Serum or Plasm a calcium [mass/volume ] in serum or plasma 9.3 text: 8.5 - 10.1 mg/dL CALCI UM S/P/B 9.3 8.5 - 10.1 MG/DL 06/19 8:59 AM [facility] Not Available Not Available 10/24/2024 11:03:29 06/19/20 24 06/19/2024 Basic metab olic 2000 panel - Serum or Plasm a anion gap in serum or plasma by calculation 6.5 text: 5 - 15 mmol/L ANION GAP 6.5 5 - 15 MMOL/ L 06/19 8:59 AM [facility] Not Available Not Available 10/24/2024 11:03:29 06/19/20 24 06/19/2024 Basic metab olic 2000 panel - Serum or Plasm a urea nitrogen/cre atinine [mass ratio] in serum or plasma 18.1 low: 6high: 26 BUN CREAT ININE RATIO 18.1 6 - 26 06/19 8:59 AM [employer] [facility] Not Available Not Available 10/24/2024 11:03:29 06/19/20 24 06/19/2024 Basic metab olic 2000 panel - Serum or Plasm a glomerular filtration rate [volume rate/area] in serum, plasma or blood by creatinine-b ased formula (CKD-epi 2020)/1.73 sq M 77 text: >90 mL/min /1.73 M2 low GFR ESTIM ATE 77 (L) >90 ML/MN N/1.7 3 M2 06/19 8:59 AM [employer] [facility] [...] 6.4 (H) <5.7 % 06/19 9: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 [facility] Not Available Not Available 10/24/2024 11:02:31 06/19/20 24 06/19/2024 Hemog lobin A1c/H emogl obin. total in Blood glucose mean value [mass/volume ] in blood estimated from glycated hemoglobin 137 mg/dL ESTIM ATED AVG GLUCO SE 137 mg/dL 06/19 9: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 [facility] [...] 169 <200. 0 MG/DL 06/19 8:59 AM [employer] () [facility] Not Available Not Available 10/24/2024 11:02:31 06/19/20 24 06/19/2024 Lipid 1996 panel - Serum or Plasm a triglyceride [mass/volume ] in serum or plasma 81 text: <150 mg/dL TRIGL YCERI ARI 81 <150 MG/DL 06/19 8:59 AM [employer] () [facility] Not Available Not Available 10/24/2024 11:02:31 06/19/20 24 06/19/2024 Lipid 1996 panel - Serum or Plasm a cholesterol in HDL [mass/volume ] in serum or plasma 55 text: >40.0 mg/dL HDL 55 >40.0 MG/DL 06/19 8:59 AM [employer] () [facility] Not Available Not Available 10/24/2024 11:02:31 06/19/20 24 06/19/2024 Lipid 1996 panel - Serum or Plasm a cholesterol in LDL [mass/volume ] in serum or plasma by calculation 98 text: <100 mg/dL LDL (CALC ULATE D) 98 <100 MG/DL 06/19 8:59 AM [employer] () [facility] Not Available Not Available 10/24/2024 11:02:31 06/19/20 24 06/19/2024 Lipid 1996 panel - Serum or Plasm a cholesterol non HDL [mass/volume ] in serum or plasma 114 text: <130 mg/dL NON HDL SHWETHA STERO L 114 <130 MG/DL 06/19 8:59 AM [employer] () [facility] Not Available Not Available 10/24/2024 11:02:31 06/19/20 24 06/19/2024 Lipid 1996 panel - Serum or Plasm a cholesterol. total/choles terol in HDL [mass ratio] in serum or plasma 3.1 low: 0high: 4.5 CHOL/ HDL RATIO 3.1 0.0 - 4.5 06/19 8:59 AM [employer] [facility] Not Available Not Available 10/24/2024 11:02:31 06/19/20 24 06/19/2024 Lipid 1996 panel - Serum or Plasm a cholesterol in VLDL [mass/volume ] in serum or plasma by calculation 16 text: 5 - 55 mg/dL VLDL CALCU LATIO N 16 5 - 55 MG/DL 06/19 8:59 AM [employer] [facility] Not Available Not Available 10/24/2024 11:02:31 06/19/20 24 06/19/2024 Lipid 1996 panel - Serum or Plasm a service comment LIPID INTER PRETA TION 06/19 8:59 AM [employer] [facility] Not Available Not Available 10/24/2024 11:02:31 06/12/20 24 06/11/2024 MRI, shoul angel, w/o contr ast No observ ation record ed. [address] [place] [address], [address], 06/12/2024 09:57:05 06/20/20 24 06/20/2024 MAMMO , edvine randy, digit al, bilat eral No observ ation record ed. [address] [address] [place], [address], 06/22/2024 10:48:07 08/29/19 25 08/29/2024 XR, shoul angel No observ ation record ed. [address], [address], 08/29/2024 23:19:17 10/16/19 25 10/15/2024 XR, shoul angel No observ ation record ed. [address], [place], [address], 10/15/2024 19:01:21 10/17/19 25 10/15/2024 XR, hand, 3 or more view No observ ation record ed. [address] [facility] [address], [place], [address], 10/16/2024 16:32:57 10/20/19 25 10/18/2024 CT, hand, w/o contr ast No observ ation record ed. [address], [place], [address], 10/24/2024 14:18:11 11/01/19 25 10/31/2024 XR, hand No observ ation record ed. [email or web address] [facility] [address] [facility] [address], [place], [address], 11/01/2024 13:54:21 Result Notes None recorded. Problems Name Problem SNOMED Code Status Onset Date Resolution Date Notes Provider Name and Address Organization Details Recorded Time Type 2 diabetes mellitus without complicatio n 004797942 Active 2023 MARY Hernandez Attn: Ernesto vargas,[address] [facility], [place], [address], [facility] 4 10:53:30 Gastroesoph ageal reflux disease without esophagitis 306550014 Active 2023 MARY Hernandez Attn: Ernesto g,[address] [facility], [place], [address], [place] [facility] 4 10:53:31 Hyperlipide loren 54568488 Active 2023 MARY Hernandez Attn: Kimberleyin g,[address] [facility], [place], [address], [place] [facility] 4 10:53:31 Mixed anxiety and depressive disorder 854782864 Active 2023 MARY Hernandez Attn: Kimberleyin g,[address] [facility], [place], [address], [place] [facility] 4 10:53:33 Long-term drug therapy Active 2023 MARY Hernandez Attn: Ernesto vargas,[address] [facility], [place], [address], [facility] 4 10:53:33 Pain of left knee joint 3149348351993 07 Active 2023 MARY Hernandez Attn: Ernesto vargas,[address] [facility], [place], [address], [facility] 4 10:53:45 Body mass index 25-29 - overweight 767032983 Active 2023 MARY Hernandez Attn: Ernesto vargas,[address] [facility], [place], [address], [facility] 4 15:50:48 Problem Notes None recorded. Procedures [...] CENTER 12/09/2023 15:47:56 hysterectomy completed Haley Banerjee MA [facility] 12/09/2023 15:48:52 Imaging Results None recorded. Procedure Notes None recorded. Medical Equipment None Reported. Allergies No known drug allergies Medications Name Sig Start Date Stop Date Status Note LastModified by Organization Details LastModified Time prednisone 10 mg tablet TAKE 1 TABLET BY MOUTH ONCE DAILY active Not Available Not Available No t Available atorvastat in 20 mg tablet Take 1 tablet every day by oral route. active Not Available Not Available No t Available hydrocodon e 5 mg-acetami nophen 325 mg tablet TAKE 1 TABLET BY MOUTH EVERY 4 HOURS active Not Available Not Available No t [...] 4.5 mg/0.5 mL subcutaneo us pen injector INJECT 4.5 MG SUBCUTAN EOUSLY ONCE A WEEK active Not Available Not Available No t Available Vitals Date Recorded Body height Body mass index (BMI) Body weight Respiratory rate Oxygen saturation Oxygen saturation in Arterial blood by Pulse oximetry Heart rate Systolic blood pressure Diastolic blood pressure Provider Name and Address Organization Details Last Updated DateTime 4 160.02 cm 29.6 kg/m2 38032 g 20 /min 98 % 98 % 61 /min 130 mm[Hg] 72 mm[Hg] Haley Banerjee MA [facility] 4 10:42:01 Date Recorded Respiratory rate Systolic blood pressure Diastolic blood pressure Provider Name and Address Organization Details Last Updated DateTime 06/22/2024 16 /min 130 mm[Hg] 80 mm[Hg] MARY Hernandez Attn: [address] [place], [address], [facility] 06/22/2024 11:02:18 Date Recorded Body height Body mass index (BMI) Body weight Oxygen saturation Oxygen saturation in Arterial blood by Pulse oximetry Heart rate Systolic blood pressure Diastolic blood pressure Provider Name and Address Organization Details Last Updated DateTime 4 160.02 cm 29.6 kg/m2 51971.9 3 g 97 % 97 % 67 /min 138 mm[Hg] 82 mm[Hg] Haley Banerjee MA [facility] 4 10:28:53 Social History Question Answer Notes LastModified by Organizat ion Details LastModified Time Tobacco Smoking Status Never Smoker Haley Banerjee MA null, [facility] 12/09/2023 10:39:58 Do You Have An Advance Directive? No Information not available 12/09/2023 Are You Blind [...] Yes Information not available 12/08/2023 Do You Use Sunscreen Routinely? No Sunscreen Occasionally , Information not available 12/09/2023 Has Tobacco Cessation Counseling Been Provided? Yes Information not available 12/08/2023 On What Date Was Tobacco Cessation Counseling Provided? 06/22/2024 Information not available 06/22/2024 Sex: Female Functional Status Question Answer Note LastModified by Organizat ion Details LastModified Time Do you use any illicit or recreational drugs? No Information not available 12/09/2023 Do you or have you ever used any other forms of tobacco or nicotine? No Information not available 12/09/2023 What is your level of alcohol consumption? Occasional Information not available 12/09/2023 Are you able to care for yourself? Yes Information n ot available 12/08/2023 What is your exercise level? None Information not available 12/09/2023 Mental Status Question Answer Note LastModified by Organization D etails LastModified Time Do you feel stressed (tense, restless, nervous, or anxious, or unable to sleep at night)? [id number] Information not available 12/09/2023 Family History Relationship Description Onset Age of [...] 4 completed MARY Hernandez Attn: Accounting,[address] [place], [address], [facility] 07/04/2024 16:27:17 Past Encounters Encounter ID Performer Location Encounter Start Date Encounter Closed Date Diagnosis/Indication Diagnosis SNOMED-CT Code Diagnosis ICD10 Code Diagnosis Note [id number] Rashad Osman MD [facility] [place] [address] [place] [address] 12/09/2023 10:20:41 01/03/2024 15:53:43 Type 2 diabetes mellitus without complication 408421360 E11.9 Rx for trulicity 3mg weekly in hopes this will be in stock. next labs due in Jun. continue glipizide 5mg bid w/meal. Gastroesop hageal reflux disease without esophagitis 860831126 K21.9 stable on omeprazole 40mg daily. Hyperlipidemia 18119107 E78.5 stable on atorvastat in 20mg daily. next labs due in Jun. Mixed anxi ety and depressive disorder 920324114 F41.8 stable on venlafaxin e ER 150mg daily Long-term drug therapy 213690919 Z79.899 next labs are due in Jun. Pain of le ft knee joint 5833939753 78515 M25.562 pt can f/u with ortho per plan Body mass index 25-29 - overweight 931693688 Z68.29 [id number] Rashad Osman MD [facility] [place] [address] [place] [address] 06/22/2024 10:17:31 07/06/2024 09:06:09 Body mass index 25-29 - overweight 536444474 Z68.29 BMI is 29.6 Overweight 859303874 E66 .3 Type 2 mariangel betes mellitus without complication 991076402 E11.9 Rx for trulicity 3mg weekly in hopes this will be in stock. continue glipizide 5mg bid w/meal. Gastroesop hageal reflux disease without esophagitis 734088256 K21.9 stable on omeprazole 40mg daily. Hyperlipidemia 89284744 E78.5 stable on atorvastat in 20mg daily. next labs due in December Mixed anxi ety and depressive disorder 112120340 F41.8 stable on venlafaxin e ER 150mg daily. No acute concerns or complaints with medication Long-term drug therapy 552090697 Z79.899 Routine BMP, CBC and liver function will be due in December Administra tion of influenza vaccine 91745359 Z23 Flu shot given in the office today Health Concerns Section Related Observation LastModified by Organization Detai ls LastModified Time None Recorded Concern Status LastModified by Organization Details LastModified Time None Recorded Advance Directives Directive N: Payers Encounter Date Sequence Insurance Name Policy Number Policy Smith Covered Member ID Smith Member ID Guarantor Name 12/09/2023 1 [facility] (MEDICARE REPLACEMENT/A DVANTAGE - HMO) [id number] Savannah Moore [facility] [id number] Savannah Lindsey 06/22/2024 1 [facility] (MEDICARE REPLACEMENT/A DVANTAGE - HMO) [id number] Savannah Moore Lindsey [id number] Savannah Lindsey Notes Date Note Type Note Provider Name and Address Organization Details Recorded Time 12/09/2023 text/html Anxiety/Depressi on Reported bypatient.Notes:st able on venlafaxine ER 150mg daily.DiabetesRepo rted bypatient.Notes:6. 1% a1c on Trulicity and glipizide 5mg bid.Hyperlipidemia Reported bypatient.Notes:st able on atorvastatin 20mg daily. lipids are great.KneeReported bypatient.Notes:sh ot given on november [address] Morrison.Reflux/JAREN DReported bypatient.Notes: able omeprazole 40mg daily. MARY Hernandez Attn: Accounting[address] [place], [address], [facility] 01/02/2024 15:50:57 06/22/2024 text/html Anxiety/Depressi on Reported bypatient.Notes:st able on venlafaxine ER 150mg daily.DiabetesRepo rted bypatient.Notes:6. 1% a1c on Trulicity and glipizide 5mg bid.Hyperlipidemia Reported bypatient.Notes:st able on atorvastatin 20mg daily. lipids are great.KneeReported bypatient.Notes:sh ot given on november [address] Morrison.Reflux/JAREN DReported bypatient.Notes:st able omeprazole 40mg daily. MARY Hernandez Attn: Accounting[address] [facility], [place], [address], [facility] 07/04/2024 16:28:30 OBGyn Episode No OBEpisode recorded.
--- OUTSIDE RECORDS SUMMARY | 2024-12-12 13:17 | XMS_ITS | Encounter Summary ---
Author Organization [facility] Address [address] [facility] [place] [address] Care Team Providers Care Ditch Worker Name Role Phone Manisha Mann MD Primary Care Provider Encounter Details Date Type Department Care Team (Late st Contact Info) Description 06/02/2023 Lab Requisition [facility] - DermPath Lab [address] [facility] [address] [facility] [place] [address] Angeli Basurto DO [address] [facility] [address] [place] [address] Social History Tobacco Use Types Packs/Day Years [...] Diagnosis Comments DERMATOPATHOLOGY Routine 06/02/2023 2:26 PM COLORIST FORMULATOR documented in this encounter Results * DERMATOPATHOLOGY (06/02/2023 2:26 PM COLORIST FORMULATOR) Case Report Dermatopathology Report Case: [id number] Authorizing Provider: Angeli Basurto DO Collected: 06/02/2023 02:26 PM Ordering Location: [facility] DermPath Lab Received: 06/03/2023 01:12 PM Pathologist: Sofia Salazar MD Specimens: A) - Skin, right cheek B) - Skin, right low back 12:59 PM COLORIST FORMULATOR DERMATOPATHOLOGY LABORATORY Final Diagnosis Specimen A. SKIN, right cheek: BASAL CELL CARCINOMA, NODULAR TYPE (C44.319) Specimen B. SKIN, right low back: NEUROFIBROMA, SUPERFICIAL PORTIONS OF (D36.10) (see microscopic description) 3 12:59 PM [facility] DERMATOPATHOLOGY LABORATORY at [address] COLORIST FORMULATOR Clinical History A-B: R/O NMSC 3 12:59 PM [facility] DERMATOPATHOLOGY LABORATORY Gross Description Specimen A: Received [...] 3x2x1 mm. Jar 0. 3 12:59 PM [facility] DERMATOPATHOLOGY LABORATORY Microscopic Description Specimen A. SKIN, [...] were obtained and reviewed. 3 12:59 PM [facility] DERMATOPATHOLOGY LABORATORY Disclaimer An external and internal positive and negative controls are appropriate for the histochemical, immunohistochemical and immunofluorescence stain(s) in this case (if any), except where stated explicitly. The performance characteristics of the stain(s) cited in this report were developed and its performance characteristic determined by the Dermatopathology Laboratory at [facility], directed by Dr. Daniel Ahuja. These tests need not be, and therefore are not, approved by the [place] Food and Drug Administration. The tests are used for clinical purposes. Billing Codes Specimen Charges Stain Charges 55313 89878 1 1 3 12:59 PM [facility] DERMATOPATHOLOGY LABORATORY Embedded Images 3 12:59 PM [facility] DERMATOPATHOLOGY LABORATORY Pathology/Cytology TISSUE SPECIMEN FROM SKIN / Unknown 06/02/2023 2:26 PM COLORIST FORMULATOR 06/03/2023 1:12 PM COLORIST FORMULATOR Miscellaneous samples (specimen) TISSUE SPECIMEN FROM SKIN / Unknown 06/02/2023 2:26 PM COLORIST FORMULATOR 06/03/2023 1:12 PM COLORIST FORMULATOR us Angeli Basurto DO LAB - PATHOLOGY/CYTOLOGY ORDERABLES Final Result DERMATOPATHOLOGY LABORATORY [facility] - Department of Dermatology [facility] [address] [place] [address], [address] [phone] documented in this encounter Visit Diagnoses Not on filedocumented in this encounter Care Teams Ditch Worker Relationship Specialty Start Date End Date Manisha Mann MD [address] [place] [address] [phone] PCP - General 04/24/21 documented as of this encounter
== END 2024-12-12 12:23 | disposition home or self-care (01) ==
PROVIDERS: PCP Physician Assistant; Visit Provider Orthopaedic Surgery
DX: M75.01 Adhesive capsulitis of right shoulder (principal)
CPT/HCPCS: 20610; 77002; J1010; J2003; Q9966

== ENCOUNTER 2025-03-15 10:18 | Day surgery (SDC) | payer MEDICARE, SELFPAY ==
[2025-03-12 07:50] VITALS: BMI 29.4
[2025-03-15 10:37] VITALS: BP 143/96; PULSE 78; RESP 18; TEMP 36.4; O2SAT 100; BMI 29.7
[2025-03-15] MEDS: LACTATED RINGERS 1,000 ML 150 ML IV CONT (10:52)
[2025-03-15] MEDS: SIMETHICONE ORAL SUSPENSION 20 MG/0.3 ML 30 ML BOTTLE 1.8 ML PO (10:54)
--- NOTE | 2025-03-15 11:25 | PM.IMHP ---
H&P: HPI History of Present Illness Date/Time: 03/15/25 11:25 Chief Complaint: History of gastric ulcer Narrative: The patient has a longstanding history of peptic ulcer disease. Her last EGD was in 2021, finding a healing pre pyloric ulcer. She edorses a history of intermittent nausea and occasional epigastric pain. She is now referred for EGD. Review of Systems Review of Systems: All systems reviewed & are unremarkable except as noted in HPI and below PMFSH Past Medical History Medical History PONV (postoperative nausea and vomiting) Depression Anxiety Diabetes type 2, controlled Hyperlipidemia GERD (gastroesophageal reflux disease) Surgical History Surgical History History of hysterectomy History of cholecystectomy History of appendectomy Family History Family History Father Hypertension Mother Hypertension Family history of diabetes mellitus in first degree relative Sibling Hypertension Other Diabetes mellitus Family history of allergic disorder Family history of heart disease in male family member before age 55 Social History Social History (Updated 03/09/25 @ 09:03 by Mireya Singh CMA) Smoking status: Never smoker Second hand tobacco smoke exposure: Yes Alcohol intake: never Substance use: never Substance use type: does not use Do You Feel Safe in your Home?: Yes Lack of Transportation: No Lack of Food: Never True Current Housing: I Have Housing Concerned About Future Housing: No Difficulty Paying Gas/Electric Bills: No Difficulty Paying for Meds: No Currently Unemployed: No Education: High School Diploma/GED Difficulty w/ Childcare or Family Care: No Living arrangements: with family Additional living arrangements comments: with Occupation/Education: occupation 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 Gender identity (if verbalized by the patient): Female Spiritual care concerns: No Meds Home Medications and Allergies Home Medications ?Medication ?Instructions ?Recorded ?Confirmed ?Type atorvastatin 40 mg tablet (Lipitor) 40 mg PO HS 02/26/21 03/15/25 History glimepiride 2 mg tablet 2 mg PO DAILY 02/26/21 03/15/25 History omeprazole magnesium 20 mg 40 mg PO BID 02/26/21 03/15/25 History tablet,delayed release (Prilosec OTC) venlafaxine 150 mg 150 mg PO DAILY 02/26/21 03/15/25 History capsule,extended release 24 hr acetaminophen 325 mg capsule 325 mg PO Q6H PRN pain 11/26/23 03/15/25 History (Tylenol) dulaglutide 1.5 mg/0.5 mL 4.5 mg subcut WEEKLY 09/08/24 03/15/25 History subcutaneous pen injector (Trulicity) Allergies Allergy/AdvReac Type Severity Reaction Status Date / Time No Known Allergies Allergy Verified 03/15/25 10:36 Vital Signs Vital Signs - 24 hr 03/15/25 10:37 Temperature 97.5 F L Pulse Rate 78 Respiratory Rate 18 Blood Pressure 143/96 H Pulse Oximetry 100 Oxygen Delivery Room Air Exam Const: General: cooperative and healthy appearing Resp: Effort & Inspection: normal respiratory effort and able to speak in complete sentences Auscultation: clear to auscultation bilaterally Cardio: Rate: regular rate Rhythm: regular rhythm GI: Inspection: normal to inspection GI Palp: No No hepatosplenomegaly present Auscultation: normal bowel sounds Rectal Exam: deferred Skin: General skin exam: normal color Psych: Appearance: grossly normal Mental Status: mental status grossly normal Assessment and Plan Assessment and plan (1) Gastric ulcer: Code(s): K25.9 - Gastric ulcer, unspecified as acute or chronic, without hemorrhage or perforation Status: Acute Assessment and Plan: The patient is deemed a good candidate for the procedure. Consent signed. Will proceed.
--- NOTE | 2025-03-15 11:30 | WPDANESEPPF ---
Anes - Initial Pre Proc Eval Procedure: Operation Date: 03/15/25 12:00 Proposed Procedures p Esophagogastroduodenoscopy - Amari Billings MD Date/Time: 03/15/25 11:30 Surgeon: Amari Billings MD Pre Op Diagnosis: Personal history of peptic ulcer disease Patient Data Age: 70 Gender: F Height: 1.57 m Weight: 73.9 kg Last Vital Signs Temp 97.5 F L 03/15/25 10:37 Pulse 78 03/15/25 10:37 Resp 18 03/15/25 10:37 BP 143/96 H 03/15/25 10:37 Pulse Ox 100 03/15/25 10:37 O2 Del Method Room Air 03/15/25 10:37 Allergies Allergy/AdvReac Type Severity Reaction Status Date / Time No Known Allergies Allergy Verified 03/15/25 10:36 Home Medications ?Medication ?Instructions ?Recorded ?Confirmed ?Type atorvastatin 40 mg tablet (Lipitor) 40 mg PO HS 02/26/21 03/15/25 History glimepiride 2 mg tablet 2 mg PO DAILY 02/26/21 03/15/25 History omeprazole magnesium 20 mg 40 mg PO BID 02/26/21 03/15/25 History tablet,delayed release (Prilosec OTC) venlafaxine 150 mg 150 mg PO DAILY 02/26/21 03/15/25 History capsule,extended release 24 hr acetaminophen 325 mg capsule 325 mg PO Q6H PRN pain 11/26/23 03/15/25 History (Tylenol) dulaglutide 1.5 mg/0.5 mL 4.5 mg subcut WEEKLY 09/08/24 03/15/25 History subcutaneous pen injector (Trulicity) Laboratory Tests 03/15/25 10:47 POC Capillary Glucose 103 mg/dl (65-105) Patient hx anesthesia problems: none Family hx anesthesia problems: none Results Review: All pre-operative results and documents have been reviewed as part of the pre-operative evaluation. [facility] Past Medical History Medical History PONV (postoperative nausea and vomiting) Depression Anxiety Diabetes type 2, controlled Hyperlipidemia GERD (gastroesophageal reflux disease) Surgical History Surgical History History of hysterectomy History of cholecystectomy History of appendectomy Family History Family History Father Hypertension Mother Hypertension Family history of diabetes mellitus in first degree relative Sibling Hypertension Other Diabetes mellitus Family history of allergic disorder Family history of heart disease in male family member before age 55 Social History Social History (Updated 03/09/25 @ 09:03 by Mireya Singh CMA) Smoking status: Never smoker Second hand tobacco smoke exposure: Yes Alcohol intake: never Substance use: never Substance use type: does not use Do You Feel Safe in your Home?: Yes Lack of Transportation: No Lack of Food: Never True Current Housing: I Have Housing Concerned About Future Housing: No Difficulty Paying Gas/Electric Bills: No Difficulty Paying for Meds: No Currently Unemployed: No Education: High School Diploma/GED Difficulty w/ Childcare or Family Care: No Living arrangements: with family Additional living arrangements comments: with Occupation/Education: occupation 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 Informed Consent: The patient's anesthetic plan and its attendant risks and benefits were discussed with the patient/family/POA. Questions were solicited and answers provided to the satisfaction of the patient/family/POA.
--- NOTE | 2025-03-15 11:45 | WPDANESPN ---
Anes - Prog Note Post-Op Date/Time: 03/15/25 11:45 Vital Signs: Last Vital Signs Temp 97.5 F L 03/15/25 10:37 Pulse 78 03/15/25 10:37 Resp 18 03/15/25 10:37 BP 143/96 H 03/15/25 10:37 Pulse Ox 100 03/15/25 10:37 O2 Del Method Room Air 03/15/25 10:37 Pain Score (VAS): no 03/15/25 10:47 POC Capillary Glucose 103 Patient Feedback: Patient satisfied with anesthetic care.
--- OUTSIDE RECORDS SUMMARY | 2025-03-15 11:48 | XMS_ITS | Encounter Summary ---
Author Organization [facility] Address [address] [facility] [place] [address] Care Team Providers Care Finishing Manager Name Role Phone Manisha Mann MD Primary Care Provider Encounter Details Date Type Department Care Team (Late st Contact Info) Description 06/02/2023 Lab Requisition [facility] - Derm[facility] Lab [address] [facility], [place] [address] Angeli Basurto DO [address] [facility] [address] [place] [address] Social History Tobacco Use Types Packs/Day Years [...] Diagnosis Comments DERMATOPATHOLOGY Routine 06/02/2023 2:26 PM RELISH MAKER documented in this encounter Results * DERMATOPATHOLOGY (06/02/2023 2:26 PM RELISH MAKER) Case Report Dermatopathology Report Case: [id number] Authorizing Provider: Angeli Basurto DO Collected: 06/02/2023 02:26 PM Ordering Location: [facility] DermPath Lab Received: 06/03/2023 01:12 PM Pathologist: Sofia Salazar MD Specimens: A) - Skin, right cheek B) - Skin, right low back 12:59 PM RELISH MAKER DERMATOPATHOLOGY LABORATORY Final Diagnosis Specimen A. SKIN, right cheek: BASAL CELL CARCINOMA, NODULAR TYPE (C44.319) Specimen B. 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 Jar 0. 3 12:59 PM [facility] DERMATOPATHOLOGY LABORATORY Microscopic Description Specimen [...] were obtained and reviewed. 3 12:59 PM [facility] DERMATOPATHOLOGY LABORATORY Disclaimer An external and internal positive and negative controls are appropriate for the histochemical, immunohistochemical and immunofluorescence stain(s) in this case (if any), except where stated explicitly. The performance characteristics of the stain(s) cited in this report were developed and its performance characteristic determined by the Dermatopathology Laboratory at [facility], directed by Dr. Daniel Ahuja. These tests need not be, and therefore are not, approved by the [place] Food and Drug Administration. The tests are used for clinical purposes. Billing Codes Specimen Charges Stain Charges 13116 [id number] 1 1 3 12:59 PM [facility] DERMATOPATHOLOGY LABORATORY Embedded Images 3 12:59 PM [facility] DERMATOPATHOLOGY LABORATORY Pathology/Cytology TISSUE SPECIMEN FROM SKIN / Unknown 06/02/2023 2:26 PM RELISH MAKER 06/03/2023 1:12 PM RELISH MAKER Miscellaneous samples (specimen) TISSUE SPECIMEN FROM SKIN / Unknown 06/02/2023 2:26 PM RELISH MAKER 06/03/2023 1:12 PM RELISH MAKER us Angeli Basurto DO LAB - PATHOLOGY/CYTOLOGY ORDERABLES Final Result DERMATOPATHOLOGY LABORATORY [facility] - Department of Dermatology [facility] Medicine [address] [place] [address], [address] [phone] documented in this encounter Visit Diagnoses Not on filedocumented in this encounter Care Teams Finishing Manager Relationship Specialty Start Date End Date Manisha Mann MD [address] [place] [address] [phone] PCP - General 04/24/21 documented as of this encounter
--- OUTSIDE RECORDS SUMMARY | 2025-03-15 11:48 | XMS_ITS | Clinical Summary ---
Author Organization [facility] Address [address] [place] [address] Care Team Providers Care Hearing And Speech Assistant Name Role Phone Unavailable Primary Care Provider [...] 12/31/2005 OSTEOPOROSIS SCREENING 12/31/2020 INFLUENZA VACCINE (#1) 2025 RSV VACCINE (60+ or ) (1 - 1-dose 75+ series) 12/31/2030
[2025-03-15 11:50] VITALS: BP 148/75; PULSE 64; RESP 16; O2SAT 100
[2025-03-15 12:00] VITALS: BP 158/87; PULSE 58; RESP 16; O2SAT 98
[2025-03-15 12:10] VITALS: BP 154/71; PULSE 53; RESP 18; O2SAT 97
== END 2025-03-15 12:29 | disposition home or self-care (01) ==
PROVIDERS: PCP Physician Assistant; Referring Provider Physician Assistant; Visit Provider Internal Medicine Gastroenterology
PROC: 0DJ08ZZ Inspection of Upper Intestinal Tract, Via Natural or Artificial Opening Endoscopic (ICD-10-PCS; CPT 43235; principal; 2025-03-15 12:00)
DX: R10.13 Epigastric pain (principal); K31.84 Gastroparesis
CPT/HCPCS: 43235

== ENCOUNTER 2025-05-17 01:51 | Day surgery (SDC) | payer MEDICARE, SELFPAY ==
[2025-05-07 11:34] VITALS: BMI 28.5
--- OUTSIDE RECORDS SUMMARY | 2025-05-17 01:54 | XMS_ITS | Data Portability ---
Author Organization [facility] Price Address [address] [facility] [place] [address] Care Team Providers Care Supervisor Prep Name Role Phone BRITTNEY STEVENSON Primary Care Provider Unavailab le Assessment No assessment recorded. Plan of Treatment Reminders Order Date Submit Date Provider Last Modified By Organization Details Last Modified Time Details Appointments ANY 15 2024 08:30A M MARY Hernandez Not available Not available Not available Lab BMP, serum or plasma [address] Lab, [address], [place], [address], 12/14/2024 12:13:23 CBC w/ auto diff [address] Lab, [address], [place], [address], 12/14/2024 12:13:23 hepatic function panel, serum [address] Lab, [address], [place], [address], 12/14/2024 12:13:23 lipid panel, serum [address] Lab, [address], [place], [address], 12/14/2024 12:13:23 HbA1c (hemoglob in A1c), blood [address] Lab, [address], [place], [address], 12/14/2024 12:13:23 microalbu min/creat inine, mass ratio, urine [address] Lab, [address], [place], [address], 12/14/2024 12:13:23 albumin, urine [address] Lab, [address], [place], [address], 12/14/2024 12:13:23 BMP, serum or plasma [address]23 [address] [facility] [place] [facility], [address], [place], [address], 06/19/2024 10:10:05 CBC w/ auto diff 2023 [address]24 [facility] [place] [facility], [address], [place], [address], 06/19/2024 10:15:11 hepatic function panel, serum [address]23 [address] [facility] [place] [facility], [address], [place], [address], 06/19/2024 10:10:58 HbA1c (hemoglob in A1c), blood 2023 [address] [facility] [place] [facility], [address], [place], [address], 06/19/2024 10:32:01 microalbu min, urine 2023 [address] [facility] [place] [facility], [address], [place], [address], 06/19/2024 12:46:44 lipid panel, serum [address] [facility] [place] [facility], [address], [place], [address], 06/19/2024 10:09:24 Referral None recorded. Procedures None recorded. Surgeries None recorded. Imaging MRI, brain, w/wo contrast [email or web address] [place] [address] (Imaging & Mammogram), [address] [place], [address], 12/31/2024 23:22:22 US, duplex, carotid artery 2024 025 [facility] (Imaging & Mammogram), [address] [place], [address], 01/04/2025 16:12:38 CT, chest, w/o contrast 2024 025 [facility] (Imaging & Mammogram), [address] [place], [address], 01/09/2025 12:30:36 Medication Orders Trulicity 4.5 mg/0.5 mL subcutane ous pen injector 2024 025 [facility] 435, [address] [facility] [address] [place] [address], [address], 12/14/2024 12:13:30 Trulicity 4.5 mg/0.5 mL subcutane ous pen injector 2023 024 [facility] 435, [address] [facility] [address] [place] [address], [address], 06/22/2024 11:03:03 Trulicity 3 mg/0.5 mL subcutane ous pen injector 2023 024 [email or web address], [address] [facility] [address], [address], 12/14/2024 11:31:14 Patient TargetsNo targets recorded. Patient Instructions Encounter Date Encounter Id Patient Instructions Last Modified By Organization Details Last Modified Time 06/22/2024 [id number] A healthy lifestyle: care instructions Not available 06/22/2024 11:02:27 12/14/2024 [id number] A healthy lifestyle: care instructions Not available 12/14/2024 12:13:23 Reason for Referral None Reported. Results Created Date Observation Date Name Description Value Unit Range Abnormal Flag Note LastModifiedBy Organization Detail LastModifiedTime 12/07/19 24 12/07/2023 Thyro tropi n [Unit s/vol ume] in Serum or Plasm a thyrotropin [units/volum e] in serum or plasma 1.3 text: 0.358 - 3.74 uIU/mL TSH CASCA DE 1.300 0.358 - 3.74 uIU/m L 12/06 8:14 AM CDT [facility] Not Available Not Available 10/24/2024 11:01:28 12/07/19 24 12/07/2023 CBC W Auto Diffe renti al panel - Blood leukocytes [#/volume] in blood by automated count 8.82 text: 4.4 - 11.0 x10'3/ uL WBC 8.82 4.4 - 11.0 x10'3 /uL 12/06 7:49 AM CDT [facility] Not Available Not Available 10/24/2024 11:01:28 12/07/19 24 12/07/2023 CBC W Auto Diffe renti al panel - Blood erythrocytes [#/volume] in blood by automated count 4.87 text: 4.50 - 5.10 x10'6/ uL RBC 4.87 4.50 - 5.10 x10'6 /uL 12/06 7:49 AM CDT [facility] Not Available Not Available 10/24/2024 11:01:28 12/07/19 24 12/07/2023 CBC W Auto Diffe renti al panel - Blood hemoglobin [mass/volume ] in blood 13.7 text: 12.3 - 15.3 g/dL HGB 13.7 12.3 - 15.3 G/DL 12/06 7:49 AM CDT [facility] Not Available Not Available 10/24/2024 11:01:28 12/07/19 24 12/07/2023 CBC W Auto Diffe renti al panel - Blood hematocrit [volume fraction] of blood by calculation 44.2 % low: 35.9%h igh: 44.6% HCT 44.2 35.9 - 44.6 % 12/06 7:49 AM CDT [facility] Not Available Not Available 10/24/2024 11:01:28 12/07/19 24 12/07/2023 CBC W Auto Diffe renti al panel - Blood MCV [entitic mean volume] in red blood cells 90.8 text: 80.0 - 96.0 fL MCV 90.8 80.0 - 96.0 FL 12/06 7:49 AM CDT [facility] Not Available Not Available 10/24/2024 11:01:28 12/07/19 24 12/07/2023 CBC W Auto Diffe renti al panel - Blood MCH [entitic mass] 28.1 pg low: 25.3pg high: 30.9pg MCH 28.1 25.3 - 30.9 PG 12/06 7:49 AM CDT [facility] Not Available Not Available 10/24/2024 11:01:28 12/07/19 24 12/07/2023 CBC W Auto Diffe renti al panel - Blood MCHC [entitic mass/volume] in red blood cells 31 text: 31.0 - 34.1 g/dL MCHC 31.0 31.0 - 34.1 G/DL 12/06 7:49 AM CDT [facility] Not Available Not Available 10/24/2024 11:01:28 12/07/19 24 12/07/2023 CBC W Auto Diffe renti al panel - Blood RDW 13.5 % low: 12.4%h igh: 15.1% RDW 13.5 12.4 - 15.1 % 12/06 7:49 AM CDT [facility] Not Available Not Available 10/24/2024 11:01:28 12/07/19 24 12/07/2023 CBC W Auto Diffe renti al panel - Blood platelets [#/volume] in blood 364 text: 151 - 353 x10'3/ uL high PLT 364 (H) 151 - 353 x10'3 /uL 12/06 7:49 AM CDT [facility] Not Available Not Available 10/24/2024 11:01:28 12/07/19 24 12/07/2023 CBC W Auto Diffe renti al panel - Blood platelet [entitic mean volume] in blood 10.2 text: 9.6 - 12.0 fL MPV 10.2 9.6 - 12.0 FL 12/06 7:49 AM CDT [facility] Not Available Not Available 10/24/2024 11:01:28 12/07/19 24 12/07/2023 CBC W Auto Diffe renti al panel - Blood erythrocytes [morphology] in blood by automated count NORMAL RBC MORPH OLOGY GLENDY L 12/06 7:49 AM CDT [facility] Not Available Not Available 10/24/2024 11:01:28 12/07/19 24 12/07/2023 CBC W Auto Diffe renti al panel - Blood platelet morphology finding [identifier] in blood NORMAL PLT MORPH . GLENDY L 12/06 7:49 AM CDT [facility] Not Available Not Available 10/24/2024 11:01:28 12/07/19 24 12/07/2023 CBC W Auto Diffe renti al panel - Blood leukocyte morphology finding [identifier] in blood NORMAL WBC MORPH OLOGY GLENDY L 12/06 7:[address] [facility] Not Available Not Available 10/24/2024 11:01:28 12/07/19 24 12/07/2023 CBC W Auto Diffe renti al panel - Blood lymphocytes/ leukocytes in blood by automated count 33.9 % low: 15.8%h igh: 45% LYMPH OCYTE S % 33.9 15.8 - 45.0 % 12/06 7:[address] [facility] Not Available Not Available 10/24/2024 11:01:28 12/07/19 24 12/07/2023 CBC W Auto Diffe renti al panel - Blood neutrophils/ leukocytes in blood by automated count 57 % low: 42.1%h igh: 71.9% NEUTR OPHIL S % 57.0 42.1 - 71.9 % 12/06 7:[address] [facility] Not Available Not Available 10/24/2024 11:01:28 12/07/19 24 12/07/2023 CBC W Auto Diffe renti al panel - Blood monocytes/le ukocytes in blood by automated count 6.8 % low: 5.7%hi gh: 12.5% MONOC YTES % 6.8 5.7 - 12.5 % 12/06 7:[address] [facility] Not Available Not Available 10/24/2024 11:01:28 12/07/19 24 12/07/2023 CBC W Auto Diffe renti al panel - Blood eosinophils/ leukocytes in blood by automated count 1.5 % low: 0%high : 5.6% EOSIN OPHIL S 1.5 0.0 - 5.6 % 12/06 7:49 AM CDT [facility] () [facility] Not Available Not Available 10/24/2024 11:01:28 12/07/19 24 12/07/2023 CBC W Auto Diffe renti al panel - Blood basophils/le ukocytes in blood by automated count 0.3 % low: 0%high : 1.3% BASOP HILS 0.3 0.0 - 1.3 % 12/06 7:49 AM CDT [facility] () [facility] Not Available Not Available 10/24/2024 11:01:28 12/07/19 24 12/07/2023 CBC W Auto Diffe renti al panel - Blood neutrophils [#/volume] in blood 5.03 text: 1.40 - 6.00 x10'3/ uL ABS. NEUTR OPHIL S 5.03 1.40 - 6.00 x10'3 /uL 12/06 7:49 AM CDT [facility] () [facility] Not Available Not Available 10/24/2024 11:01:28 12/07/19 24 12/07/2023 CBC W Auto Diffe renti al panel - Blood immature granulocytes /leukocytes in blood by automated count 0.5 % low: 0%high : 0.5% IMMAT URE GRANS % 0.5 0.0 - 0.5 % 12/06 7:49 AM CDT [facility] () [facility] Not Available Not Available 10/24/2024 11:01:28 12/07/19 24 12/07/2023 CBC W Auto Diffe renti al panel - Blood lymphocytes [#/volume] in blood 2.99 text: 0.80 - 4.70 x10'3/ uL ABS. LYMPH OCYTE S 2.99 0.80 - 4.70 x10'3 /uL 12/06 7:49 AM CDT [facility] () [facility] Not Available Not Available 10/24/2024 [...] - 8.2 G/DL 12/06 8:14 AM CDT [facility] () [facility] Not Available Not Available 10/24/2024 11:01:28 12/07/19 24 12/07/2023 Hepat ic funct ion 2000 panel - Serum or Plasm a albumin [mass/volume ] in serum or plasma 3.7 text: 3.4 - 5.0 g/dL ALBUM IN S/P/B 3.7 3.4 - 5.0 G/DL 12/06 8:14 AM CDT [facility] () [facility] Not Available Not Available 10/24/2024 11:01:28 12/07/19 24 12/07/2023 Hepat ic funct ion 2000 panel - Serum or Plasm a bilirubin.to antonio [mass/volume ] in serum or plasma 0.6 text: 0.2 - 1.2 mg/dL BILIR UBIN TOTAL S/P/B 0.6 0.2 - 1.2 MG/DL 12/06 8:14 AM CDT [facility] () [facility] Not Available Not Available 10/24/2024 11:01:28 12/07/19 24 12/07/2023 Hepat ic funct ion 2000 panel - Serum or Plasm a bilirubin.co njugated [mass/volume ] in serum or plasma 0.1 text: 0.0 - 0.20 mg/dL BILIR UBIN DIREC T S/P/B 0.1 0.0 - 0.20 MG/DL 12/06 8:14 AM CDT [facility] () [facility] Not Available Not Available 10/24/2024 11:01:28 12/07/19 24 12/07/2023 Hepat ic funct ion 2000 panel - Serum or Plasm a bilirubin.in direct [mass/volume ] in serum or plasma 0.5 text: 0.0 - 0.9 mg/dL BILIR UBIN INDIR ECT S/P/B 0.5 0.0 - 0.9 MG/DL 12/06 8:14 AM CDT [facility] () [facility] Not Available Not Available 10/24/2024 11:01:28 12/07/19 24 12/07/2023 Hepat ic funct ion 1999 panel - Serum or Plasm a alkaline phosphatase [enzymatic activity/vol ume] in serum or plasma 126 U/L low: 50U/Lh igh: 136U/L ALKAL INE PHOSP HATAS E S/P/B 126 50 - 136 U/L 12/06 8:14 AM CDT [facility] () [facility] Not Available Not Available 10/24/2024 11:01:28 12/07/19 24 12/07/2023 Hepat ic funct ion 1999 panel - Serum or Plasm a aspartate aminotransfe rase [enzymatic activity/vol ume] in serum or plasma 19 U/L low: 15U/Lh igh: 37U/L AST 19 15 - 37 U/L 12/06 8:14 AM CDT [facility] () [facility] Not Available Not Available 10/24/2024 11:01:28 12/07/19 24 12/07/2023 Hepat ic funct ion 1999 panel - Serum or Plasm a alanine aminotransfe rase [enzymatic activity/vol ume] in serum or plasma 22 U/L low: 14U/Lh igh: 55U/L ALT 22 14 - 55 U/L 12/06 8:14 AM CDT [facility] Not Available Not Available 10/24/2024 11:01:28 12/07/19 24 12/07/2023 Hepat ic funct ion 1999 panel - Serum or Plasm a albumin/glob ulin [mass ratio] in serum or plasma 1 text: 1.0 - 2.0 ratio A/G RATIO 1.0 1.0 - 2.0 RATIO 12/06 8:14 AM CDT [facility] Not Available Not Available 10/24/2024 11:01:28 12/07/19 24 12/07/2023 Shwetha stero l in LDL [Mass /volu me] in Serum or Plasm a by Direc t assay cholesterol in LDL [mass/volume ] in serum or plasma by direct assay 106 text: <100 mg/dL high DIREC T LDL 106 (H) <100 MG/DL 12/06 8:14 AM CDT [facility] Not Available Not Available 10/24/2024 11:01:28 12/07/19 24 12/07/2023 Shwetha stero l in LDL [Mass /volu me] in Serum or Plasm a by Direc t assay interpretati on and review of laboratory results Abnorm al Not Available Not Available 11:01:28 12/07/19 24 12/07/2023 Lipid 1996 panel - Serum or Plasm a cholesterol [mass/volume ] in serum or plasma 184 text: <200.0 mg/dL SHWETHA STERO L 184 <200. 0 MG/DL 12/06 8:14 AM CDT [facility] Not Available Not Available 10/24/2024 11:01:28 12/07/19 24 12/07/2023 Lipid 1996 panel - Serum or Plasm a triglyceride [mass/volume ] in serum or plasma 103 text: <150 mg/dL TRIGL YCERI ARI 103 <150 MG/DL 12/06 8:14 AM CDT [facility] Not Available Not Available 10/24/2024 11:01:28 12/07/19 24 12/07/2023 Lipid 1996 panel - Serum or Plasm a cholesterol in HDL [mass/volume ] in serum or plasma 64 text: >40.0 mg/dL HDL 64 >40.0 MG/DL 12/06 8:14 AM CDT [facility] Not Available Not Available 10/24/2024 11:01:28 12/07/19 24 12/07/2023 Lipid 1996 panel - Serum or Plasm a cholesterol in LDL [mass/volume ] in serum or plasma by calculation 99 text: <100 mg/dL LDL (CALC ULATE D) 99 <100 MG/DL 12/06 8:14 AM CDT [facility] Not Available Not Available 10/24/2024 11:01:28 12/07/19 24 12/07/2023 Lipid 1996 panel - Serum or Plasm a cholesterol non HDL [mass/volume ] in serum or plasma 120 text: <130 mg/dL NON HDL SHWETHA STERO L 120 <130 MG/DL 12/06 8:14 AM CDT [facility] Not Available Not Available 10/24/2024 11:01:28 12/07/19 24 12/07/2023 Lipid 1996 panel - Serum or Plasm a cholesterol. total/choles terol in HDL [mass ratio] in serum or plasma 2.9 low: 0high: 4.5 CHOL/ HDL RATIO 2.9 0.0 - 4.5 12/06 8:14 AM CDT [facility] Not Available Not Available 10/24/2024 11:01:28 12/07/19 24 12/07/2023 Lipid 1996 panel - Serum or Plasm a cholesterol in VLDL [mass/volume ] in serum or plasma by calculation 21 text: 5 - 55 mg/dL VLDL CALCU LATIO N 21 5 - 55 MG/DL 12/06 8:14 AM CDT [facility] Not Available Not Available 10/24/2024 11:01:28 12/07/19 24 12/07/2023 Lipid 1996 panel - Serum or Plasm a service comment LIPID INTER PRETA TION 12/06 8:14 AM CDT [facility] Not Available Not Available 10/24/2024 11:01:28 12/07/19 24 12/07/2023 Hemog lobin A1c/H emogl obin. total in Blood hemoglobin A1C/hemoglob in.total in blood 6.1 % high: 5.7% high HGB A1C 6.1 (H) <5.7 % 12/06 8:15 AM CDT [facility] ([facility]) [facility] Not Available Not Available 10/24/2024 11:01:27 12/07/19 24 12/07/2023 Hemog lobin A1c/H emogl obin. total in Blood glucose mean value [mass/volume ] in blood estimated from glycated hemoglobin 128 mg/dL ESTIM ATED AVG GLUCO SE 128 mg/dL 12/06 8:15 AM CDT [facility] Not Available Not [...] 70 - 99 MG/DL 12/06 8:14 AM T [facility] ([facility]) [facility] Not Available Not Available 10/24/2024 11:01:27 12/07/19 24 12/07/2023 Basic metab olic 2000 panel - Serum or Plasm a urea nitrogen [mass/volume ] in serum or plasma 16 text: 7 - 18 mg/dL BUN 16 7 - 18 MG/DL 12/06 8:14 AM CDT [facility] Not Available Not Available 10/24/2024 11:01:27 12/07/19 24 12/07/2023 Basic metab olic 2000 panel - Serum or Plasm a creatinine [mass/volume ] in serum or plasma 0.86 text: 0.55 - 1.02 mg/dL CREAT ININE S/P/B 0.86 0.55 - 1.02 MG/DL 12/06 8:14 AM CDT [facility] Not Available Not Available 10/24/2024 11:01:27 12/07/19 24 12/07/2023 Basic metab olic 2000 panel - Serum or Plasm a sodium [moles/volum e] in serum or plasma 142 text: 136 - 145 mmol/L SODIU M S/P/B 142 136 - 145 MMOL/ L 12/06 8:14 AM CDT [facility] ([facility] Not Available Not Available 10/24/2024 11:01:27 12/07/19 24 12/07/2023 Basic metab olic 2000 panel - Serum or Plasm a potassium [moles/volum e] in serum or plasma 3.9 text: 3.5 - 5.1 mmol/L POTAS SIUM S/P/B 3.9 3.5 - 5.1 MMOL/ L 12/06 8:14 AM CDT [facility] () [facility] Not Available Not Available 10/24/2024 11:01:27 12/07/19 24 12/07/2023 Basic metab olic 2000 panel - Serum or Plasm a chloride [moles/volum e] in serum or plasma 104 text: 100 - 108 mmol/L CHLOR MONTEZ S/P/B 104 100 - 108 MMOL/ L 12/06 8:14 AM T [facility] () [facility] Not Available Not Available 10/24/2024 11:01:27 12/07/19 24 12/07/2023 Basic metab olic 2000 panel - Serum or Plasm a carbon dioxide, total [moles/volum e] in serum or plasma 31.8 text: 21 - 32 mmol/L CO2 31.8 21 - 32 MMOL/ L 12/06 8:14 AM T [facility] () [facility] Not Available Not Available 10/24/2024 11:01:27 12/07/19 24 12/07/2023 Basic metab olic 2000 panel - Serum or Plasm a calcium [mass/volume ] in serum or plasma 8.8 text: 8.5 - 10.1 mg/dL CALCI UM S/P/B 8.8 8.5 - 10.1 MG/DL 12/06 8:14 AM T S () [facility] Not Available Not Available 10/24/2024 11:01:27 12/07/19 24 12/07/2023 Basic metab olic 2000 panel - Serum or Plasm a anion gap in serum or plasma by calculation 6.2 text: 5 - 15 mmol/L ANION GAP 6.2 5 - 15 MMOL/ L 12/06 8:14 AM T S () [facility] Not Available Not Available 10/24/2024 11:01:27 12/07/19 24 12/07/2023 Basic metab olic 2000 panel - Serum or Plasm a urea nitrogen/cre atinine [mass ratio] in serum or plasma 18.6 low: 6high: 26 BUN CREAT ININE RATIO 18.6 6 - 26 12/06 8:14 AM T [employer] () [facility] Not Available Not Available 10/24/2024 11:01:27 12/07/19 24 12/07/2023 Basic metab olic 2000 panel - Serum or Plasm a glomerular filtration rate [volume rate/area] in serum, plasma or blood by creatinine-b ased formula (CKD-epi 2020)/1.73 sq M 74 text: >90 mL/min /1.73 M2 low GFR ESTIM ATE 74 (L) >90 ML/HI N/1.7 3 M2 12/06 8:14 AM T [facility] () [facility] Not Available Not Available 10/24/2024 [...] 28 - 217 MG/DL 06/19 11:22 AM TELETYPE TELEGRAPHER [facility] Not Available Not Available 10/24/2024 11:03:29 06/19/20 24 06/19/2024 MICRO ALBUM IN CREAT ININE RATIO (MICR OALBU MIN/A LBUMI N) microalbumin [mass/volume ] in urine 0.6 mg/dL high: 2mg/dL MICRO ALBUM IN (U) 0.6 <2.0 mg/dL 06/19 11:22 AM TELETYPE TELEGRAPHER [facility] Not Available Not Available 10/24/2024 11:03:29 06/19/20 24 06/19/2024 MICRO ALBUM IN CREAT ININE RATIO (MICR OALBU MIN/A LBUMI N) microalbumin /creatinine [mass ratio] in urine 5.6 mg/g high: 30mg/g ALBUM IN/CR EAT RATIO 5.6 <30.0 MG/G 06/19 11:22 AM TELETYPE TELEGRAPHER [facility] Not Available Not Available 10/24/2024 11:03:29 06/19/20 24 06/19/2024 Hepat ic funct ion 2000 panel - Serum or Plasm a protein [mass/volume ] in serum or plasma 7.3 text: 6.4 - 8.2 g/dL TOTAL PROTE IN S/P/B 7.3 6.4 - 8.2 G/DL 06/19 8:59 AM TELETYPE TELEGRAPHER [facility] Not Available Not Available 10/24/2024 11:03:29 06/19/20 24 06/19/2024 Hepat ic funct ion 2000 panel - Serum or Plasm a albumin [mass/volume ] in serum or plasma 3.8 text: 3.4 - 5.0 g/dL ALBUM IN S/P/B 3.8 3.4 - 5.0 G/DL 06/19 8:59 AM TELETYPE TELEGRAPHER [facility] Not Available Not Available 10/24/2024 11:03:29 06/19/20 24 06/19/2024 Hepat ic funct ion 2000 panel - Serum or Plasm a bilirubin.to antonio [mass/volume ] in serum or plasma 0.5 text: 0.2 - 1.2 mg/dL BILIR UBIN TOTAL S/P/B 0.5 0.2 - 1.2 MG/DL 06/19 8:59 AM TELETYPE TELEGRAPHER [facility] Not Available Not Available 10/24/2024 11:03:29 06/19/20 24 06/19/2024 Hepat ic funct ion 2000 panel - Serum or Plasm a bilirubin.co njugated [mass/volume ] in serum or plasma 0.1 text: 0.0 - 0.20 mg/dL BILIR UBIN DIREC T S/P/B 0.1 0.0 - 0.20 MG/DL 06/19 8:59 AM TELETYPE TELEGRAPHER [facility] Not Available Not Available 10/24/2024 11:03:29 06/19/20 24 06/19/2024 Hepat ic funct ion 2000 panel - Serum or Plasm a bilirubin.in direct [mass/volume ] in serum or plasma 0.4 text: 0.0 - 0.9 mg/dL BILIR UBIN INDIR ECT S/P/B 0.4 0.0 - 0.9 MG/DL 06/19 8:59 AM TELETYPE TELEGRAPHER [facility] Not Available Not Available 10/24/2024 11:03:29 06/19/20 24 06/19/2024 Hepat ic funct ion 2000 panel - Serum or Plasm a alkaline phosphatase [enzymatic activity/vol ume] in serum or plasma 128 U/L low: 50U/Lh igh: 136U/L ALKAL INE PHOSP HATAS E S/P/B 128 50 - 136 U/L 06/19 8:59 AM TELETYPE TELEGRAPHER [facility] Not Available Not Available 10/24/2024 11:03:29 06/19/20 24 06/19/2024 Hepat ic funct ion 2000 panel - Serum or Plasm a aspartate aminotransfe rase [enzymatic activity/vol ume] in serum or plasma 26 U/L low: 15U/Lh igh: 37U/L AST 26 15 - 37 U/L 06/19 8:59 AM TELETYPE TELEGRAPHER [facility] () [facility] Not Available Not Available 10/24/2024 11:03:29 06/19/20 24 06/19/2024 Hepat ic funct ion 2000 panel - Serum or Plasm a alanine aminotransfe rase [enzymatic activity/vol ume] in serum or plasma 26 U/L low: 14U/Lh igh: 55U/L ALT 26 14 - 55 U/L 06/19 8:59 AM TELETYPE TELEGRAPHER [facility] () [facility] Not Available Not Available 10/24/2024 11:03:29 06/19/20 24 06/19/2024 Hepat ic funct ion 1999 panel - Serum or Plasm a albumin/glob ulin [mass ratio] in serum or plasma 1.1 text: 1.0 - 2.0 ratio A/G RATIO 1.1 1.0 - 2.0 RATIO 06/19 8:59 AM TELETYPE TELEGRAPHER [facility] () [facility] Not Available Not Available 10/24/2024 11:03:29 06/19/20 24 06/19/2024 CBC W Auto Diffe renti al panel - Blood leukocytes [#/volume] in blood by automated count 8.27 text: 4.4 - 11.0 x10'3/ uL WBC 8.27 4.4 - 11.0 x10'3 /uL 06/19 8:55 AM TELETYPE TELEGRAPHER [facility] () [facility] Not Available Not Available 10/24/2024 11:03:29 06/19/20 24 06/19/2024 CBC W Auto Diffe renti al panel - Blood erythrocytes [#/volume] in blood by automated count 4.79 text: 4.50 - 5.10 x10'6/ uL RBC 4.79 4.50 - 5.10 x10'6 /uL 06/19 8:55 AM TELETYPE TELEGRAPHER [facility] () [facility] Not Available Not Available 10/24/2024 11:03:29 06/19/20 24 06/19/2024 CBC W Auto Diffe renti al panel - Blood hemoglobin [mass/volume ] in blood 13.6 text: 12.3 - 15.3 g/dL HGB 13.6 12.3 - 15.3 G/DL 06/19 8:55 AM TELETYPE TELEGRAPHER [facility] [facility] Not Available Not Available 10/24/2024 11:03:29 06/19/20 24 06/19/2024 CBC W Auto Diffe renti al panel - Blood hematocrit [volume fraction] of blood by calculation 43 % low: 35.9%h igh: 44.6% HCT 43.0 35.9 - 44.6 % 06/19 8:55 AM TELETYPE TELEGRAPHER [facility] Not Available Not Available 10/24/2024 11:03:29 06/19/20 24 06/19/2024 CBC W Auto Diffe renti al panel - Blood MCV [entitic mean volume] in red blood cells 89.8 text: 80.0 - 96.0 fL MCV 89.8 80.0 - 96.0 FL 06/19 8:55 AM TELETYPE TELEGRAPHER [facility] Not Available Not Available 10/24/2024 11:03:29 06/19/20 24 06/19/2024 CBC W Auto Diffe renti al panel - Blood MCH [entitic mass] 28.4 pg low: 25.3pg high: 30.9pg MCH 28.4 25.3 - 30.9 PG 06/19 8:55 AM TELETYPE TELEGRAPHER [facility] Not Available Not Available 10/24/2024 11:03:29 06/19/20 24 06/19/2024 CBC W Auto Diffe renti al panel - Blood MCHC [entitic mass/volume] in red blood cells 31.6 text: 31.0 - 34.1 g/dL MCHC 31.6 31.0 - 34.1 G/DL 06/19 8:55 AM TELETYPE TELEGRAPHER [facility] Not Available Not Available 10/24/2024 11:03:29 06/19/20 24 06/19/2024 CBC W Auto Diffe renti al panel - Blood RDW 13.2 % low: 12.4%h igh: 15.1% RDW 13.2 12.4 - 15.1 % 06/19 8:55 AM TELETYPE TELEGRAPHER [facility] Not Available Not Available 10/24/2024 11:03:29 06/19/20 24 06/19/2024 CBC W Auto Diffe renti al panel - Blood platelets [#/volume] in blood 354 text: 151 - 353 x10'3/ uL high PLT 354 (H) 151 - 353 x10'3 /uL 06/19 8:55 AM TELETYPE TELEGRAPHER [facility] Not Available Not Available 10/24/2024 11:03:29 06/19/20 24 06/19/2024 CBC W Auto Diffe renti al panel - Blood platelet [entitic mean volume] in blood 10.9 text: 9.6 - 12.0 fL MPV 10.9 9.6 - 12.0 FL 06/19 8:55 AM TELETYPE TELEGRAPHER [facility] Not Available Not Available 10/24/2024 11:03:29 06/19/20 24 06/19/2024 CBC W Auto Diffe renti al panel - Blood erythrocytes [morphology] in blood by automated count NORMAL RBC MORPH OLOGY GLENDY L 06/19 8:55 AM TELETYPE TELEGRAPHER [facility] Not Available Not Available 10/24/2024 11:03:29 06/19/20 24 06/19/2024 CBC W Auto Diffe renti al panel - Blood platelet morphology finding [identifier] in blood NORMAL PLT MORPH . GLENDY L 06/19 8:55 AM TELETYPE TELEGRAPHER [facility] Not Available Not Available 10/24/2024 11:03:29 06/19/20 24 06/19/2024 CBC W Auto Diffe renti al panel - Blood leukocyte morphology finding [identifier] in blood NORMAL WBC MORPH OLOGY GLENDY L 06/19 8:55 AM TELETYPE TELEGRAPHER [facility] Not Available Not Available 10/24/2024 11:03:29 06/19/20 24 06/19/2024 CBC W Auto Diffe renti al panel - Blood lymphocytes/ leukocytes in blood by automated count 43.8 % low: 15.8%h igh: 45% LYMPH OCYTE S % 43.8 15.8 - 45.0 % 06/19 8:55 AM TELETYPE TELEGRAPHER [facility] Not Available Not Available 10/24/2024 11:03:29 06/19/20 24 06/19/2024 CBC W Auto Diffe renti al panel - Blood neutrophils/ leukocytes in blood by automated count 45.2 % low: 42.1%h igh: 71.9% NEUTR OPHIL S % 45.2 42.1 - 71.9 % 06/19 8:55 AM TELETYPE TELEGRAPHER [facility] Not Available Not Available 10/24/2024 11:03:29 06/19/20 24 06/19/2024 CBC W Auto Diffe renti al panel - Blood monocytes/le ukocytes in blood by automated count 8.6 % low: 5.7%hi gh: 12.5% MONOC YTES % 8.6 5.7 - 12.5 % 06/19 8:55 AM TELETYPE TELEGRAPHER [facility] Not Available Not Available 10/24/2024 11:03:29 06/19/20 24 06/19/2024 CBC W Auto Diffe renti al panel - Blood eosinophils/ leukocytes in blood by automated count 1.7 % low: 0%high : 5.6% EOSIN OPHIL S 1.7 0.0 - 5.6 % 06/19 8:55 AM TELETYPE TELEGRAPHER [facility] Not Available Not Available 10/24/2024 11:03:29 06/19/20 24 06/19/2024 CBC W Auto Diffe renti al panel - Blood basophils/le ukocytes in blood by automated count 0.5 % low: 0%high : 1.3% BASOP HILS 0.5 0.0 - 1.3 % 06/19 8:55 AM TELETYPE TELEGRAPHER [facility] Not Available Not Available 10/24/2024 11:03:29 06/19/20 24 06/19/2024 CBC W Auto Diffe renti al panel - Blood neutrophils [#/volume] in blood 3.74 text: 1.40 - 6.00 x10'3/ uL ABS. NEUTR OPHIL S 3.74 1.40 - 6.00 x10'3 /uL 06/19 8:55 AM TELETYPE TELEGRAPHER [facility] () [facility] Not Available Not Available 10/24/2024 11:03:29 06/19/20 24 06/19/2024 CBC W Auto Diffe renti al panel - Blood immature granulocytes /leukocytes in blood by automated count 0.2 % low: 0%high : 0.5% IMMAT URE GRANS % 0.2 0.0 - 0.5 % 06/19 8:55 AM TELETYPE TELEGRAPHER [facility] () [facility] Not Available Not Available 10/24/2024 11:03:29 06/19/20 24 06/19/2024 CBC W Auto Diffe renti al panel - Blood lymphocytes [#/volume] in blood 3.62 text: 0.80 - 4.70 x10'3/ uL ABS. LYMPH OCYTE S 3.62 0.80 - 4.70 x10'3 /uL 06/19 8:55 AM TELETYPE TELEGRAPHER [facility] Not Available Not Available 10/24/2024 [...] 70 - 99 MG/DL 06/19 8:59 AM TELETYPE TELEGRAPHER [facility] Not Available Not Available 10/24/2024 11:03:29 06/19/20 24 06/19/2024 Basic metab olic 2000 panel - Serum or Plasm a urea nitrogen [mass/volume ] in serum or plasma 15 text: 7 - 18 mg/dL BUN 15 7 - 18 MG/DL 06/19 8:59 AM TELETYPE TELEGRAPHER [facility] Not Available Not Available 10/24/2024 11:03:29 06/19/20 24 06/19/2024 Basic metab olic 2000 panel - Serum or Plasm a creatinine [mass/volume ] in serum or plasma 0.83 text: 0.55 - 1.02 mg/dL CREAT ININE S/P/B 0.83 0.55 - 1.02 MG/DL 06/19 8:59 AM TELETYPE TELEGRAPHER [facility] Not Available Not Available 10/24/2024 11:03:29 06/19/20 24 06/19/2024 Basic metab olic 2000 panel - Serum or Plasm a sodium [moles/volum e] in serum or plasma 142 text: 136 - 145 mmol/L SODIU M S/P/B 142 136 - 145 MMOL/ L 06/19 8:59 AM TELETYPE TELEGRAPHER [facility] Not Available Not Available 10/24/2024 11:03:29 06/19/20 24 06/19/2024 Basic metab olic 2000 panel - Serum or Plasm a potassium [moles/volum e] in serum or plasma 4.7 text: 3.5 - 5.1 mmol/L POTAS SIUM S/P/B 4.7 3.5 - 5.1 MMOL/ L 06/19 8:59 AM TELETYPE TELEGRAPHER [facility] Not Available Not Available 10/24/2024 11:03:29 06/19/20 24 06/19/2024 Basic metab olic 2000 panel - Serum or Plasm a chloride [moles/volum e] in serum or plasma 104 text: 100 - 108 mmol/L CHLOR MONTEZ S/P/B 104 100 - 108 MMOL/ L 06/19 8:59 AM TELETYPE TELEGRAPHER [facility] Not Available Not Available 10/24/2024 11:03:29 06/19/20 24 06/19/2024 Basic metab olic 2000 panel - Serum or Plasm a carbon dioxide, total [moles/volum e] in serum or plasma 31.5 text: 21 - 32 mmol/L CO2 31.5 21 - 32 MMOL/ L 06/19 8:59 AM TELETYPE TELEGRAPHER [facility] Not Available Not Available 10/24/2024 11:03:29 06/19/20 24 06/19/2024 Basic metab olic 2000 panel - Serum or Plasm a calcium [mass/volume ] in serum or plasma 9.3 text: 8.5 - 10.1 mg/dL CALCI UM S/P/B 9.3 8.5 - 10.1 MG/DL 06/19 8:59 AM TELETYPE TELEGRAPHER [facility] Not Available Not Available 10/24/2024 11:03:29 06/19/20 24 06/19/2024 Basic metab olic 2000 panel - Serum or Plasm a anion gap in serum or plasma by calculation 6.5 text: 5 - 15 mmol/L ANION GAP 6.5 5 - 15 MMOL/ L 06/19 8:59 AM TELETYPE TELEGRAPHER [facility] Not Available Not Available 10/24/2024 11:03:29 06/19/20 24 06/19/2024 Basic metab olic 2000 panel - Serum or Plasm a urea nitrogen/cre atinine [mass ratio] in serum or plasma 18.1 low: 6high: 26 BUN CREAT ININE RATIO 18.1 6 - 26 06/19 8:59 AM TELETYPE TELEGRAPHER [facility] Not Available Not Available 10/24/2024 11:03:29 06/19/20 24 06/19/2024 Basic metab olic 2000 panel - Serum or Plasm a glomerular filtration rate [volume rate/area] in serum, plasma or blood by creatinine-b ased formula (CKD-epi 2020)/1.73 sq M 77 text: >90 mL/min /1.73 M2 low GFR ESTIM ATE 77 (L) >90 ML/HI N/1.7 3 M2 06/19 8:59 AM TELETYPE TELEGRAPHER [facility] [...] 6.4 (H) <5.7 % 06/19 9:22 AM TELETYPE TELEGRAPHER [facility] Not Available Not Available 10/24/2024 11:02:31 06/19/20 24 06/19/2024 Hemog lobin A1c/H emogl obin. total in Blood glucose mean value [mass/volume ] in blood estimated from glycated hemoglobin 137 mg/dL ESTIM ATED AVG GLUCO SE 137 mg/dL 06/19 9:22 AM TELETYPE TELEGRAPHER [facility] [...] 169 <200. 0 MG/DL 06/19 8:59 AM TELETYPE TELEGRAPHER [facility] Not Available Not Available 10/24/2024 11:02:31 06/19/20 24 06/19/2024 Lipid 1996 panel - Serum or Plasm a triglyceride [mass/volume ] in serum or plasma 81 text: <150 mg/dL TRIGL YCERI ARI 81 <150 MG/DL 06/19 8:59 AM TELETYPE TELEGRAPHER [facility] Not Available Not Available 10/24/2024 11:02:31 06/19/20 24 06/19/2024 Lipid 1996 panel - Serum or Plasm a cholesterol in HDL [mass/volume ] in serum or plasma 55 text: >40.0 mg/dL HDL 55 >40.0 MG/DL 06/19 8:59 AM [facility] [employer] [facility] Not Available Not Available 10/24/2024 11:02:31 06/19/20 24 06/19/2024 Lipid 1996 panel - Serum or Plasm a cholesterol in LDL [mass/volume ] in serum or plasma by calculation 98 text: <100 mg/dL LDL (CALC ULATE D) 98 <100 MG/DL 06/19 8:59 AM [facility] [employer] [facility] Not Available Not Available 10/24/2024 11:02:31 06/19/20 24 06/19/2024 Lipid 1996 panel - Serum or Plasm a cholesterol non HDL [mass/volume ] in serum or plasma 114 text: <130 mg/dL NON HDL SHWETHA STERO L 114 <130 MG/DL 06/19 8:59 AM TELETYPE TELEGRAPHER [facility] [employer] [facility] Not Available Not Available 10/24/2024 11:02:31 06/19/20 24 06/19/2024 Lipid 1996 panel - Serum or Plasm a cholesterol. total/choles terol in HDL [mass ratio] in serum or plasma 3.1 low: 0high: 4.5 CHOL/ HDL RATIO 3.1 0.0 - 4.5 06/19 8:59 AM TELETYPE TELEGRAPHER [employer]- [facility] Not Available Not Available 10/24/2024 11:02:31 06/19/20 24 06/19/2024 Lipid 1996 panel - Serum or Plasm a cholesterol in VLDL [mass/volume ] in serum or plasma by calculation 16 text: 5 - 55 mg/dL VLDL CALCU LATIO N 16 5 - 55 MG/DL 06/19 8:59 AM TELETYPE TELEGRAPHER [facility] Not Available Not Available 10/24/2024 11:02:31 06/19/20 24 06/19/2024 Lipid 1996 panel - Serum or Plasm a service comment LIPID INTER PRETA TION 06/19 8:59 AM TELETYPE TELEGRAPHER [facility] Not Available Not Available 10/24/2024 11:02:31 12/08/19 25 12/07/2024 Hepat ic funct ion 2000 panel - Serum or Plasm a protein [mass/volume ] in serum or plasma 7.3 text: 6.4 - 8.2 g/dL Not Available Not Available 12/13/2024 17:30:25 12/08/19 25 12/07/2024 Hepat ic funct ion 2000 panel - Serum or Plasm a albumin [mass/volume ] in serum or plasma 3.8 text: 3.4 - 5.0 g/dL Not Available Not Available 12/13/2024 17:30:25 12/08/19 25 12/07/2024 Hepat ic funct ion 2000 panel - Serum or Plasm a bilirubin.to antonio [mass/volume ] in serum or plasma 0.5 text: 0.2 - 1.2 mg/dL Not Available Not Available 12/13/2024 17:30:25 12/08/19 25 12/07/2024 Hepat ic funct ion 2000 panel - Serum or Plasm a bilirubin.co njugated [mass/volume ] in serum or plasma 0.1 text: 0.0 - 0.20 mg/dL Not Available Not Available 12/13/2024 17:30:25 12/08/19 25 12/07/2024 Hepat ic funct ion 2000 panel - Serum or Plasm a bilirubin.in direct [mass/volume ] in serum or plasma 0.4 text: 0.0 - 0.9 mg/dL Not Available Not Available 12/13/2024 17:30:25 12/08/19 25 12/07/2024 Hepat ic funct ion 1999 panel - Serum or Plasm a alkaline phosphatase [enzymatic activity/vol ume] in serum or plasma 127 U/L low: 50U/Lh igh: 136U/L Not Available Not Available 12/13/2024 17:30:25 12/08/19 25 12/07/2024 Hepat ic funct ion 1999 panel - Serum or Plasm a aspartate aminotransfe rase [enzymatic activity/vol ume] in serum or plasma 17 U/L low: 15U/Lh igh: 37U/L Not Available Not Available 12/13/2024 17:30:25 12/08/19 25 12/07/2024 Hepat ic funct ion 1999 panel - Serum or Plasm a alanine aminotransfe rase [enzymatic activity/vol ume] in serum or plasma 17 U/L low: 14U/Lh igh: 55U/L Not Available Not Available 12/13/2024 17:30:25 12/08/19 25 12/07/2024 Hepat ic funct ion 1999 panel - Serum or Plasm a albumin/glob ulin [mass ratio] in serum or plasma 1.1 text: 1.0 - 2.0 ratio Not Available Not Available 12/13/2024 17:30:25 12/08/19 25 12/07/2024 CBC W Auto Diffe renti al panel - Blood leukocytes [#/volume] in blood by automated count 7.71 text: 4.4 - 11.0 x10'3/ uL Not Available Not Available 12/13/2024 17:30:25 12/08/19 25 12/07/2024 CBC W Auto Diffe renti al panel - Blood erythrocytes [#/volume] in blood by automated count 4.89 text: 4.50 - 5.10 x10'6/ uL Not Available Not Available 12/13/2024 17:30:25 12/08/19 25 12/07/2024 CBC W Auto Diffe renti al panel - Blood hemoglobin [mass/volume ] in blood 14.1 text: 12.3 - 15.3 g/dL Not Available Not Available 12/13/2024 17:30:25 12/08/19 12/07/2024 CBC W Auto Diffe renti al panel - Blood hematocrit [volume fraction] of blood by calculation 44.3 % low: 35.9%h igh: 44.6% Not Available Not Available 12/13/2024 17:30:25 12/08/1912/07/2024 CBC W Auto Diffe renti al panel - Blood MCV [entitic mean volume] in red blood cells 90.6 text: 80.0 - 96.0 fL Not Available Not Available 12/13/2024 17:30:25 12/08/1912/07/2024 CBC W Auto Diffe renti al panel - Blood MCH [entitic mass] 28.8 pg low: 25.3pg high: 30.9pg Not Available Not Available 12/13/2024 17:30:25 12/08/1912/07/2024 CBC W Auto Diffe renti al panel - Blood MCHC [entitic mass/volume] in red blood cells 31.8 text: 31.0 - 34.1 g/dL Not Available Not Available 12/13/2024 17:30:25 12/08/1912/07/2024 CBC W Auto Diffe renti al panel - Blood RDW 13.7 % low: 12.4%h igh: 15.1% Not Available Not Available 12/13/2024 17:30:25 12/08/1912/07/2024 CBC W Auto Diffe renti al panel - Blood platelets [#/volume] in blood 351 text: 151 - 353 x10'3/ uL Not Available Not Available 12/13/2024 17:30:25 12/08/1912/07/2024 CBC W Auto Diffe renti al panel - Blood platelet [entitic mean volume] in blood 10.7 text: 9.6 - 12.0 fL Not Available Not Available 12/13/2024 17:30:25 12/08/1912/07/2024 CBC W Auto Diffe renti al panel - Blood erythrocytes [morphology] in blood by automated count NORMAL Not Available Not Available 12/03 17:30:25 12/08/19 25 12/07/2024 CBC W Auto Diffe renti al panel - Blood platelet morphology finding [identifier] in blood NORMAL Not Available Not Available 05/2025 17:30:25 12/08/19 25 12/07/2024 CBC W Auto Diffe renti al panel - Blood leukocyte morphology finding [identifier] in blood NORMAL Not Available Not Available 05/2025 17:30:25 12/08/19 25 12/07/2024 CBC W Auto Diffe renti al panel - Blood lymphocytes/ leukocytes in blood by automated count 34.1 % low: 15.8%h igh: 45% Not Available Not Available 12/13/2024 17:30:25 12/08/19 25 12/07/2024 CBC W Auto Diffe renti al panel - Blood neutrophils/ leukocytes in blood by automated count 56.8 % low: 42.1%h igh: 71.9% Not Available Not Available 12/13/2024 17:30:25 12/08/1912/07/2024 CBC W Auto Diffe renti al panel - Blood monocytes/le ukocytes in blood by automated count 6.7 % low: 5.7%hi gh: 12.5% Not Available Not Available 12/13/2024 17:30:25 12/08/19 25 12/07/2024 CBC W Auto Diffe renti al panel - Blood eosinophils/ leukocytes in blood by automated count 1.6 % low: 0%high : 5.6% Not Available Not Available 12/13/2024 17:30:25 12/08/1912/07/2024 CBC W Auto Diffe renti al panel - Blood basophils/le ukocytes in blood by automated count 0.4 % low: 0%high : 1.3% Not Available Not Available 12/13/2024 17:30:25 12/08/1912/07/2024 CBC W Auto Diffe renti al panel - Blood neutrophils [#/volume] in blood 4.38 text: 1.40 - 6.00 x10'3/ uL Not Available Not Available 12/13/2024 17:30:25 12/08/19 25 12/07/2024 CBC W Auto Diffe renti al panel - Blood immature granulocytes /leukocytes in blood by automated count 0.4 % low: 0%high : 0.5% Not Available Not Available 12/13/2024 17:30:12/08/1912/07/2024 CBC W Auto Diffe valentin al panel - Blood lymphocytes [#/volume] in blood 2.63 text: 0.80 - 4.70 x10'3/ uL Not Available Not Available 12/13/2024 17:30:25 12/08/1912/07/2024 [facility] 1999 panel - Serum or Plasm a glucose [mass/volume ] in serum or plasma 129 text: 70 - 99 mg/dL high Not Available Not Available 12/13/2024 17:30:25 12/08/1912/07/2024 [facility] 1999 panel - Serum or Plasm a urea nitrogen [mass/volume ] in serum or plasma 15 text: 7 - 18 mg/dL Not Available Not Available 12/13/2024 17:30:25 12/08/1912/07/2024 [facility] 1999 panel - Serum or Plasm a creatinine [mass/volume ] in serum or plasma 0.89 text: 0.55 - 1.02 mg/dL Not Available Not Available 12/13/2024 17:30:25 12/08/1912/07/2024 [facility] 1999 panel - Serum or Plasm a sodium [moles/volum e] in serum or plasma 141 text: 136 - 145 mmol/L Not Available Not Available 12/13/2024 17:30:25 12/08/1912/07/2024 [facility] 1999 panel - Serum or Plasm a potassium [moles/volum e] in serum or plasma 4.4 text: 3.5 - 5.1 mmol/L Not Available Not Available 12/13/2024 17:30:25 12/08/1912/07/2024 [facility] 1999 panel - Serum or Plasm a chloride [moles/volum e] in serum or plasma 103 text: 100 - 108 mmol/L Not Available Not Available 12/13/2024 17:30:25 12/08/1912/07/2024 [facility] 1999 panel - Serum or Plasm a carbon dioxide, total [moles/volum e] in serum or plasma 30.1 text: 21 - 32 mmol/L Not Available Not Available 12/13/2024 17:30:25 12/08/19 25 12/07/2024 [facility] 1999 panel - Serum or Plasm a calcium [mass/volume ] in serum or plasma 9.4 text: 8.5 - 10.1 mg/dL Not Available Not Available 12/13/2024 17:30:25 12/08/1912/07/2024 [facility] 1999 panel - Serum or Plasm a anion gap in serum or plasma by calculation 7.9 text: 5 - 15 mmol/L Not Available Not Available 12/13/2024 17:30:25 12/08/1912/07/2024 Basic [facility] 1999 panel - Serum or Plasm a urea nitrogen/cre atinine [mass ratio] in serum or plasma 16.9 low: 6high: 26 Not Available Not Available 12/13/2024 17:30:25 12/08/1912/07/2024 [facility] 1999 panel - Serum or Plasm a glomerular filtration rate [volume rate/area] in serum, plasma or blood by creatinine-b ased formula (CKD-epi 2020)/1.73 sq M 71 text: >90 mL/min /1.73 M2 low NOTE: eGFR is not calcu lated for patie nts <18 years of age. This is an estim ated GFR calcu latio n using the new CKD EPI creat inine equat ion witho ut race and so does not requi re a corre ction facto r for race. This estim ated GFR shoul d not be used for calcu latin g drug doses . Not Available Not Available 12/13/2024 17:30:25 12/08/1912/07/2024 [facility] 1999 panel - Serum or Plasm a interpretati on and review of laboratory results ABNORM AL Not Available Not Available 17:30:25 12/08/1912/07/2024 Lipid 1996 panel - Serum or Plasm a cholesterol [mass/volume ] in serum or plasma 191 text: <200.0 mg/dL Not Available Not Available 12/13/2024 17:30:25 12/08/19 25 12/07/2024 Lipid 1996 panel - Serum or Plasm a triglyceride [mass/volume ] in serum or plasma 149 text: <150 mg/dL Not Available Not Available 12/13/2024 17:30:25 12/08/1912/07/2024 Lipid 1996 panel - Serum or Plasm a cholesterol in HDL [mass/volume ] in serum or plasma 54 text: >40.0 mg/dL Not Available Not Available 12/13/2024 17:30:25 12/08/1912/07/2024 Lipid 1996 panel - Serum or Plasm a cholesterol in LDL [mass/volume ] in serum or plasma by calculation 107 text: <100 mg/dL high Not Available Not Available 12/13/2024 17:30:25 12/08/19 25 12/07/2024 Lipid 1996 panel - Serum or Plasm a cholesterol non HDL [mass/volume ] in serum or plasma 137 text: <130 mg/dL high Not Available Not Available 12/13/2024 17:30:25 12/08/1912/07/2024 Lipid 1996 panel - Serum or Plasm a cholesterol. total/choles terol in HDL [mass ratio] in serum or plasma 3.5 low: 0high: 4.5 Not Available Not Available 12/13/2024 17:30:25 12/08/1912/07/2024 Lipid 1996 panel - Serum or Plasm a cholesterol in VLDL [mass/volume ] in serum or plasma by calculation 30 text: 5 - 55 mg/dL Not Available Not Available 12/13/2024 17:30:25 12/08/1912/07/2024 Lipid 1996 panel - Serum or Plasm a service comment [facility] JENNIFER NSUS REPOR T RECOM MENDA TIONS : ADULT CHILD LOW RISK: SHWETHA STERO L <200 <170 TRIGL YCERI DE <150 --- HDL >=60 --- LDL <100 <110 BORDE RLINE : SHWETHA STERO L 200-2 39 170-1 99 TRIGL YCERI DE 150-1 99 --- HDL 40-59 --- LDL 100-1 59 110-1 29 HIGH RISK: SHWETHA STERO L >=240 >=200 TRIGL YCERI DE >=200 --- HDL <40 --- LDL >=160 >=130 Not Available Not Available 12/13/2024 17:30:25 12/08/19 25 12/07/2024 Lipid 1996 panel - Serum or Plasm a interpretati on and review of laboratory results ABNORM AL Not Available Not Available 17:30:25 12/08/19 25 12/07/2024 Hemog lobin A1c/H emogl obin. total in Blood hemoglobin A1C/hemoglob in.total in blood 6.3 % high: 5.7% high INCRE ASED RISK OF DIABE DELBERT <5.7% NON-D IABET ES 5.7-6 .4% INCRE ASED RISK FOR FUTUR E DIABE DELBERT > OR = 6.5 CONSI STENT WITH DIABE DELBERT STAND ARDS OF MEDIC AL CARE IN DIABE DELBERT-2 010 DIABE DELBERT CARE, 33(GALVEZ PP 1): S1-S6 1,201 0 Not Available Not Available 12/13/2024 17:30:24 12/08/19 25 12/07/2024 Hemog lobin A1c/H emogl obin. total in Blood glucose mean value [mass/volume ] in blood estimated from glycated hemoglobin 134 mg/dL Not Available Not Available 0 12/13/2024 17:30:24 12/08/19 25 12/07/2024 Hemog lobin A1c/H emogl obin. total in Blood interpretati on and review of laboratory results ABNORM AL Not Available Not Available 17:30:24 06/12/20 24 06/11/2024 MRI, shoul angel, w/o contr ast No observ ation record ed. [address], [address], 06/12/2024 09:57:05 06/20/20 24 06/20/2024 MAMMO sindy, digit al, bilat eral No observ ation record ed. [address] [address] [place], [address], 06/22/2024 10:48:07 08/29/19 25 08/29/2024 XR, shoul angel No observ ation record ed. [address], [address], 08/29/2024 23:19:17 10/16/19 25 10/15/2024 XR, shoul angel No observ ation record ed. [address], [place], [address], 10/15/2024 19:01:21 10/17/19 25 10/15/2024 XR, hand, 3 or more view No observ ation record ed. [address] [facility] [address] [place] [address] [address], [place], [address], 10/16/2024 16:32:57 10/20/19 25 10/18/2024 CT, hand, w/o contr ast No observ ation record ed. [address], [place], [address], 10/24/2024 14:18:11 11/01/19 25 10/31/2024 XR, hand No observ ation record ed. [address], [place], [address], 11/01/2024 13:54:21 12/13/19 25 12/12/2024 XR, acrom iocla vicul ar joint (s) No observ ation record ed. [address] [address], [place], [address], 12/14/2024 12:26:27 12/14/19 25 12/12/2024 XR, acrom iocla vicul ar joint (s) No observ ation record ed. [address], [place], [address], 12/14/2024 12:25:58 12/30/19 25 12/28/2024 MRI, brain , w/wo contr ast No observ ation record ed. [facility] [address] [facility] [address], [place], [address], 2025 17:15:29 01/05/20 25 12/28/2024 US, duple x, carot id arter y No observ ation record ed. [facility] [address] [facility] [address], [place], [address], 01/15/2025 13:48:32 01/10/20 25 12/29/2024 CT, chest , w/o contr ast No observ ation record ed. [facility] [address], [place], [address], 01/15/2025 13:48:33 02/02/2002/01/2025 jb can cardi olite stres s test (PROC ) No observ ation record ed. [facility] [address], [place], [address], 02/02/2025 14:41:09 Result Notes None recorded. Problems Name Problem SNOMED Code Status Onset Date Resolution Date Notes Provider Name and Address Organization Details Recorded Time Type 2 diabetes mellitus without complicatio n 666258811 Active 2023 MARY Hernandez Attn: Ernesto vargas,[address] [place], [address], [place] [facility] 4 10:53:30 Gastroesoph ageal reflux disease without esophagitis 316371214 Active 2023 MARY Hernandez Attn: Ernesto vargas,[address] [place], [address], [place] [facility] 4 10:53:31 Hyperlipide loren 01022606 Active 2023 MARY Hernandez Attn: Ernesto vargas,[address] [place], [address], [place] [facility] 4 10:53:31 Mixed anxiety and depressive disorder 487351071 Active 2023 MARY Hernandez Attn: Ernesto vargas,[address] [place], [address], [place] [facility] 4 10:53:33 Long-term drug therapy Active 2023 MARY Hernandez Attn: Ernesto vargas,[address] [facility], [place], [address], [place] [facility] 4 10:53:33 Pain of left knee joint 2913280300203 07 Active 2023 MARY Hernandez Attn: Ernesto vargas,[address] [facility], [place], [address], [place] [facility] 4 10:53:45 Body mass index 25-29 - overweight 964717569 Active 2023 MARY Hernandez Attn: Ernesto vargas,[address] [facility], [place], [address], [facility] - [facility] 4 15:50:48 Overweight in adulthood with body mass index of 25 or more but less than 30 261717355 Active 2024 MARY Hernandez Attn: Ernesto vargas,[address] [facility], [place], [address], [facility] - [facility] 5 22:44:03 Positive screening for depression on PHQ-9 (Patient Health Questionnai re 9) 6915247156553 00 Active 2024 MARY Hernandez Attn: Ernesto vargas,[address] [facility], [place], [address], [place] [facility] 5 22:44:22 Problem Notes None recorded. Procedures Surgical History Date Name Laterality Status Provider Name and Address Organization Details Recorded Time 12/13/19 25 shoulder injection completed Haley Banerjee MA [facility] 12/14/2024 11:32:56 10/16/19 25 robot assisted excision of spleen completed FAMILIA Ann [facility] 12/14/2024 11:32:33 Appendectomy completed Haley Banerjee MA [facility] 12/09/2023 15:45:33 Cholecystectomy completed Haley Banerjee MA [facility] 12/09/2023 15:45:46 Eye Surgery completed Haley Banerjee MA [facility] 12/09/2023 15:47:42 excision of bilateral fallopian tubes and ovaries completed Haley Banerjee [place] [facility] 12/09/2023 15:47:49 D & c after delivery completed Haley Banerjee [place] [facility] 12/09/2023 15:47:56 hysterectomy completed Haley Banerjee [place] [facility] 12/09/2023 15:48:52 Imaging Results None recorded. Procedure Notes None recorded. Medical Equipment None Reported. Allergies No known drug allergies Medications Name Sig Start Date Stop Date Status Note LastModified by Organization Details LastModified Time prednisone 10 mg tablet TAKE 1 TABLET BY MOUTH ONCE DAILY 12/14 completed Not Available Not Available Not Available atorvastat in 20 mg tablet Take 1 tablet every day by oral route. active Not Available Not Available No t Available hydrocodon e 5 mg-acetami nophen 325 mg tablet TAKE 1 TABLET BY MOUTH EVERY 4 HOURS 12/14 completed Not Available Not Available Not Available venlafaxin e ER 150 mg capsule,ex tended release 24 hr TAKE 1 CAPSULE BY MOUTH DAILY 2024 active Not Available Not Available Not Avai lable omeprazole 40 mg capsule,de layed release Take [...] SYRINGE SUBCUTAN EOUSLY ONCE A WEEK DIRECTED 12/14 completed Not Available Not Available Not Available Trulicity 4.5 mg/0.5 mL subcutaneo us pen injector Inject 4.5 mg every week by subcutan eous route. 2024 active Not Available Not Available Not Avai lable Vitals Date Recorded Body height Body mass index (BMI) Body weight Respiratory rate Oxygen saturation Oxygen saturation in Arterial blood by Pulse oximetry Heart rate Systolic And Diastolic Provider Name and Address Organization Details Last Updated DateTime 4 160.02 cm 29.6 kg/m2 62417 g 20 /min 98 % 98 % 61 /min 130/72 mm[Hg] Haley Banerjee MA [facility] 4 10:42:01 Date Recorded Body height Body mass index (BMI) Body weight Heart rate Oxygen saturation Oxygen saturation in Arterial blood by Pulse oximetry Systolic And Diastolic Provider Name and Address Organization Details Last Updated DateTime 5 160.02 cm 27.6 kg/m2 69067.4 1 g 62 /min 98 % 98 % 122/80 mm[Hg] Haley Banerjee MA [facility] 5 11:37:18 Date Recorded Respiratory rate Systolic And Diastolic Provider Name and Address Organization Details Last Updated DateTime 06/22/2024 16 /min 130/80 mm[Hg] MARY Hernandez Attn: Account[address] [place], [address], [facility] 06/22/2024 11:02:18 Date Recorded Body height Body mass index (BMI) Body weight Oxygen saturation Oxygen saturation in Arterial blood by Pulse oximetry Heart rate Systolic And Diastolic Provider Name and Address Organization Details Last Updated DateTime 4 160.02 cm 29.6 kg/m2 40824.9 3 g 97 % 97 % 67 /min 138/82 mm[Hg] Haley Banerjee MA [facility] 4 10:28:53 Social History Question Answer Notes LastModified by Organizat ion Details LastModified Time Tobacco Smoking Status Never Smoker Haley Banerjee MA null, [facility] 12/09/2023 10:39:58 Do You Have An Advance [...] Date Of Your Most Recent Tobacco Screening? 12/14/2024 Information not available 12/14/2024 What Is Your Relationship Status? Information not [...] What Date Was Tobacco Cessation Counseling Provided? 12/14/2024 Information not available 12/14/2024 Sex: Female Functional Status Question Answer Note [...] 12/09/2023 Are you able to care for yourself independently? Yes Information not available 12/08/2023 What is your exercise level? None Information not available 12/09/2023 Mental Status Question Answer Note LastModified by Organization D etails LastModified Time Do you feel stressed (tense, restless, nervous, or anxious, or unable to sleep at night)? FY5349-1 Information not available 12/09/2023 Family History Relationship [...] lable 12/09/2023 15:49:54 Medical History Condition Response GI Problems Y Depression Y Skin Problems Y Anxiety Disorder Y Diabetes Y Muscle, Joint, or Bone Problems Y Acid Reflux (GERD) Y Cancer Y High Cholesterol Y Headaches Y Gynecological History Statement/Question Response Menses Monthly [...] 4 completed MARY Hernandez Attn: Accounting[address] [place], [address], [place] [facility] 07/04/2024 16:27:17 Past Encounters Encounter ID Performer Location Encounter Start Date Encounter Closed Date Diagnosis/Indication Diagnosis SNOMED-CT Code Diagnosis ICD10 Code Diagnosis IMO Codes Diagnosis Note [id number] Rashad Osman MD [facility] [address] [place] [address] 12/09/2023 10:20:41 01/03/2024 15:53:43 Type 2 diabetes mellitus without complication 437518504 E11.9 Rx for trulicity 3mg weekly in hopes this will be in stock. next labs due in Jun. continue glipizide 5mg bid w/meal. Gastroesop hageal reflux disease without esophagitis 316669056 K21.9 stable on omeprazole 40mg daily. Hyperlipidemia 17041108 E78.5 stable on atorvastat in 20mg daily. next labs due in Jun. Mixed anxi ety and depressive disorder 797014711 F41.8 stable on venlafaxin e ER 150mg daily Long-term drug therapy 382856856 Z79.899 next labs are due in Jun. Pain of le ft knee joint 3769245609 81631 M25.562 pt can f/u with ortho per plan Body mass index 25-29 - overweight 122486657 Z68.29 [id number] Rashad Osman MD [facility] [address] [place] [address] 06/22/2024 10:17:31 07/06/2024 09:06:09 Body mass index 25-29 - overweight 069214969 Z68.29 BMI is 29.6 Overweight 282351536 E66 .3 Type 2 mariangel betes mellitus without complication 218010517 E11.9 Rx for trulicity 3mg weekly in hopes this will be in stock. continue glipizide 5mg bid w/meal. Gastroesop hageal reflux disease without esophagitis 800379793 K21.9 stable on omeprazole 40mg daily. Hyperlipidemia 49956720 E78.5 stable on atorvastat in 20mg daily. next labs due in December Mixed anxi ety and depressive disorder 424244415 F41.8 stable on venlafaxin e ER 150mg daily. No acute concerns or complaints with medication Long-term drug therapy 625928974 Z79.899 Routine BMP, CBC and liver function will be due in December Administra tion of influenza vaccine 27302161 Z23 Flu shot given in the office today [id number] Rashad Osman MD [facility] [address] [place] [address] 12/14/2024 11:19:46 12/14/2024 14:02:19 Type 2 diabetes mellitus without complication 155599131 E11.9 6.3% A1c stable. Increase to 4 0.5 mg weekly Trulicity dosing. We are looking to maximize weight loss while treating glucose. Weekly in hopes this will be in stock. continue glipizide 5mg bid w/meal. Next labs including urine microalbum in due in May Overweight in adulthood with body mass index of 25 or more but less than 30 914739107 E66.3 Z68.27 5705295475 BMI is 27.6 Overweight 243467046 E66 .3 discussed healthy diet, exercise, controllin g carbohydra delbert and added sugars in the diet Positive s creening for depression on PHQ-9 (Patient Health Questionnaire 9) 1999835192 49961 Z13.31 4256909777 Patient is positive on her screening today with a score of 12. She does however feel stable on her venlafaxin e ER 150 mg daily Gastroesop hageal reflux disease without esophagitis 196781728 K21.9 stable on omeprazole 40mg daily. Hyperlipidemia 25222337 E78.5 stable on atorvastat in 20mg daily. Labs are stable. Repeat fasting lipid panel in May Mixed anxi ety and depressive disorder 026468023 F41.8 stable on venlafaxin e ER 150mg daily. No acute concerns or complaints with medication Long-term drug therapy 893630626 Z79.899 Routine BMP, CBC and liver function due again in May Dizziness 359429042 R42 00743 On review of systems patient reports dizziness that is persistent on and off but daily. Not just with position change. We will send for MRI of the brain with and without contrast an ultrasound of the carotid duplex bilaterall y Night sweats 72366713 R6 1 71086846 Review of systems also reveals unexplaine d night sweats that are the last few months. We are also going to send for a chest CT without contrast Health Concerns Section Related Observation LastModified by Organization Detai ls LastModified Time None Recorded Concern Status LastModified by Organization Details LastModified Time None Recorded Advance Directives Directive N: Payers Insurance Date Sequence Insurance Name Policy Number Policy Smith Covered Member ID Simth Member ID Guarantor Name [id number] 1 [facility] (MEDICARE REPLACEMENT/A DVANTAGE - HMO) [id number] Savannah Portillo [id number] Savannah Portillo Notes Date Note Type Note Provider Name and Address Organization Details Recorded Time 4 text/html HyperlipidemiaReported by Patientstable on atorvastatin 20mg daily. lipids are great. KneeReported by Patientshot given on november [address] Morrison. DiabetesReported by Patient6.1% a1c on Trulicity and glipizide 5mg bid. Anxiety/DepressionReported by Patientstable on venlafaxine ER 150mg daily. Reflux/GERDReported by Patientstable omeprazole 40mg daily. MARY Hernandez Attn: Accounting[address] [facility], [place], [address], [facility] 01/02/2024 15:50:57 4 text/html HyperlipidemiaReported by Patientstable on atorvastatin 20mg daily. lipids are great. KneeReported by Patientshot given on november [address] Morrison. DiabetesReported by Patient6.1% a1c on Trulicity and glipizide 5mg bid. Anxiety/DepressionReported by Patientstable on venlafaxine ER 150mg daily. Reflux/GERDReported by Patientstable omeprazole 40mg daily. MARY Hernandez Attn: Accounting[address] [facility], [place], [address], [facility] 07/04/2024 16:28:30 5 text/html HyperlipidemiaReported by Patientstable on atorvastatin 20mg daily. lipids are great. KneeReported by Patientshot given on november [address] Morrison. DiabetesReported by Patient6.3% a1c on Trulicity and glipizide 5mg bid. Anxiety/DepressionReported by Patientstable on venlafaxine ER 150mg daily. Reflux/GERDReported by Patientstable omeprazole 40mg daily. MARY Hernandez Attn: Accounting,[address] [facility], [place], [address], [facility] 12/30/2024 22:45:39 OBGyn Episode No OBEpisode recorded.
--- OUTSIDE RECORDS SUMMARY | 2025-05-17 01:55 | XMS_ITS | Data Portability ---
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 Not available 01/29/2023 18:58:10 02/19/2023 02/19/2023 [...] If her patellofemoral arthritis become severe and nxaw-tx-ncmc and her symptoms are intractable, knee replacement [...] more than half the time spent in aggx-fx-tqli care. Not available 02/19/2023 10:12:20 Plan of Treatment Reminders Order Date Submit Date Provider Last Modified By Organization Details Last Modified Time Details Appointments None recorded. Lab HbA1c (hemoglobin A1c), blood [address], [address] [address], [place], [address], 4 18:01:51 microalbumi n/creatinin e, mass ratio, urine [address], [address] Heri Dougherty, [place], [address], 4 18:01:51 microalbumi n, urine [address], [address] Heri [address]herty, [place], [address], 4 18:01:51 CBC w/ auto diff [address], [address] Her[address] Burger, [place], [address], 4 18:01:50 BMP, serum or plasma [address], [address] Heri Dougherty, [place], [address], 4 18:01:50 hepatic function panel, serum [address], [address] Heri Burgere, [place], [address], 4 18:01:51 TSH + free T4, serum [address], [address] Heri Dougherty, [place], [address], 4 18:01:51 lipid panel, serum 2022 023 [email or web address] [facility], [address] [address], [place], [address], 4 18:01:51 Referral None recorded. Procedures injection/a spiration joint/bursa (PROC) - in office procedure, administere d by provider 2022 023 [email or web address] In-Office Order, Internal Use Only DO Not Attach Compendium DO Not Attach Compendium, Do Not Delete/merge, [id number] 3 09:42:55 Surgeries None recorded. Imaging XR, knee 2022 023 [email or web address] [facility], [address] [facility] [address], [place], [address], 3 09:54:30 MRI, knee, w/o contrast - GIVE THE PT A CD OF IMAGES 2022 023 [facility] ([facility]), [address] [address], [place], [address], 3 19:34:18 MAMMO, screening, digital, bilateral 2022 023 [email or web address] 4 [facility], [address] [address], [place], [address], 3 12:26:21 Medication Orders Kenalog 10 mg/mL suspension for injection [email or web address] [facility], [place], [address], 3 12:11:16 ropivacaine (PF) 5 mg/mL (0.5 %) injection solution [email or web address] [facility], [address] [facility] [address], [place], [address], 3 12:11:18 omeprazole 40 mg capsule,del ayed release 2022 023 [facility] [address], [address] [facility] [address], [place], [address], 3 12:19:32 Patient TargetsNo targets recorded. Patient InstructionsNo instructions recorded. Reason for Referral None Reported. Results Created Date Observation Date Name Description Value Unit Range Abnormal Flag Note LastModifiedBy Organization Detail LastModifiedTime 01/30/20 XR, knee No observ ation record ed. [facility] [place] [address] [facility] [address], [place], [address], 01/29/2023 18:57:19 02/17/20 23 02/14/2023 MRI, knee, w/o contr ast No observ ation record ed. [email or web address] [facility] [address] [place], [address], 02/17/2023 09:48:33 02/20/20 23 02/16/2023 MRI, knee, [...] Name and Address Organization Details Recorded Time Insomnia 117754807 Active Not Available [facility] 3 00:53:36 Localized, primary osteoarthr itis of the hand 748385235 Active Not Available [facility] 3 00:53:37 Chronic cholecysti tis 56350246 Active Not Available [facility] 3 00:53:37 Abdominal pain 76070311 Active Not Available [facility] 3 00:53:37 Gastroesop hageal reflux disease 275420184 Active Not Available [facility] 3 00:53:37 Gallstone 969110419 Active Not Available [facility] 3 00:53:37 Injury of tendon of the rotator cuff of shoulder 204765014 Active Not Available [facility] 3 00:53:38 Vitamin D deficiency 24448213 Active Not Available [facility] 3 00:53:38 Depressive disorder 18703796 Active Not Available [facility] 3 00:53:38 Osteoarthr itis 951925485 Active Not Available [facility] 3 00:53:38 Diverticul ar disease 152476239 Active Not Available [facility] 3 00:53:38 Acute urinary tract infection 487708559 Active Not Available [facility] 3 00:53:38 Upper respirator y infection 58682418 Active Not Available [facility] 3 00:53:39 Lower abdominal pain 34823413 Active Not Available [facility] 3 00:53:39 Hyperlipid emia 89147956 Active Not Available [facility] 3 00:53:39 Increased liver function 65718994 Active Not Available [facility] 3 00:53:39 Pain of elbow region 10221279 Active Not Available [facility] 3 00:53:40 Fatigue 50698872 Active Not Available [facility] 3 00:53:40 Pain in limb 06029557 Active Not Available [facility] 3 00:53:40 Osteoarthr osis of the carpometac arpal joint of the thumb 34094146 Active 2018 Not Available [facility] 3 00:53:38 Chronic pain in coccyx for more than three months 6219295709828 05 Active 2019 Not Available [facility] 3 00:53:36 Steatotic liver disease 307957608 Active 2021 Not Available [facility] 3 00:53:37 Mixed anxiety and depressive disorder 882529242 Active 2021 Not Available [facility] 3 00:53:37 Screening mammograph y Active 2021 Not Available [facility] 3 00:53:37 Gastroesop hageal reflux disease without esophagiti s 329772111 Active 2021 Not Available [facility] 3 00:53:37 Long-term drug therapy Active 2021 Not Available [facility] 3 00:53:37 History of peptic ulcer 876380418 Active 2021 Not Available [facility] 3 00:53:37 Screening for malignant neoplasm of colon Active 2021 Not Available [facility] 3 00:53:38 Dyssomnia 72627402 Active 2021 Not Available [facility] 3 00:53:39 Uncontroll ed type 2 diabetes mellitus 642725816 Active 2021 Not Available [facility] 3 00:53:39 Well controlled type 2 diabetes mellitus 301002260 Active 2021 Not Available [facility] 3 00:53:39 Sleep apnea 79688121 Active 2021 Not Available [facility] 3 00:53:39 Postmenopa usal state 28580003 Active 2021 Not Available [facility] 3 00:53:40 Gout 65822389 Active 2021 Not Available [facility] 3 00:53:40 Tenosynovi tis of right radial styloid 0601271703111 9100 Active 2021 Not Available [facility] 3 00:53:36 Pain of left wrist 4115582654046 02 Active 2021 Not Available [facility] 3 00:53:38 Lumbar radiculopa thy 608006661 Active 2021 Not Available [facility] 3 00:53:36 Right flank pain 825134275 Active 2021 Not Available [facility] 3 00:53:36 Chest pain 74498543 Active 2021 Not Available [facility] 3 00:53:38 Precordial pain 96747270 Active 2021 Not Available [facility] 3 00:53:39 Neck pain 29516289 Active 2021 Not Available [facility] 3 00:53:40 Pain of right knee joint 5495171724597 00 Active 2022 Jennifer Granados RMA null, [place] [facility] 3 10:43:26 Pain of left knee joint 4665744035045 07 Active 2022 Jennifer Granados RMA null, [place] [facility] 3 10:43:46 Problem Notes None recorded. Procedures Surgical History Date Name Laterality Status Provider Name and Address Organization Details Recorded Time Date of Last Colonoscopy completed Not Available [facility] 09/02/2022 00:47:55 Colonoscopy completed Not Available [facility] 09/02/2022 00:47:57 Carpal tunnel completed Not Available [facility] 09/02/2022 00:47:57 rhinoseptoplasty completed Not Available [facility] 09/02/2022 00:47:57 Hysterectomy completed Not Available [facility] 09/02/2022 00:47:57 removal of product of conception of ectopic completed Not Available [facility] 09/02/2022 00:47:57 Cataract Surgery completed Not Available [facility] 09/02/2022 00:47:57 Appendectomy completed Not Available [facility] 09/02/2022 00:47:57 Cholecystectomy completed Not Available [facility] 09/02/2022 00:47:57 Imaging Results None recorded. Procedure [...] t Available azithromy elpidio 250 mg tablet 11/19 /2020 completed Not Available Not Available Not Available [...] e, administ ered by provider 06/22 completed [facility]: [phone] 4-20 Not Available Not Available Not [...] administ ered by the provider 12/11 completed [facility]: [phone] 6 Not Available Not Available Not Available Durezol 0.05 % eye drops 04/13 completed Not Available Not Available Not Available Besivance 0.6 % eye drops,rubia pension 04/13 completed Not Available Not Available Not Available ropivacai ne (PF) 5 mg/mL (0.5 %) injection solution in office procedur e, administ ered by provider 06/22 completed [facility] 53139-90 10-03 Not Available Not Available Not Available [...] Heart rate Body temperature Body weight Systolic And Diastolic Provider Name and Address Organization Details Last Updated DateTime 3 30 kg/m2 157.48 cm 97 % 97 % 67 /min 97.5 [degF] 12491.1 5 g 128/70 mm[Hg] Not Available [facility] 3 00:51:10 Date Recorded Body height Body mass index (BMI) Body weight Heart rate Oxygen saturation Oxygen saturation in Arterial blood by Pulse oximetry Body temperature Systolic And Diastolic Provider Name and Address Organization Details Last Updated DateTime 3 157.48 cm 30.2 kg/m2 44954.7 4 g 59 /min 97 % 97 % 97.9 [degF] 126/76 mm[Hg] Magui López RN [facility] 3 11:44:58 Date Recorded Body height Body mass index (BMI) Body weight Provider Name and Address Organization Details Last Updated DateTime 01/29/2023 154.94 cm 31.4 kg/m2 54844.33 g JORGE LUIS [place] [employer] 01/29/2023 11:13:01 Date Recorded Body height Provider Name an d Address Organization Details Last Updated DateTime 02/19/2023 154.94 cm JORGE LUIS [place] [employer] [facility] 02/19/2023 08:54:52 Date Recorded Systolic And Diastolic Provider Name and Address Organization Details Last Updated DateTime 06/24/2023 130/80 mm[Hg] MARY Hernandez [address] [place] [address], [place] [address], [place], [address], [place] [employer] [facility] 06/24/2023 12:31:01 Date Recorded Body height Body mass index (BMI) Body weight Respiratory rate Oxygen saturation Oxygen saturation in Arterial blood by Pulse oximetry Heart rate Systolic And Diastolic Provider Name and Address Organization Details Last Updated DateTime 3 154.94 cm 30.9 kg/m2 22825.3 5 g 16 /min 98 % 98 % 62 /min 122/80 mm[Hg] Mari WoodsJORGE LUIS [place] [facility] 3 11:41:41 Social History Question Answer Notes LastModified by Organizat ion Details LastModified Time Tobacco Smoking Status Never Smoker Not Available [facility] 09/02/2022 00:47:05 Do You Have An Advance Directive? No MIGRATION.72215 65563 Information not available 09/02/2022 Are You Blind Or Do You Have Difficulty Seeing? Yes MIGRATION.91985 54332 Information not available 09/02/2022 What Is Your Level Of Caffeine Consumption? Occasional MIGRATION.65920 06100 Information not available 09/02/2022 What Is Your Code Status? Full Code MIGRATION.38107 97815 Information not available 09/02/2022 In The 14 Days Before Symptom Onset, Have You Had Close Contact With A Laboratory-confir med COVID-19 While That Case Was Ill? No MIGRATION.58955 77657 Information not available 09/02/2022 In The 14 Days Before Symptom Onset, Have You Had Close Contact With A Person Who Is Under Investigation For COVID-19 While That Person Was Ill? No MIGRATION.48933 32259 Information not available 09/02/2022 Are You Deaf Or Do You Have Serious Difficulty Hearing? No MIGRATION.89681 03319 Information not available 09/02/2022 What Type Of Diet Are You Following? REGULAR MIGRATION.01829 78106 Information not available 09/02/2022 Which Illicit Or Recreational Drugs Have You Used? No MIGRATION.81060 00170 Information not available 09/02/2022 Have There Been Any Changes To Your Family Or Social Situation? No MIGRATION.81424 20338 Information not available 09/02/2022 What Is The Fluoride Status Of Your Home? Unknown MIGRATION.77002 63985 Information not available 09/02/2022 Are There Any Guns Present In Your Home? Yes MIGRATION.34948 98634 Information not available 09/02/2022 Do You Use Insect Repellent Routinely? No MIGRATION.12158 88450 Information not available 09/02/2022 Where Do You Live? [place] MIGRATION.09669 91825 Information not available 09/02/2022 Do You Have A Medical Power Of [employer]? No MIGRATION.44529 21320 Information not available 09/02/2022 What Was The Date Of Your Most Recent Tobacco Screening? 12/05/2021 MIGRATION.61138 84491 Information not available 09/02/2022 Do You Have Any Pets? No MIGRATION.57898 25780 Information not available 09/02/2022 What Is Your Relationship Status? MIGRATION.43686 86035 Information not available 09/02/2022 Do You Use Your Seat Belt Or Car Seat Routinely? Yes MIGRATION.91090 42914 Information not available 09/02/2022 Do You Have Smoke And Carbon Monoxide Detectors In Your Home? Yes MIGRATION.01397 24963 Information not available 09/02/2022 Are You Passively Exposed To Smoke? No MIGRATION.98670 94247 Information not available 09/02/2022 Are There Any Smokers In Your House? No MIGRATION.02326 27740 Information not available 09/02/2022 How Much Tobacco Do You Smoke? No MIGRATION.93884 03803 Information not available 09/02/2022 Do You Use Sunscreen Routinely? Yes MIGRATION.80998 29117 Information not available 09/02/2022 Have You Recently Traveled Abroad? No MIGRATION.17674 83218 Information not available 09/02/2022 Do You Have Difficulty Walking Or Climbing Stairs? Yes MIGRATION.67409 65681 Information not available 09/02/2022 Do You Have Any Dietary Restrictions? No MIGRATION.56200 97038 Information not available 09/02/2022 Sex: Unknown Functional Status Question Answer Note LastModified by OrganMasabiat ion Details LastModified Time Do you use any illicit or recreational drugs? No MIGRATION.502418 6261 Information not available 09/02/2022 Do you or have you ever used any other forms of tobacco or nicotine? No MIGRATION.080598 5397 Information not available 09/02/2022 What is your level of alcohol consumption? None MIGRATION.244053 4162 Information not available 09/02/2022 Do you or have you ever used smokeless tobacco? Never used smokeless tobacco MIGRATION.025400 6275 Information not available 09/02/2022 Do you have transportation difficulties? No MIGRATION.105501 4897 Information not available 09/02/2022 Are you able to walk independently without assistance or assistive devices? YESWOREST MIGRATION.245914 0357 Information not available 09/02/2022 Do you have difficulty doing errands alone? No MIGRATION.553531 6419 Information not available 09/02/2022 Are you able to care for yourself independently? Yes MIGRATION.378600 0791 Information not available 09/02/2022 Do you have difficulty dressing, bathing, grooming, or toileting? No MIGRATION.682153 1790 Information not available 09/02/2022 Do you or have you ever used e-cigarettes or vape? Never used electronic cigarettes MIGRATION.999341 3755 Information not available 09/02/2022 What is your exercise level? Occasional MIGRATION.502902 4560 Information not available 09/02/2022 Mental Status Question Answer Note LastModified by Organizat ion Details LastModified Time Do you feel stressed (tense, restless, nervous, or anxious, or unable to sleep at night)? MQ1145-6 MIGRATION.99407816 26 Information not available 09/02/2022 Do you have difficulty concentrating, remembering or making decisions? Yes MIGRATION.79435852 26 Information not available 09/02/2022 Family History Relationship Description Onset Age of this Age Resolved Age Notes LastModified by Organization Details LastModified Time Son Complication of anesthesia MIGRATION.005 0773386 Not available 09/02/2022 00:48:00 Unspecified Relation Family history of stroke grandf ather MIGRATION.146 6418268 Not available 09/02/2022 00:48:00 Unspecified Relation Family history of malignant neoplasm uncle MIGRATION.588 7494316 Not available 09/02/2022 00:48:00 Unspecified Relation Diabetes mellitus grandm other MIGRATION.600 1007191 Not available 09/02/2022 00:48:00 Unspecified Relation Heart disease MIGRATION.266 5486759 Not available 09/02/2022 00:48:00 Father Hypertensive disorder MIGRATION.913 8323999 Not available 09/02/2022 00:48:00 Father Sepsis MIGRATION.961 0793399 Not available 09/02/2022 00:48:00 Father Methicillin resistant Staphylococc us aureus infection MIGRATION.249 4597278 Not available 09/02/2022 00:48:00 Mother Cirrhosis - non-alcoholi c MIGRATION.137 5502809 Not available 09/02/2022 00:48:00 Mother Diabetes mellitus MIGRATION.422 5897627 Not available 09/02/2022 00:48:00 Brother Asthma MIGRATION.713 6788368 Not available 09/02/2022 00:48:00 Sister Myocardial infarction MIGRATION.473 2951911 Not available 09/02/2022 00:48:00 Sister Chronic hepatitis C MIGRATION.693 1864012 Not available 09/02/2022 00:48:00 Notes:cancer, blood clots al so in family history Medical History Condition Response HIGH CHOLESTEROL / HYPERLIPIDEMIA Y EYE PROBLEMS Y BACK / NECK PROBLEMS Y HAVE YOU BEEN HOSPITALIZED OR SEEN IN [facility] ER IN THE PAST YEAR ? Y ULCERS Y ARTHRITIS Y DIABETES, TYPE Y HEARTBURN / REFLUX Y HEPATITIS / LIVER DISEASE Y CATARACTS Y USE OF NSAIDS Y GOUT Y HEADACHES/MIGRAINES Y ANXIETY DISORDER Y ANEMIA/BLOOD DISORDER Y Gynecological History Statement/Question Response Date of [...] virus, trivalent, PF 04/03/2013 completed Not Available [facility] 2022 01:02:00 COVID-19, mRNA, LNP-S, PF, 30 mcg/0.3 mL dose 10/02/2020 completed Not Available [facility] 3 01:02:00 COVID-19, mRNA, LNP-S, PF, 30 mcg/0.3 mL dose 09/02/2020 completed Not Available [facility] 3 01:02:00 Past Encounters Encounter ID Performer Location Encounter Start Date Encounter Closed Date Diagnosis/Indication Diagnosis SNOMED-CT Code Diagnosis ICD10 Code Diagnosis IMO Codes Diagnosis Note [id number] Juan Duque MD [facility] [place] [address] [place] [address] 09/10/2020 00:00:00 09/10/2020 14:52:15 [id number] Juan Duque MD [facility] [place] [address] [place] [address] 10/08/2020 00:00:00 10/08/2020 14:51:17 [id number] MARY Hernandez [facility] [place] [address] [place] [address] 12/11/2020 00:00:00 12/12/2020 09:43:20 [id number] [facility] _ATHENA_M IGRATION_ DEFAULT_1 _1 , 12/26/2020 00:00:00 12/26/2020 18:55:30 [id number] MARY Hernandez [facility] [place] [address] [place] [address] 03/03/2021 00:00:00 03/03/2021 21:50:49 [id number] Juan Duque MD [facility] [place] [address] [place] [address] 06/03/2021 00:00:00 06/03/2021 16:40:41 [id number] MARY Hernandez [facility] [place] [address] [place] [address] 09/03/2021 00:00:00 10/02/2021 19:25:25 [id number] Juan Duque MD [facility] [place] [address] [place] [address] 09/26/2021 00:00:00 09/26/2021 09:52:56 [id number] Juan Duque MD [facility] [place] [address] [place] [address] 10/24/2021 00:00:00 10/24/2021 11:00:23 [id number] Juan Duque MD [facility] [place] [address] [place] [address] 12/05/2021 00:00:00 12/05/2021 10:03:29 [id number] Rashad Osman MD [facility] [place] [address] [place] [address] 12/16/2021 00:00:00 2022 15:50:28 [id number] Rashad Osman MD [facility] [place] [address] [place] [address] 03/05/2022 00:00:00 03/05/2022 09:43:50 [id number] Juan Duque MD [facility] [place] [address] [place] [address] 03/10/2022 00:00:00 03/10/2022 12:24:59 [id number] MARY Hernandez [facility] [place] [address] [place] [address] 07/21/2022 00:00:00 08/04/2022 21:10:07 [id number] MARY Hernandez [facility] [place] [address] [place] [address] 01/18/2023 11:37:44 01/18/2023 12:38:06 Well controlled type 2 diabetes mellitus 344362486 E11.9 stable on trulicity and glipizide therapy. A1c 6.3%. repeat labs in Jun. Screening mammography 24 405699 Z12.31 mammogram ordered Mixed anxi ety and depressive disorder 671798552 F41.8 stable on venlafaxin e ER 150mg daily. Long-term drug therapy 772199921 Z79.899 next full lab panel due in Jun. History of peptic ulcer 006406768 Z87.11 refill omeprazole 40mg daily Gastroesop hageal reflux disease without esophagitis 470469301 K21.9 stable on PPI therapy and EGD was up to date Hyperlipidemia 95039259 E78.5 stable on statin therapy, repeat labs due in Jun [id number] Lc Morrison MD [facility] [place] [address] [place] [address] 01/29/2023 10:39:37 02/01/2023 09:54:30 Pain of left knee joint 8269799400 15378 M25.562 [id number] Lc Morrison MD [facility] [place] [address] [place] [address] 02/19/2023 08:49:17 02/19/2023 10:28:02 Pain of left knee joint 8054891518 98894 M25.308 [id number] MARY Hernandez [facility] [place] [address] [place] [address] 06/24/2023 11:32:48 06/24/2023 12:31:15 Well controlled type 2 diabetes mellitus 957757511 E11.9 stable on trulicity and glipizide therapy. A1c 6.1%. Mixed anxi ety and depressive disorder 047786057 F41.8 stable on venlafaxin e ER 150mg daily. Gastroesop hageal reflux disease without esophagitis 961588237 K21.9 stable on PPI therapy and EGD was up to date Hyperlipidemia 92344636 E78.5 stable on statin therapy, Long-term drug therapy 413563731 Z79.899 History of peptic ulcer 214737342 Z87.11 Health Concerns Section Related Observation LastModified by Organization Detai ls LastModified Time None Recorded Concern Status LastModified by Organization Details LastModified Time None Recorded Advance Directives Directive N: Payers Insurance Date Sequence Insurance Name Policy Number Policy Smith Covered Member ID Smith Member ID Guarantor Name 06/30/2023 1 [facility] (MEDICARE REPLACEMENT/A DVANTAGE - HMO) [id number] Savannah Portillo [id number] Savannah Portillo Notes Date Note Type Note Provider Name and Address Organization Details Recorded Time 01/19/20 23 text/htm l HyperlipidemiaReported by PatientHPIFor duration, patient reportschronic. For control, patient reportsusually well controlled,improving, andat goal. For compliance, patient reportscompliant,compliant with diet, andexercises. For complications, patient reportsno coronary artery disease,no peripheral artery disease, andno cardiovascular disease. Anxiety/DepressionReported by PatientHPIFor severity, patient reportsdenies suicidal ideations,able to maintain relationships, anddoes not interfere with activities of daily living. For context, patient reportsno major life stressors. For associated symptoms, patient reportsdenies homicidal ideations,no significant weight gain,no significant weight loss,no visual/auditory hallucinations,no delusions, andno shortness of breath. For quality, (doesnt matter time of day). Reflux/GERDReported by PatientHPIFor severity, patient reportsimproving. For context, patient reportsnon-smoker,no drug/alcohol abuse,no drug alcohol withdrawal, andnot related to food/drink. For alleviating factors, patient reportsmedication. For associated symptoms, patient reportsno frequent coughing,no feeling of fullness/mass in throat,no hoarseness,no food getting stuck,no belching/burping,no vomiting,not vomiting blood,no regurgitation,no shortness of breath,no chest pain,no heartburn,no difficulty swallowing,no pain when swallowing,no bad taste,no decreased appetite,no weight loss,no black/tarry stools,no fatigue, andno throat pain. InsomniaReported by PatientHPIFor severity, patient reportssame. For associated symptoms, patient reportsno anxiety,no snoring,no depression,no known sleep apnea,no pain,no dyspnea,no urinary frequency, andlegs do not feel restless. DiabetesReported by PatientHPIFor duration, patient reportschronic. For control, patient reportsusually well controlledandimproved since last visit. For compliance, patient reportscompliant with medications,compliant with follow-up visits,compliant with diet, andcompliant with home glucose monitoring. For self care, patient reportsmonitoring glucose __. For context, patient reportsseeing eye doctor regularlyandchecking feet regularly. For associated symptoms, patient reportsno weight gain,no weight loss,no dizziness,no sweats,no headaches,no confusion,no increased thirst,no increased appetite,no increased urination,no blurred vision,no numbness of feet,no coronary artery disease,no kidney disease,no peripheral vascular disease,no diabetic retinopathy, andno diabetic neuropathy. Tashia Adams, MARY [address] [facility], [facility] [address], [place], [address], [facility] [employer] 02/01/2023 00:50:10 01/30/20 23 text/htm l Patient is a 68-year-old female referred by [...] diabetes. History of gout. Lc Morrison MD [address] [place] [address], [facility] [address], [place], [address], [place] [employer] 01/29/2023 18:58:32 06/24/20 23 text/htm l Anxiety/DepressionReported by PatientHPIFor severity, patient reportsinterference with sleepbut reportsdenies suicidal ideationsandable to maintain relationships. For duration, patient reportssymptoms lasting over 2 weeks. For onset/timing, patient reportsstill present. For context, patient reportsno major life stressors. For associated symptoms, patient reportsdenies homicidal ideations,no significant weight gain,no significant weight loss,no visual/auditory hallucinations,no delusions, andno shortness of breath. For quality, (doesnt matter time of day.). HyperlipidemiaReported by PatientHPIFor duration, patient reportschronic. For compliance, patient reportsdoes not exercisebut reportscompliantandcompliant with diet. For risk factors, patient reportshypertension. For control, patient reportsusually well controlled. For complications, patient reportsno coronary artery disease,no peripheral artery disease, andno cardiovascular disease. Reflux/GERDReported by PatientHPIFor severity, patient reportssame. For duration, patient reportspresent 5 or more years. For onset/timing, patient reportsgone now. For context, patient reportsnon-smoker,no drug/alcohol abuse,no drug alcohol withdrawal, andnot related to food/drink. For alleviating factors, patient reportsmedication. For associated symptoms, patient reportsno frequent coughing,no feeling of fullness/mass in throat,no hoarseness,no food getting stuck,no belching/burping,no vomiting,not vomiting blood,no regurgitation,no shortness of breath,no chest pain,no heartburn,no difficulty swallowing,no pain when swallowing,no bad taste,no decreased appetite,no weight loss,no black/tarry stools,no fatigue, andno throat pain. DiabetesReported by PatientHPIFor duration, patient reportschronic. For control, patient reportsusually well controlledandimproved since last visit. For compliance, patient reportscompliant with medications,compliant with follow-up visits,compliant with diet,compliant with home glucose monitoring, andhad eye doctor visit in last year. For context, patient reportsseeing eye doctor regularlyandchecking feet regularly. For associated symptoms, patient reportsno weight gain,no weight loss,no dizziness,no sweats,no headaches,no confusion,no increased thirst,no increased appetite,no increased urination,no blurred vision,no numbness of feet,no coronary artery disease,no kidney disease,no diabetic retinopathy, andno diabetic neuropathy. MARY Hernandez [address] [address], [place], [address], [place] [facility] 06/29/2023 17:37:21 OBGyn Episode No OBEpisode recorded.
--- OUTSIDE RECORDS SUMMARY | 2025-05-17 01:55 | XMS_ITS | Clinical Summary ---
Author Organization [facility] Address [address] [place] [address] Care Team Providers Care Deposition Reporter Name Role Phone Manisha Mann MD Primary Care Provider Source Comments [facility],non-owned Affiliates and Associated Physician Practices is amultiple site organization consisting of ambulatory clinics and hospital sitesin [place], [place] and [place]. This disclosure is being madepursuant to the Care Everywhere program and may not contain all information available regarding this patient. Last updated 18.[facility] [employer] Social History Tobacco Use Types Packs/Day Years [...] 12/31/2005 ZOSTER VACCINE (1 of 2) 12/31/2005 DEPRESSION SCREENING 07/05/2024 MEDICARE AWV CALENDAR YEAR 2024 COVID-19 VACCINE (1 - 2023-2 5 season) 2025 INFLUENZA VACCINE (#1) 2025 Respiratory Syncytial Virus (RSV) Vaccine Pt: [...] patient's age to complete this topic Insurance [place] [id number] [facility] MANAGED MEDICARE ADV Care Teams Deposition Reporter Relationship Specialty Start Date End Date Manisha Mann MD [address] [place] [phone] [facility] - General 04/24/21
--- OUTSIDE RECORDS SUMMARY | 2025-05-17 01:55 | XMS_ITS | Encounter Summary ---
Author Organization [facility] Address [address] [facility] [place] [address] Care Team Providers Care Instrument Technologist Name Role Phone Manisha Mann MD Primary Care Provider Encounter Details Date Type Department Care Team (Late st Contact Info) Description 06/02/2023 Lab Requisition [facility] - DermPath Lab [address] [facility] [place] [address] Angeli Basurto DO [address] [facility] [address] [place] [address] Social History Tobacco Use Types Packs/Day Years [...] Diagnosis Comments DERMATOPATHOLOGY Routine 06/02/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 SKIN, right cheek: BASAL CELL CARCINOMA, NODULAR TYPE (C44.319) Specimen B. SKIN, right low back: NEUROFIBROMA, SUPERFICIAL PORTIONS OF (D36.10) (see microscopic description) 3 12:59 PM [facility] DERMATOPATHOLOGY LABORATORY at [address] TRUCK DRIVER SALESPERSON Clinical History A-B: R/O NMSC 3 12:59 PM [facility] DERMATOPATHOLOGY LABORATORY Gross Description Specimen A: Received [...] 3x2x1 mm. Jar 0. 3 12:59 PM [facility] DERMATOPATHOLOGY LABORATORY Microscopic Description Specimen A. SKIN, [...] were obtained and reviewed. 3 12:59 PM [facility] DERMATOPATHOLOGY LABORATORY Disclaimer An external and internal positive and negative controls are appropriate for the histochemical, immunohistochemical and immunofluorescence stain(s) in this case (if any), except where stated explicitly. The performance characteristics of the stain(s) cited in this report were developed and its performance characteristic determined by the Dermatopathology Laboratory at [facility], directed by Dr. Daniel Ahuja. These tests need not be, and therefore are not, approved by the [place] Food and Drug Administration. The tests are used for clinical purposes. 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 DRIVER SALESPERSON 06/03/2023 1:12 PM TRUCK DRIVER SALESPERSON Miscellaneous samples (specimen) TISSUE SPECIMEN FROM SKIN / Unknown 06/02/2023 2:26 PM TRUCK DRIVER SALESPERSON 06/03/2023 1:12 PM TRUCK DRIVER SALESPERSON us Angeli Basurto DO LAB - PATHOLOGY/CYTOLOGY ORDERABLES Final Result DERMATOPATHOLOGY LABORATORY [facility] - Department of Dermatology [facility] [address] [place] [address], [address] [phone] documented in this encounter Visit Diagnoses Not on filedocumented in this encounter Care Teams Instrument Technologist Relationship Specialty Start Date End Date Manisha Mann MD [address] [place] [address] [phone] PCP - General 04/24/21 documented as of this encounter
--- OUTSIDE RECORDS SUMMARY | 2025-05-17 01:55 | XMS_ITS | Clinical Summary ---
Author Organization [facility] Address formerly [facility] [place] [address] Care Team Providers Care Vp Director Of Creative Strategy Name Role Phone Tashia Stevenson Primary Care Provider [phone] Allergies No known active allergies Medications atorvastatin 20 MG tablet 1 Active DULoxetine (CYMBALTA) 60 MG capsule Cymbalta 60 mg capsule,delayed release Take 1 capsule every day by oral route for 90 days. Active vitamin D2, ergocalciferol, 41307 UNITS capsule Take 50,000 Units by mouth [...] Encounters Date Type Department Care Team Description 04/02/2025 9:12 AM CDT - 04/02/2025 11:59 PM CDT Hospital Encounter [facility] [address] [place] [address] Lc Menchaca MD Discharge Disposition: Home or Self Care (Routine Discharge) 04/02/2025 Travel from Last 3 Months Family History Medical [...] Information Value Date Recorded Sex Assigned at Female 12/20/2024 1:39 PM CDT Legal Sex Female 7:22 PM CDT Gender Identity Not on file Sexual Orientation Not on file Last Filed Vital Signs Vital Sign Reading Time Taken Comments Blood Pressure 154/69 07/28/2021 4:16 PM [employer] Pulse 60 07/28/2021 4:16 PM [employer] Temperature 36.8 C (98.3 F) 07/28/2021 4:16 PM [employer] Respiratory Rate 16 07/28/2021 4:16 PM [employer] Oxygen Saturation 98% 07/28/2021 4:16 PM [employer] Inhaled Oxygen Concentration - - Weight 78 kg (172 lb) 06/17/2021 11:41 AM [employer] Height 157.5 cm (5' 2) 06/17/2021 11:41 AM [employer] Body Mass Index 31.46 06/17/2021 11:41 AM [employer] Plan of Treatment Health Maintenance Due Date Last Done Comments Colorectal Cancer Screening Colonoscopy (10 Years) 1955 Diabetes: Retinopathy Eye Exam 12/31/1973 Hepatitis C 12/31/1973 DTaP, Tdap and Td Vaccines (1 - Tdap) 12/31/1974 Zoster Vaccines (1 of 2) 12/31/2005 Annual Medicare Wellness Visit 12/31/2020 Pneumococcal Vaccine: 50+ Years (2 of 2 - PPSV23, PCV20, or PCV21) 07/03/2021 05/08/2021 COVID-19 Vaccine (3 - season) 2025 10/02/2020, 09/05/2020 Influenza Adult (#1) 2025 05/28/2023, 04/17/2022, 04/09/2020, Additional history exists Hemoglobin A1C 06/08/2025 12/07/2024, 06/04, 12/07/2023, Additional history exists Kidney Health Evaluation 06/19/2025 06/19/2024 Lipid Panel 12/07/2025 12/07/2024, 1212/2023, 12/07/2023, Additional history exists Mammogram Screening 06/20/2026 06/20/2024, 03/23/2023, 02/25/2021, Additional history exists RSV Immunization or 60+ Years (1 - 1-dose 75+ series) 12/31/2030 Dexa Scan (General) Completed 03/10/2022 Hepatitis A Vaccines Aged Out No long er eligible based on patient's age to complete this topic Meningococcal B Vaccine Aged Out No l onger eligible based on patient's age to complete this topic Meningococcal Vaccine Aged Out No gilles sofia eligible based on patient's age to complete this topic RSV Immunizations Under 20 Months Aged Out No longer eligible based on patient's age to complete this topic Procedures Procedure Name Priority Date/Time Associated Diagnosis Comments XR SHOULDER INJ/ASP RT Routine 04/02/2025 10:19 AM CDT Frozen shoulder LIPID PANEL Routine 12/07/2024 8:33 AM CDT Encounter for long-term (current) drug use HEMOGLOBIN, GLYCOSYLATED Routine 12/07/2024 8:33 AM CDT Encounter for long-term (current) drug use MG SCREENING W KENNEDY MITZI DIGI Routine 06/20/2024 10:29 AM [employer] Encounter for screening mammogram for malignant neoplasm of breast BONE DENSITY/DEXA Routine 03/10/2022 12: 46 PM CDT Post-menopausal from Last 3 Months or Most Recently Relevant to Health Maintenance Results * XR SHOULDER INJ/ASP RT (04/02/2025 10:19 AM CDT) Anatomical Region Laterality Modality Shoulder Radiographic Janice ging 04/02/2025 5:04 PM CDT Impressions 04/02/2025 5:07 PM CDT IMPRESSION: Technically successful right shoulder joint injection. Steroid mixture injected as above. Pain before the procedure was 10 out of 10. After the procedure was 0 out of 10 Ordered By: LC MENCHACA Interpreted By: Ozzie Juarez, 04/02/2025 5:04 PM Narrative 04/02/2025 5:07 PM CDT [facility] [address] [facility] [place] [phone] IMAGING STUDIES: XR SHOULDER INJ/ASP RT DATE: 04/02/2025 9:21 AM CLINICAL HISTORY: FROZEN SHOULDER . Pain. COMPARISON: No Comparisons.. PROCEDURE/FINDINGS: The procedure with its risk and benefits were explained to the patient who seemed to understand and gave their verbal and written consent. Patient's right shoulder was marked and initialed. Appropriate timeout procedure performed. 8 mL of 1% lidocaine utilized for local anesthetic Patient was prepped and draped in a sterile fashion and using a 22-gauge spinal needle the right shoulder joint was entered. 3 mL of Isovue 300 injected to ensure intra-articular location.. Through this needle a mixture of 80 mg of Depo-Medrol and 4 mL of 1% lidocaine was injected.. Patient tolerated the procedure well and left the fluoroscopy suite in stable condition. Fluoroscopy time 0.4 minutes. . Patient is a nonsmoker. Procedure Note Sudheer Juarez MD - 04/02/2025 [facility] [address] [facility] [place] [address] IMAGING STUDIES: XR SHOULDER INJ/ASP RT DATE: 04/02/2025 9:21AM CLINICAL HISTORY: FROZEN SHOULDER . Pain. COMPARISON: No Comparisons.. PROCEDURE/FINDINGS: The procedure with its risk and benefits were explained to the patient whoseemed to understand and gave their verbal and written consent. Patient'sright shoulder was marked and initialed. Appropriate timeout procedureperformed. 8 mL of 1% lidocaine utilized for local anesthetic Patient was prepped and draped in a sterile fashion and using a 22-gaugespinal needle the right shoulder joint was entered. 3 mL of Isovue 300injected to ensure intra-articular location.. Through this needle a mixture of 80 mg of Depo-Medrol and 4 mL of 1%lidocaine was injected.. Patient tolerated the procedure well and left the fluoroscopy suite instable condition. Fluoroscopy time 0.4 minutes. . Patient is a nonsmoker. IMPRESSION: Technically successful right shoulder joint injection. Steroid mixtureinjected as above. Pain before the procedure was 10 out of 10. After the procedure was 0 outof 10 Ordered By: LC MENCHACA Interpreted By: Ozzie Juarez, 04/02/2025 5:04 PM us Lc Menchaca MD FLUOROSCOPY Final Result * (ABNORMAL) HEMOGLOBIN, GLYCOSYLATED (12/07/2024 8:33 AM CDT) HGB A1C 6.3(H) <5.7 % 12/07/2024 9:22 AM CDT [facility] Comment: INCREASED RISK OF DIABETES <5.7% NON-DIABETES 5.7-6.4% INCREASED RISK FOR FUTURE DIABETES > OR = 6.5 CONSISTENT WITH DIABETES STANDARDS OF MEDICAL CARE IN DIABETES-2010 DIABETES CARE, 33(SUPP 1): S1-S61,2010 ESTIMATED AVG GLUCOSE 134 mg/dL 12/07/2024 9:22 AM CDT [facility] 12/07/2024 8:33 AM CDT us [facility] Final Result [facility] [address] [place] [address], * (ABNORMAL) LIPID PANEL (12/07/2024 8:33 AM CDT) CHOLESTEROL 191 <200.0 MG/DL 12/07/2024 9:25 AM CDT [facility] TRIGLYCERIDES 149 <150 MG/DL 12/07/2024 9:25 AM CDT [facility] HDL 54 >40.0 MG/DL 12/07/2024 9:25 AM CDT [facility] LDL (CALCULATED) 107(H) <100 MG/DL 12/07/2024 9:25 AM CDT [facility] NON HDL CHOLESTEROL 137(H) <130 MG/DL 12/07/2024 9:25 AM CDT [facility] CHOL/HDL RATIO 3.5 0.0 - 4.5 12/07/2024 9:25 AM CDT [facility] VLDL CALCULATION 30 5 - 55 MG/DL 12/07/2024 9:25 AM CDT [facility] LIPID INTERPRETATION 12/07/2024 9:25 AM CDT [facility] Comment: NIH CONCENSUS REPORT RECOMMENDATIONS: ADULT CHILD LOW RISK: CHOLESTEROL <200 <170 TRIGLYCERIDE <150 --- HDL >=60 --- LDL <100 <110 BORDERLINE: CHOLESTEROL 200-239 170-199 TRIGLYCERIDE 150-199 --- HDL 40-59 --- LDL 100-159 110-129 HIGH RISK: CHOLESTEROL >=240 >=200 TRIGLYCERIDE >=200 --- HDL <40 --- LDL >=160 >=130 12/07/2024 8:33 AM CDT us [facility] Final Result [facility] [address] [place] [address], * MG SCREENING W KENNEDY SYLVESTER (06/20/2024 10:29 AM [employer]) Anatomical Region Laterality Modality Breast Bilateral Mammography 06/20/2024 4:23 PM [employer] Impressions 06/20/2024 4:31 PM [employer] ===== IMPRESSION: ===== 1. Stable mammographic appearance with no new findings to suggest malignancy in either breast. Assessment: ACR BI-RADS 2 - BENIGN FINDING(S) Recommendation: 1:Routine Screening Bilateral Comments: Ordered By: TASHIA STEVENSON Interpreted By: Ozzie Juarez, 06/20/2024 4:23 PM Narrative 06/20/2024 4:31 PM [employer] [facility] [address] [place] [address] EXAMINATION: Digital bilateral screening mammogram with 3-D [...] calcifications in either breast to suggest malignancy. T[facility] Final Result * BONE DENSITY/DEXA (03/10/2022 12:46 PM CDT) [...] repeat imaging in 2 years Ordered By: TASHIA STEVENSON Interpreted By: Ozzie Juarez, 03/10/2022 1:15 [...] with repeatimaging in 2 years Ordered By: TASHIA STEVENSON Interpreted By: Ozzie Juarez, 03/10/2022 1:15 PM Tashia HERNAN[facility] DEXA Final Result from Last 3 Months or Most Recently Relevant to Health Maintenance Insurance MEDICARE Care Teams Vp Director Of Creative Strategy Relationship Specialty Start Date End Date Tashia Stevenson PA PCP - General PHYSICIAN DIRECTOR [employer] 01/16/21
[2025-05-17 07:11] VITALS: BP 132/79; PULSE 62; RESP 18; TEMP 35.9; O2SAT 97; BMI 29.6
[2025-05-17] MEDS: LACTATED RINGERS 1,000 ML 150 ML IV CONT (07:22)
[2025-05-17] MEDS: SIMETHICONE ORAL SUSPENSION 20 MG/0.3 ML 30 ML BOTTLE 1.8 ML PO (07:32)
--- NOTE | 2025-05-17 07:43 | P.PNAN_ITS ---
Anes - Initial Pre Proc Eval Procedure: Operation Date: 05/17/25 08:30 Proposed Procedures p Esophagogastroduodenoscopy - Amari Billings MD Date/Time: 05/17/25 07:43 Surgeon: Amari Billings MD Pre Op Diagnosis: Gastroparesis Patient Data Age: 70 Gender: F Height: 1.6 m Weight: 75.8 kg Last Vital Signs Temp 35.9 C L 05/17/25 07:11 Pulse 62 05/17/25 07:11 Resp 18 05/17/25 07:11 BP 132/79 05/17/25 07:11 Pulse Ox 97 05/17/25 07:11 O2 Del Method Room Air 05/17/25 07:11 Allergies Allergy/AdvReac Type Severity Reaction Status Date / Time No Known Allergies Allergy Verified 05/17/25 07:10 Home Medications ?Medication ?Instructions ?Recorded ?Confirmed ?Type atorvastatin 40 mg tablet (Lipitor) 40 mg PO HS 05/17/25 History glimepiride 2 mg tablet 2 mg PO DAILY 02/26/2105/17 History omeprazole magnesium 20 mg 40 mg PO BID 02/26/2105/17 History tablet,delayed release (Prilosec OTC) venlafaxine 150 mg 150 mg PO DAILY 02/26/21 History capsule,extended release 24 hr acetaminophen 325 mg capsule 325 mg PO Q6H PRN pain 05/07/25 History (Tylenol) dulaglutide 1.5 mg/0.5 mL 4.5 mg subcut WEEKLY 5 05/17/25 History subcutaneous pen injector (Trulicity) metoclopramide HCl 10 mg tablet 10 mg PO Q8H PRN nause a and 03/15/25 05/07/25 Rx vomiting #90 tabs Laboratory Tests 05/17/25 07:29 POC Capillary Glucose 108 H mg/dl (65-105) Patient hx anesthesia problems: none Family hx anesthesia problems: none Results Review: All pre-operative results and documents have been reviewed as part of the pre- operative evaluation. [facility] Past Medical History Medical History (Reviewed 03/09/25 @ 07:07 by Narcisa Mcleod [facility]) PONV (postoperative nausea and vomiting) Depression Anxiety Diabetes type 2, controlled Hyperlipidemia GERD (gastroesophageal reflux disease) Surgical History Surgical History (Reviewed 03/09/25 @ 07:07 by Narcisa Mcleod [facility]) History of hysterectomy History of cholecystectomy History of appendectomy Family History Family History (Reviewed 03/09/25 @ 07:07 by Narcisa Mcleod [facility]) Father Hypertension Mother Hypertension Family history of diabetes mellitus in first degree relative Sibling Hypertension Other Diabetes mellitus Family history of allergic disorder Family history of heart disease in male family member before age 55 Social History Social History (Updated 03/09/25 @ 09:03 by Mireya Singh [facility]) Smoking status: Never smoker Second hand tobacco smoke exposure: Yes Alcohol intake: never Substance use: never Substance use type: does not use Do You Feel Safe in your Home?: Yes Lack of Transportation: No Lack of Food: Never True Current Housing: I Have Housing Concerned About Future Housing: No Difficulty Paying Gas/Electric Bills: No Difficulty Paying for Meds: No Currently Unemployed: No Education: High School Diploma/GED Difficulty w/ Childcare or Family Care: No Living arrangements: with family Additional living arrangements comments: with Occupation/Education: occupation 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 Informed Consent: The patient's anesthetic plan and its attendant risks and benefits were discussed with the patient/family/POA. Questions were solicited and answers provided to the satisfaction of the patient/family/POA.
--- NOTE | 2025-05-17 08:20 | PM.IMHP ---
H&P: HPI History of Present Illness Date/Time: 05/17/25 08:20 Chief Complaint: Gastric retention Narrative: 2 months ago, an EGD was attempted and was not completed due to large amounts of food retained in the stomach. Today she comes having follow the liquid diet, for EGD for the evaluation of intermittent epigastric pain/discomfort and fullness. Review of Systems Review of Systems: All systems reviewed & are unremarkable except as noted in HPI and below PMFSH Past Medical History Medical History PONV (postoperative nausea and vomiting) Depression Anxiety Diabetes type 2, controlled Hyperlipidemia GERD (gastroesophageal reflux disease) Surgical History Surgical History History of hysterectomy History of cholecystectomy History of appendectomy Family History Family History Father Hypertension Mother Hypertension Family history of diabetes mellitus in first degree relative Sibling Hypertension Other Diabetes mellitus Family history of allergic disorder Family history of heart disease in male family member before age 55 Social History Social History (Updated 03/09/25 @ 09:03 by Mireya Singh CMA) Smoking status: Never smoker Second hand tobacco smoke exposure: Yes Alcohol intake: never Substance use: never Substance use type: does not use Do You Feel Safe in your Home?: Yes Lack of Transportation: No Lack of Food: Never True Current Housing: I Have Housing Concerned About Future Housing: No Difficulty Paying Gas/Electric Bills: No Difficulty Paying for Meds: No Currently Unemployed: No Education: High School Diploma/GED Difficulty w/ Childcare or Family Care: No Living arrangements: with family Additional living arrangements comments: with Occupation/Education: occupation 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 Gender identity (if verbalized by the patient): Female Spiritual care concerns: No Meds Home Medications and Allergies Home Medications ?Medication ?Instructions ?Recorded ?Confirmed ?Type atorvastatin 40 mg tablet (Lipitor) 40 mg PO HS 02/26/21 05/17/25 History glimepiride 2 mg tablet 2 mg PO DAILY 02/26/21 05/17/25 History omeprazole magnesium 20 mg 40 mg PO BID 02/26/21 05/17/25 History tablet,delayed release (Prilosec OTC) venlafaxine 150 mg 150 mg PO DAILY 02/26/21 05/17/25 History capsule,extended release 24 hr acetaminophen 325 mg capsule 325 mg PO Q6H PRN pain 11/26/23 05/07/25 History (Tylenol) dulaglutide 1.5 mg/0.5 mL 4.5 mg subcut WEEKLY 09/08/24 05/17/25 History subcutaneous pen injector (Trulicity) metoclopramide HCl 10 mg tablet 10 mg PO Q8H PRN nausea and 03/15/25 05/07/25 Rx vomiting #90 tabs Allergies Allergy/AdvReac Type Severity Reaction Status Date / Time No Known Allergies Allergy Verified 05/17/25 07:10 Vital Signs Vital Signs - 24 hr 05/17/25 07:11 Temperature 96.7 F L Pulse Rate 62 Respiratory Rate 18 Blood Pressure 132/79 Pulse Oximetry 97 Oxygen Delivery Room Air Exam Const: General: cooperative and healthy appearing Resp: Effort & Inspection: normal respiratory effort and able to speak in complete sentences Auscultation: clear to auscultation bilaterally Cardio: Rate: regular rate Rhythm: regular rhythm GI: Inspection: normal to inspection GI Palp: No No hepatosplenomegaly present Auscultation: normal bowel sounds Rectal Exam: deferred Skin: General skin exam: normal color Psych: Appearance: grossly normal Mental Status: mental status grossly normal Assessment and Plan Assessment and plan (1) Gastroparesis: Code(s): K31.84 - Gastroparesis Status: Acute Assessment and Plan: The patient is deemed a good candidate for the procedure. Consent signed. Will proceed.
--- NOTE | 2025-05-17 08:41 | S_PTH ---
PATIENT: Savannah Portillo LOC: [facility]#:[id number] AGE/SX: 70/F ROOM: RE05/17/[address]: Amari Billings MD : [id number] BED: DIS: 05/17/2025 SPEC #: [id number] RECD: 05/17/25 09:58 STATUS: CITLALY RESylvia #: [id number] JUDY: 05/17/25 08:[address]: Amari Billings DEPT: [facility] Surgical RECD BY: [place] Ny ENTERED: 05/17/25 09:58 SP TYPE: Surgical OTHR DR: Tashia Adams, PA-C Tissues: A - Gastric Biopsy B - Gastric Biopsy C - Gastric Biopsy Procedures: Hematoxylin and Eosin Stain Gross and Microscopic Level 4
[2025-05-17 08:45] VITALS: BP 138/84; PULSE 66; RESP 23; O2SAT 99
[2025-05-17 08:55] VITALS: BP 131/65; PULSE 61; RESP 22; O2SAT 97
[2025-05-17 09:05] VITALS: BP 135/80; PULSE 64; RESP 23; O2SAT 99
[2025-05-17 10:04] LABS: HPYLORIRESULT Negative (Negative)
== END 2025-05-17 09:15 | disposition home or self-care (01) ==
PROVIDERS: PCP Physician Assistant; Visit Provider Internal Medicine Gastroenterology
PROC: 0DJ08ZZ Inspection of Upper Intestinal Tract, Via Natural or Artificial Opening Endoscopic (ICD-10-PCS; CPT 43239; principal; 2025-05-17 08:30)
DX: K25.7 Chronic gastric ulcer without hemorrhage or perforation (principal); K44.9 Diaphragmatic hernia without obstruction or gangrene; E11.43 Type 2 diabetes mellitus with diabetic autonomic (poly)neuropathy; K31.84 Gastroparesis
CPT/HCPCS: 43239; 82948; 87081; 88305; J2003; J2704; J7120